=== PATIENT | female | born 1955 | race Caucasian/White ===

== ENCOUNTER 2017-11-15 10:00 | Outpatient (CLI) | payer OTHER, SELFPAY ==
--- NOTE | 2017-11-15 10:03 | DI.RAD_ITS ---
SYMPTOM/DIAGNOSIS: LT KNEE PAIN, PRE TKA LEFT KNEE: Frontal and lateral views. Comparison is made with 10/22/12. There is moderately severe narrowing in the medial femorotibial joint space and the patellofemoral joint. Prominent osteophytes are present in all three joint compartments. The findings are most marked however in the patellofemoral joint. There is a small suprapatellar joint effusion. Vascular calcifications are seen. The bones appear intact. IMPRESSION: Marked osteoarthritis of the left knee. LEG LENGTH EXAMINATION: Note is made of degenerative changes of the knees bilaterally. There is moderately severe joint space narrowing in the medial compartments bilaterally and kumar-articular spurring is seen in both medial and lateral femoral tibial joint spaces. The right lower extremity measures 85 cm. The left lower extremity measures 84 cm. IMPRESSION: Moderately severe osteoarthritis of the knees bilaterally.
== END 2017-11-15 10:20 ==
PROVIDERS: PCP Internal Medicine; Visit Provider Student in an Organized Health Care Education/Training Program
DX: M25.562 Pain in left knee (principal); M25.462 Effusion, left knee; M17.0 Bilateral primary osteoarthritis of knee
CPT/HCPCS: 73560; 77073

== ENCOUNTER 2017-12-04 02:45 | Outpatient (CLI) | payer OTHER, SELFPAY ==
[2017-12-04 08:25] LABS: Hemoglobin A1C 6.1 % (4.5-6.2)
[2017-12-04 09:59] LABS: Anion Gap 11.8 mmol/L (3-11); BUN 7 mg/dL (7-18); CO2 27.2 mmol/L (21.0-32.0); CREATININE 0.71 mg/dL (0.55-1.02); Calcium 9.4 mg/dL (8.5-10.1); Chloride 100 mmol/L (98-107); Glucose 100 mg/dL (70-100); Potassium 3.8 mmol/L (3.5-5.1); Sodium 139 mmol/L (136-145); TSH 4.16 uIU/mL (0.358-3.74)
[2017-12-04 10:09] LABS: Vitamin D 25 Total 61.1 ng/ml (30-100)
[2017-12-05 10:14] LABS: Parathyroid Hormone,Intact 55 pg/ml (19-88)
== END 2017-12-04 03:05 ==
PROVIDERS: PCP Internal Medicine; Visit Provider Internal Medicine Endocrinology, Diabetes & Metabolism
DX: E55.9 Vitamin D deficiency, unspecified (principal); Z86.39 Personal history of other endocrine, nutritional and metabolic disease; E11.9 Type 2 diabetes mellitus without complications; E03.8 Other specified hypothyroidism
CPT/HCPCS: 36415; 80048; 82306; 83036; 83970; 84443

== ENCOUNTER 2017-12-25 07:58 | Outpatient (CLI) | payer OTHER, SELFPAY ==
[2017-12-25 10:29] LABS: HCT 42.2 % (36.0-46.0); Mean Corp. HGB Concentration 33.2 g/dL (32.0-36.0); Mean Corpuscular Hemoglobin 29.1 pg (27.0-33.0); Mean Corpuscular Volume 87.7 fL (80-95); Platelet Count 334 x1000/uL (130-400); RBC 4.81 m/cumm (4.00-5.20); RBC Distribution Width 13.6 % (11.7-14.6); White Blood Cell Count 9.45 k/cumm (4.4-10.8)
[2017-12-25 11:17] LABS: Anion Gap 9.7 mmol/L (3-11); BUN 8 mg/dL (7-18); CO2 30.3 mmol/L (21.0-32.0); CREATININE 0.76 mg/dL (0.55-1.02); Calcium 9.5 mg/dL (8.5-10.1); Chloride 96 mmol/L (98-107); Glucose 94 mg/dL (70-100); Potassium 3.4 mmol/L (3.5-5.1); Sodium 136 mmol/L (136-145)
--- NOTE | 2017-12-25 12:58 | HPE_ITS ---
Date of service: 12/25/17 Assessment and Plan (1) Left knee DJD: Current visit: Yes Status: Chronic Left total knee replacement. As long as her dental work goes as planned, that is extraction of the tooth with no other surgical procedures, then we will move forward with a left total knee replacement. Details of surgery as well as risks, and pertinent anatomy were discussed with patient. All questions were answered. History of Present Illness Chief Complaint: Left knee pain Narrative: Uma a 62-year-old female who complaining of left knee pain for about 4 years now. She states the pain has been tolerable and managed for a few years with conservative treatment. She states that the injections had helped her significantly for a time. The last injection however only lasted about 3 months. She also has been working with physical therapy, and has been getting by. She eventually had an increase in her pain and now it is bothering her on a day-to-day basis. She states that she really has to push herself to get through a full day. Her pain is worse at the end of the day, and even when she sleeps. She has significant trouble going up and down stairs, down being worse. She has had x-rays which show severe arthritis in all compartments of her knee, including joint space narrowing to [id number], as well as bone spurring throughout. Spurring is most significant medially, and posteriorly. At this point since she has failed conservative treatment, Uma would like to move forward with a left total knee replacement. Pertinent Surgical Information Patient does have a history of hypertension which is well controlled with medication. She also has history of diabetes which is also well controlled with oral medications. Her last A1c was done on 12/04/2017 and it was 6.1. She also has a history of hypothyroidism which is also controlled with medication. She has not been diagnosed with anxiety or depression, however she has just recently lost her and states that she has been a little depressed since then. This is not being treated with medication. She states that she has a dental procedure scheduled for this week. She has a cracked tooth which she is going to have removed. She states that she has no plans of having any crowns or implants or root canals for this tooth. Patient denies history of CVA, AL, angina, asthma, COPD, renal or liver disorders, hepatitis, bleeding disorders, or immune disorders. No complications from anesthesia. Review of Systems Constitutional Denies fever(s) ENT Denies dizziness and Denies sore throat Cardiovascular Denies chest pain, Denies palpitations and Denies dyspnea Respiratory Denies dyspnea Gastrointestinal Denies abdominal pain, Denies melena, Denies hematochezia, Denies diarrhea, Denies nausea and Denies vomiting Genitourinary Denies hematuria and Denies dysuria Neurologic Denies dizziness Endocrine Denies palpitations PFSH Family History Mother Essential hypertension Heart disease Hyperlipidemia Father Essential hypertension Heart disease Medical History Left knee DJD (Chronic) Subclinical hypothyroidism (Acute 01/18/12) Primary hyperparathyroidism (Acute 03/11/13) Osteopenia (Acute 03/22/13) Obesity (Acute 12/14/12) Lipoma of colon (Acute 05/08/14) Impaired fasting glucose (Acute 09/29/11) Essential hypertension (Acute 08/27/14) Diabetes mellitus, type II (Acute 12/13/16) History of colonic polyps (Acute) GERD (gastroesophageal reflux disease) (Acute) Social History Smoking/Tobacco Use Status: Never Surgical History History of carpal tunnel release of both wrists (Acute) History of ovarian cystectomy (Acute) History of parathyroidectomy (Acute) History of tonsillectomy and adenoidectomy (Acute) Status post partial lobectomy of lung (Acute) History of hysterectomy (Chronic) Colonoscopy - MAC (05/02/14) EGD - MAC (05/02/14) Meds Home Medications Medication Instructions Recorded Confirmed Type acetaminophen 1,000 mg PO PRN PRN 07/17/12 12/25/17 History ibuprofen 400 mg PO PRN PRN 07/17/12 12/25/17 History [id number]-Kv-hwmu-minerals 1 tab-cap PO DAILY tab-cap 07/17/12 12/25/17 History [Women's One Daily] omeprazole 20 mg PO DAILY 07/17/12 12/25/17 History cyclosporine [Restasis] 1 drp OPHTHALMIC BID PRN drp 12/14/12 12/25/17 History ergocalciferol (vitamin D2) 1 tab-cap PO weekly tab-cap 09/29/14 12/25/17 History [Vitamin D2] calcium citrate-vitamin D3 2 ea PO DAILY 12/18/15 12/25/17 History metformin 500 mg PO DAILY 12/13/16 12/25/17 History hydrochlorothiazide 25 mg tablet 25 mg PO DAILY #90 tab 11/22/17 12/25/17 Rx losartan 25 mg tablet 25 mg PO DAILY #90 tab-cap 11/22/17 12/25/17 Rx levothyroxine 50 mcg capsule 50 mcg PO DAILY 12/11/17 12/25/17 History magnesium 250 mg PO HS 12/25/17 12/25/17 History Allergies Allergy/AdvReac Type Severity Reaction Status Date / Time celecoxib [From Celebrex] Allergy Severe Itching Unverified 12/25/17 09:15 ciprofloxacin Allergy Severe Unverified 12/25/17 09:15 metronidazole Allergy Severe Unverified 12/25/17 09:15 Sulfa (Sulfonamide Allergy Severe Hives Unverified 12/25/17 09:15 Antibiotics) sulfamethoxazole Allergy Severe Hives Unverified 12/25/17 09:15 trimethoprim Allergy Unknown Unverified 12/25/17 09:15 diclofenac AdvReac elevated Unverified 12/25/17 09:15 liver enzymes Exam [facility] Head: normocephalic and atraumatic General nose exam: no nasal discharge Throat: uvula midline and no uvular edema Other: soft palate rises symmetrically, no erythema Eyes Conjunctivae: conjunctivae normal Sclera: sclerae normal Pupils: PERRL Resp Effort & Inspection: normal respiratory effort Auscultation: clear to auscultation bilaterally and no wheezes Cardio Rate: regular rate Rhythm: regular rhythm Heart Sounds: S1 normal, S2 normal and no murmurs Results Labs : 12/25/17 10:15 12/25/17 10:15 Laboratory Results - last 24 hr 12/25/17 12/25/17 10:15 10:15 WBC 9.45 RBC 4.81 Hgb 14.0 Hct 42.2 MCV 87.7 MCH 29.1 MCHC 33.2 RDW 13.6 Plt Count 334 MPV 10.0 Sodium 136 Potassium 3.4 L Chloride 96 L Carbon Dioxide 30.3 Anion Gap 9.7 BUN 8 Creatinine 0.76 Estimated GFR/1.73 m2 >= 60.00 Glucose 94 Calcium 9.5
== END 2017-12-25 08:18 ==
PROVIDERS: PCP Internal Medicine; Visit Provider Student in an Organized Health Care Education/Training Program
DX: M25.562 Pain in left knee (principal); M17.12 Unilateral primary osteoarthritis, left knee; Z01.818 Encounter for other preprocedural examination
CPT/HCPCS: 36415; 80048; 85027; NC

== ENCOUNTER 2018-01-02 07:12 | Inpatient (IN) | payer OTHER, SELFPAY ==
[2017-12-25 08:22] VITALS: BP 112/77; PULSE 82; RESP 17; TEMP 36.9; O2SAT 95
[2018-01-02] VITALS (20 sets, daily range): BP systolic 84–143; BP diastolic 43–85; PULSE 48–81; RESP 10–20; TEMP 36.1–36.6; O2SAT 95–100
[2018-01-02] MEDS: Lactated Ringers 1,000 ML 80 ML IV ×4 (06:39→12:53)
[2018-01-02] MEDS: oxyCODONE-CR 10 MG TABCR PO (06:39)
[2018-01-02] MEDS: Acetaminophen 500 MG TAB 1000 MG PO ×3 (06:39→19:48)
[2018-01-02] MEDS: Gabapentin 300 MG CAP PO ×2 (06:39→21:25)
[2018-01-02] MEDS: Bupivacaine LIPOSOME/PF 133 MG/10 ML VIAL IJ ×2 (07:22→09:30)
[2018-01-02] MEDS: Bupivacaine 0.25% Pres-Free 30 ML VIAL (09:30)
[2018-01-02] MEDS: Ketorolac 30 MG/ML VIAL (09:30)
[2018-01-02] MEDS: Normal Saline 50 ML (09:30)
--- NOTE | 2018-01-02 10:08 | ROE_ITS ---
Date of service: 01/02/18 Time of Service: 10:06 Operative Note DATE OF PROCEDURE: 01/02/18 PRE-OP DIAGNOSIS: Left knee osteoarthritis POST-OP DIAGNOSIS: same PROCEDURE: Left Total Knee Replacement SURGEON: Philipp Roman EDUCATION TECHNICIAN: Mirta Roca ANESTHESIA: regional and spinal ESTIMATED BLOOD LOSS: 150 PATHOLOGY: none sent TOURNIQUET TIME: 32 COMPLICATIONS: None Patient was transported to: PACU Patient's condition: stable Implants: 1. Depuy Attune Posterior Stabilized Femoral Component, Size 5 narrow 2. Depuy Attune Fixed Platform Tibial Component, Size 4 3. Depuy Attune 5 x 6 mm fixed, Stabilized Poly 4. Depuy Attune Patellar Component, Size 35 mm Indications: I have seen Uma in clinic for symptoms of left knee arthritis, confirmed with radiographic findings. Uma has exhausted nonoperative methods and was having significant limitations in daily function and desired better function and less pain. I discussed the technical details of a knee replacement. I explained the risks of the procedure to include, but not limited to, bleeding, infection, pain, stiffness, fracture, damage to nerves and vessels, damage to muscles and tendons, loosening, need for repeat procedure , blood clot and cardiopulmonary demise. Despite these risks, Uma elected to proceed. Findings: There was significant signs of arthritis throughout the knee. Procedure Description: Uma was greeted in the preoperative holding area where the correct side was identified and marked. The consent was reviewed with the patient and signed. The history and physical was updated. All questions were answered. Preoperative medications were administered: Acetaminophen 1000mg, Celebrex 400mg, Gabapentin 300mg, and Oxycontin 10mg. An adductor canal block was then administered by the anesthesia team in the PACU. Uma was taken back to the operating room. A spinal anesthestic was then administered. The patient was placed into the supine position on the operating room table. A nonsterile tourniquet was placed high onto the leg but only used for cementing. Posts were placed for positioning during the procedure. All bony prominences were well padded. Prophylactic antibiotics in the form of cefazolin were administered. 1g of Tranxemic Acid was given intravenously within 30 minutes of incision. The left leg was then prepped with Chloraprep and draped in a standard fashion with impervious stockinette and extremity drape with Iodine impregnated skin protection. A timeout to confirm correct identity, side and site, procedure, allergies, anesthesia, and medical concerns was performed. With the knee in some flexion, a midline incision was made overlying the knee. Full thickness skin flaps were raised once the extensor mechanism was encountered. These were raised medially and laterally. Any bleeding was controlled with electrocautery. Once the extensor mechanism was fully exposed, a medial parapatellar arthrotomy was performed in a flexed position. All bleeding from the arthrotomy and the geniculate arteries was coagulated. A medial subperiosteal peel was performed with electrocautery to the midcoronal plane. Due to the significant varus deformity the entire medial tibial plateau was exposed. The fat pad was removed while keeping the patellar tendon protected. The anterior distal femur synovium was removed for later visualization. The ACL and PCL were resected and the anterior horn of the lateral meniscus was transected. The knee was then flexed with the patella everted. Large osteophytes from the tibia were removed. Large osteophytes from the femur were removed. Using a step drill, and based on preoperative templating, the femoral canal was entered. This was done with a step drill without any difficulty. The intramedullary distal femoral cut guide was inserted, set to a 5 degree valgus cut and 9mm cut thickness. The distal femoral cut guide was then held in position and pinned. With the soft tissues protected, the distal cut was performed. This was passed over a few times to ensure a planar cut. I then turned attention to the tibia. The extramedullary guide was placed onto the leg. The distal aspect was slid medial to adjust for position of center of ankle and stay in line with shaft of the tibia. Approximately 3-5 degrees of posterior slope was kept in the proximal cutting guide. The center of the guide was aligned with the PCL. The stylus was used to assess cut thickness. The medial side, most involved side, was set for a 5mm cut. This was then held in position and pinned into place with 2 additional pins and a cross pin for stability. The medial and lateral collateral ligaments were protected and the cut was performed. With this completed, it was assessed and noted to be of appropriate dimensions. The guide was removed. A spacer block was inserted and the knee was brought into extension. The 6mm spacer block provided full extension, without hyperextension and with stability of both the medial and lateral collateral ligaments was assessed. The pins from the femur and the tibia were then removed. The distal femur was then sized. The anterior stylus was placed onto the lateral ridge of the anterior femur. This indicated a size 5 narrow femur. The external rotation of the guide was adjusted to 3 degrees to match the epicondylar axis, perpendicular to Good?s line. The 4-in-1 cutting guide was the placed. The posterior medial femur cut was evaluated and appeared of good thickness. The spacer block was inserted underneath the cutting guide and stability was confirmed in 90 degrees of flexion. An ramonita wing was used to confirm appropriate position of the anterior cut to avoid notching. This cutting guide was ensured to be flush on the cut surface and then pinned into place with headed pins. While protecting the soft tissues, quad tendon, and collateral ligaments, the anterior and posterior cuts were performed with a saw. The central two pins were removed and the posterior and anterior chamfers were cut next. The notch-cutting guide was placed. This was pinned to lateralize the femoral component as much as possible while keeping it flush on the cut surface. This was then pinned into position. A reciprocating saw was used to make the notch cut. A rasp smoothed the cut surfaces. A trial posterior stabilized femoral component was then inserted, impacted down to the cut surfaces, and the lug holes were drilled. A provisional trial tibial component was placed and the knee was brought through range of motion. There was noted to be excellent extension and flexion. There was no significant instability. The patella was tracking without thumbs. The tibial cut surface was fully exposed. The medial and lateral menisci were removed. The tibia was then sized as a 4. The tibia had been previously marked during trialing to correspond to the center of the tibial component to help with rotation. The trial was aligned to this mirta, approximately rotated to the medial 1/3rd of the tibial tubercle. The trial was pinned into place. The tibia was prepared with a reamer and a keel punch. The knee was then brought into extension and the patella was measured as 24 mm. Using the patellar clamp and cut guide, this was resected to a flat surface with at least 13mm of thickness remaining. The size 35 mm patella fit the best. This was oriented and then clamped into position. The lugs were drilled. The trial components were removed. The final components, except for the polyethylene were opened on the back table. The periosteal and capsular tissues , especially posteriorly, around the knee were then systematically injected with a periarticular cocktail consisting of 50cc 0.25% Marcaine, 30mg Ketorolac , 20cc of Exparal and 50cc of injectable saline. The tourniquet was then inflated to 275mmHg. The knee was thoroughly irrigated with a pulse lavage and dried. On the back table, with the implants opened, the cement was mixed. 2 batches of antibiotic laden cement were prepared with vacuum assistance. After the cement was ready a small amount was placed on to the back side of the tibial component at the keel. A small amount was placed onto the posterior flange of the femur. Cement was manual pressurized and impregnated into the cut surface of the tibia. The tibial component was then inserted into the cut surface and impacted into position. Excess cement was removed and the component was reimpacted. Again, excess cement was removed and our attention was then turned to the femur. The femoral cut surface was once again dried and cement was manually impacted into the cut surface. The femoral component was lined with the lug holes and impacted. Excess cement was removed. It was ensured to be down against the cut surface. The trial polyethylene was then inserted and the leg was brought out into full extension for the duration of the cement curing process, approximately 15min. Cement was lastly manually impacted into the cut surface of the patella and the patellar button was clamped into position and held. During this process attention was turned to the gutters of the knee and for all interfaces for any excess cement. After the cement had finally cured, approximately 15min, the clamp was removed from the patella and the knee was taken through range of motion. A size 6mm polyethylene component provided the best range of motion and stability with less than 2mm gapping with medial and lateral stress and full extension without significant hyperextension. The patella was tracking with a no-thumbs technique. The trial poly was removed and once again the knee was checked for any loose, excess, or errant cement. The poly component was then inserted and impacted into position after cleaning and drying the tibial tray. The capsule was then reapproximated with a No. 1 Vicryl at multiple locations. The capsule was finally closed with a No. 2 Stratafix, barbed suture. The tourniquet was then released and the arthrotomy appeared watertight without significant bleeding. The second dosing of 1g TXA was started. Deep tissues were then reapproximated with 0 Vicryl and 2-0 Vicryl. The skin was closed with a running 3-0 Monocryl in a subcuticular fashion. This was reinforced with skin glue. A Mepilex silver dressing was applied along with a foot-to- thigh TOREY wrap. A CryoCuff was applied. Uma was transferred to the hospital bed without difficulty an suffering no apparent complication. Uma has a good prognosis. Physical therapy will start today and without restrictions, weight-bearing as tolerated. Aspirin 81mg BID will be used for DVT prophylaxis.
[2018-01-02] MEDS: Ibuprofen 600 MG TAB PO ×2 (13:36→19:48)
--- NOTE | 2018-01-02 14:58 | PT.INIE ---
Date of service: 01/02/18 Time of Service: 14:58 PT Notes Inpatient Physical Therapy Evaluation Date: 01/02/18 Referring Doctor: Philipp Roman PT Orders: PT CONSULT: s/p L TKA Precautions: WBAT L LE Patient Profile/Admitting Diagnosis: Pt is a 62yr old female s/p left total knee arthroplasty by Dr. Roman 01/02/18 PMHX: left knee degenerative joint disease, osteopenia, diabetes mellitus type II, bilateral carpal tunnel release, hypothyroidism, hyperparathyroidism, obesity, lipoma of the colon, colonic polyps, gastroesopahgeal reflux disease, oavarion cystectomy, tonsillectomy, adenoidectomy, s/p partial lobectomy lung, hysterectomy Social History/Home Situation: Lives alone in home, recently in October, 3 steps bilateral railing to enter. Baseline mobility independent gait with no device, independent ADLS Equipment Owned/DME: borrowed a pull up walker with no wheels. Will need a FWW at discharge. Subjective: Pt lying in bed, states she feels good, ready to get up. Objective: General Observation: IV L UE, mcwilliams catheter, rowan wrap left knee Mental Status: A& O x3 Pain: no c/o pain Bed Mobility/Transfers: Supine-sit: HOB 30 degrees, independent Sit-stand: SBA with FWW Stand-sit: SBA Sit-supine: HOB flat, independent Gait: CGA with FWW 20ftx2 WBAT L LE, step to gait pattern to doorway nad back to bed. Therex: Initiated ankle pumps, quad sets and glute sets x 20 reps Balance: Static Sitting: normal Dynamic Sitting: normal Static Standing: fair Dynamic Standing: fair Special Tests: Mobility Limitations Standardized Measure [facility] AM-PAC 6 clicks Basic Mobility Inpatient Short Form: Raw Score: 18 Standardized Score: 43.63 CMS Score: 46.58% CMS Modifier: CK Informed Consent/Education: Patient instructed in purpose of PT consult and plan of care. Assessment: Pt is a 62yr old female s/p left total knee arthroplasty by Dr. Roman 01/02/18 in setting of left knee degenerative joint disease, osteopenia, diabetes mellitus type II, bilateral carpal tunnel release.Patient presents with the following impairment level findings: weakness left quad, decreased strength and mobility with standing transfers and gait requring FWW for gait stability post operatively due to decreased static and dynamic standing balance. Pt was able to mobilize out of bed in room today. Will progress gait and stair training in am Pt will need a FWW for gait stability in home setting. Impairments are contributing to the following functional limitations: AMPAC score CMS Score: 46.58% Patient is assessed as Moderate 16908 complexity based on the following: History: see above Examination: see above Presentation: evolving Decision Making: AMPAC score CMS Score: 46.58% Goals: Goals X1 week 1. Supine-Sit : independent 2. Sit-Supine : independent 3. Sit-Stand : independent with FWW 4. Stand-Sit : independent 5. Bed-Chair : supervision with FWW 6. Chair-Bed : supervision with FWW 7. Gait : supervision with FWW 200ft, WBAT L L E 8. Stairs : up/down 3 steps bilateral railings, WBAT L LE, supervision 9. Independent with home exercise program for TKA Plan of Care/Treatment Plan: 1-2x/day, 7 days/week x 1 week. Plan of care has been reviewed with the FINISH SANDER providing the service under Physical Therapy direction. Initiate Physical Therapy intervention for strengthening, bed mobility, transfers, gait, stairs, balance training, use of assistive device. DISCHARGE RECOMMENDATIONS: Home, will need FWW. TREATMENT CODE/TIME: 25 min IE 1445 G Codes in the area mobility of walking and moving around: current status [id number] CK; projected status GP [id number]. Discharge status (if discharging) GP [id number] CK based on AMPAC score CMS Score: 46.58% Kaitlin Wilkes PT
[2018-01-02] MEDS: Magnesium Gluconate 500 MG TAB 250 MG PO (21:24)
[2018-01-02] MEDS: oxyCODONE 5 MG TAB PO (22:31)
[2018-01-03] MEDS: Lactated Ringers 1,000 ML 80 ML IV (01:42)
[2018-01-03 05:00] VITALS: BP 106/67; PULSE 74; RESP 16; TEMP 37.1; O2SAT 97
[2018-01-03] MEDS: Levothyroxine 50 MCG TAB PO (07:14)
[2018-01-03] MEDS: Omeprazole 20 MG CAPCR PO (07:14)
[2018-01-03 07:15] VITALS: BP 103/68; PULSE 74; RESP 18; TEMP 36.3; O2SAT 96
--- NOTE | 2018-01-03 07:58 | PT.INTREAT ---
Date of service: 01/03/18 Time of Service: 07:59 PT Notes Inpatient Physical Therapy Treatment Note Date: 01/03/18 PRECAUTIONS: WBAT L LE SUBJECTIVE: Pt lying in bed watching TV,alert and agreeable to therapy session. OBJECTIVE: PAIN: no c/o pain, slight stiffness reported in left knee that decreased with mobiilty BED MOBILITY/TRANSFERS Rolling L/R: independent Supine-sit: independent Sit-stand: independent with FWW Stand-sit: independent Bed-Chair: supervision with FWW GAIT Assistive Device: FWW Weight bearing: WBAT L LE Assist: supervision Distance: 250ft Deviation: steady step through gait pattern with instructions for sequencing. Stiffness left knee reduced with mobility. Pt left up in recliner chair with legs elevated for breakfast. THEREX: independent with TKA therapeutic exercise ankle pumps, quad sets and glute sets x 20 reps, left SLR x 10 reps. Pt has issued home exercise program for TKA STAIRS: up/down 5 steps with railing supervision ASSESSMENT: Pt mobilizing well with transfers and gait mobility, has met therapy goals and is ready to discharge to home setting. Pt will need a FWW for gait mobility in home setting post operatively. PLAN: Review TKA program TREATMENT CODE/TIME: 24min TAx1 TPx1 7:35 Kaitlin Wilkes PT
[2018-01-03] MEDS: Aspirin E.C. 81 MG TABEC PO ×2 (08:44→20:04)
[2018-01-03] MEDS: metFORMIN 500 MG TAB PO (08:44)
[2018-01-03] MEDS: Ibuprofen 600 MG TAB PO ×3 (08:44→20:04)
[2018-01-03] MEDS: Multivitamin w/Minerals TAB 1 TAB PO (08:44)
[2018-01-03] MEDS: Hydrochlorothiazide 25 MG TAB PO (08:44)
[2018-01-03] MEDS: Losartan 25 MG TAB PO (08:44)
[2018-01-03] MEDS: Acetaminophen 500 MG TAB 1000 MG PO ×3 (08:45→20:04)
[2018-01-03] MEDS: Normal Saline Flush 10 ML SYR IV (09:31)
[2018-01-03 11:10] VITALS: BP 113/72; PULSE 64; RESP 16; TEMP 36; O2SAT 99
--- NOTE | 2018-01-03 11:21 | PDOC.CMIN ---
- If Service Date Differs Date of service: 01/03/18 Time of Service: 11:21 Care Management Initial Assess REASON FOR HOSPITALIZATION:: Left Total Knee PAST MEDICAL HISTORY/PAST SURGICAL HISTORY:: GERD, DJD left knee, hypthyroidism, osteopenia, obesity, lipoma, impaired fasting glucose PREVIOUS FUNCTIONAL STATUS/SOCIAL/FAMILY SUPPORTS:: Uma lives in her own home in [place], [place]. Uma is recently in October of this year. She has several friends in the area that are supportive. She retierd from the [employer] in [place], [place]. CURRENT FUNCTIONAL STATUS:: Uma is sitting up in the chair her friend Sasha is visiting she states it is okay to complete assessment with her present. Uma states she is doing well she did have increased pain over night. Uma request that she receive a FWW through [employer]. She would like to stay one more day she has a friend that is going to be staying with her starting on . ADVANCE DIRECTIVES:: On file at [facility] Has patient been provided with information about the portal?: Yes Did the patient sign up for the portal?: No CODE STATUS:: Full Code INSURANCE COVERAGE / FINANCIAL ISSUES:: [facility] CURRENT HOME/COMMUNITY SERVICES/EQUIPMENT:: She will attend PT with Gary Garza. PRIMARY CARE PHYSICIAN:: POTENTIAL DISCHARGE NEEDS:: Follow up appointment with , ELYSEW coordianted by CM through [employer] and outpatient PT already scheduled by Pt. PATIENT/FAMILY EDUCATION NEEDS:: Discharge education, limitations and follow up plan of care. CM educated patient on follow up plan of care including self management and ask me three discussion ANTICIPATED BARRIERS TO DISCHARGE:: None identified TRANSPORTATION:: Via private car with friend Sasha. PLAN:: Uma will be discharged home when medically ready per . She will transport home with her friend Sasha. Outpatient PT with Gary Dominguez and a FWW through [employer].
--- NOTE | 2018-01-03 11:51 | INITIAL_ITS ---
- If Service Date Differs Date of service: 01/03/18 Time of Service: 11:21 Care Management Initial Assess REASON FOR HOSPITALIZATION:: Left Total Knee PAST MEDICAL HISTORY/PAST SURGICAL HISTORY:: GERD, DJD left knee, hypthyroidism , osteopenia, obesity, lipoma, impaired fasting glucose PREVIOUS FUNCTIONAL STATUS/SOCIAL/FAMILY SUPPORTS:: Uma lives in her own home in [place], [place]. Uma is recently in October of this year. She has several friends in the area that are supportive. She retierd from the [employer] in [place], [place]. CURRENT FUNCTIONAL STATUS:: Uma is sitting up in the chair her friend Sasha is visiting she states it is okay to complete assessment with her present. Uma states she is doing well she did have increased pain over night. Uma request that she receive a FWW through [employer]. She would like to stay one more day she has a friend that is going to be staying with her starting on . ADVANCE DIRECTIVES:: On file at [facility] Has patient been provided with information about the portal?: Yes Did the patient sign up for the portal?: No CODE STATUS:: Full Code INSURANCE COVERAGE / FINANCIAL ISSUES:: [facility] CURRENT HOME/COMMUNITY SERVICES/EQUIPMENT:: She will attend PT with Gary Garza. PRIMARY CARE PHYSICIAN:: POTENTIAL DISCHARGE NEEDS:: Follow up appointment with , ELYSEW coordianted by CM through [employer] and outpatient PT already scheduled by Pt. PATIENT/FAMILY EDUCATION NEEDS:: Discharge education, limitations and follow up plan of care. CM educated patient on follow up plan of care including self management and ask me three discussion ANTICIPATED BARRIERS TO DISCHARGE:: None identified TRANSPORTATION:: Via private car with friend Sasha. PLAN:: Uma will be discharged home when medically ready per . She will transport home with her friend Sasha. Outpatient PT with Gary Dominguez and a FWW through [employer].
--- NOTE | 2018-01-03 12:43 | W.PM.PROGNOT ---
Assessment and Plan (1) Left knee DJD: Current visit: No Status: Chronic Uma is status post knee replacement the left side. She is doing well. She will continue to be weightbearing as tolerated. She will with physical therapy. 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 We will also continue to work on pain management. Leo catheter be discontinued later today. We will discontinue fluids. Likely home tomorrow. Continue aspirin 81 mg twice daily for DVT prophylaxis. Subjective Interval history since last seen: Uma reports to be doing well. She has been able to ambulate. He does have some pain in the knee which is being controlled with the pain medications at this time. She does report significant stiffness and is trying to exercise in the bed. She denies fever or chills. She has no chest pain or shortness of breath. Exam Narrative Exam Narrative: Evaluation of the left knee shows clean dry and intact dressings. Octavio wrap is in place. Knee extension is about 10 degrees short of extension and she flexes to 85 degrees. She is able to straight leg raise. The knee is stable to varus and valgus stress. She has intact ankle dorsiflexion, plantarflexion, great toe extension and flexion. Sensation intact light touch over the deep and superficial peroneal nerves and tibial nerve. Objective Objective Clinical Data: Vital Signs Temperature 36 C L 01/03/18 11:10 Temperature Source Tympanic 01/03/18 11:10 Pulse 64 01/03/18 11:10 Pulse Rhythm Regular 01/03/18 01:30 Respiratory Rate 16 01/03/18 11:10 Respiratory Effort Non-Labored 01/03/18 01:30 Respiratory Depth Normal 01/03/18 01:30 Respiratory Pattern Normal 01/03/18 01:30 Blood Pressure 113/72 01/03/18 11:10 Pulse Oximetry 99 01/03/18 11:10 Respiratory End-tidal CO2 33 01/02/18 12:17 Oxygen Delivery Method Room Air 01/03/18 11:10 Oxygen Flow Rate 0 01/03/18 11:10 Pain Level 2 01/03/18 08:45 Comment 01/02/18 14:15 Intake & Output 01/02/18 01/03/18 01/03/18 23:59 11:59 23:59 Intake Total 1123.333 / 8689.709 9030.666 / 1722.666 Output Total 800 / 800 600 / 600 Balance 323.333 / 318.575 6782.666 / 1122.666 Intake: IV 883.333 / 883.333 932.666 / 932.666 Oral 240 / 240 790 / 790 Output: Urine 800 / 800 600 / 600 Other: Urine Color Pale Yellow Yellow Urine Appearance Clear Clear Emesis Description None
[2018-01-03] MEDS: oxyCODONE 5 MG TAB PO ×2 (13:07→21:17)
--- NOTE | 2018-01-03 13:44 | PT.INTREAT ---
Date of service: 01/03/18 Time of Service: 13:44 PT Notes Inpatient Physical Therapy Treatment Note Date: 01/03/18 PRECAUTIONS: WBAT on L SUBJECTIVE: Uma states that she has not felt too bad, she feels she is getting around pretty well, is surprised with how well she feels she is doing so quickly after surgery. OBJECTIVE: PAIN: No complaints of pain BED MOBILITY/TRANSFERS Sit-supine: I with HOB flat Sit-stand: I Stand-sit: I GAIT Assistive Device: FWW Weight bearing: WBAT on L Assist: S Distance: 300' THEREX: Patient completed a lower extremity strengthening and stabilization program, as per flow sheet. ASSESSMENT: Patient tolerated session well without complaints of pain. Patient was able to tolerate a progression in her gait distance with FWW support. Patient demonstrates independence with bed mobility and transfers at this time. Patient would benefit from continued strengthening as well as gait training to improve gait distance duration. PLAN: Continue with PTs POC TREATMENT CODE/TIME: 30 minutes; TA/TP
--- NOTE | 2018-01-03 15:11 | CHAPLAIN ---
Uma was resting in bed when I visited. She shared some personal history telling me about her 's this summer, shortly after she retired from working at the [employer] in [place], [place]. Her stepdaughters live nearby and she is also supported by aunts in [place] and [facility]. Arlet's , Star, had some health issues, but suddenly at [facility] and Arlet said Rev. Mickey Johnston, the button riveter functional support analyst was very helpful to her.
[2018-01-03 15:35] VITALS: BP 96/56; PULSE 70; RESP 17; TEMP 36.5; O2SAT 95
[2018-01-03] MEDS: Polyethylene Glycol 3350 17 GM PACKET PO (20:04)
[2018-01-03 20:13] VITALS: BP 104/74; PULSE 68; RESP 16; TEMP 36.5; O2SAT 98
[2018-01-03] MEDS: Magnesium Gluconate 500 MG TAB 250 MG PO (21:17)
[2018-01-03] MEDS: Gabapentin 300 MG CAP PO (21:17)
[2018-01-03 23:35] VITALS: BP 118/76; PULSE 65; RESP 18; TEMP 36.8; O2SAT 97
[2018-01-04] MEDS: oxyCODONE 5 MG TAB PO ×2 (01:39→06:42)
[2018-01-04 04:18] VITALS: BP 111/75; PULSE 65; RESP 16; TEMP 36.4; O2SAT 97
[2018-01-04] MEDS: Levothyroxine 50 MCG TAB PO (06:42)
--- NOTE | 2018-01-04 07:05 | DSE_ITS ---
Date of service: 01/04/18 Time of Service: 07:04 DS: Diagnosis Discharge Diagnosis (1) Left knee DJD: Status: Chronic Discharge Plan Disposition Patient Disposition: HOME Condition: Good Discharge Details Reason For Visit: L KNEE DJD Admit Date/Time: 01/02/18 07:12 Admit Provider: Philipp Roman Attending Provider: Philipp Roman Primary Care Provider: Miriam Agee Hospital Course Hospital Course: Patient was admitted to the medical/surgical floor following the procedure. It was tolerated well without any notable medical, surgical, or anesthetic complications. Mobilization began postoperatively. The mcwilliams catheter was removed and voiding spontaneously. Vitals were stable. Physical therapy worked with the patient and was cleared for discharge home. No acute medical issues. Home Meds and New Rx's Prescriptions: New polyethylene glycol 3350 17 gram Powder In Packet 17 g PO BID PRN PRN (Reason: Constipation) Qty: 0 RF: 0 aspirin 81 mg Tablet,Delayed Release (Dr/Ec) 81 mg PO BID Qty: 80 RF: 0 docusate sodium [Colace] 100 mg Capsule 100 mg PO BID PRN PRN (Reason: Constipation) Qty: 0 RF: 0 ibuprofen 600 mg tablet 600 mg PO TID PRNQty: 90 RF: 3 acetaminophen 500 mg capsule 1,000 mg PO Q8H PRN (Reason: pain) Qty: 90 RF: 0 oxycodone 5 mg tablet 5 mg PO Q4H Qty: 15 RF: 0 gabapentin 300 mg Capsule 300 mg PO HS Qty: 7 RF: 0 Continue npujualcsbim-Zw-rmde-minerals [Women's One Daily] 1 EACH tablet 1 tab-cap PO DAILY RF: 0 omeprazole 20 MG tablet,delayed release (DR/EC) 20 mg PO DAILY RF: 0 cyclosporine [Restasis] 1 EACH dropperette 1 drp Ophthalmic BID PRNRF: 0 ergocalciferol (vitamin D2) [Vitamin D2] 50,000 UNIT capsule 1 tab-cap PO weekly RF: 0 calcium citrate-vitamin D3 1 EACH tablet 2 ea PO DAILY RF: 0 metformin 500 MG tablet extended release 24hr 500 mg PO DAILY RF: 0 hydrochlorothiazide 25 mg tablet 25 mg PO DAILY Qty: 90 RF: 3 losartan 25 mg tablet 25 mg PO DAILY Qty: 90 RF: 3 levothyroxine 50 mcg capsule 50 mcg PO DAILY RF: 0 magnesium 250 mg Tablet 250 mg PO HS RF: 0 Discontinued acetaminophen 500 MG tablet 1,000 mg PO PRN PRNRF: 0 ibuprofen 200 MG tablet 400 mg PO PRN PRNRF: 0 acetaminophen-codeine [Tylenol-Codeine #3] 300-30 mg Tablet 1 tab PO Q6H PRN (Reason: Pain) RF: 0 Discharge Instructions Instructions: Total Knee Discharge Instructions Additional Instructions: Dr. Roman?s Total Knee Discharge Instructions Activity: The most important activity is to walk. You should try to take short walks a few times a day. It is important that when resting you work on keeping the knee straight. Avoid putting a pillow behind the knee as this will encourage flexion. Work on range of motion exercises as provided by Physical Therapy. - Home Health Physical Therapy has been arranged. - You should wear the VENKATESH hose on both legs for the first 2 weeks. Dressing: Keep the surgical dressing in place for at least one week. After the first week it may be removed and replace with light gauze and tape or nothing. It may get wet after 3 days but avoid soaking the dressing. If it gets wet, just lightly pat dry. Medications: - You should take Tylenol and anti-inflammatory (Ibuprofen) as your primary pain control medications - You have been prescribed a stronger pain medication (Oxycodone) for breakthrough pain, take as needed as prescribed. - You will be taking Aspirin 81mg twice a day for DVT prevention unless instructed otherwise. - If you have constipation you should take Colace or Miralax (both over-the- counter). It takes most people 3-4 days to have a bowel movement. Follow-up: 2 weeks 1. Encounter Date and Reason I certify that UMA GUILLEN was seen by Philipp Roman on 01/04/18 and that I had a [id number] encounter with this patient that meets the physician face to face encounter requirements. 2. Clinical Findings Supporting Skilled Need and Homebound Status I certify that home health services are medically necessary, include either intermittent penitentiary and/or physical/speech therapy, and that this patient is homebound in that absences from the home require considerable and taxing effort and are infrequent or of short duration, or are attributable to the need to receive medical care. [X] (a) Attached documentation from encounter provides clinical findings supporting skilled need and homebound status (including what assistance patient requires to leave the home). The encounter with the patient was in whole, or in part, for the following medical condition, which is the primary reason for home health care: L KNEE DJD Nursing Home: Physical Therapy: Uma would benefit from physical therapy to address her significant weakness, stiffness, and ambulation deficitis s/p right knee replacement. She is recovering from right knee replacement and has limited ambulation along with weakness. Initial therapy should focus on knee extension more than knee flexion with particular attention to gait training and transition from walker to cane to nothing. Speech Therapy: Homebound: Uma is homebound due to signficant weakness and difficulties with ambulation. She is unable to leave her home without assistance. 3. Certification and Authentication I certify that I composed the above information based on my clinical judgement relating to this patient's medical condition and, if applicable, clinical findings communicated to me by the NPP or inpatient physician who performed the Home Health Referral. All further orders will be obtained through Dr. Roman Stand Alone Forms: Nursing Discharge Form Referrals: Philipp Roman MD [ [facility] STAFF PHYSICIAN] - 01/17/18 10:00 am Activity:: Activity as Tolerated Equipment/Supplies:: No Equipment Needed Diet:: As Tolerated Discharge Orders Discharge Orders: Discharge Order (Routine); Ordered 01/04/18 Ordered By: Philipp Roman DS: Data Vitals/I&O Vitals and I&O: Vital Signs Temperature 36.4 C L 01/04/18 04:18 Temperature Source Tympanic 01/04/18 04:18 Pulse 65 01/04/18 04:18 Pulse Rhythm Regular 01/03/18 22:39 Respiratory Rate 16 01/04/18 04:18 Respiratory Effort Non-Labored 01/03/18 22:39 Respiratory Depth Normal 01/03/18 22:39 Respiratory Pattern Normal 01/03/18 22:39 Blood Pressure 111/75 01/04/18 04:18 Pulse Oximetry 97 01/04/18 04:18 Respiratory End-tidal CO2 33 01/02/18 12:17 Oxygen Delivery Method Room Air 01/04/18 04:18 Oxygen Flow Rate 0 01/04/18 04:18 Pain Level 2 01/04/18 06:42 Comment 01/02/18 14:15 Intake & Output 01/03/18 01/03/18 01/04/18 11:59 23:59 11:59 Intake Total 2082.666 / 2082.666 480 / 480 Output Total 600 / 600 3200 / 3200 1800 / 1800 Balance 1482.666 / 1482.666 -2720 / -2720 -1800 / -1800 Intake: IV 932.666 / 932.666 Oral 1150 / 1150 480 / 480 Output: Urine 600 / 600 3200 / 3200 1800 / 1800 Other: Urine Color Yellow Yellow Yellow Urine Appearance Clear Clear Clear Urine Odor None Comment Void x1 in the toilet. Voiding Methods Toilet Toilet
[2018-01-04 07:30] VITALS: BP 112/69; PULSE 67; RESP 18; TEMP 37.1; O2SAT 94
[2018-01-04] MEDS: metFORMIN 500 MG TAB PO (07:30)
[2018-01-04] MEDS: Omeprazole 20 MG CAPCR PO (07:30)
--- NOTE | 2018-01-04 07:44 | PT.INDS ---
Date of service: 01/04/18 Time of Service: 07:44 PT Notes Inpatient Physical Therapy Discharge Summary Date: 01/04/18 Dates of Service: 01/02/18-01/03/18 SUBJECTIVE: NT OBJECTIVE: 01/02/18-01/03/18 Bed Mobility/Transfers: Supine-sit: independent Sit-stand: independent Stand-sit: independent Sit-supine:independent Gait: superivsion with FWW 300ft WBAT L LE Stairs: up/down 5 steps with railing, supervision Balance: Static Sitting: normal Dynamic Sitting: normal Static Standing: fair Dynamic Standing: fair Assessment: Pt is a 62yr old female s/p left total knee arthroplasty by Dr. Roman 01/02/18 in setting of left knee degenerative joint disease, osteopenia, diabetes mellitus type II, bilateral carpal tunnel release.Patient was seen for 3 PT visits. Progressed from SBA standing transfers to independent, from CGA with FWW 20ftx2 to supervision with FWW 300ft, up/down 5 steps with supervision. Pt has met therapy goals and will be discharged to home. Goals: Goals X1 week 1. Supine-Sit : independent 2. Sit-Supine : independent 3. Sit-Stand : independent with FWW 4. Stand-Sit : independent 5. Bed-Chair : supervision with FWW 6. Chair-Bed : supervision with FWW 7. Gait : supervision with FWW 200ft, WBAT L L E 8. Stairs : up/down 3 steps bilateral railings, WBAT L LE, supervision 9. Independent with home exercise program for TKA Pt met goals # 1-9 DISCHARGE RECOMMENDATIONS: Home, will need FWW. G Codes in the area mobility of walking and moving around: projected status GP [id number]. Discharge status (if discharging) GP [id number] CK Kaitlin Wilkes PT
--- NOTE | 2018-01-04 07:48 | INDS_ITS ---
Date of service: 01/04/18 Time of Service: 07:44 PT Notes Inpatient Physical Therapy Discharge Summary Date: 01/04/18 Dates of Service: 01/02/18-01/03/18 SUBJECTIVE: NT OBJECTIVE: 01/02/18-01/03/18 Bed Mobility/Transfers: Supine-sit: independent Sit-stand: independent Stand-sit: independent Sit-supine:independent Gait: superivsion with FWW 300ft WBAT L LE Stairs: up/down 5 steps with railing, supervision Balance: Static Sitting: normal Dynamic Sitting: normal Static Standing: fair Dynamic Standing: fair Assessment: Pt is a 62yr old female s/p left total knee arthroplasty by Dr. Roman 01/02/18 in setting of left knee degenerative joint disease, osteopenia , diabetes mellitus type II, bilateral carpal tunnel release.Patient was seen for 3 PT visits. Progressed from SBA standing transfers to independent, from CGA with FWW 20ftx2 to supervision with FWW 300ft, up/down 5 steps with supervision. Pt has met therapy goals and will be discharged to home. Goals: Goals X1 week 1. Supine-Sit : independent 2. Sit-Supine : independent 3. Sit-Stand : independent with FWW 4. Stand-Sit : independent 5. Bed-Chair : supervision with FWW 6. Chair-Bed : supervision with FWW 7. Gait : supervision with FWW 200ft, WBAT L L E 8. Stairs : up/down 3 steps bilateral railings, WBAT L LE, supervision 9. Independent with home exercise program for TKA Pt met goals # 1-9 DISCHARGE RECOMMENDATIONS: Home, will need FWW. G Codes in the area mobility of walking and moving around: projected status GP [id number]. Discharge status (if discharging) GP [id number] CK Kaitlin Wilkes PT
[2018-01-04] MEDS: Aspirin E.C. 81 MG TABEC PO (09:48)
[2018-01-04] MEDS: Multivitamin w/Minerals TAB 1 TAB PO (09:48)
[2018-01-04] MEDS: Losartan 25 MG TAB PO (09:48)
[2018-01-04] MEDS: Hydrochlorothiazide 25 MG TAB PO (09:48)
[2018-01-04] MEDS: Ibuprofen 600 MG TAB PO (09:48)
[2018-01-04] MEDS: Acetaminophen 500 MG TAB 1000 MG PO (09:48)
--- NOTE | 2018-01-04 09:49 | CMDISCH_ITS ---
- If Service Date Differs Date of service: 01/04/18 Time of Service: 09:48 LACE Index Scoring Tool - Questions: Length of Stay (in days): 3 Acuity (Admit via E.D.?): No Care Management Discharge Reason for Hospitalization: Left Total Knee Discharge Plan: Discharge home with outpaitnet PT. She will have a friend staying with her for the next few days. She will have home health services for PT at time of discharge. CM informed the patient of her copay and benefit for home health services, CM coordianted FWW through [employer] as patients choice. Uma will be transported home via private car with friend Sasha at time of discharge. CM followed up with [facility] over the phone and notified of Pt request for services. Patient/Family Education Needs: Discharge education, limitations and follow up plan of care. Services Needed at Discharge: Home Health Care Services, Physical Therapy
== END 2018-01-04 11:46 | disposition home or self-care (01) | DRG 470 ==
LOC: SUR 07:28 → MS 11:10
PROVIDERS: Admitting Provider Student in an Organized Health Care Education/Training Program; PCP Internal Medicine; Visit Provider Student in an Organized Health Care Education/Training Program
PROC: 0SRD0J9 Replacement of Left Knee Joint with Synthetic Substitute, Cemented, Open Approach (ICD-10-PCS; CPT 27447; principal; 2018-01-02 07:30)
DX: M17.12 Unilateral primary osteoarthritis, left knee (principal); Z96.652 Presence of left artificial knee joint; I10 Essential (primary) hypertension; E03.9 Hypothyroidism, unspecified; E11.9 Type 2 diabetes mellitus without complications; G89.18 Other acute postprocedural pain; M21.162 Varus deformity, not elsewhere classified, left knee; M85.80 Other specified disorders of bone density and structure, unspecified site; K21.9 Gastro-esophageal reflux disease without esophagitis
CPT/HCPCS: 27447; 76942; 97110; 97162; 97530; NC; J0131; J0690; J1100; J1885; J2250; J2405; J3010

== ENCOUNTER 2018-01-17 10:11 | Outpatient (CLI) | payer OTHER, SELFPAY ==
--- NOTE | 2018-01-17 10:05 | DI.RAD_ITS ---
SYMPTOMS/DIAGNOSIS: FIRST POSTOP TKA BILATERAL LOWER EXTREMITIES: AP views of the lower extremities were obtained for leg length determination. There is a left knee joint replacement in position. There are severe degenerative changes of the right knee, predominantly involving the medial tibiofemoral joint. LEFT KNEE: One view was obtained and shows total knee joint replacement in position. Components appear well seated. No other significant bony abnormality seen.
== END 2018-01-17 10:31 ==
PROVIDERS: PCP Internal Medicine; Visit Provider Student in an Organized Health Care Education/Training Program
DX: Z47.1 Aftercare following joint replacement surgery (principal); Z96.652 Presence of left artificial knee joint
CPT/HCPCS: 73560; 77073

== ENCOUNTER 2018-02-14 02:13 | Outpatient (CLI) | payer OTHER, SELFPAY ==
[2018-02-14 13:17] LABS: TSH 1.68 uIU/mL (0.358-3.74)
== END 2018-02-14 02:33 ==
PROVIDERS: PCP Internal Medicine; Visit Provider Internal Medicine Endocrinology, Diabetes & Metabolism
DX: E03.8 Other specified hypothyroidism (principal)
CPT/HCPCS: 36415; 84443

== ENCOUNTER 2018-03-26 09:24 | Day surgery (SDC) | payer OTHER, SELFPAY ==
[2018-03-26] VITALS (8 sets, daily range): BP systolic 122–161; BP diastolic 73–96; PULSE 66–77; RESP 13–18; TEMP 35.6–36.4; O2SAT 96–100
[2018-03-26] MEDS: Lactated Ringers 1,000 ML 80 ML IV (10:30)
[2018-03-26] MEDS: Bupivacaine 0.5% Pres-Free 30 ML VIAL (10:45)
--- NOTE | 2018-03-26 10:53 | W.PM.DSUDISC ---
Discharge Plan Disposition Patient Disposition: HOME Condition: Good Discharge Details Reason For Visit: Left Knee ABDIAZIZ Attending Provider: Philipp Roman Primary Care Provider: Miriam Agee Home Meds and New Rx's Prescriptions: Continued Women's One Daily 1 EACH tablet 1 tab-cap PO DAILY RF: 0 omeprazole 20 MG tablet,delayed release (DR/EC) 20 mg PO .QOD RF: 0 Restasis 1 EACH dropperette 1 drp Ophthalmic BID PRNRF: 0 ergocalciferol (vitamin D2) [Vitamin D2] 50,000 UNIT capsule 1 tab-cap PO weekly RF: 0 calcium citrate-vitamin D3 1 EACH tablet 2 ea PO DAILY RF: 0 metformin 500 MG tablet extended release 24hr 500 mg PO DAILY RF: 0 hydrochlorothiazide 25 mg tablet 25 mg PO DAILY Qty: 90 RF: 3 losartan 25 mg tablet 25 mg PO DAILY Qty: 90 RF: 3 levothyroxine 50 mcg capsule 50 mcg PO DAILY RF: 0 magnesium 250 mg Tablet 250 mg PO HS RF: 0 docusate sodium [Colace] 100 mg Capsule 100 mg PO BID PRN PRN (Reason: Constipation) Qty: 0 RF: 0 ibuprofen 600 mg tablet 600 mg PO TID PRNQty: 90 RF: 3 acetaminophen 500 mg capsule 1,000 mg PO Q8H PRN (Reason: pain) Qty: 90 RF: 0 Discharge Instructions Additional Instructions: Activity: You should begin moving as soon as possible. You may work on flexion but also equally maintain extension. You may bear weight as tolerated, using crutches/walker only for support/comfort if needed. You should apply ice to help with swelling and elevate when possible (especially in the first few days). Medications: - Rarely does this require any stronger pain medications, but you may take your previously prescribed Oxycodone if needed. - Recommend to take up to 1000mg of Acetaminophen (Tylenol) and 600mg of Ibuprofen (Advil) every 8 hours as needed. Follow-up: Physical Therapy should begin tomorrow. Office followup in 7-10 days Referrals: Philipp Roman MD [ [facility] STAFF PHYSICIAN] - Activity:: Elevate Diet:: As Tolerated Discharge Orders Discharge Orders: Discharge Order (Routine); Ordered 03/26/18 Ordered By: Philipp Roman DS: Diagnosis Discharge Diagnosis (1) History of total left knee replacement (TKR): Status: Chronic (2) Arthrofibrosis of knee joint: Status: Acute
--- NOTE | 2018-03-26 11:28 | ROE_ITS ---
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 POSTOPERATIVE DIAGNOSIS: Same. SURGERY: Left knee manipulation under anesthesia. SURGEON: Philipp Roman M.D. FINDINGS: Preoperative range of motion was from approximately 1 to 2 degrees of extension to 95 degr ees of flexion. Postoperatively range of motion was 1 to 2 degrees of extension to approximately 135 degrees of flexion. ANESTHESIA: General No blood loss. DISPOSITION: The patient was awakened from anesthesia and taken to the PACU in a stable condition. COMPLICATIONS: None. INDICATION FOR PROCEDURE: Uma is a 63-year-old who had a total knee replacement approximately ten weeks ago. She has done well initially and her current pain is much less than her preoperative statu s. She is much more functional now than she was before. However, she has had difficulty with regain ing flexion. She's been stuck at 90 to 95 degrees for some weeks. There has been no significant pro roman and therefore I recommended manipulation under anesthesia. I reviewed the risks of the procedu re to include continued stiffness, pain, and damage to nerves, vessels, muscles and tendons. Despite these risks, she elected to proceed. PROCEDURE DESCRIPTION: Uma was greeted in the preoperative holding area. Her identity was confirm ed and the correct side was identified and marked. The history and physical was updated. The consen t was reviewed with the patient and signed. She was taken back to the Operating Room and placed in t he supine position. All bony prominences were well padded. A general anesthetic was first administe red by Anesthesia. A time-out was performed for safe surgery. No prophylactic antibiotics were nece ssary. The lateral aspect of the left knee was then prepped with ChloraPrep. Using sterile technique the kn ee was injected with 0.5% Bupivacaine. After successful administration of the interarticular anesthe tic, a relaxant was administered by Anesthesia for the manipulation. Once the relaxant was fully on board, manipulation was performed. I easily was able to break through some adhesions which were both audible and palpable. Her preoperative range of motion was measured at 2 degrees of extension to 95 degrees of flexion. Easily I was able to get her from 2 degrees to 1 35 degrees. I did try some manipulation into further extension but was unable to make any progress w ith her extension. The knee was still stable to varus and valgus stress. No signs of fracture or ot her devastating complication was appreciated. She was then awakened from anesthesia and taken to the PACU in a stable condition.
[2018-03-26] MEDS: oxyCODONE 5 MG TAB PO (12:12)
[2018-03-26] MEDS: Acetaminophen 325 MG TAB 650 MG PO (12:12)
== END 2018-03-26 13:08 | disposition home or self-care (01) ==
PROVIDERS: PCP Internal Medicine; Visit Provider Student in an Organized Health Care Education/Training Program
PROC: (CPT 27570; principal; 2018-03-26 10:30)
DX: M24.662 Ankylosis, left knee (principal); Z96.652 Presence of left artificial knee joint
CPT/HCPCS: 27570; J2250; J3010

== ENCOUNTER 2018-08-08 14:43 | Outpatient (REF) | payer OTHER, SELFPAY ==
[2018-08-08 16:08] LABS: Bilirubin Negative (Negative); Blood Small (Negative); Clarity Cloudy; Glucose Negative (Negative); Ketones Negative (Negative); Leukocyte Esterase Large (Negative); Nitrite Negative (Negative); Specific Gravity 1.015 (1.005-1.025); Urobilinogen 0.2 EU/dL (Up TO 0.2)
[2018-08-08 18:16] LABS: Epithelial Cells Rare HPF (Negative); Other Cells Negative (Negative); WBC >50 HPF (0-5)
[2018-08-08 18:17] LABS: Bacteria Many HPF (Negative); C & S Indicated? C&S Done As Ordered; Casts Negative LPF (Negative); Crystals Negative HPF (Negative); Mucus Negative (Negative)
== END 2018-08-08 15:03 ==
LOC: LBN 14:43
PROVIDERS: PCP Internal Medicine; Visit Provider Internal Medicine
DX: R30.0 Dysuria (principal)
CPT/HCPCS: 87077; 81003; 81015; 87086; 87186

== ENCOUNTER 2018-08-08 15:00 | Outpatient (CLI) | payer OTHER, SELFPAY ==
--- NOTE | 2018-08-08 14:56 | DI.RAD_ITS ---
SYMPTOMS/DIAGNOSIS: RIGHT KNEE PAIN RIGHT KNEE: Three views. There is moderate narrowing of the medial femorotibial joint space and the patellofemoral joint. There are osteophytes seen involving all three joint compartments. No acute fracture or dislocation is seen. There is a moderate-sized joint effusion. Vascular calcifications are present. IMPRESSION: Marked osteoarthritis of the right knee.
== END 2018-08-08 15:20 ==
PROVIDERS: PCP Internal Medicine; Visit Provider Physician Assistant
DX: M25.561 Pain in right knee (principal); M17.11 Unilateral primary osteoarthritis, right knee; M25.461 Effusion, right knee
CPT/HCPCS: 73562

== ENCOUNTER 2018-09-05 01:15 | Outpatient (CLI) | payer OTHER, SELFPAY ==
[2018-09-05 08:33] LABS: Anion Gap 8.8 mmol/L (3-11); BUN 8 mg/dL (7-18); CO2 31.2 mmol/L (21.0-32.0); CREATININE 0.79 mg/dL (0.55-1.02); Calcium 9.2 mg/dL (8.5-10.1); Calculated LDL 151 mg/dL; Chloride 103 mmol/L (98-107); Cholesterol 226 mg/dL (50-200); Glucose 91 mg/dL (70-100); HDL Cholesterol 59 mg/dL (40-60); Potassium 3.4 mmol/L (3.5-5.1); Sodium 143 mmol/L (136-145); Triglyceride 81 mg/dL (30-150)
== END 2018-09-05 01:35 ==
PROVIDERS: PCP Internal Medicine; Visit Provider Internal Medicine
DX: I10 Essential (primary) hypertension (principal); R73.01 Impaired fasting glucose
CPT/HCPCS: 36415; 80048; 80061; 83721

== ENCOUNTER 2018-12-05 02:11 | Outpatient (CLI) | payer OTHER, SELFPAY ==
[2018-12-05 09:13] LABS: Hemoglobin A1C 5.9 % (4.5-6.2)
[2018-12-05 09:22] LABS: Anion Gap 9.7 mmol/L (3-11); BUN 10 mg/dL (7-18); CO2 30.3 mmol/L (21.0-32.0); CREATININE 0.81 mg/dL (0.55-1.02); Calcium 8.9 mg/dL (8.5-10.1); Chloride 100 mmol/L (98-107); Glucose 105 mg/dL (70-100); Potassium 3.4 mmol/L (3.5-5.1); Sodium 140 mmol/L (136-145)
[2018-12-06 06:55] LABS: Vitamin D 25 Total 52.5 ng/ml (30-100)
[2018-12-06 10:38] LABS: Parathyroid Hormone,Intact 54 pg/ml (19-88)
== END 2018-12-05 02:31 ==
PROVIDERS: PCP Internal Medicine; Visit Provider Internal Medicine Endocrinology, Diabetes & Metabolism
DX: E03.9 Hypothyroidism, unspecified (principal); E55.9 Vitamin D deficiency, unspecified; E11.9 Type 2 diabetes mellitus without complications
CPT/HCPCS: 36415; 80048; 82306; 83036; 83970

== ENCOUNTER 2018-12-12 10:10 | Outpatient (CLI) | payer OTHER, SELFPAY ==
[2018-12-12 11:56] LABS: Potassium 4.1 mmol/L (3.5-5.1); TSH 2.32 uIU/mL (0.36-3.74)
== END 2018-12-12 10:30 ==
PROVIDERS: PCP Internal Medicine; Visit Provider Internal Medicine Endocrinology, Diabetes & Metabolism
DX: E87.6 Hypokalemia (principal); E03.8 Other specified hypothyroidism
CPT/HCPCS: 36415; 84132; 84443

== ENCOUNTER 2018-12-18 12:51 | Outpatient (CLI) | payer OTHER, SELFPAY ==
--- NOTE | 2018-12-18 14:04 | HPE_ITS ---
Assessment and Plan Assessment and plan (1) Arthritis of knee, right: Status: Chronic Assessment and plan: Plan: Educated patient on surgery covering surgical technique, recovery process, benefits and risks including but not limited to risk of infection, blood clot, damage to soft tissue/blood vessels/nerves in detail. After discussion patient gives verbal understanding of risks and elects to proceed with scheduling surgery. Patient had opportunity to have questions answered to their satisfaction. They will contact office if issues arise. Patient will continue to be scheduled for right TKA with Dr. Roman. (2) Primary osteoarthritis of right knee: Status: Chronic History of Present Illness Narrative: Ms. Hood is a 63-year-old female who presents to clinic for preoperative visit for scheduled right TKA. Patient is status post left TKA by Dr. Roman on 01/02/18 which has been doing very well. Unfortunately, she has continued to have severe right knee pain. Describes a near constant pain that is located along the medial joint line. She has severely restricted her activity in terms of cleaning her house, walking and has noticed reduced stamina for daily activities. She reports severe pain in her right knee that causes her to have difficulty finding a comfortable position in bed and has a hard time going back to sleep when her knee pain is aggravated. She received an injection in August which provided significant relief for one month. She has been managing her symptoms by taking Ibuprofen 600 mg daily which helps slightly. Denies any knee instability, muscle weakness, numbness or tingling. Due to her continued discomfort and right knee DJD she was offered surgical intervention and elected to proceed. Pertinent Surgical Information Dr. Roman's operative note from left TKA on 01/02/18 lists the following implants used: Depuy Attune Posterior Stabilized Femoral Component, Size 5 narrow; Depuy Attune Fixed Platform Tibial Component, Size 4; Depuy Attune 5 x 6 mm fixed, Stabilized Poly; Depuy Attune Patellar Component, Size 35 mm She did undergo a manipulation of her left knee following TKA due to restricted range of motion. Denies past medical history of: stroke, cardiac issues, angina, asthma, COPD, sleep apnea, liver issues, hepatitis, gastrointestinal ulcers, bleeding disorders, seizures, migraines, anxiety, depression, autoimmune disorders Denies prior complications from surgery or anesthesia. Review of Systems Constitutional Constitutional: Denies fever(s), Denies frequent falls and Denies headache(s) Eyes Eyes: Denies change in vision ENT Ears, Nose, Mouth, and Throat: Denies dizziness, Denies ear discharge, Denies headache(s), Denies epistaxis, Denies nasal discharge and Denies sore throat Cardiovascular Cardiovascular: Denies chest pain, Denies rapid heart rate, Denies irregular heart rhythm, Denies palpitations, Denies dyspnea, Denies dyspnea on exertion, Denies orthopnea, Denies paroxysmal nocturnal dyspnea and Denies slow heart rate Respiratory Respiratory: Denies cough, Denies dyspnea, Denies dyspnea on exertion and Denies wheezing Gastrointestinal Gastrointestinal: Denies abdominal pain, Denies melena, Denies hematochezia, Denies constipation, Denies diarrhea, Denies nausea and Denies vomiting Genitourinary Genitourinary: Denies hematuria, Denies dysuria and Denies urinary urgency Musculoskeletal Musculoskeletal: Reports as per HPI, Denies numbness and Denies tingling Neurologic Neurologic: Denies dizziness, Denies frequent falls, Denies headache(s), Denies numbness and Denies tingling Psychiatric Psychiatric: Denies anxiety and Denies depression Endocrine Endocrine: Denies palpitations Allergic/Immunologic Allergic/Immunologic: Denies wheezing [facility] Medical History (Updated 12/18/18 @ 14:46 by Liyah Mon) Diabetes mellitus, type II (Chronic) Essential hypertension (Chronic) Gastroesophageal reflux disease (Resolved) History of colonic polyps (Chronic) History of postoperative nausea and vomiting (Acute) Hyperparathyroidism, unspecified (Resolved) Impaired fasting glucose (Chronic) A1C 6.4%, 12/2012 6.6 on 09/22/17 Lipoma of colon (Chronic) submucosal Obesity (Chronic) Osteopenia (Chronic) Normal BMD in all areas EXCEPT L forearm where T-score -1.4 Primary hyperparathyroidism (Resolved) [facility] [place] Winston parathyroid adenoma Subclinical hypothyroidism (Chronic) SUBCLINICAL WITH SLIGHTLY ELEVATED TSH, NORMAL FT4; PLAN IS ANNUAL MONITORING NO MEDS FOR NOW Surgical History (Updated 12/18/18 @ 14:20 by Liyah Mon) Colonoscopy - [facility] Dr Cortez EGD - [facility] Dr. Orion Carreno History of carpal tunnel release of both wrists (Acute) History of hysterectomy (Chronic) History of ovarian cystectomy (Acute) History of parathyroidectomy (Acute) History of repair of hiatal hernia (Acute) History of tonsillectomy and adenoidectomy (Acute) History of total left knee replacement (TKR) (Inactive 01/02/18) DOS of TKA: 01/02/2018 Left knee manipulation on 03/26/2018 Status post partial lobectomy of lung (Acute) mass in her right lung that was removed Denies cancer diagnosis Social History (Updated 09/11/18 @ 13:09 by Kayla Montez RN) Smoking/Tobacco Use Status: Never Alcohol Intake: current Alcohol Intake frequency: holidays/special occasions only Drug use: Never Household members: none Housing: house Number of Children: 0 Pets and animals: Yes Pets and animals: dog(s) What is your relationship status?: Panel score (0-1 are the most socially isolated patients): 0 Duration: 45-60 minutes/day Frequency: 1-2 times per week Seatbelt use: always Working smoke detector in home: Yes Fire extinguisher in home: Yes Carbon monox detector in home: Yes Firearms in home: No Meds Home Medications and Allergies Home Medications Medication Instructions Recorded Confirmed Type Women's One Daily 1 tab-cap PO DAILY tab-cap 07/17/12 12/18/18 History ergocalciferol (vitamin D2) 1 tab-cap PO weekly tab-cap 09/29/14 12/18/18 History [Vitamin D2] calcium citrate-vitamin D3 2 ea PO DAILY 12/18/15 12/18/18 History metformin 500 mg PO QACDINNER 12/13/16 12/18/18 History levothyroxine 50 mcg capsule 50 mcg PO DAILY 12/11/17 12/18/18 History magnesium 250 mg PO HS 12/25/17 12/18/18 History acetaminophen 1,000 mg PO Q8H PRN #90 cap 01/04/18 12/18/18 Rx docusate sodium [Colace] 100 mg PO BID PRN PRN #0 cap 01/04/18 12/18/18 Rx ibuprofen 600 mg PO TID PRN #90 tab 01/04/18 12/18/18 Rx hydrochlorothiazide 25 mg tablet 25 mg PO DAILY #90 tab 11/20/18 12/18/18 Rx Allergies Allergy/AdvReac Type Severity Reaction Status Date / Time celecoxib [From Celebrex] Allergy Intermediate Itching Verified 12/18/18 14:24 ciprofloxacin Allergy Intermediate Hives Verified 12/18/18 14:24 metronidazole Allergy Intermediate Hives Verified 12/18/18 14:24 Sulfa (Sulfonamide Allergy Intermediate Hives Verified 12/18/18 14:24 Antibiotics) sulfamethoxazole Allergy Intermediate Hives Verified 12/18/18 14:24 trimethoprim Allergy Intermediate Hives Verified 12/18/18 14:24 diclofenac AdvReac Intermediate elevated Verified 12/18/18 14:24 liver enzymes Exam Const General: cooperative and no acute distress [facility] Head: normal to inspection, normocephalic and atraumatic Ears: external ears normal General nose exam: external nose normal and no nasal discharge Face and sinus: face symmetric Mouth: oral mucosae normal, lip normal, tongue normal and moist mucous membranes Teeth and gingiva: dentition normal Throat: posterior oropharynx normal Eyes General: appearance normal, both eyes and all related structures Pupils: PERRL EOM: EOM intact bilaterally Neck Neck: trachea midline Carotids: normal carotid upstroke Lymphatic: no lymphadenopathy noted Resp Effort & Inspection: normal respiratory effort and able to speak in complete sentences Auscultation: clear to auscultation bilaterally, no rales, no rhonchi and no wheezes Cardio Heart Sounds: S1 normal, S2 normal and no murmurs Pulses: radial pulses present bilaterally GI Palpation: soft, no hepatosplenomegaly and nontender Auscultation: normal bowel sounds Skin General skin exam: no rashes or lesions noted
[2018-12-18 15:13] LABS: HCT 42.7 % (36.0-46.0); Mean Corp. HGB Concentration 32.8 g/dL (32.0-36.0); Mean Corpuscular Hemoglobin 28.7 pg (27.0-33.0); Mean Corpuscular Volume 87.5 fL (80-95); Mean Platelet Volume 9.8 fL (8.0-11.0); Platelet Count 327 x1000/uL (130-400); RBC 4.88 m/cumm (4.00-5.20); RBC Distribution Width 13.6 % (11.7-14.6); White Blood Cell Count 8.15 k/cumm (4.4-10.8)
== END 2018-12-18 13:11 ==
PROVIDERS: PCP Internal Medicine; Visit Provider Student in an Organized Health Care Education/Training Program
DX: M25.561 Pain in right knee (principal); M17.11 Unilateral primary osteoarthritis, right knee; Z01.818 Encounter for other preprocedural examination; Z01.812 Encounter for preprocedural laboratory examination
CPT/HCPCS: 36415; 85027; NC

== ENCOUNTER 2018-12-25 09:46 | Inpatient (IN) | payer OTHER, SELFPAY ==
[2018-12-18 12:56] VITALS: BP 122/82; PULSE 74; RESP 18; TEMP 36.4; O2SAT 98
[2018-12-25] VITALS (13 sets, daily range): BP systolic 87–136; BP diastolic 60–88; PULSE 57–88; RESP 12–18; TEMP 36.2–36.6; O2SAT 95–98
[2018-12-25] MEDS: Gabapentin 300 MG CAP PO ×2 (10:23→21:36)
[2018-12-25] MEDS: Acetaminophen 500 MG TAB 1000 MG PO ×2 (10:23→20:02)
[2018-12-25] MEDS: Lactated Ringers 1,000 ML 80 ML IV ×2 (10:24→16:10)
[2018-12-25] MEDS: ceFAZolin 2 GM/50 ML BAG IVPB (11:56)
[2018-12-25] MEDS: Ketorolac 30 MG/ML VIAL (13:20)
[2018-12-25] MEDS: Normal Saline 50 ML (13:20)
[2018-12-25] MEDS: Bupivacaine 0.25% Pres-Free 30 ML VIAL (13:20)
--- NOTE | 2018-12-25 14:00 | W.PM.OP ---
Date of service: 12/25/18 Time of Service: 14:00 Operative Note Operative Note DATE OF PROCEDURE: 12/25/18 PRE-OP DIAGNOSIS: Right Knee Osteoarthritis POST-OP DIAGNOSIS: same PROCEDURE: Right Total Knee Replacement SURGEON: Philipp Roman JACQUARD CARD LACER: Mirta Roca ANESTHESIA: regional and spinal ESTIMATED BLOOD LOSS: 400 PATHOLOGY: none sent TOURNIQUET TIME: 28 COMPLICATIONS: None Patient was transported to: PACU Patient's condition: stable Implants: 1. Depuy Attune Posterior Stabilized Femoral Component, Size 5 Narrow 2. Depuy Attune Fixed Platform Tibial Component, Size 4 3. Depuy Attune 5x7mm Fixed, Stabilized Poly 4. Depuy Attune Patellar Component, Size 35mm Indications: I have seen Uma in clinic for symptoms of RIGHT knee arthritis, confirmed with radiographic findings. Uma has exhausted nonoperative methods and was having significant limitations in daily function and desired better function and less pain. She has a successful left knee replacement. I discussed the technical details of a knee replacement. I explained the risks of the procedure to include, but not limited to, bleeding, infection, pain, stiffness, fracture, damage to nerves and vessels, damage to muscles and tendons, loosening, need for repeat procedure, blood clot and cardiopulmonary demise. Despite these risks, Uma elected to proceed. Findings: There was significant signs of arthritis throughout the knee. Procedure Description: Uma was greeted in the preoperative holding area where the correct side was identified and marked. The consent was reviewed with the patient and signed. The history and physical was updated. All questions were answered. Preoperative mediacations were administered: Acetaminophen 1000mg, Celebrex 400mg, and Gabapentin 300mg. An adductor canal block was then administered by the anesthesia team in the PACU. Uma was taken back to the operating room. A spinal anesthestic was then administered but did not set up and therefore she was given a general anesthetic. The patient was placed into the supine position on the operating room table. A nonsterile tourniquet was placed high onto the leg but only used for cementing. Posts were placed for positioning during the procedure. All bony prominences were well padded. Prophylactic antibiotics in the form of Cefazolin were administered. 1g of Tranxemic Acid was given intravenously within 30 minutes of incision. The right leg was then prepped with Chloraprep and draped in a standard fashion with impervious stockinette and extremity drape with Iodine impregnated skin protection. A timeout to confirm correct identity, side and site, procedure, allergies, anesthesia, and medical concerns was performed. With the knee in some flexion, a midline incision was made overlying the knee. Full thickness skin flaps were raised once the extensor mechanism was encountered. These were raised medially and laterally. Any bleeding was controlled with electrocautery. Once the extensor mechanism was fully exposed, a medial parapatellar arthrotomy was performed in a flexed position. All bleeding from the arthrotomy and the geniculate arteries was coagulated. A medial subperiosteal peel was performed with electrocautery to the midcoronal plane. Due to the significant varus deformity the entire medial tibial plateau was exposed. The fat pad was removed while keeping the patellar tendon protected. The anterior distal femur synovium was removed for later visualization. The ACL and PCL were resected and the anterior horn of the lateral meniscus was transected. The knee was then flexed with the patella everted. Large osteophytes from the tibia were removed. Large osteophytes from the femur were removed. Using a step drill, and based on preoperative templating, the femoral canal was entered. This was done with a step drill without any difficulty. The intramedullary distal femoral cut guide was inserted, set to a 5 degree valgus cut and 9mm cut thickness. The distal femoral cut guide was then held in position and pinned. With the soft tissues protected, the distal cut was performed. This was passed over a few times to ensure a planar cut. I then turned attention to the tibia. The extramedullary guide was placed onto the leg. The distal aspect was slid medial to adjust for position of center of ankle and stay in line with shaft of the tibia. Approximately 3-5 degrees of posterior slope was kept in the proximal cutting guide. The center of the guide was aligned with the PCL. The stylus was used to assess cut thickness. The medial side, most involved side, was set for a 4mm cut. This was then held in position and pinned into place with 2 additional pins and a cross pin for stability. The medial and lateral collateral ligaments were protected and the cut was performed. With this completed, it was assessed and noted to be of appropriate dimensions. The guide was removed. A spacer block was inserted and the knee was brought into extension. The 6mm spacer block provided full extension, without hyperextension and with stability of both the medial and lateral collateral ligaments was assessed. The pins from the femur and the tibia were then removed. The distal femur was then sized. The anterior stylus was placed onto the lateral ridge of the anterior femur. This indicated a size 5 femur. The external rotation of the guide was adjusted to 3 degrees to match the epicondylar axis, perpendicular to [place]?s line. The 4-in-1 cutting guide was the placed. The posterior medial femur cut was evaluated and appeared of good thickness. The spacer block was inserted underneath the cutting guide and stability was confirmed in 90 degrees of flexion. An ramonita wing was used to confirm appropriate position of the anterior cut to avoid notching. This cutting guide was ensured to be flush on the cut surface and then pinned into place with headed pins. While protecting the soft tissues, quad tendon, and collateral ligaments, the anterior and posterior cuts were performed with a saw. The central two pins were removed and the posterior and anterior chamfers were cut next. The notch-cutting guide was placed. This was pinned to lateralize the femoral component as much as possible while keeping it flush on the cut surface. This was then pinned into position. A reciprocating saw was used to make the notch cut. A rasp smoothed the cut surfaces. A trial posterior stabilized femoral component was then inserted, impacted down to the cut surfaces, and the lug holes were drilled. A provisional trial tibial component was placed and the knee was brought through range of motion. The polyethylene was trialed until there was good flexion and extension with excellent stability to the medial and lateral collaterals. The patella was tracking without thumbs. The tibial cut surface was fully exposed. The medial and lateral menisci were removed. The tibia was then sized as a 4. The tibia had been previously marked during trialing to correspond to the center of the tibial component to help with rotation. The trial was aligned to this mirta, approximately rotated to the medial 1/3rd of the tibial tubercle. The trial was pinned into place. The tibia was prepared with a reamer and a keel punch. The knee was then brought into extension and the patella was measured as 25mm. Using the patellar clamp and cut guide, this was resected to a flat surface with at least 13mm of thickness remaining. The size 35 patella fit the best. This was oriented and then clamped into position. The lugs were drilled. The trial components were removed. The final components, except for the polyethylene were opened on the back table. The periosteal and capsular tissues, especially posteriorly, around the knee were then systematically injected with a periarticular cocktail consisting of 50cc 0.25% Marcaine, 30mg Ketorolac, 20cc of Exparal and 50cc of injectable saline. The tourniquet was then inflated to 275mmHg. The knee was thoroughly irrigated with a pulse lavage and dried. On the back table, with the implants opened, the cement was mixed. 2 batches of antibiotic laden cement were prepared with vacuum assistance. After the cement was ready a small amount was placed on to the back side of the tibial component at the keel. A small amount was placed onto the posterior flange of the femur. Cement was manual pressurized and impregnated into the cut surface of the tibia. The tibial component was then inserted into the cut surface and impacted into position. Excess cement was removed and the component was reimpacted. Again, excess cement was removed and our attention was then turned to the femur. The femoral cut surface was once again dried and cement was manually impacted into the cut surface. The femoral component was lined with the lug holes and impacted. Excess cement was removed. It was ensured to be down against the cut surface. The trial polyethylene was then inserted and the leg was brought out into full extension for the duration of the cement curing process, approximately 15min. Cement was lastly manually impacted into the cut surface of the patella and the patellar button was clamped into position and held. During this process attention was turned to the gutters of the knee and for all interfaces for any excess cement. The wound was irrigated with Irrisept chlorhexadine solution; this was allowed to rest in the wound for 3 minutes. After the cement had finally cured, approximately 15min, the clamp was removed from the patella and the knee was taken through range of motion. A size 7mm polyethylene component provided the best range of motion and stability with less than 2mm gapping with medial and lateral stress and full extension without significant hyperextension. The patella was tracking with a no-thumbs technique. The trial poly was removed and once again the knee was checked for any loose, excess, or errant cement. The poly component was then inserted and impacted into position after cleaning and drying the tibial tray. The capsule was then reapproximated with a No. 1 Vicryl at multiple locations. The capsule was finally closed with a No. 2 Stratafix, barbed suture. The tourniquet was then released and the arthrotomy appeared watertight without significant bleeding. The second dosing of 1g TXA was started. Deep tissues were then reapproximated with 0 Vicryl and 2-0 Vicryl. The skin was closed with a running 3-0 Monocryl in a subcuticular fashion. This was reinforced with skin glue. A Mepilex silver dressing was applied along with a [id number] TOREY wrap. A CryoCuff was applied. Uma was transferred to the hospital bed without difficulty an suffering no apparent complication. Uma has a good prognosis. Physical therapy will start today and without restrictions, weight-bearing as tolerated. Aspirin 81mg BID will be used for DVT prophylaxis.
[2018-12-25] MEDS: metFORMIN 500 MG TAB PO (17:08)
--- NOTE | 2018-12-25 17:21 | NUR.NOTE ---
Nursing Note: Pt received from PACU staff, AO x 3. post op Rt. total knee arthroplasty, rowan wrap drsg is C/D/I. able to moved toes independently. IVFluids infusing well. Denied of post op pain at this time. Oriented substation electrician lights system.
[2018-12-25] MEDS: oxyCODONE 5 MG TAB PO (19:25)
[2018-12-25] MEDS: Aspirin E.C. 81 MG TABEC PO (20:00)
[2018-12-25] MEDS: Ibuprofen 600 MG TAB PO (20:01)
[2018-12-25] MEDS: Magnesium Gluconate 500 MG TAB 250 MG PO (21:36)
[2018-12-26 00:12] VITALS: BP 102/70; PULSE 91; RESP 18; TEMP 36.7; O2SAT 98
[2018-12-26 03:35] VITALS: BP 107/61; PULSE 82; RESP 18; TEMP 37.2; O2SAT 98
[2018-12-26] MEDS: Lactated Ringers 1,000 ML 80 ML IV (03:58)
[2018-12-26] MEDS: oxyCODONE 5 MG TAB PO ×5 (06:07→23:45)
[2018-12-26] MEDS: Levothyroxine 50 MCG TAB PO (06:07)
[2018-12-26 07:00] VITALS: BP 112/75; PULSE 71; RESP 16; TEMP 37.1; O2SAT 97
[2018-12-26] MEDS: Ergocalciferol 50000 UNITS CAP PO (07:34)
[2018-12-26] MEDS: Ibuprofen 600 MG TAB PO ×3 (07:34→19:52)
[2018-12-26] MEDS: Aspirin E.C. 81 MG TABEC PO ×2 (07:34→19:53)
[2018-12-26] MEDS: hydroCHLOROthiazide 25 MG TAB PO (07:35)
[2018-12-26] MEDS: Acetaminophen 500 MG TAB 1000 MG PO ×3 (07:35→19:52)
[2018-12-26] MEDS: Pantoprazole 40 MG TABCR PO (07:35)
--- NOTE | 2018-12-26 08:09 | PT.INIE ---
Date of service: 12/26/18 Time of Service: 08:03 PT Notes Inpatient Physical Therapy Evaluation Date: 12/26/2018 Referring Doctor: Philipp Roman MD PT Orders: PT CONSULT: Ortho surgery. Status post right TKA Precautions: Fall. Standard. WBAT on right LE. Patient Profile/Admitting Diagnosis: Patient is a 63-year-old female status post right total knee arthroplasty on postoperative day 1 due to primary unilateral osteoarthritis of right knee. PMHX: Medical History (Updated 12/18/18 @ 14:46 by Liyah Mon) Diabetes mellitus, type II (Chronic) Essential hypertension (Chronic) Gastroesophageal reflux disease (Resolved) History of colonic polyps (Chronic) History of postoperative nausea and vomiting (Acute) Hyperparathyroidism, unspecified (Resolved) Impaired fasting glucose (Chronic) A1C 6.4%, 12/2012 6.6 on 09/22/17 Lipoma of colon (Chronic) submucosal Obesity (Chronic) Osteopenia (Chronic) Normal BMD in all areas EXCEPT L forearm where T-score -1.4 Primary hyperparathyroidism (Resolved) [facility] Endo Dr. Jose Miguel Winston parathyroid adenoma Subclinical hypothyroidism (Chronic) SUBCLINICAL WITH SLIGHTLY ELEVATED TSH, NORMAL FT4; PLAN IS ANNUAL MONITORING NO MEDS FOR NOW Surgical History (Updated 12/18/18 @ 14:20 by Liyah Mon) Colonoscopy - [facility] Dr Cortez EGD - [facility] Dr. Orion Carreno History of carpal tunnel release of both wrists (Acute) History of hysterectomy (Chronic) History of ovarian cystectomy (Acute) History of parathyroidectomy (Acute) History of repair of hiatal hernia (Acute) History of tonsillectomy and adenoidectomy (Acute) History of total left knee replacement (TKR) (Inactive 01/02/18) DOS of TKA: 01/02/2018 Left knee manipulation on 03/26/2018 Status post partial lobectomy of lung (Acute) mass in her right lung that was removed Denies cancer diagnosis Social History/Home Situation: Patient lives alone in a one story-house with 2 steps to enter without rails. Her over a year ago. Patient was independent with all aspects of ADLs without the need for an assistive ambulatory device nor adaptive equipment. 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 Equipment Owned/DME: [employer] Subjective: Patient is agreeable to a PT consult. She reported severe dizziness after standing for the longest time since surgery as she needed to stand up so the PT could fix her TOREY wraps which got unwrapped after doing stair negotiation techniques. Objective: General Observation: TOREY wraps on R LE. IV left open in the L UE. VENKATESH on the L LE. Mental Status: Alert and roiented x 4 Pain: 0/10 at rest, 3/10 after ambulation activity Vital Signs: BP 105/67 mmHg after laying back down on the mat table due to complaints of dizziness ROM: Right Upper Extremity: Shoulder Flexion WFL. Shoulder abduction WFL. Elbow flexion WFL. Wrist flexion WFL. Opening and closing of hand WFL. Left Upper Extremity: Shoulder Flexion WFL. Shoulder abduction WFL. Elbow flexion WFL. Wrist flexion WFL. Opening and closing of hand WFL. Right Lower Extremity: Hip flexion WFL. Hip abduction WFL. Knee flexion 80. Knee extension -30 degrees. Ankle dorsiflexion WFL. Ankle plantarflexion WFL. Left Lower Extremity: Hip flexion WFL. Hip abduction WFL. Knee flexion WFL. Ankle dorsiflexion WFL. Ankle plantarflexion WFL. Strength: Right Upper Extremity: Shoulder flexors 5/5. Shoulder abductors 5/5. Elbow flexors 5/5. Elbow extensors 5/5. Channeling Machine Operator strong. Left Upper Extremity: Shoulder flexors 5/5. Shoulder abductors 5/5. Elbow flexors 5/5. Elbow extensors 5/5. Channeling Machine Operator strong. Right Lower Extremity: Hip flexors 4/5. Hip abductors 5/5. Knee flexors 3-/5. Knee extensors 3-/5. Ankle dorsiflexors 5/5. Ankle plantarflexors 5/5. Left Lower Extremity:Hip flexors 4/5. Hip abductors 5/5. Knee flexors 4/5. Knee extensors 5/5. Ankle dorsiflexors 5/5. Ankle plantarflexors 5/5. Sensation: Intact as to pain and pressure on bilateral lower extremities. Bed Mobility/Transfers: Rolling independent Supine to sit independent Sit to supine independent Sit to stand supervision Stand to sit supervision Bed to chair supervision Chair to bed supervision Gait: Patient was able to walk from room to therapy gym about 40 feet x 2 using her FWW with SBA. She was also able to manage three 4 steps and two 6 steps without holding onto any rails requiring only SBA. Patient did complain of dizziness after standing for about 3 minutes while PT tried to fix TOREY wraps that got loosened up. Patient reported 3/10 pain on the right knee after ambulation activity. Balance: Static Sitting: Normal Dynamic Sitting: Normal Static Standing: Fair Dynamic Standing: Fair Special Tests: Mobility Limitations Standardized Measure [facility] AM-PAC 6 clicks Basic Mobility Inpatient Short Form: Raw Score: 22 CMS Score: 21% deficit Informed Consent/Education: Patient instructed in purpose of PT consult and plan of care. THERA EX: Patient tolerated LAQs, seated hip flexion, and bilateral ankle pumping x10 while seated at edge of mat table. Assessment: Patient is a 63-year-old female status post right total knee arthroplasty on postoperative day 1 due to primary unilateral osteoarthritis of right knee. Patient is also status post left TKA on 01/02/2018 with very good outcomes received from outpatient physical therapy. Prognosis for this surgery is good. She is motivated to return to prior independent level and to go home as soon as it is safe to do so. Patient presents with clinical signs and symptoms consistent with current/admitting diagnoses that have resulted to mobility limitations, gait instability, generalized weakness, and impairment of motor control as demonstrated by the following impairment level findings: 1. Decreased strength to R LE major muscle groups 2. Impaired sitting/standing balance 3. Impaired activity tolerance 4. Limitation of joint range of motion in right knee joint Impairments are contributing to the following functional limitations: 1. Inability to safely ambulate without assistive device and physical assistance 2. Increase completion time for mobility ADL performance 3. Increased fall risk 4. Inability to negotiate steps alone safely Patient is assessed as a 83553 moderate complexity based on the following: History: Patient is a 63-year-old female status post right total knee arthroplasty on postoperative day 1 due to primary unilateral osteoarthritis of right knee. Patient is also status post left TKA on 01/02/2018 with very good outcomes received from outpatient physical therapy. Did have something to eat before the exercise Examination: Demonstrable impairment in strength, balance, and range of motion with underlying impairments and functional limitations as documented above Presentation: Evolving Decision Makin moderate complexity Goals: Goals X1 week 1. Sit-Stand independent 2. Stand-Sit independent 3. Bed-Chair independent 4. Chair-Bed independent 5. Independent gait on level surface with use of least restrictive device for at least 300 feet without report of pain nor dyspnea 6. Independent stair negotiation while holding onto bilateral rails for at least 10 steps without report of pain nor dyspnea 7. Independent with home exercise program 8. Good static and dynamic standing balance/tolerance Plan of Care/Treatment Plan: 1-2x/day, 7 days/week x 1 week. Plan of care has been reviewed with the LINING STRAP CLOSER providing the service under Physical Therapy direction. Initiate Physical Therapy intervention for strengthening, bed mobility, transfers, gait, stairs, balance training, use of assistive device. DISCHARGE RECOMMENDATIONS: May benefit from skilled physical therapy services according to orthopedic surgeon's timeline recommendations. Patient will be educated and trained on home exercise program per TKA exercise protocol in preparation for outpatient physical therapy services. TREATMENT CODE/TIME: 13933 x24 minutes beginning at 8:45 AM. Thank you very much for this referral. Mallika Bartlett PT, DPT, CLT [facility]
--- NOTE | 2018-12-26 12:52 | W.PM.DS.N ---
Date of service: 12/26/18 Time of Service: 10:52 DS: Diagnosis Discharge Diagnosis (1) Arthritis of knee, right: Status: Chronic Discharge Plan Disposition Patient Disposition: HOME Condition: Good Discharge Details Reason For Visit: (R) KNEE TOTAL Admit Date/Time: 12/25/18 09:46 Admit Provider: Philipp Roman Attending Provider: Philipp Roman Primary Care Provider: Miriam Agee Hospital Course Hospital Course: Patient was admitted to the medical/surgical floor following the procedure. It was tolerated well without any notable medical, surgical, or anesthetic complications. Mobilization began postoperatively. The mcwilliams catheter was removed and voiding spontaneously. Vitals were stable. Physical therapy worked with the patient and was cleared for discharge home. No acute medical issues. Home Meds and New Rx's Prescriptions: New aspirin 81 mg tablet,delayed release (DR/EC) 81 mg PO BID Qty: 60 RF: 0 oxycodone 5 mg tablet 5 mg PO Q4H Qty: 15 RF: 0 Continued ergocalciferol (vitamin D2) [Vitamin D2] 50,000 UNIT capsule 1 tab-cap PO weekly RF: 0 calcium citrate-vitamin D3 1 EACH tablet 2 ea PO DAILY RF: 0 metformin 500 MG tablet extended release 24hr 500 mg PO QACDINNER RF: 0 levothyroxine 50 mcg capsule 50 mcg PO DAILY RF: 0 hydrochlorothiazide 25 mg tablet 25 mg PO DAILY Qty: 90 RF: 3 magnesium 250 mg Tablet 250 mg PO HS RF: 0 docusate sodium [Colace] 100 mg Capsule 100 mg PO BID PRN PRN (Reason: Constipation) Qty: 0 RF: 0 ibuprofen 600 mg tablet 600 mg PO TID PRNQty: 90 RF: 3 acetaminophen 500 mg capsule 1,000 mg PO Q8H PRN (Reason: pain) Qty: 90 RF: 2 Discontinued Women's One Daily 1 EACH tablet 1 tab-cap PO DAILY RF: 0 Discharge Instructions Additional Instructions: Dr. Roman?s Total Knee Discharge Instructions Activity: The most important activity is to walk. You should try to take short walks a few times a day. It is important that when resting you work on keeping the knee straight. Avoid putting a pillow behind the knee as this will encourage flexion. Work on range of motion exercises as provided by Physical Therapy. - Start outpatient physical therapy within 2 weeks. - You should wear the VENKATESH hose on both legs for 2 weeks. Dressing: Keep the surgical dressing in place for at least one week. After the first week it may be removed and replace with light gauze and tape or nothing. It may get wet after 3 days but avoid soaking the dressing. If it gets wet, just lightly pat dry. Medications: - You should take Tylenol and anti-inflammatory Ibuprofen as your primary pain control medications - You have been prescribed a stronger pain medication Oxycodone for breakthrough pain, take as needed as prescribed. - You have also been prescribed a stomach acid reduction agent Pantoprozole to help reduce stomach acid and reflux. - You will be taking Aspirin 81mg twice a day for DVT prevention unless instructed otherwise. - If you have constipation you should take Colace or Miralax (both [id number]). It takes most people 3-4 days to have a bowel movement. Follow-up: 2 weeks 1. Encounter Date and Reason I certify that UMA GUILLEN was seen by Philipp Roman MD on 12/27/18 and that I had a [id number] encounter with this patient that meets the physician face to face encounter requirements. 2. Clinical Findings Supporting Skilled Need and Homebound Status I certify that home health services are medically necessary, include either intermittent correction and/or physical/speech therapy, and that this patient is homebound in that absences from the home require considerable and taxing effort and are infrequent or of short duration, or are attributable to the need to receive medical care. [X] (a) Attached documentation from encounter provides clinical findings supporting skilled need and homebound status (including what assistance patient requires to leave the home). The encounter with the patient was in whole, or in part, for the following medical condition, which is the primary reason for home health care: (R) KNEE TOTAL Snf: Physical Therapy: Uma would benefit from physical therapy to address her weakness and gait abnormalities following knee replacement surgery. Her recovery should focus on mobilization, range of motion, strengthening, and ambulation. Speech Therapy: Homebound: Uma is unable to leave her home unassisted. She is homebound due to these gait abnormalities and weakness. 3. Certification and Authentication I certify that I composed the above information based on my clinical judgement relating to this patient's medical condition and, if applicable, clinical findings communicated to me by the NPP or inpatient physician who performed the Home Health Referral. All further orders will be obtained through Dr. Philipp Roman. Referrals: Philipp Roman MD [ [facility] STAFF PHYSICIAN] - Activity:: Activity as Tolerated Equipment/Supplies:: No Equipment Needed Diet:: As Tolerated Discharge Orders Discharge Orders: Discharge Order (Routine); Ordered 12/27/18 Ordered By: Philipp Roman DS: Summary Status at Discharge Functional status at discharge: uses cane/walker Overall status at discharge: patient is progressing back to baseline Mental Status: mental status grossly normal Speech and Movement: speech and movement normal Mood: congruent mood Affect: normal affect Exam Psych Mental Status: mental status grossly normal Speech and Movement: speech and movement normal Mood: congruent mood Affect: normal affect DS: Data Vitals/I&O Vitals and I&O: Vital Signs Temperature 37.1 C 12/26/18 07:00 Temperature Source Tympanic 12/26/18 07:00 Pulse 71 12/26/18 07:00 Pulse Rhythm Regular 12/26/18 03:58 Respiratory Rate 16 12/26/18 07:00 Respiratory Effort Non-Labored 12/26/18 03:58 Respiratory Depth Normal 12/26/18 03:58 Respiratory Pattern Normal 12/26/18 03:58 Blood Pressure 112/75 12/26/18 07:00 Pulse Oximetry 97 12/26/18 07:00 Respiratory End-tidal CO2 36 12/25/18 15:40 Oxygen Delivery Method Room Air 12/26/18 07:00 Oxygen Flow Rate 0 12/26/18 07:00 Pain Level 4 12/26/18 12:17 Comment 12/26/18 03:35 Intake & Output 12/25/18 12/26/18 12/26/18 23:59 11:59 23:59 Intake Total 2168.666 / 2168.666 1476.667 / 1576.667 100 / 1576.667 Output Total 1650 / 1650 925 / 925 Balance 518.666 / 518.666 551.667 / 651.667 100 / 651.667 Intake: IV 1448.666 / 2252.032 2250.667 / 1376.667 100 / 1376.667 Oral 720 / 720 200 / 200 Output: Urine 1250 / 1250 925 / 925 Estimated Blood Loss 400 / 400 Other: Urine Color Yellow Yellow Urine Appearance Clear Clear Emesis Description None [facility] Medical History Diabetes mellitus, type II (Chronic) Essential hypertension (Chronic) Gastroesophageal reflux disease (Resolved) History of colonic polyps (Chronic) History of postoperative nausea and vomiting (Acute) Hyperparathyroidism, unspecified (Resolved) Impaired fasting glucose (Chronic) A1C 6.4%, 12/2012 6.6 on 09/22/17 Lipoma of colon (Chronic) submucosal Obesity (Chronic) Osteopenia (Chronic) Normal BMD in all areas EXCEPT L forearm where T-score -1.4 Primary hyperparathyroidism (Resolved) [facility] Endo Dr. Jose Miguel Winston parathyroid adenoma Subclinical hypothyroidism (Chronic) SUBCLINICAL WITH SLIGHTLY ELEVATED TSH, NORMAL FT4; PLAN IS ANNUAL MONITORING NO MEDS FOR NOW Surgical History Colonoscopy - [facility] Dr Cortez EGD - [facility] Dr. Orion Carreno History of carpal tunnel release of both wrists (Acute) History of hysterectomy (Chronic) History of ovarian cystectomy (Acute) History of parathyroidectomy (Acute) History of repair of hiatal hernia (Acute) History of tonsillectomy and adenoidectomy (Acute) History of total left knee replacement (TKR) (Inactive 01/02/18) DOS of TKA: 01/02/2018 Left knee manipulation on 03/26/2018 Status post partial lobectomy of lung (Acute) mass in her right lung that was removed Denies cancer diagnosis Family History Mother , aneurysm at age 73. Essential hypertension Heart disease Hyperlipidemia Father Essential hypertension Heart disease Social History Smoking/Tobacco Use Status: Never Alcohol Intake: current Alcohol Intake frequency: holidays/special occasions only Drug use: Never Household members: none Housing: house Number of Children: 0 Pets and animals: Yes Pets and animals: dog(s) What is your relationship status?: Panel score (0-1 are the most socially isolated patients): 0 Duration: 45-60 minutes/day Frequency: 1-2 times per week Seatbelt use: always Working smoke detector in home: Yes Fire extinguisher in home: Yes Carbon monox detector in home: Yes Firearms in home: No
[2018-12-26] MEDS: Docusate Sodium 100 MG CAP PO ×2 (13:25→21:14)
--- NOTE | 2018-12-26 14:12 | PDOC.CMIN ---
- If Service Date Differs Date of service: 12/26/18 Time of Service: 14:12 Care Management Initial Assess REASON FOR HOSPITALIZATION:: Total right knee PAST MEDICAL HISTORY/PAST SURGICAL HISTORY:: GERD, DJD left knee, hypthyroidism, osteopenia, obesity, lipoma, impaired fasting glucose PREVIOUS FUNCTIONAL STATUS/SOCIAL/FAMILY SUPPORTS:: Uma lives in an apartment here in [place], [place]. Uma was in October of last year. She has several friends in the area that are supportive. 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 She had a total knee in December of last year and reports she recovered well from that procedure. Since then she has moved into a ground floor apartment and is in the process of selling her home. She states she does have her step daughter local that can help at home. CURRENT FUNCTIONAL STATUS:: Uma is sitting up in the chair in her room she states that she is doing okay she would like to stay one more night. She states she also would like to have home health nursing for a short time. She said that is was really helpful after last knee and would like visits again. CM will communicate referral to [facility] and Provider. ADVANCE DIRECTIVES:: Advance directives on file - Luís Cannon is the agent Has patient been provided with information about the portal?: Yes Did the patient sign up for the portal?: Yes CODE STATUS:: Full Code INSURANCE COVERAGE / FINANCIAL ISSUES:: [employer] CURRENT HOME/COMMUNITY SERVICES/EQUIPMENT:: Walker and cane at home. PRIMARY CARE PHYSICIAN:: POTENTIAL DISCHARGE NEEDS:: Follow up with provider as directed new home health services for nursing at the patients request. PATIENT/FAMILY EDUCATION NEEDS:: Discharge education, limitation and follow up plan care including ask me three and self management. ANTICIPATED BARRIERS TO DISCHARGE:: None TRANSPORTATION:: Via private car with friend at time of discharge. PLAN:: Uma will be discharged home when medically ready. She will need new home health services for nursing for short time at her request. CM will continue to support discharge planning. Uma did sign up for my portal today which was completed by CM and instructions reviewed.
--- NOTE | 2018-12-26 16:12 | CHAPLAIN ---
Uma was sitting up in a chair when I visited and told me about her surgery. This is her second knee surgery. He within the past year or so, and she has since moved to a ground floor apartment in [place] and really likes it. She is comforted by her dog, and she said she knows that her is looking down on her and is proud of how she's managing. Her daughter and a good friend live near by. 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
--- NOTE | 2018-12-26 16:26 | W.PM.PROGNOT ---
Date of Service Date of service: 12/26/18 Time of Service: 16:26 Assessment and Plan Assessment and plan (1) Arthritis of knee, right: Status: Chronic Assessment and plan: s/p R TKA. Doing well but not ready for d/c to home. She is having some malaise, weakness, and pain. We will continue to treat accordingly and mobilize. Likely d/c to home tomorrow with HHS. WBAT with assistance. ASA 81mg BID for DVT prevention. Subjective Subjective Interval history since last seen: Uma has been ableto get out of the bed but she has had some nausea, weakness, and pain. She feels unsteady and weak on her feet. She has some anteiror thigh pain. No fever or chills. Exam Narrative Exam Narrative: RLE dressing c/d/i. Able to SLR. +ADF/APF/EHL/FHL Objective Objective Clinical Data: Vital Signs Temperature 37.1 C 12/26/18 07:00 Temperature Source Tympanic 12/26/18 07:00 Pulse 71 12/26/18 07:00 Pulse Rhythm Regular 12/26/18 03:58 Respiratory Rate 16 12/26/18 07:00 Respiratory Effort Non-Labored 12/26/18 03:58 Respiratory Depth Normal 12/26/18 03:58 Respiratory Pattern Normal 12/26/18 03:58 Blood Pressure 112/75 12/26/18 07:00 Pulse Oximetry 97 12/26/18 07:00 Respiratory End-tidal CO2 36 12/25/18 15:40 Oxygen Delivery Method Room Air 12/26/18 07:00 Oxygen Flow Rate 0 12/26/18 07:00 Pain Level 3 12/26/18 13:22 Comment 12/26/18 03:35 Intake & Output 12/25/18 12/26/18 12/26/18 23:59 11:59 23:59 Intake Total 2168.666 / 2168.666 1476.667 / 1975.667 500 / 1975.667 Output Total 1650 / 1650 925 / 925 Balance 518.666 / 518.666 551.667 / 1051.667 500 / 1051.667 Intake: IV 1448.666 / 1377.530 8019.667 / 1376.667 100 / 1376.667 Oral 720 / 720 200 / 600 400 / 600 Output: Urine 1250 / 1250 925 / 925 Estimated Blood Loss 400 / 400 Other: Urine Color Yellow Yellow Urine Appearance Clear Clear Emesis Description None
--- NOTE | 2018-12-26 16:45 | PT.INTREAT ---
Date of service: 12/26/18 Time of Service: 16:45 PT Notes Inpatient Physical Therapy Treatment Note [facility] Date: 12/26/18 PRECAUTIONS: Fall, WBAT R SUBJECTIVE: Uma states that she feels she would benefit from staying another night to gain more strengthen and control over her knee pain. OBJECTIVE: PAIN: Patient c/o R knee pain with transfers, ther ex, gait training, and stairs BED MOBILITY/TRANSFERS Supine-sit: I with HOB flat Sit-supine: I with HOB flat Sit-stand: S Stand-sit: S GAIT Assistive Device: FWW Weight bearing: WBAT R Assist: SBA Distance: 30' + 80' Deviation: Cueing for step-through gait pattern and continuous advancement of FWW THEREX: Patient completed a LE strengthening and stabilization program, in a supine position, as per flow sheet. She is able to perform active SLR x10. She neds with cryocuff to R knee. STAIRS: Up/down 3x4 and 2x6 using 1 rail/cane and a step-to pattern with SBA ASSESSMENT: Patient tolerated session with complaints of increased pain in R knee. Patient was able to tolerate a progression in gait distance with FWW support and SBA. She would benefit from continued gait training as well as strengthening for improved mobility and activity tolerance. PLAN: Continue with PT's POC TREATMENT CODE/TIME: 25 minutes; 95344, 10083
[2018-12-26] MEDS: metFORMIN 500 MG TAB PO (17:14)
[2018-12-26 19:55] VITALS: BP 133/61; PULSE 73; RESP 16; TEMP 37.6; O2SAT 98
[2018-12-26] MEDS: Gabapentin 300 MG CAP PO (21:14)
[2018-12-26] MEDS: Magnesium Gluconate 500 MG TAB 250 MG PO (21:14)
[2018-12-26] MEDS: Normal Saline Flush 10 ML SYR IV (21:15)
[2018-12-26 23:48] VITALS: BP 135/77; PULSE 81; RESP 16; TEMP 36.9; O2SAT 96
[2018-12-27 03:45] VITALS: BP 105/61; PULSE 74; RESP 18; TEMP 37.3; O2SAT 96
[2018-12-27] MEDS: oxyCODONE 5 MG TAB PO ×2 (03:56→09:15)
[2018-12-27] MEDS: Levothyroxine 50 MCG TAB PO (06:20)
[2018-12-27 07:50] VITALS: BP 133/73; PULSE 73; RESP 20; TEMP 36.9; O2SAT 100
[2018-12-27] MEDS: Ibuprofen 600 MG TAB PO (09:14)
[2018-12-27] MEDS: Pantoprazole 40 MG TABCR PO (09:15)
[2018-12-27] MEDS: Acetaminophen 500 MG TAB 1000 MG PO (09:15)
[2018-12-27] MEDS: Docusate Sodium 100 MG CAP PO (09:15)
[2018-12-27] MEDS: hydroCHLOROthiazide 25 MG TAB PO (09:15)
[2018-12-27] MEDS: Aspirin E.C. 81 MG TABEC PO (09:15)
[2018-12-27 11:20] VITALS: BP 124/72; PULSE 60; RESP 18; TEMP 37.1; O2SAT 98
--- NOTE | 2018-12-27 12:14 | PT.INTREAT ---
Date of service: 12/27/18 Time of Service: 12:14 PT Notes Inpatient Physical Therapy Treatment Note [facility] Date: 12/27/18 PRECAUTIONS:Fall, WBAT R SUBJECTIVE: Patient reports that she is feeling stiff and sore this morning. She is hesitant but agreeable to participating in PT. OBJECTIVE: PAIN: Patient c/o R LE pain with gait training, transfers, and ther ex. BED MOBILITY/TRANSFERS Supine?sit: I with HOB flat Sit-stand: S Stand-sit: S GAIT Assistive Device: FWW Weight bearing: WBAT R Assist: SBA Distance: 40' x2 Deviation: Seated rest x1, complaints of dizziness THEREX: Patient completed a LE strengthening and stabilization program, in supine, long-sitting, and seated positions, as per flow sheet. Patient was able to perform active SLR x10. She ends with cryocuff to R LE. ASSESSMENT: Patient tolerated gait training with c/o increased dizziness, requiring seated rest. She would benefit from continued gait and transfer training, as well as strengthening for improved mobility and activity tolerance. PLAN: As per primary PT TREATMENT CODE/TIME: 30 minutes; 67422, 48300
--- NOTE | 2018-12-28 12:11 | PT.INDS ---
Date of service: 12/28/18 PT Notes Inpatient Physical Therapy Discharge Summary Dates: 12/28/2018 Dates of Service: 12/26/2018 through 12/27/2018 This is a clinical summary of care provided on the duration of dates listed above. No charge was made in the completion of this documentation. Referring Doctor: Philipp Roman MD PT Orders: PT CONSULT: Ortho surgery. Status post right TKA Precautions: Fall. Standard. WBAT on right LE. Patient Profile/Admitting Diagnosis: Patient is a 63-year-old female status post right total knee arthroplasty on postoperative day 3 due to primary unilateral osteoarthritis of right knee. PMHX: Medical History (Updated 12/18/18 @ 14:46 by Liyah Mon) Diabetes mellitus, type II (Chronic) Essential hypertension (Chronic) Gastroesophageal reflux disease (Resolved) History of colonic polyps (Chronic) History of postoperative nausea and vomiting (Acute) Hyperparathyroidism, unspecified (Resolved) Impaired fasting glucose (Chronic) A1C 6.4%, 12/2012 6.6 on 09/22/17 Lipoma of colon (Chronic) submucosal Obesity (Chronic) Osteopenia (Chronic) Normal BMD in all areas EXCEPT L forearm where T-score -1.4 Primary hyperparathyroidism (Resolved) [facility] [place] Jose Miguel Winston parathyroid adenoma Subclinical hypothyroidism (Chronic) SUBCLINICAL WITH SLIGHTLY ELEVATED TSH, NORMAL FT4; PLAN IS ANNUAL MONITORING NO MEDS FOR NOW Surgical History (Updated 12/18/18 @ 14:20 by Liyah Mon) Colonoscopy - [facility] Dr Cortez EGD - [facility] Dr. Orion Carreno History of carpal tunnel release of both wrists (Acute) History of hysterectomy (Chronic) History of ovarian cystectomy (Acute) History of parathyroidectomy (Acute) History of repair of hiatal hernia (Acute) History of tonsillectomy and adenoidectomy (Acute) History of total left knee replacement (TKR) (Inactive 01/02/18) DOS of TKA: 01/02/2018 Left knee manipulation on 03/26/2018 Status post partial lobectomy of lung (Acute) mass in her right lung that was removed Denies cancer diagnosis Social History/Home Situation: Patient lives alone in a one story-house with 2 steps to enter without rails. Her over a year ago. Patient was independent with all aspects of ADLs without the need for an assistive ambulatory device nor adaptive equipment. 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 Equipment Owned/DME: [employer] Subjective: NT Objective: General Observation: NT Mental Status: NT Pain: NT Vital Signs: NT ROM: Right Upper Extremity: Shoulder Flexion WFL. Shoulder abduction WFL. Elbow flexion WFL. Wrist flexion WFL. Opening and closing of hand WFL. Left Upper Extremity: Shoulder Flexion WFL. Shoulder abduction WFL. Elbow flexion WFL. Wrist flexion WFL. Opening and closing of hand WFL. Right Lower Extremity: Hip flexion WFL. Hip abduction WFL. Knee flexion 80. Knee extension -30 degrees. Ankle dorsiflexion WFL. Ankle plantarflexion WFL. Left Lower Extremity: Hip flexion WFL. Hip abduction WFL. Knee flexion WFL. Ankle dorsiflexion WFL. Ankle plantarflexion WFL. Strength: Right Upper Extremity: Shoulder flexors 5/5. Shoulder abductors 5/5. Elbow flexors 5/5. Elbow extensors 5/5. [employer]ch[employer]ising [employer]ship strong. Left Upper Extremity: Shoulder flexors 5/5. Shoulder abductors 5/5. Elbow flexors 5/5. Elbow extensors 5/5. [employer]ch[employer]ising [employer]ship strong. Right Lower Extremity: Hip flexors 4/5. Hip abductors 5/5. Knee flexors 3-/5. Knee extensors 3-/5. Ankle dorsiflexors 5/5. Ankle plantarflexors 5/5. Left Lower Extremity:Hip flexors 4/5. Hip abductors 5/5. Knee flexors 4/5. Knee extensors 5/5. Ankle dorsiflexors 5/5. Ankle plantarflexors 5/5. Sensation: Intact as to pain and pressure on bilateral lower extremities. Bed Mobility/Transfers: Rolling independent Supine to sit independent Sit to supine independent Sit to stand supervision Stand to sit supervision Bed to chair supervision Chair to bed supervision Gait: Patient was able to walk from room to therapy gym about 40 feet x 2 using her FWW with SBA. She was also able to manage three 4 steps and two 6 steps without holding onto any rails requiring only SBA. Patient did complain of dizziness after standing for about 3 minutes while PT tried to fix TOREY wraps that got loosened up. Patient reported 3/10 pain on the right knee after ambulation activity. Balance: Static Sitting: Normal Dynamic Sitting: Normal Static Standing: Fair Dynamic Standing: Fair Assessment: Patient is a 63-year-old female status post right total knee arthroplasty on postoperative day 1 due to primary unilateral osteoarthritis of right knee. Patient is also status post left TKA on 01/02/2018 with very good outcomes received from outpatient physical therapy. Prognosis for this surgery is good. She is motivated to return to prior independent level and to go home as soon as it is safe to do so. Chelsie has demosntrated imrpovement in mobility level during this episode of care. Patient continues to present with clinical signs and symptoms consistent with current/admitting diagnoses that have resulted to mobility limitations, gait instability, generalized weakness, and impairment of motor control as demonstrated by the following impairment level findings: 1. Decreased strength to R LE major muscle groups 2. Impaired sitting/standing balance 3. Impaired activity tolerance 4. Limitation of joint range of motion in right knee joint Impairments are contributing to the following functional limitations: 1. Inability to safely ambulate without assistive device and physical assistance 2. Increase completion time for mobility ADL performance 3. Increased fall risk 4. Inability to negotiate steps alone safely Goals: Goals X1 week 1. Sit-Stand independent 2. Stand-Sit independent 3. Bed-Chair independent 4. Chair-Bed independent 5. Independent gait on level surface with use of least restrictive device for at least 300 feet without report of pain nor dyspnea 6. Independent stair negotiation while holding onto bilateral rails for at least 10 steps without report of pain nor dyspnea 7. Independent with home exercise program 8. Good static and dynamic standing balance/tolerance DISCHARGE RECOMMENDATIONS: May benefit from skilled physical therapy services according to orthopedic surgeon's timeline recommendations. Patient will be educated and trained on home exercise program per TKA exercise protocol in preparation for outpatient physical therapy services. TREATMENT CODE/TIME: ID Thank you very much for this referral. Mallika Bartlett PT, DPT, CLT [facility]
== END 2018-12-27 12:28 | disposition home or self-care (01) | DRG 470 ==
LOC: PDS 09:47 → MS 15:52
PROVIDERS: Admitting Provider Student in an Organized Health Care Education/Training Program; PCP Internal Medicine; Visit Provider Student in an Organized Health Care Education/Training Program
PROC: 0SRC0J9 Replacement of Right Knee Joint with Synthetic Substitute, Cemented, Open Approach (ICD-10-PCS; CPT 27447; principal; 2018-12-25 11:15)
DX: M17.11 Unilateral primary osteoarthritis, right knee (principal); M21.161 Varus deformity, not elsewhere classified, right knee; Z96.653 Presence of artificial knee joint, bilateral; G89.18 Other acute postprocedural pain; E11.9 Type 2 diabetes mellitus without complications; K21.9 Gastro-esophageal reflux disease without esophagitis; I10 Essential (primary) hypertension; E66.9 Obesity, unspecified; Z68.31 Body mass index [BMI] 31.0-31.9, adult; R11.0 Nausea; R53.1 Weakness; E21.0 Primary hyperparathyroidism; Z79.84 Long term (current) use of oral hypoglycemic drugs
CPT/HCPCS: 27447; 76942; 97110; 97162; 97530; NC; J0690; J1100; J1885; J2250; J2405

== ENCOUNTER 2019-01-09 08:51 | Outpatient (CLI) | payer OTHER, SELFPAY ==
--- NOTE | 2019-01-09 08:45 | DI.RAD_ITS ---
EXAM: XR KNEE RT 1V CLINICAL HISTORY: 1ST POST OP S/P RIGHT TKA TECHNIQUE: The study was performed according to the usual protocol. COMPARISON: XR knee RT 3V AP,lat,[place] from 08/08/2018 FINDINGS: Single lateral view of the knee was obtained and shows total knee joint replacement in position. The components appear well seated on this single view.
--- NOTE | 2019-01-09 08:45 | DI.RAD_ITS ---
EXAM: XR STANDING ALIGNMENT CLINICAL HISTORY: 1ST POST OP RIGHT TKA TECHNIQUE: AP views of the lower extremities were obtained for standing alignment. COMPARISON: XR LEG LONG LENGTH from 01/17/2018 FINDINGS: There are bilateral total knee joint replacements in position. Slight varus angulation noted at both knees.
== END 2019-01-09 09:11 ==
PROVIDERS: PCP Internal Medicine; Visit Provider Physician Assistant
DX: Z96.651 Presence of right artificial knee joint (principal); Z47.1 Aftercare following joint replacement surgery
CPT/HCPCS: 73560; 77073

== ENCOUNTER 2019-02-22 15:45 | Outpatient (REF) | payer OTHER, SELFPAY ==
[2019-02-22 19:11] LABS: Anion Gap 12.3 mmol/L (3-11); BUN 9 mg/dL (7-18); CO2 28.7 mmol/L (21.0-32.0); CREATININE 0.66 mg/dL (0.55-1.02); Calcium 9.6 mg/dL (8.5-10.1); Chloride 98 mmol/L (98-107); Glucose 101 mg/dL (74-106); Potassium 3.5 mmol/L (3.5-5.1); Sodium 139 mmol/L (136-145)
[2019-02-22 19:17] LABS: Abs Immature Grans 0.04 k/cumm (0.0-0.09); Absolute Basophil Count 0.02 k/cumm (0.0-0.2); Absolute Eosinophil Count 0.15 k/cumm (0.0-0.7); Absolute Lymphocyte Count 2.05 k/cumm (1.2-3.4); Absolute Monocyte Count 1.39 k/cumm (0.11-0.7); Absolute Neutrophil Count 11.64 k/cumm (1.2-6.7); Basophils % 0.1; HCT 41.8 % (36.0-46.0); HGB 13.6 g/dL (12.0-15.5); Immature Grans % 0.3; Lymphocytes % 13.4; Mean Corp. HGB Concentration 32.5 g/dL (32.0-36.0); Mean Corpuscular Hemoglobin 27.9 pg (27.0-33.0); Mean Corpuscular Volume 85.8 fL (80-95); Mean Platelet Volume 10.5 fL (8.0-11.0); Monocytes % 9.1; Neutrophils % 76.1; Platelet Count 388 x1000/uL (130-400); RBC 4.87 m/cumm (4.00-5.20); RBC Distribution Width 13.7 % (11.7-14.6); White Blood Cell Count 15.29 k/cumm (4.4-10.8)
== END 2019-02-22 16:05 ==
LOC: LBN 15:45
PROVIDERS: PCP Internal Medicine; Visit Provider Student in an Organized Health Care Education/Training Program
DX: E87.6 Hypokalemia (principal); R50.9 Fever, unspecified; B99.9 Unspecified infectious disease; Z86.39 Personal history of other endocrine, nutritional and metabolic disease
CPT/HCPCS: 80048; 85025

== ENCOUNTER 2019-03-05 07:35 | Outpatient (CLI) | payer OTHER, SELFPAY ==
[2019-03-05] MEDS: Breeza Beverage 473 ML BTL PO ×2 (08:24→08:25)
[2019-03-05] MEDS: Omnipaque 350 MG/ML 50 ML BTL PO (08:26)
--- NOTE | 2019-03-05 09:26 | DI.CT_ITS ---
EXAM: CT ABDOMEN PELVIS W CLINICAL HISTORY: r/o diverticulitis,low abd pain, tenderness, R10.9, R10.819 TECHNIQUE: CT examination of the abdomen and pelvis was performed with a bolus infusion of 100 cc of Omnipaque 350 and ingestion of dilute barium. COMPARISON: US OR ANESTHESIA from 12/25/2018 FINDINGS: Images obtained through the lung bases show a large hiatal hernia and show multiple fairly well-cir cumscribed intrapulmonary nodules, the largest in the right lower lobe measuring up to about 6-7 mill imeters in diameter. Liver, spleen and pancreas appear normal. Gallbladder and bile ducts are CT normal. Adrenals are unremarkable in appearance bilaterally. There is an incidental apparent left upper pole renal cyst measuring about 4.1 cm in maximal diameter. No urinary tract calcification or obstructio n. Abdominal aorta is of normal diameter and no major vascular abnormality is seen. No abdominal or pel jonathan adenopathy seen. Appendix is normal. There is marked colonic diverticulosis, particularly involving the sigmoid colon . Question slight pericolonic fat edema of the sigmoid could represent acute diverticulitis just abo ve the rectosigmoid junction. There are multiple cysts versus septated cyst of left ovary, maximal diameter about 4.6 cm. Addition al evaluation with pelvic ultrasound requested to assess the possibility of neoplasm. IMPRESSION: Marked colonic diverticulosis with question of focal area of diverticulitis in the distal sigmoid col on. Multiple noncalcified intrapulmonary nodules, the largest 6-7 millimeters in diameter, correlation wi th chest CT recommended. Left ovarian low-attenuation lesions, probable cysts. Pelvic ultrasound requested for correlation to evaluate the possibility of neoplastic disease.
[2019-03-05] MEDS: Omnipaque 350 MG/ML 100 ML BTL IJ (10:04)
== END 2019-03-05 07:55 ==
PROVIDERS: PCP Internal Medicine; Visit Provider Student in an Organized Health Care Education/Training Program
DX: R10.31 Right lower quadrant pain (principal); R10.813 Right lower quadrant abdominal tenderness; K44.9 Diaphragmatic hernia without obstruction or gangrene; R91.8 Other nonspecific abnormal finding of lung field; N28.1 Cyst of kidney, acquired; K57.30 Diverticulosis of large intestine without perforation or abscess without bleeding; N83.292 Other ovarian cyst, left side
CPT/HCPCS: 74177; J3490; Q9967

== ENCOUNTER 2019-03-15 03:32 | Outpatient (CLI) | payer OTHER, SELFPAY ==
--- NOTE | 2019-03-15 12:47 | DI.US_ITS ---
EXAM: US PELVIS AND TRANSVAGINAL CLINICAL HISTORY: OVARIAN CYST ON CT SCAN Z87.42 TECHNIQUE: Ultrasound performed using standard protocol. Pelvic ultrasound was performed transabdo minally and transvaginally. COMPARISON: US OR ANESTHESIA from 12/25/2018 FINDINGS: Incidental note is made left renal simple cyst measuring 41 millimeters in diameter. The patient has reportedly had a hysterectomy. Right ovary was nonvisualized. Left ovary not well v isualized. There are least 2 left ovarian cysts, which appear to be simple cysts, measuring about 32 millimeters and 24 millimeters in greatest diameter, respectively. No solid mass identified. No luz e fluid identified in the cul-de-sac. IMPRESSION: Left ovarian cysts. Right ovary nonvisualized in this post hysterectomy patient.
== END 2019-03-15 03:52 ==
PROVIDERS: PCP Internal Medicine; Visit Provider Internal Medicine
DX: N83.292 Other ovarian cyst, left side (principal); Z87.42 Personal history of other diseases of the female genital tract; N28.1 Cyst of kidney, acquired; Z90.710 Acquired absence of both cervix and uterus
CPT/HCPCS: 76830; 76856

== ENCOUNTER 2019-11-06 04:38 | Outpatient (CLI) | payer OTHER, SELFPAY ==
--- NOTE | 2019-11-06 08:00 | DI.MAMMO_ITS ---
EXAM: MG MAMMO SCREENING CLINICAL HISTORY: screening, Z12.39 TECHNIQUE: Bilateral full field digital CC and MLO mammographic images were obtained with 3D tomosyn thesis and utilizing computer aided detection (CAD). COMPARISON: Available for comparison. FINDINGS: Masses/Architectural Distortion: Asymmetric densities are again seen in the upper outer quadrants of the breasts. These appear stable. Microcalcifications: No suspicious pleomorphic-type are seen. Skin Thickening/Nipple Retraction: None. IMPRESSION: 1. No significant interval change with no specific features of malignancy noted. 2. Unless there is more urgent need, screening mammography is recommended, as per [employer] guidelines. BI-RADS Category 2 - Benign Findings Breast Density - Category B - Scattered areas of fibroglandular density A negative radiographic report should not delay biopsy if a dominant or clinically suspicious mass is present. Up to ten percent of cancers are not identified on mammography. A negative report may reinforce clinical impression. Adenosis and dense breasts may obscure an underlying neoplasm. False positive reports average 6 to 10%. Patient will receive a letter notifying them of these results.
== END 2019-11-06 04:58 ==
PROVIDERS: PCP Internal Medicine; Visit Provider Internal Medicine
DX: Z12.31 Encounter for screening mammogram for malignant neoplasm of breast (principal); R92.2 Inconclusive mammogram
CPT/HCPCS: 77063; 77067

== ENCOUNTER 2019-12-13 02:50 | Outpatient (CLI) | payer OTHER, SELFPAY ==
[2019-12-13 09:42] LABS: Calculated LDL 144 mg/dL (<100); Cholesterol 235 mg/dL (<200); HDL Cholesterol 59 mg/dL (40-60); Potassium 3.6 mmol/L (3.5-5.1); TSH (W/Ref FT4) 3.91 uIU/mL (0.36-3.74); Triglyceride 164 mg/dL (<150)
[2019-12-13 10:40] LABS: FREE T4 1.15 ng/dL (0.76-1.46)
[2019-12-16 10:35] LABS: Hepatitis C Ab w Rflx HCV PCR Negative (Negative)
== END 2019-12-13 03:10 ==
PROVIDERS: PCP Internal Medicine; Visit Provider Internal Medicine
DX: E78.00 Pure hypercholesterolemia, unspecified (principal); E03.9 Hypothyroidism, unspecified; E87.6 Hypokalemia; Z11.59 Encounter for screening for other viral diseases
CPT/HCPCS: 36415; 80061; 86803; 84132; 84439; 84443

== ENCOUNTER 2019-12-30 10:42 | Outpatient (CLI) | payer OTHER, SELFPAY ==
--- NOTE | 2019-12-30 10:00 | DI.RAD_ITS ---
EXAM: XR KNEE RT 2V AP,LAT CLINICAL HISTORY: annual f/u TECHNIQUE: COMPARISON: CR XR KNEE RT 1V from 01/09/2019 FINDINGS: Two views were obtained and show total knee joint prosthesis in position. Components appear [place]. No other significant bony abnormality seen. IMPRESSION: RADIATION DOSE DELIVERED: Total DLP
== END 2019-12-30 11:02 ==
PROVIDERS: PCP Internal Medicine; Referring Provider Internal Medicine; Visit Provider Student in an Organized Health Care Education/Training Program
DX: Z96.651 Presence of right artificial knee joint (principal)
CPT/HCPCS: 73560

== ENCOUNTER → 2020-07-09 10:55 | Outpatient (BNVA) | payer MEDICARE, OTHER, SELFPAY | PROVIDERS: PCP Internal Medicine; Referring Provider Internal Medicine; Visit Provider Physical Therapy Assistant | DX: Z86.010 Personal history of colon polyps (principal); Z12.11 Encounter for screening for malignant neoplasm of colon ==

== ENCOUNTER 2020-07-17 03:41 | Outpatient (CLI) | payer MEDICARE, OTHER, SELFPAY ==
[2020-07-17 11:27] LABS: Source Nasal/Nares
[2020-07-17 16:29] LABS: COVID-19 PCR Negative (Negative)
== END 2020-07-17 03:42 | disposition home or self-care (01) ==
LOC: LBO 03:42
PROVIDERS: PCP Internal Medicine; Visit Provider Surgery
DX: Z20.822 Contact with and (suspected) exposure to COVID-19 (principal); Z01.818 Encounter for other preprocedural examination
CPT/HCPCS: 87635

== ENCOUNTER 2020-07-20 09:59 | Day surgery (SDC) | payer MEDICARE, OTHER, SELFPAY ==
--- NOTE | 2020-07-20 06:29 | COLE_ITS ---
Date of service: 07/20/20 Time of Service: : Colonoscopy Report Date of procedure: 07/20/20 Pre-op diagnosis general: Hx of colon polyps Post-op diagnosis procedure note: same (diverticulosis) Procedure: Colonoscopy with polypectomy Surgeon: Julieta Degroot Anesthesia Type: General:No Airway (ASA 2/ Franklyn Zarco CRNA) Estimated blood loss (mL): 3 Pathology: other (sigmoid polyp) Complications: None Disposition: same day Indications: The patient is here for Colonoscopy pre-op. Her last screening was in 2014, which was remarkable for lipoma's. Colonoscopy from 2010 was remarkable for tubular adenomatous polyps. Of note the report mentions she had a tortuous colon.? She reports a family history of colon cancer in her maternal grandmother.? She has not had any bowel habit changes. -Discussed colonoscopy bowel prep as well as the procedure. Discussed possible complications of the procedure to include bleeding, pain, perforation, missed small lesion/polyp, sore throat, aspiration and adverse reaction to the me dications. Questions were answered to patient?s satisfaction. No guarantees were implied or given.? Prep: Miralax/Dulcolax Procedure Start Time: :23 Procedure End Time: 12:00 Retraction Time: 20 minutes Findings: Burnham-diverticulosis sigmoid polyp 2 lipomas in the p[roximal ascending colon Procedure Description: After informed consent was obtained the patient was taken to the procedure room and placed in a left decubitous position. Monitors were applied and a time out was done. The patients name, date of , procedure, allergies to medications and metal in their body was reviewed. The patient was then sedated. Once sedated and comfortable a rectal exam was done. External exam was normal. Internal exam revealed a normal sphincter tone and no palpable masses. The scope was then introduced and retro-flexed. No internal hemorrhoids, polyps or masses were identified on retro-flexion. The scope was then advanced to the cecum with difficulty due to a tortuous colon and severe burnham-divericulosis. The ileocecal vlave and appendiceal orifice were identified. The prep was adequate. The scope was then slowly retracted over 20 minutes back into the rectum. Polyps were removed with cold forceps in the sigmoid colon. There was severe burnham- diverticulosis noted. The scope was removed and the patient was woken up and taken back to Same day surgery in stable condition. The patient tolerated the procedure well and there were no immediate complications. Follow up: The patient should follow up in 5 years unless they develop changes in bowel habits or other new gastrointestinal complaints.
--- NOTE | 2020-07-20 06:30 | W.PM.DSUDISC ---
Discharge Plan Disposition Patient Disposition: HOME Condition: Good Discharge Details Reason For Visit: Colonoscopy Attending Provider: Julieta Degroot Primary Care Provider: Miriam Agee Home Meds and New Rx's Prescriptions: Continued melatonin 1 mg tablet 1 mg PO HS PRNRF: 0 atorvastatin 20 mg tablet 20 mg PO QHS Qty: 90 RF: 3 famotidine 20 mg tablet 20 mg PO BID PRN (Reason: GERD) Qty: 180 RF: 3 ergocalciferol (vitamin D2) [Vitamin D2] 50,000 UNIT capsule 1 tab-cap PO weekly RF: 0 calcium citrate-vitamin D3 1 EACH tablet 2 ea PO DAILY RF: 0 metformin 500 MG tablet extended release 24hr 500 mg PO QACDINNER RF: 0 levothyroxine 50 mcg capsule 50 mcg PO DAILY RF: 0 hydrochlorothiazide 25 mg tablet 25 mg PO DAILY Qty: 90 RF: 3 magnesium 250 mg Tablet 250 mg PO HS RF: 0 docusate sodium [Colace] 100 mg Capsule 100 mg PO BID PRN PRN (Reason: Constipation) Qty: 0 RF: 0 ibuprofen 600 mg tablet 600 mg PO TID PRNQty: 90 RF: 3 acetaminophen 500 mg capsule 1,000 mg PO Q8H PRN (Reason: pain) Qty: 90 RF: 2 Discontinued bisacodyl [Dulcolax (bisacodyl)] 5 mg tablet,delayed release (DR/EC) 5 mg PO ONCE Qty: 4 RF: 0 polyethylene glycol 3350 17 gram/dose powder 17 g PO ONCE Qty: 238 RF: 0 bisacodyl [Dulcolax (bisacodyl)] 5 mg tablet,delayed release (DR/EC) 5 mg PO ONCE Qty: 4 RF: 0 polyethylene glycol 3350 17 gram/dose powder 238 g PO ONCE Qty: 238 RF: 0 Discharge Instructions Instructions: Diverticulosis (DC), Colorectal Polyps (DC) Additional Instructions: Findings: one polyp Severe diverticulosis Follow up: 5 years Please call if you develop: fevers >101.5 Nausea or Vomiting Abdominal pain that is not transient Rectal bleeding that is more then a tbsp A hard abdomen and inability to pass gas DAY SURGERY UNIT POST ENDOSCOPY INSTRUCTIONS Instructions for everyone who is given Anesthesia: For your safety, please do the following for the next 24 Hours: a. Do not drive or operate dangerous equipment b. Do not drink alcohol beverages or use any recreational drugs for the first 24 hours or while taking pain medications. The medications in your body may have a reaction that can be dangerous. c. Do not make any important decisions or sign any important papers 1. Generally there are no restrictions on your activity after a day or so has gone by, but you may feel a bit fatigued for a few days. 2. After you arrive home you may have a light meal and return to a normal diet as you can tolerate it without feeling sick to your stomach. 3. After surgery, you may feel pain or discomfort. This should be only transient, but if it persists please contact your doctor. 4. If there are any questions regarding the findings of your procedure, please feel free to contact your doctor. 6. If you are unable to contact your doctor with a problem, contact the hospital at [phone]. 7. Continue all your regular medications unless directed otherwise. I understand the above instructions and have no questions. Signature of Patient or Responsible Adult Escort Date/Time Name of Responsible Adult Escort Signature of Nurse Date/Time Activity:: Activity as Tolerated Diet:: high fiber diet Discharge Orders Discharge Orders: Discharge Order (Routine); Ordered 07/20/20 Ordered By: Julieta Degroot
[2020-07-20 10:10] VITALS: BP 132/100; PULSE 101; RESP 18; TEMP 36.4; O2SAT 95
[2020-07-20] MEDS: Lactated Ringers 1,000 ML 80 ML IV (10:23)
--- NOTE | 2020-07-20 10:51 | W.ANESPRE ---
General Info Date of Service Date Performed: 07/20/20 Height: 5 ft 3 in Weight: 88 kg Body Mass Index (BMI): 34.3 Surgical Procedure: Operation Date: 07/20/20 11:05 Proposed Procedures Side Surgeon p Colonoscopy Julieta Degroot MD Meds Allergies and Home Medications Allergies Allergy/AdvReac Type Severity Reaction Status Date / Time celecoxib [From Celebrex] Allergy Intermediate Itching Verified 07/20/20 10:11 ciprofloxacin Allergy Intermediate Hives Verified 07/20/20 10:11 metronidazole Allergy Intermediate Hives Verified 07/20/20 10:11 Sulfa (Sulfonamide Allergy Intermediate Hives Verified 07/20/20 10:11 Antibiotics) sulfamethoxazole Allergy Intermediate Hives Verified 07/20/20 10:11 trimethoprim Allergy Intermediate Hives Verified 07/20/20 10:11 diclofenac AdvReac Intermediate elevated Verified 07/20/20 10:11 liver enzymes Home Medication Medication Instructions Recorded ergocalciferol (vitamin D2) 1 tab-cap PO weekly tab-cap 09/29/14 [Vitamin D2] calcium citrate-vitamin D3 2 ea PO DAILY 12/18/15 metformin 500 mg PO QACDINNER 12/13/16 levothyroxine 50 mcg capsule 50 mcg PO DAILY 12/11/17 magnesium 250 mg PO HS 12/25/17 docusate sodium [Colace] 100 mg PO BID PRN PRN #0 cap 01/04/18 acetaminophen 1,000 mg PO Q8H PRN #90 cap 12/26/18 ibuprofen 600 mg PO TID PRN #90 tab 12/26/18 melatonin 1 mg tablet 1 mg PO HS PRN 10/22/19 bisacodyl 5 mg tablet,delayed 5 mg PO ONCE #4 tab 12/02/19 release polyethylene glycol 3350 17 17 g PO ONCE #238 g 12/02/19 gram/dose oral powder hydrochlorothiazide 25 mg tablet 25 mg PO DAILY #90 tab 12/03/19 atorvastatin 20 mg tablet 20 mg PO QHS #90 tab 04/14/20 famotidine 20 mg tablet 20 mg PO BID PRN #180 tab 04/14/20 bisacodyl 5 mg tablet,delayed 5 mg PO ONCE #4 tab 07/09/20 release polyethylene glycol 3350 17 238 g PO ONCE #238 g 07/09/20 gram/dose oral powder Current Visit Medications: Current Medications Generic Name Dose Route Start Last Admin Trade Name Freq PRN Reason Stop Dose Admin Hyoscyamine Sulfate 0.125 mg 07/20/20 06:31 Hyoscyamine 0.125 Mg Sl/Oral/Chew SL DIRECTED PRN Ringer's Solution 1,000 mls @ 80 mls/hr 07/20/20 06:00 07/20/20 10:23 IV 07/20/20 23:59 80 mls/hr INFUSION DELONTE Administration IV Miscellaneous Supplies 1 each 07/20/20 06:00 Iv Access IV 07/20/20 23:59 DIRECTED DELONTE Ondansetron HCl 4 mg 07/20/20 06:31 Ondansetron 4 Mg/2 Ml Vial IVP Q4H PRN PRN Nausea / Vomiting Sodium Chloride 0 ml 07/20/20 06:00 Normal Saline Flush 10 Ml Syr IV 07/20/20 23:59 PRN PRN Sodium Chloride 0 ml 07/20/20 06:00 Normal Saline 10 Ml Vial IJ 07/20/20 23:59 DIRECTED PRN Sterile Water 0 ml 07/20/20 06:00 Water,Injection,Sterile 10 Ml Vial IJ 07/20/20 23:59 DIRECTED PRN PFSH Active Problems Active Problems: Problem Status Onset Code Sensorineural hearing loss of both ears H90.3 Gastroesophageal reflux disease K21.9 Cerumen impaction H61.20 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 Paraesophageal hernia K44.9 Ovarian cyst, left N83.202 Diverticul disease small and large intestine, no perforati or abscess K57.50 Multiple pulmonary nodules R91.8 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 Z96.651 Renal mass N28.89 Disorder of parathyroid gland E21.5 Hyperlipidemia E78.5 Vitamin D deficiency, unspecified E55.9 Hypokalemia E87.6 Subclinical hypothyroidism E03.9 Primary hyperparathyroidism E21.0 Osteopenia M85.80 Obesity E66.9 Lipoma of colon D17.5 Essential hypertension I10 Diabetes mellitus, type II E11.9 History of colonic polyps Z86.010 Medical History Medical History Diabetes mellitus, type II Diverticul disease small and large intestine, no perforati or abscess Essential hypertension Gastroesophageal reflux disease History of colonic polyps History of postoperative nausea and vomiting Hyperparathyroidism, unspecified Impaired fasting glucose A1C 6.4%, 12/2012 6.6 on 09/22/17 Lipoma of colon submucosal Multiple pulmonary nodules Obesity Osteopenia Normal BMD in all areas EXCEPT L forearm where T-score -1.4 Personal history of ovarian cyst Primary hyperparathyroidism [facility] [place] Endo Dr. 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 Orion Carreno History of carpal tunnel release of both wrists History of hysterectomy History of ovarian cystectomy History of parathyroidectomy History of repair of hiatal hernia History of tonsillectomy and adenoidectomy History of total left knee replacement (TKR) (01/02/18) DOS of TKA: 01/02/2018 Left knee manipulation on 03/26/2018 Status post partial lobectomy of lung mass in her right lung that was removed Denies cancer diagnosis Status post total right knee replacement (12/25/18) Dr. Roman Tobacco Smoking/Tobacco Use Status: Never Passive smoking exposure: No Alcohol Alcohol Intake: current Alcohol intake frequency: holidays/special occasions only Substance Use Substance use: Never Substance use type: does not use Vital Signs and Lab Results Vital Signs Most Recent Vital Signs in EMR: Most Recent Vital Signs Temp Pulse Resp BP Pulse Ox 36.4 C L 101 H 18 132/100 H 95 07/20/20 10:10 07/20/20 10:10 07/20/20 10:10 07/20/20 10:10 07/20/20 10:10 Point of Care Results Point of Care Results: Finger Stick Blood Glucose 148 07/20/20 10:39 Lab Results Blood Type / Crossmatch: No Data to Display Complete Blood Count: No Data to Display Complete Metabolic Panel: No Data to Display Liver Function Panel: No Data to Display Coagulation Panel: No Data to Display Cardiac Panel: No Data to Display Arterial Blood Gas: No Data to Display Venous Blood Gas: No Data to Display Pancreas Panel: No Data to Display Thyroid Panel: No Data to Display Infectious Disease: Coronavirus (COVID-19)(PCR) Negative (Negative) 07/17/20 10:22 07/17/20 Coronavirus 2019 Source Nasal/nares 07/17/20 10:22 07/17/20 Blood Cultures: No Data to Display Toxicology Panel: No Data to Display Anesthesia Assessment and Plan Anesthesia History Personal History: PONV Family History: No Family History of Anesthesia Complications Exercise Tolerance Exercise Tolerance: Metabolic Equivalents>4 Pertinent Negatives Pertinent Negatives: No Symptoms of GERD Cardiac & Pulmonary Exam Cardiac Exam: Normal S1/S2 Heart Sounds Pulmonary Exam: Clear Bilateral Breath Sounds Airway Exam Known Difficult Airway: No Mallampati Class: 2 Mouth Opening: Normal (> 3cm) Thyromental Distance: Greater than 3 cm Neck Range of Motion: Full ROM Neck Circumference: Normal Teeth Condition: Normal Dentition ASA Classification ASA Score: ASA 2 Emergency Case?: No NPO Status NPO Status: NPO Clears >2 hours, Solids >8 hours Anesthesia Plan Resuscitation Status: Full Code Anesthesia Technique: General Anesthesia Airway Planned: Natural Airway Monitors Used: Standard Monitors
[2020-07-20 11:00] VITALS: BMI 34.3
--- NOTE | 2020-07-20 12:00 | BOWEL_PTH ---
PATIENT: Uma Hood LOC: [facility] U#:[id number] AGE/SX: 65/F ROOM: RE07/20/[address]: Julieta Degroot MD : 1955 BED: DIS: 07/20/2020 SPEC #: [id number] RECD: 07/20/20 12:51 STATUS: LAITH REDonny #: [id number] [place]: 07/20/20 12:[address]: Julieta Degroot DEPT: Surgical Specimen RECD BY: Fariba Scott ENTERED: 07/20/20 12:52 SP TYPE: Bowel OTHR DR: Miriam Agee MD Tissues: 1 - BIOPSY BOWEL Procedures: GROSS AND MICRO LEVEL 4 Comments: [id number]
[2020-07-20 12:05] VITALS: BP 107/68; PULSE 77; RESP 16; TEMP 36.2; O2SAT 94
--- NOTE | 2020-07-20 12:09 | W.ANESPOSTOP ---
Postoperative Evaluation Date, Time and Location Date Performed: 07/20/20 Time Performed: 12:10 Patient Location: Day Surgery Unit Vital Signs Most Recent Imported Vital Signs: Most Recent Vital Signs Temp Pulse Resp BP Pulse Ox 36.4 C L 101 H 18 132/100 H 95 07/20/20 10:10 07/20/20 10:10 07/20/20 10:10 07/20/20 10:10 07/20/20 10:10 Most Recent Manually Entered Vital Signs: Adult Blood Pressure: 107/68 Heart Rate: 79 Respirations: 14 Oxygen Saturation (%): 95 Temperature (C): 36.2 C Pain Score (0-10 Scale): 0 Assessment Mental Status: Arousable with meaningful communication Airway and Respiratory Function: Patent airway with normal (patient baseline) respiratory exam Cardiovascular Function: Hemodynamically Stable Hydration Status: Adequately Hydrated Nausea & Vomiting: No Nausea or Vomiting Pain: Pt. Denies Any Pain Peripheral Nerve Block: Patient did not receive a nerve block
[2020-07-20 12:10] VITALS: BP 107/68; PULSE 79; RESP 14; TEMPC 36.2; O2SAT 95
== END 2020-07-20 13:25 | disposition home or self-care (01) ==
LOC: SUR 09:59
PROVIDERS: PCP Internal Medicine; Visit Provider Surgery
PROC: 0DJD8ZZ Inspection of Lower Intestinal Tract, Via Natural or Artificial Opening Endoscopic (ICD-10-PCS; CPT 45378; principal; 2020-07-20 11:00)
DX: Z12.11 Encounter for screening for malignant neoplasm of colon (principal); Z86.010 Personal history of colon polyps; K63.5 Polyp of colon; K21.9 Gastro-esophageal reflux disease without esophagitis; E11.9 Type 2 diabetes mellitus without complications; I10 Essential (primary) hypertension; Z80.0 Family history of malignant neoplasm of digestive organs
CPT/HCPCS: 45380; 88305; J2001; J2704

== ENCOUNTER 2020-11-27 03:24 | Outpatient (CLI) | payer MEDICARE, OTHER, SELFPAY ==
--- NOTE | 2020-11-27 08:45 | DI.MAMMO_ITS ---
Exam(s) MAMMO SCREENING EXAM: MAMMO SCREENING CLINICAL HISTORY: screening,Z12.39 TECHNIQUE: Bilateral full field digital CC and MLO mammographic images were obtained with 3D tomosyn thesis and utilizing computer aided detection (CAD). COMPARISON: Available for comparison. FINDINGS: Masses/Architectural Distortion: There is a stable ovoid density in the posterior left breast best ap preciated on the craniocaudad view. There is a new asymmetry in the outer left breast on the cranioc audad view centrally. A biopsy clip is again seen in the 12 o'clock position of the left breast. Microcalcifications: No suspicious pleomorphic-type are seen. Skin Thickening/Nipple Retraction: None. IMPRESSION: 1. New asymmetry in the outer left breast on the craniocaudad view. 2. This area should be further evaluated with spot compression view. Ultrasound may be indicated at that time. BI-RADS Category 0 - Assessment Incomplete: Need additional imaging evaluation Breast Density - Category B - Scattered areas of fibroglandular density Breast density category C or D implies that the patient has dense breast tissue. Dense breast tissue is very common and is not abnormal but dense breast tissue can make it harder to find cancer on a ma mmogram. Also, dense breast tissue may increase their breast cancer risk. This information about the result of the mammogram report was provided to the patient to raise their awareness. Use this report when you speak with the patient about their risks for breast cancer, which includes their family hist ory. At that time, you may recommend for more screening tests (Ultrasound or MRI) as they might be us eful based on their risk. A negative radiographic report should not delay biopsy if a dominant or clinically suspicious mass is present. Up to ten percent of cancers are not identified on mammography. A negative report may reinforce clinical impression. Adenosis and dense breasts may obscure an underlying neoplasm. False positive reports average 6 to 10%. Patient will receive a letter notifying them of these results.
== END 2020-11-27 03:44 ==
PROVIDERS: PCP Internal Medicine; Visit Provider Internal Medicine
DX: Z12.31 Encounter for screening mammogram for malignant neoplasm of breast (principal); R92.8 Other abnormal and inconclusive findings on diagnostic imaging of breast
CPT/HCPCS: 77063; 77067

== ENCOUNTER 2020-12-11 03:48 | Outpatient (CLI) | payer MEDICARE, OTHER, SELFPAY ==
--- NOTE | 2020-12-11 | DI.US_ITS ---
Exam(s) MG MAMMO SCREEN CALL BACK UNI US BREAST LT LIMITED EXAM: US BREAST LT LIMITED CLINICAL HISTORY: F/U MAMMO, NEW ASYMMETRY OUTER LT BREAST TECHNIQUE: Ultrasound performed using standard protocol. COMPARISON: US US PELVIS TRANSVAGINAL from 03/15/2019 FINDINGS: Additional mammographic views of the left breast and left breast ultrasound are interpreted in conjun ction. These examinations were obtained to evaluate questionable area of asymmetric density seen in lateral central portion of left breast on recent mammogram. Additional mammographic views fail to sh ow a discrete mass and show no significant interval change comparison with prior mammograms. Breast ultrasound shows no evidence of a mass or cyst. IMPRESSION: No specific evidence of malignancy at this time. Follow-up unilateral left breast mammogram recommen ded in 6 months. BI-RADS Cat 3 - 6 month - Probably Benign Finding: Recommend follow-up imaging in 6 months Breast Density - Category B - Scattered areas of fibroglandular density DATA REPOSITORY:
== END 2020-12-11 04:08 ==
PROVIDERS: PCP Internal Medicine; Visit Provider Internal Medicine
DX: Z12.31 Encounter for screening mammogram for malignant neoplasm of breast (principal); R92.8 Other abnormal and inconclusive findings on diagnostic imaging of breast; N64.59 Other signs and symptoms in breast
CPT/HCPCS: 76642; 77063; 77067

== ENCOUNTER 2021-04-23 03:54 | Outpatient (CLI) | payer MEDICARE, OTHER, SELFPAY ==
[2021-04-23 09:53] LABS: Anion Gap 11.6 mmol/L (3-11); BUN 9 mg/dL (7-18); CO2 26.4 mmol/L (21.0-32.0); CREATININE 0.9 mg/dL (0.55-1.02); Calcium 9.4 mg/dL (8.5-10.1); Calculated LDL 54 mg/dL (<100); Chloride 98 mmol/L (98-107); Cholesterol 137 mg/dL (<200); Glucose 138 mg/dL (74-106); HDL Cholesterol 62 mg/dL (40-60); Potassium 3.9 mmol/L (3.5-5.1); Sodium 136 mmol/L (136-145); TSH (W/Ref FT4) 2.69 uIU/mL (0.36-3.74); Triglyceride 106 mg/dL (<150)
[2021-04-26 10:21] LABS: Parathyroid Hormone,Intact 83 pg/mL (19-88)
== END 2021-04-23 03:55 | disposition home or self-care (01) ==
LOC: LBO 03:55
PROVIDERS: PCP Internal Medicine; Visit Provider Internal Medicine
DX: I10 Essential (primary) hypertension (principal); E78.00 Pure hypercholesterolemia, unspecified; E21.5 Disorder of parathyroid gland, unspecified; E03.9 Hypothyroidism, unspecified; E55.9 Vitamin D deficiency, unspecified
CPT/HCPCS: 36415; 80048; 80061; 82306; 83970; 84443

== ENCOUNTER 2021-06-25 09:21 | Outpatient (REF) | payer MEDICARE, OTHER, SELFPAY | END 2021-06-25 09:22 | disposition home or self-care (01) | LOC: LBN 09:21 | PROVIDERS: PCP Internal Medicine; Visit Provider Student in an Organized Health Care Education/Training Program | DX: R10.2 Pelvic and perineal pain (principal); R31.9 Hematuria, unspecified; R82.998 Other abnormal findings in urine | CPT/HCPCS: 87077; 87086; 87186 ==

== ENCOUNTER 2021-07-26 02:16 | Outpatient (CLI) | payer MEDICARE, OTHER, SELFPAY ==
--- NOTE | 2021-07-26 13:41 | DI.MAMMO_ITS ---
Exam(s) MG MAMMO DIAGNOSTIC UNI EXAM: MG MAMMO DIAGNOSTIC UNI CLINICAL HISTORY: follow up [facility] MAMMO LT BREAST, 6 MO F/U, R92.8 TECHNIQUE: Mammograms were interpreted according to the usual protocol including computer analysis w [employer] CAD system, tomosynthesis and C-view imaging. COMPARISON: MG Screening Bilat Mammo from 02/12/2014 MG Screening Bilat Mammo from 06/19/2017 MG MG MAMMO SCREENING from 11/06/2019 MG MG MAMMO SCREEN CALL BACK UNI from 12/11/2020 US US BREAST LT LIMITED from 12/11/2020 FINDINGS: The left breast is composed of scattered fibroglandular densities, Breast Density category B. A biopsy marker is again noted. There is been no change in the nodule in a posterior lateral left br east. The previously questioned asymmetric density is not present. No suspicious masses or suspicio us microcalcifications are seen. No skin thickening or abnormal axillary lymph nodes are seen. There has been no significant change from prior exams. IMPRESSION: BI-RADS Cat 2 - Benign Findings Yearly screening mammography is recommended. Breast Density - Category B, scattered fibroglandular densities. A negative radiographic report should not delay biopsy if a dominant or clinically suspicious mass is present. Up to ten percent of cancers are not identified on mammography. A negative report may reinforce clinical impression. Adenosis and dense breasts may obscure an underlying neoplasm. False positive reports average 6 to 10%. Patient will receive a letter notifying them of these results.
== END 2021-07-26 02:36 ==
PROVIDERS: PCP Internal Medicine; Visit Provider Internal Medicine
DX: R92.8 Other abnormal and inconclusive findings on diagnostic imaging of breast (principal); N60.82 Other benign mammary dysplasias of left breast
CPT/HCPCS: 77061; 77065; G0279

== ENCOUNTER 2021-10-12 12:24 | Outpatient (REF) | payer MEDICARE, OTHER, SELFPAY | END 2021-10-12 12:25 | disposition home or self-care (01) | LOC: LBN 12:24 | PROVIDERS: PCP Internal Medicine; Visit Provider Internal Medicine | DX: R10.9 Unspecified abdominal pain (principal); R82.998 Other abnormal findings in urine | CPT/HCPCS: 87077; 87086; 87186 ==

== ENCOUNTER → 2021-11-12 00:37 | Outpatient (CLI) | payer MEDICARE, OTHER, SELFPAY ==
--- OUTSIDE RECORDS SUMMARY | 2021-11-12 00:55 | XMS_ITS | Encounter Summary ---
:1955 Author Organization [facility] Address [address] [address] Care Team Providers Name Role Phone Miriam Agee MD Primary Care Provider Encounter Details Date Type Department Care Team Description 12/11/2018 Office Visit Endocrinology at [facility] C Jose Miguel, Other specified hypothyroidi sm; [facility] Reyes Vogt MD Hypokalemia; [facility] History of primary hyperpara thyroidism; [place] [address] [facility] Vitamin D deficiency; [phone] ENDOCRINOLOGY Prediabetes DEPT. [place], [place] [address] Social History Tobacco Use Types Packs/Day Years Used Date Never Smoker Smokeless Tobacco: Never Used Alcohol Use Standard Drinks/Week Comments No 0 (1 standard drink = 0.6 oz pure alcoho l) seldom Alcohol Habits Answer Date Recorded How often do you have a drink containing alcohol? Not asked How many drinks containing alcohol do you have on a typical Not asked day when you are drinking? How often do you have six or more drinks on one occasion? No t asked Comment: seldom 12/18/2015 Sex Assigned at Date Recorded Not on file documented as of this encounter Last Filed Vital Signs Vital Sign Reading Time Taken Comments Blood Pressure 134/74 12/11/2018 10:37 AM EDT Pulse 74 12/11/2018 10:37 AM EDT Temperature - - Respiratory Rate - - Oxygen Saturation 100% 12/11/2018 10:37 AM EDT Inhaled Oxygen Concentration - - Weight 81.9 kg (180 lb 9.6 oz) 12/11/2018 10:37 AM EDT Height 160 cm (5' 3) 12/11/2018 10:37 AM EDT Body Mass Index 31.99 12/11/2018 10:37 AM EDT documented in this encounter Patient Instructions Patient InstructionsReyes Gillespie MD - 12/11/2018 10:30 AM EDT Plan: 1. Medication: To cont LT4 50 mcg daily (optimal TSH 1.0-3.0)\ Pt will cont taking metforminER 500 mg qd (higher dose caused diarrhea) for her T2DM (A1c 6.8% downto 6.1% 2x and now 5.9% in prediabetes). To cont taking vitamin D 50,000 iu weekly (q Mon) Pt will cont her gummy Calcium citrate/vit D 250/500 iu 2x/day along with vitamin D to cont to suppress PTH with target vitD levels at 50s-60s range (normal 30-100) in addition to MVI. Info on possible side effects and how to take the medication properly was discussed at visit today. To continue all other medications, low fat/controlled carb diet & exercise per wt watcher program as tolerated to keep weight stable. 2. Lab: Already checked DXA scan locally at [facility] on 06/07/2016 with normal results. Ok to wait 5 yrs to recheck DXA scan. To recheck TSH at local lab soon (before she is having right TKR soon on 12/25/18 at [facility]). 3. RTC: Next visit in 12 months. Will follow lab at outside lab again in 12 mo for TSH, PTH, BMP, A1c, and 25-vitamin D. documented in this encounter Progress Notes Reyes Gillespie MD - 12/11/2018 10:30 AM EDT Endocrine Clinic Name: Uma Hood : 1955 PCP: Miriam Agee MD Provided by: Reyes Gillespie MD, PhD, FACE Date: 12/11/2018 Reason for visit: Endocrine visit for post right lower pole parathyroid adenoma resection since 05/2013 for primary hyperparathyroidism with normalized Ca & PTH after the surgery but then her PTH kenney back up to 78-132 due to 2ry hyperPTH, and then better with PTH down to 74 => 51 (normal <77) after taking vitamin D 50,000 iu weekly since . Patient Active Problem List Diagnosis Code ??? Renal cyst N28.1 ??? Hyperparathyroidism, primary (PTH 168, Ca 10.3-10.4, low phos 2.3, Cr 1.0 on 01/05/13) E21.0 ??? Multiple pulmonary nodules bilaterally R91.8 ? ? Left kidney mass 1.[address] scan=> simple cyst by US N28.89 ??? Solitary cyst of right breast 1.3 cm N60.01 ??? 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 ? Subclinical hypothyroidism (TSH 5.8 with FT4 0.9 => better spontaneously TSH 2.6 in ) E03.9 ??? Prediabetes (A1c 6.4% 12/17/12) R73.03 ??? Obesity E66.9 ??? Hyperparathyroidism E21.3 ??? Parathyroid adenoma D35.1 ??? Family history of aortic aneurysm in mother and brother) Z82.49 ??? Family history of hypothyroidism in mother and 2 maternal aunts Z83.49 ??? Paraesophageal hernia K44.9 Uma Hood is doing ok but busy selling her him and moved to 2BR apartment recently. She plans to have another TKR in 2 weeks. It's good that she already stopped working since 2017, and having more time for healthy life style with better A1c down from 6.8 to 6.1% quickly 2x and now 5.9%. She usedto lose wt down 32 lbs down from 210 to 178 lbs last year but recently gained back to 180 lbs after she tried to quit metforminER for the past 2-3 months wit more carb craving. So she can resume takingmetforminER 500 mg qd for her prediabetes with A1c 5.9% (normal A1c < 5.6%) which is excellent. She has diarrhea on higher dose of metforminER 500 mg BID and already reduced the dose back to qd without problem. She has been on vitamin D 50,000 iu weekly since July 2014 with better vitamin D levels and normalized PTH now. She used to have low normal Ca 8.8 in July 2014 with low normal 25vitamin D at 32-33 associated with 2ry hyperPTH before she started on high dose vitD supplement. She has been taking CaD 1 tab2x/daily as well. She felt much better after her PTH adenoma was removed in 2010 with less fatigue and did not have much symptoms from having mild hypothyroidism. No fracture with normal DXA scan at the time of PTH surgery and most recent DXA on 06/07/16 was also ok (T-score -0.3 at hip and +0.2 at spine). She has stayed on wt watcher and already had Ramya fundoplication surgery in . No palpitations, CP, SOB, GI issues and better from dry skin. No changes in her hairs (still having thin hairs for years) and no heat or cold intolerance. No REDMOND or visual changes. No swelling in LEs or foot problem. She plans to have Rt TKR soon on 12/25/18 (used to have left TKR on 01/02/18) at [facility]. ROS: Please see HPI, all others negative Patient Active Problem List Diagnosis Code ??? Renal cyst N28.1 ??? Hyperparathyroidism, primary (PTH 168, Ca 10.3-10.4, low phos 2.3, Cr 1.0 on 01/05/13) E21.0 ??? Multiple pulmonary nodules bilaterally R91.8 ? ? Left kidney mass 1.[address] scan=> simple cyst by US N28.89 ??? Solitary cyst of right breast 1.3 cm N60.01 ??? 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 ? Subclinical hypothyroidism (TSH 5.8 with FT4 0.9 => better spontaneously TSH 2.6 in ) E03.9 ??? Prediabetes (A1c 6.4% 12/17/12) R73.03 ??? Obesity E66.9 ??? Hyperparathyroidism E21.3 ??? Parathyroid adenoma D35.1 ??? Family history of aortic aneurysm in mother and brother) Z82.49 ??? Family history of hypothyroidism in mother and 2 maternal aunts Z83.49 ??? Paraesophageal hernia K44.9 Current Outpatient Medications on File Prior to Visit Medication Sig Dispense Refill ??? magnesium 250 mg Tablet Take 250 mg by mouth daily. ??? ergocalciferol, vitamin D2, (VITAMIN D) 50,000 unit Capsule Take 1 capsule by mouth once a week.13 capsule 0 ??? levothyroxine (SYNTHROID) 50 mcg Tablet Take 1 tablet by mouth daily. 90 tablet 3 ??? hydroCHLOROthiazide (HYDRODIURIL) 25 mg Tablet 25 mg daily. ??? CALCIUM CITRATE/VITAMIN D3 (CALCIUM CITRATE + D ORAL) Take 1 tablet by mouth 2 times daily. ??? ibuprofen (ADVIL;MOTRIN) 200 mg tablet Take 200 mg by mouth every 6 hours as needed. Reported on06/13/2016 ??? multivitamin (THERAGRAN) tablet Take 1 tablet by mouth daily. ??? metFORMIN (FORTAMET) 500 mg Tablet Extended Rel 24 hr Take 1 tablet by mouth daily. (Patient nottaking: Reported on 12/11/2018) 90 tablet 3 ??? losartan (COZAAR) 25 mg Tablet Take 25 mg by mouth daily. ??? cycloSPORINE (RESTASIS) 0.05 % [address] Place 1 drop into both eyes 2 times daily. ??? omeprazole (PRILOSEC) 20 mg capsule Take 20 mg by mouth daily. No current facility-administered medications on file prior to visit. Allergies Allergen Reactions ??? Ciprofloxacin (Mixture) Hives ??? Metronidazole Hives ??? Sulfa (Sulfonamide Antibiotics) Hives Social History Socioeconomic History ??? Marital status: Spouse name: None ??? Number of children: None ??? Years of education: None ??? Highest education level: None Occupational History ??? None Social Needs ??? Financial resource strain: None ??? Food insecurity: Worry: None Inability: None ??? Transportation needs: Medical: None Non-medical: None Tobacco Use ??? Smoking status: Never Smoker ??? Smokeless tobacco: Never Used Substance and Sexual Activity ??? Alcohol use: No Comment: seldom ??? Drug use: No ??? Sexual activity: Never Lifestyle ??? Physical activity: Days per week: None Minutes per session: None ??? Stress: None Relationships ??? Social connections: Talks on phone: None Gets together: None Attends yazidism service: None Active member of club or organization: None Attends meetings of clubs or organizations: None Relationship status: None ??? Intimate partner violence: Fear of current or ex partner: None Emotionally abused: None Physically abused: None Forced sexual activity: None Other Topics Concern ??? None Social History Narrative ??? None FAMILY HISTORY Family History Problem Relation Age of Onset ??? Thyroid Disease Mother ??? Coronary Artery Disease Mother ??? Coronary Artery Disease Father ??? Cancer Maternal Aunt breast ??? Thyroid Disease Maternal Aunt ??? Cancer Maternal Uncle colon Physical exam Wt 81.9 kg (180 lb 9.6 oz) BMI 30.05 kg/m?? Appearance: non-obese, pleasant, NAD HEENT: PERRLA, EOMI, no lid lag or exophthalmos Neck: supple, no goiter or lymphadenopathy Chest: CTA bilaterally, no wheeze or crackles Heart: normal S1, S2, no murmur Abd: benign, ND, NT Ext: normal skin texture and temperature no pitting edema Neuro: no weakness, normal reflexes OSH lab 02/03/15 PTH- 81 (was 132; normal 12-77) => 44.6 better 25vitamin D- 44.6 (was 33 in , normal 30-100) TSH 3.0 last TPO Ab <28 A1c 6.0% better in , still in pre-DM now (was 6.7% in ) Lab August 08, 2015 at outside lab. PTH 51 25vitamin D 49.4 TSH 6.91 Lab 12/03/2015 at outside lab. PTH 91 25vitamin D 44.4 TSH 2.36 Lab outside on 05/10/16 => 11/26/16 PTH 74 (normal <77), down from 91 in => 73 TSH 3.25 (was 2.1) => 2.83 Ca 9.2 => 9.4 vitD 48.8 (nl 30-100) => 46.2 Normal BMP => normal (Cr 0.7) TC 216, LDL 124, HDL 55, TG 263 (non-fasting) => A1c 6.8% => 6.1% => 5.9% now (12/05/18) BG 124 (<140, ok for non-fasting) => 110 Lab on 05/27/16 showed good PTH 41 with entirely normal Ca 9.8, better 25vitD 62.3, TSH 1.94, and good A1c 6.1% Lab on 12/04/17 showed good PTH 55 with entirely normal Ca 9.4, 25vitD 55 but high TSH 4.16, and excellent A1c 6.1% Lab on 12/05/18 showed good PTH 54 with entirely normal Ca 8.9, 25vitD 54 and excellent A1c 5.9% Additional lab on 12/12/18 showed normal TSH 2.32 and normalized K 4.1 DXA scan on 06/07/16 at [facility] showed normal BMD (T-score +0.2 at L-spine and T- score at -0.3 at the left hip, up from -0.8 in 2013) Assessment: 63 y.o. s/p right lower pole parathyroid adenoma resection since 05/2013 for primary hyperparathyroidism with normalized Ca & PTH initially. 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 Her PTH was then normalized at 50s after taking weekly vitamin D treatment with entirely normal vitamin D at 45-62 range. She will cont taking the prescription vitamin D weekly to keep her vitamin D in mid normal range further, which in turn helps suppress PTH for her. Also, hypothyroid with TSH 5.8->5.38 in the past, better spontaneously with TSH of 2.61-3.0 rangebut then back up to 6.91, started on levothyroxine since August 2015 (LT4 25->37.5 mcg qd) with better TSH until 12/04/17 when her TSH kenney to 4.16 12/04/17. She has lost wt with wt watcher and also lost more wt lately after the stress from her 's sudden of massive heart attack in Oct 2017. She has 2 step-daughter and good friends around. She has a strong FH of hypothyroid in mother and 2maternal aunts. Target TSH 1.0-3.0 for her. She has preDM/mild DM with high A1c 6.7% in , down to 6.0% in , back up to 6.8% on 11/26/16 and then better at 6.1% x2 now on a low dose metformin to help reduce insulin resistance plus eating healthy and stay active physically after she stopped working since late 2016. Plan: 1. Medication: To cont LT4 50 mcg daily (optimal TSH 1.0-3.0)\ Pt will cont taking metforminER 500 mg qd (higher dose caused diarrhea) for her T2DM (A1c 6.8% downto 6.1% 2x and now 5.9% in prediabetes). To cont taking vitamin D 50,000 iu weekly (q Mon) Pt will cont her gummy Calcium citrate/vit D 250/500 iu 2x/day along with vitamin D to cont to suppress PTH with target vitD levels at 50s-60s range (normal 30-100) in addition to MVI. Info on possible side effects and how to take the medication properly was discussed at visit today. To continue all other medications, low fat/controlled carb diet & exercise per wt watcher program as tolerated to keep weight stable. 2. Lab: Already checked DXA scan locally at [facility] on 06/07/2016 with normal results. Ok to wait 5 yrs to recheck DXA scan. To recheck TSH at local lab soon (before she is having right TKR on 12/25/18 at [facility]). Addendum: Additional lab on 12/12/18 showed normal TSH 2.32 and normalized K 4.1 3. RTC: Next visit in 12 months. Will follow lab at outside lab again in 12 mo for TSH, PTH, BMP, A1c, and 25-vitamin D. We have reviewed our plan outlined above with the patient and patient verbalized understanding. All questions were answered and most of the time was spent on counseling about medication adjustment, thediagnostic and therapeutic decisions, and coordination of care. Reyes Gillespie MD, PhD, FACE CC: Miriam Agee MD documented in this encounter Plan of Treatment Not on filedocumented as of this encounter Visit Diagnoses Diagnosis Other specified hypothyroidism Hypokalemia Hypopotassemia History of primary hyperparathyroidism Vitamin D deficiency Unspecified vitamin D deficiency Prediabetes Other abnormal glucose documented in this encounter Care Teams Mask Inspector Relationship Specialty Start Date End Date Miriam Agee MD PCP - General General Internal Medicine 08/14/[address] [place] [address] documented as of this encounter
--- OUTSIDE RECORDS SUMMARY | 2021-11-12 00:55 | XMS_ITS | Encounter Summary ---
:1955 Author Organization [facility] [place] [address] Care Team Providers Name Role Phone Miriam Agee MD Primary Care Provider Reason for Visit Reason Onset Date Comments Medication Refill 12/30/2020 Encounter Details Date Type Department Care Team Description 12/30/2020 Refill Endocrinology at [facility] Bahman England, [place] [address] Social History Tobacco Use Types Packs/Day Years [...] on file documented as of this encounter Plan of Treatment Not on filedocumented as of this encounter Visit Diagnoses Diagnosis Pre-diabetes Other abnormal glucose documented in this encounter Care Teams Supervisor Blood Relationship Specialty Start Date End Date Miriam Agee MD PCP - General General Internal Medicine 08/14/15 [facility] [place] [place] [address] documented as of this encounter
--- OUTSIDE RECORDS SUMMARY | 2021-11-12 00:55 | XMS_ITS | Encounter Summary ---
:1955 Author Organization [facility] [place] [address] Care Team Providers Name Role Phone Miriam Agee MD Primary Care Provider Encounter Details Date Type Department Care Team Description 12/07/2018 Telephone Endocrinology at [facility] [place] [address] Social History Tobacco Use Types Packs/Day [...] on file documented as of this encounter Miscellaneous Notes Telephone Encounter - Reyes Gillespie MD - 12/12/2018 4:35 PM EDT Called pt to let her know that additional lab on 12/12/18 showed normal TSH 2.32 and normalized K 4.1. REYES GILLESPIE MD Telephone Encounter - Alicia Rich RN - 12/10/2018 10:26 AM EDT Pt notified Telephone Encounter - Alicia Rich RN - 12/07/2018 4:33 PM EDT Pt left msg that she had labs completed at [facility] on 12/05 and wants to make sure we have results in time for her 12/11 appt. Have you received? documented in this encounter Plan of Treatment Not on filedocumented as of this encounter Visit Diagnoses Not on filedocumented in this encounter Care Teams Tug Hand Relationship Specialty Start Date End Date Miriam Agee MD PCP - General General Internal Medicine 08/14/[address] [place] [address] documented as of this encounter
--- OUTSIDE RECORDS SUMMARY | 2021-11-12 00:55 | XMS_ITS | Encounter Summary ---
:1955 Author Organization [facility] [place] [address] Care Team Providers Name Role Phone Miriam Agee MD Primary Care Provider Reason for Visit Reason Onset Date Comments Prior Authorization 01/01/2021 Encounter Details Date Type Department Care Team Description 01/01/2021 Telephone Endocrinology at [facility] [place]gen[place] [address] Social History Tobacco Use Types Packs/Day [...] this encounter Miscellaneous Notes Telephone Encounter - Argenis Sharma - 01/05/2021 1:47 PM EDT Medication Prior Authorization Chaidarun Medication name/dose/directions: Metformin HCL ER OSM 500mg - once daily Rationale for request: Prediabetes Health plan: [employer] ([facility]) Authorizing renewals representative name: Kamilah Sent to health plan on: 01/05/21 Health plan decision: Approved Quantity approved: 30 day supply only Authorization number: Start date: End date: 03/05/22 Telephone Encounter - Argenis Sharma - 01/01/2021 7:16 AM EDT Received PA for metformin Will complete as soon as possible documented in this encounter Plan of Treatment Not on filedocumented as of this encounter Visit Diagnoses Not on filedocumented in this encounter Care Teams Rigging Up Worker Relationship Specialty Start Date End Date Miriam Agee MD PCP - General General Internal Medicine 08/14/[address] [place] [address] documented as of this encounter
--- OUTSIDE RECORDS SUMMARY | 2021-11-12 00:55 | XMS_ITS | Encounter Summary ---
:1955 Author Organization [facility] [place] [address] Care Team Providers Name Role Phone Miriam Agee MD Primary Care Provider Reason for Visit Reason Onset Date Comments Medication Refill 12/12/2018 Encounter Details Date Type Department Care Team Description 12/12/2018 Refill Endocrinology at [facility] Alicia Noriega, [place] [address] Social History Tobacco Use Types Packs/Day Years [...] on filedocumented in this encounter Care Teams Lockstitch Lining Setter Relationship Specialty Start Date End Date Miriam Agee MD PCP - General General Internal Medicine 08/14/15 [address] [place] [address] documented as of this encounter
--- OUTSIDE RECORDS SUMMARY | 2021-11-12 00:55 | XMS_ITS | Encounter Summary ---
:1955 Author Organization [facility] [place] [address] Care Team Providers Name Role Phone Miriam Agee MD Primary Care Provider Encounter Details Date Type Department Care Team Description 06/26/2017 Hospital Encounter Ultrasound at [facility] Lee Barrientos Renal cyst, acquired [facility] MD [place], [place] CENTER [address] UROLOGY [phone] [place] [id number] Social History Tobacco Use Types Packs/Day Years [...] on file documented as of this encounter Medications at Time of Discharge Medication Sig Dispensed Refills Start Date End Date hydroCHLOROthiazide 25 mg daily. 0 11/16/2016 (HYDRODIURIL) 25 mg Tablet CALCIUM CITRATE/VITAMIN D3 Take 1 tablet by 0 (CALCIUM CITRATE + D ORAL) mouth 2 times daily. ibuprofen (ADVIL;MOTRIN) Take 200 mg by 0 200 mg tablet mouth every 6 hours as needed. Reported on 06/13/2016 multivitamin (THERAGRAN) Take 1 tablet by 0 tablet mouth daily. ergocalciferol (VITAMIN D) Take 1 capsule by 13 capsule 1 10/25/2017 50,000 unit Capsule mouth once a week. metFORMIN (FORTAMET) 500 Take 1-3 tablets 270 tablet 4 12/1212/11/2017 mg Tablet Extended Rel 24 by mouth daily. 1 hr tab daily for 3-7 days then 2 tab/day for 3-7 days and then 3 tablets daily astolerated losartan (COZAAR) 25 mg Take 25 mg by 0 5 04/29/2019 Tablet mouth daily. cycloSPORINE (RESTASIS) Place 1 drop into 0 04/29/2019 0.05 % Dropperette both eyes 2 times daily. omeprazole (PRILOSEC) 20 Take 20 mg by 0 04/29/2019 mg capsule mouth daily. documented as of this encounter Plan of Treatment Not on filedocumented as of this encounter Procedures Procedure Name Priority Date/Time Associated Comments Diagnosis US RETROPERITONEAL Routine 06/26/2017 9:30 Renal cyst, Result s for this COMPLETE AM EDT acquired procedure are i n the results section. documented in this encounter Results US Retroperitoneal Complete (06/26/2017 9:30 AM EDT) Anatomical Region Laterality Modality Abdomen Ultrasound Specimen (Source) Anatomical Collection Method Collection Time Re ceived Time Location / / Volume Laterality 06/26/2017 9:29 AM EDT Impressions 06/26/2017 10:26 AM EDT ??1. ??Left-sided superior pole simple cyst measuring 2.6 x 2.3 x 2.4 cm2. ??No hydronephrosis or nephrolithiasis.I have personally reviewed the image(s) a nd the residents interpretation andagree with the findings, Jami Long MD at 06/26/2017 10:18 AM ? Jami hsu MD Electronically Signed Final Report ?? 10:25 am Narrative 06/26/2017 10:26 AM EDT Renal ? (Signed Final 06/26/2017 10:25 am) PATIENT INFO: ID #: ? [id number] ?: ??[birth year] (62 yrs) Name: ? UMA GUILLEN ?Visit Date: 06/26/2017 09:29 am PERFORMED BY: Performed By: ? Audrey PALACIOS, ??Lenin fowler Attending: ?Ethan WARD, There J. Referred By: ?LEE BARRIENTOS Location: ? [place] SERVICE(S) PROVIDED: ??URETRO - Retroperitoneal Complete - I [id number] ? [id number] INDICATIONS: ??incidential left renal cyst on Chest CT ???simple cyst COMPARISON: CT scan: 02/06/17 RIGHT KIDNEY: Size (cm) ?L: ??12.0 Cortical Thickness: ?Normal Cortical Echogenicity: ?? Normal Hydronephrosis: ?No sonogr aphic evidence LEFT KIDNEY: Size (cm) ?L: ??12.1 Cortical Thickness: ?Normal Cortical Echogenicity: ?? Normal Hydronephrosis: ?No sonogr aphic evidence Comment: ?Superior pole upper cyst 2.6 x 2.3 x 2.4 cm. URINARY BLADDER: Pre-void (cm) ? L: ??4.1 ? A P: ??2.4 ? TV: ??4.6 Vol (ml): ?23.7 Comment: ?Partially distended, norm al contour Procedure Note Jami Long MD - 06/26/2017Forma tting of this note might be different from the original. Renal (Signed Final 06/26/2017 10:25 am ) PATIENT INFO: ID #: [id number] : 55 (62 y rs) Name: UMA GUILLEN Visit Date: 06/26 09:29 am PERFORMED BY: Performed By: Miriam Ventura RDMS Attending: Jami Long MD Referred By: LEE BARRIENTOS Location: [place] SERVICE(S) PROVIDED: URETRO - Retroperitoneal Complete - [id number] INDICATIONS: incidential left renal cyst on Chest CT ?simple cyst COMPARISON: CT scan: 02/06/17 RIGHT KIDNEY: Size (cm) L: 12.0 Cortical Thickness: Normal Cortical Echogenicity: Normal Hydronephrosis: No sonographic evidence LEFT KIDNEY: Size (cm) L: 12.1 Cortical Thickness: Normal Cortical Echogenicity: Normal Hydronephrosis: No sonographic evidence Comment: Superior pole upper cyst 2.6 x 2.3 x 2.4 cm. URINARY BLADDER: Pre-void (cm) L: 4.1 AP: 2.4 TV: 4.6 Vol (ml): 23.7 Comment: Partially distended, normal co ntour IMPRESSION 1. Left-sided superior pole simple cyst measuring 2.6 x 2.3 x 2.4 cm2. No hydronephrosis or n ephrolithiasis.I have personally reviewed the image(s) a nd the residents interpretation andagree with the findings, Jami Long MD at 06/26/2017 10:18 AM Jami Long MD Electronically Signed Final Report 06/26 10:25 am Lee Barrientos MD IMG US GEN ORDERABLES documented in this encounter Visit Diagnoses Diagnosis Renal cyst, acquired Acquired cyst of kidney documented in this encounter Care Teams Stamp Redemption Clerk Relationship Specialty Start Date End Date Miriam Agee MD PCP - General General Internal Medicine 08/14/[address] [place] [id number] documented as of this encounter
--- OUTSIDE RECORDS SUMMARY | 2021-11-12 00:55 | XMS_ITS | Encounter Summary ---
:1955 Author Organization [facility] Address [address] [place] [address] Care Team Providers Name Role Phone Miriam Agee MD Primary Care Provider Encounter Details Date Type Department Care Team Description 07/20/2020 Lab Requisition [facility] [place] for other Pathology & MD Evan general examination Laboratory Medicine [address] [place], [place] [address] [facility] [id number] [place] [address] [id number] Social History Tobacco Use Types Packs/Day Years Used Date Never Assessed Sex Assigned at Date Recorded Not on file documented as of this encounter Plan of Treatment Not on filedocumented as of this encounter Procedures Procedure Name Priority Date/Time Associated Diagnosis Comme nts SURGICAL PATHOLOGY Today 07/20/2020 12:00 Encounter for othe r Results for this EDT general examination procedur e are in the results section. documented in this encounter Results SURGICAL PATHOLOGY (07/20/2020 12:00 EDT) Final Diagnosis A. SIGMOID COLON, BIOPSY: [facility] - Hyperplastic polyp [facility] Attestation By the signature [facility] lly below, the attending CENTER signed by Anna physician certifies LABORATORY Donna Lara MD on that they have 1) SERVICES 07/23/2020 at 1340 personally conducted a gross and/or microscopic examination of the described specimen(s), and/or personally interpreted the results of laboratory testing of the described specimen(s), and 2) personally rendered or confirmed the above diagnosis. Clinical History Hx polyps; lipoma, [facility] diverticulosis [facility] Gross Description A. [facility] Received in formalin reece d with proper patient identification (initials P, V) and sigmoid polyp are 3 fragments of zeng soft tissue (ranging from 0.1 cm to 0.2 cm in greatest dimension). The specimen is entirely submitted in A1. [facility] PARAG BOOTH(ASCP) 07/20/2020 17:07 SE RVICES Performing Lab [facility] Scanned Images [facility] Specimen Tissue - Entire sigmoid colon (body stru cture) Performing Organization Address City/State/ZIP Code Phon e Number [facility] [address] [place] [address] SERVICES documented in this encounter Visit Diagnoses Diagnosis Encounter for other general examination documented in this encounter Care Teams Patternmaker Grader Relationship Specialty Start Date End Date Miriam Agee MD PCP - General 07/04/20 [address] [place], [place] [address] documented as of this encounter
--- OUTSIDE RECORDS SUMMARY | 2021-11-12 00:55 | XMS_ITS | Encounter Summary ---
:1955 Author Organization [facility] [place] [address] Care Team Providers Name Role Phone Miriam Agee MD Primary Care Provider Reason for Referral Diagnostic Test (Routine) - Closed Specialty Diagnoses / Procedures Referred By Contact Refer red To Contact Radiology Diagnoses Multiple pulmonary nodules [facility] Rad [facility] Scan Procedures CT Chest wo Contrast (Generic) [place] [address] [place] [address] Referral ID Status Reason Start Date Expiration Date Visits V isits Requested Authorized [id number] Closed Specialty 04/24/2019 05/05/2019 1 1 Service Requested Encounter Details Date Type Department Care Team Description 03/22/2019 Orders Only Thoracic Surgery at [facility] Mult iple pulmonary [facility] [place] [address] Social History Tobacco Use Types Packs/Day [...] Not on filedocumented as of this encounter Results CT Chest wo Contrast (Generic) (04/29/2019 9:27 AM EST) Anatomical Region Laterality Modality Chest Computed Tomography Specimen (Source) Anatomical Location Collection Method / Collectio n Time Received Time / Laterality Volume Impressions 04/29/2019 9:50 AM EST Unchanged bilateral pulmonary nodules. No appreciable change in hiatal hernia. Unchanged borderline enlarged ascending aorta, mid ascending diameter 40 mm. Thank you for letting us participate in the care of this patient. For questions regarding this report, please contact e number below. ? Narrative 04/29/2019 9:50 AM EST EXAMINATION: CT CHEST WO CONTRAST (GENERIC) CLINICAL HISTORY: Lung nodule, > 8mm, fo llow up exam h/o neuroendocrine hyperplasia, s/p RMLo bectomy 2001, eval nodules/new nodules/hiatal hernia TECHNIQUE: 3.75 mm thick axial contiguou s sections were obtained through the chest via helical acquisition without in travenous contrast administration. Thin-section reconstructions as well as coronal and sagittal reformatted images were generated. COMPARISON: 02/26/2017. FINDINGS: Pulmonary parenchyma: Status post resect ion by medial segment right middle lobe, as before, with no findings for resectio n site recurrence. However, there are bilateral pulmonary nodules as before, l argest in lateral segment right middle lobe measuring 10 mm on series 4 image 4 4, unchanged from series 5 image 56 of prior. Other smaller nodules in both vimal gs, more numerous on the right, also appear unchanged. Airways: No endobronchial opacities. Pleura: No pleural effusion. Lymph nodes:Within limits of noncontrast technique, no thoracic lymphadenopathy Heart, pericardium, and great vessels: M ild coronary and scattered aortic atherosclerotic calcification as before. Unchanged mid ascending aortic diameter, 40 mm. Other mediastinal structures: No appreci able change in hiatal hernia. Lower neck: No new findings. Upper abdomen: Postoperative changes at GE junction, as before. Exophytic left renal lesion, with attenuation 25 Hounsf ield units, incompletely imaged, consistent with cyst on 06/26/2017 ultras ound, increased from 28 mm to 34 mm. Body wall soft tissues: No new findings. Skeletal structures: No new findings. Procedure Note Hailey Garza MD - 04/29/2019Formatt ing of this note might be different from the original. EXAMINATION: CT CHEST WO CONTRAST (GENER IC) CLINICAL HISTORY: Lung nodule, > 8mm, fo llow up exam h/o neuroendocrine hyperplasia, s/p RMLo bectomy 2000, eval nodules/new nodules/hiatal hernia TECHNIQUE: 3.75 mm thick axial contiguou s sections were obtained through the chest via helical acquisition without in travenous contrast administration. Thin-section reconstructions as well as coronal and sagittal reformatted images were generated. COMPARISON: 02/26/2017. FINDINGS: Pulmonary parenchyma: Status post resect ion by medial segment right middle lobe, as before, with no findings for resectio n site recurrence. However, there are bilateral pulmonary nodules as before, l argest in lateral segment right middle lobe measuring 10 mm on series 4 image 4 4, unchanged from series 5 image 56 of prior. Other smaller nodules in both vimal gs, more numerous on the right, also appear unchanged. Airways: No endobronchial opacities. Pleura: No pleural effusion. Lymph nodes:Within limits of noncontrast technique, no thoracic lymphadenopathy Heart, pericardium, and great vessels: M ild coronary and scattered aortic atherosclerotic calcification as before. Unchanged mid ascending aortic diameter, 40 mm. Other mediastinal structures: No appreci able change in hiatal hernia. Lower neck: No new findings. Upper abdomen: Postoperative changes at GE junction, as before. Exophytic left renal lesion, with attenuation 25 Hounsf ield units, incompletely imaged, consistent with cyst on 06/26/2017 ultras ound, increased from 28 mm to 34 mm. Body wall soft tissues: No new findings. Skeletal structures: No new findings. IMPRESSION Unchanged bilateral pulmonary nodules. No appreciable change in hiatal hernia. Unchanged borderline enlarged ascending aorta, mid ascending diameter 40 mm. Thank you for letting us participate in the care of this patient. For questions regarding this report, please contact e number below. Erasto Hammond MD IMG CT ORDERABLES documented in this encounter Visit Diagnoses Diagnosis Multiple pulmonary nodules bilaterally Other nonspecific abnormal finding of gadiel ng field Multiple pulmonary nodules bilaterally Other nonspecific abnormal finding of gadiel ng field documented in this encounter Care Teams Financial Business Analyst Relationship Specialty Start Date End Date Miriam Agee MD PCP - General General Internal Medicine 08/14/15 [address] [facility] [place] [address] documented as of this encounter
--- OUTSIDE RECORDS SUMMARY | 2021-11-12 00:55 | XMS_ITS | Clinical Summary ---
:1955 Author Organization [facility] Address [address] [place] [address] Care Team Providers Name Role Phone Miriam Agee MD Primary Care Provider Social History Tobacco Use Types Packs/Day Years Used Date Never Assessed Sex Assigned at Date Recorded Not on file Plan of Treatment Health Maintenance Due Date Last Done Comments Fall Risk Screening 02/24/2020 Insurance Payer Benefit Plan / Subscriber ID Effective Dates Phone Addre ss Type Group MEDICARE MEDICARE A/B [id number] 2020-Prese [id number] [place] [address] [employer] & [id number] 2020-Presen [address] [place] [address] [phone] (Work) [id number] Uma Hood Personal/Family Self 1955 [id number] [facility] (Home) [address] [place], [place] X[place] (Work) [id number] Uma Hood Personal/Family Self 1955 [address] [facility] ([address]) [address] [place], [place] X121 (Work) [id number] Uma Hood Personal/Family Self 1955 [address] [facility] (Home) [address] [place], [place] X121 (Work) [id number] Uma Hood Personal/Family Self 1955 [address] [facility] (Home) [address] [place], [place] X[place] (Work) [id number] Care Teams License Distributor Relationship Specialty Start Date End Date Miriam Agee MD PCP - General 07/04/20 [address] [place], [place] [id number]
--- OUTSIDE RECORDS SUMMARY | 2021-11-12 00:55 | XMS_ITS | Encounter Summary ---
:1955 Author Organization [facility] [place] [address] Care Team Providers Name Role Phone Miriam Agee MD Primary Care Provider Encounter Details Date Type Department Care Team Description 06/19/2020 Orders Only Cardiology at [facility] Cathy Crabtree Family history of [facility] M, RN aortic an eurysm in Drive mother and brother) [place] [id number] Social History Tobacco Use Types Packs/Day Years [...] on filedocumented as of this encounter Results EKG 12 Lead (07/01/2020 3:04 PM EDT) Component Value Ref Range Test Analysis Performed Pathologis t Method Time At Signature Ventricular rate 104 BPM MUSE SYSTEM Atrial Rate 104 BPM MUSE SYSTEM P-R Interval 152 ms MUSE SYSTEM QRS Duration 86 ms MUSE SYSTEM Q-T Interval 340 ms MUSE SYSTEM QTC Calculated 447 ms MUSE SYSTEM (Bezet) Calculated P [place] 44 degrees MUSE SYSTEM Calculated R [place] 54 degrees MUSE SYSTEM Calculated T [place] 33 degrees MUSE SYSTEM INTERPRETATION Sinus tachycardia MUSE SY STEM Cannot rule out Inferior infarct , age undetermined Abnormal ECG When compared with ECG of 18-DEC-2015 15:11, No significant change was found Confirmed by Joseph Montez MD ([id number]) on 07/02/2020 6:36:30 AM Specimen Anatomical Collection Method Collection Time Receive d Time (Source) Location / / Volume Laterality 07/01/2020 3:04 PM 6:36 EDT AM EDT Kevin Reza MD ECG ORDERABLES Performing Organization Address City/State/ZIP Code Phon e Number MUSE SYSTEM documented in this encounter Visit Diagnoses Diagnosis Family history of aortic aneurysm in mot her and brother) Family history of other cardiovascular d iseases documented in this encounter Care Teams Platform Inspector Relationship Specialty Start Date End Date Miriam Agee MD PCP - General General Internal Medicine 08/14/[address] [place] [address] documented as of this encounter
--- OUTSIDE RECORDS SUMMARY | 2021-11-12 00:55 | XMS_ITS | Encounter Summary ---
:1955 Author Organization [facility] [place] [address] Care Team Providers Name Role Phone Miriam Agee MD Primary Care Provider Reason for Referral Diagnostic Test (Routine) - Closed Specialty Diagnoses / Procedures Referred By Contact Refer red To Contact Radiology Diagnoses Multiple pulmonary nodules History of carcinoid syndrome Erasto Hammond, [facility] Rad Ct Scan Procedures CT Chest wo Contrast (Generic) [place] [address] [place] [address] Referral ID Status Reason Start Date Expiration Date Visits V isits Requested Authorized [id number] Closed Specialty 06/01/2020 03/05/2021 1 1 Service Requested Reason for Visit Reason Comments Advice Only Consultation (Routine) - Closed Specialty Diagnoses / Procedures Referred By Contact Refer red To Contact Thoracic Surgery Diagnoses Malignant (primary) neoplasm, unspecified F/U CARCINOID SPINDLE CELL TUMOR Miriam Agee MD [place], Timothy M, [address] [place] [address] 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 in [address] [place], [place] THORACIC SURGERY [address] [place] [address] [phone] Social History Tobacco Use Types Packs/Day Years [...] Sign Reading Time Taken Comments Blood Pressure 115/68 04/29/2019 10:17 AM EST Pulse 98 04/29/2019 10:17 AM EST Temperature 36.9 ??C (98.4 ??F) 04/29/2019 10:17 AM EST Respiratory Rate 19 04/29/2019 10:17 AM EST Oxygen Saturation 98% 04/29/2019 10:17 AM EST Inhaled Oxygen Concentration - - Weight 79.8 kg (176 lb) 04/29/2019 10:17 AM EST Height 160 cm (5' 3) 04/29/2019 10:17 AM EST Body Mass Index 31.18 04/29/2019 10:17 AM EST documented in this encounter Patient Instructions Patient InstructionsAmee Perez RN - 04/29/2019 10:30 AM EST Thank you for visiting Dr. Hammond in clinic 04/29/19 Dr. Hammond would like to see you back in clinic in 1 year with a recent CT scan of your chest with low dose IV contrast. You will receive a letter in the mail/ receive a call to schedule this appointment. ?? Exercise each day for 30 minutes or longer. Daily aerobic exercise for at least 30 minutes will help improve your endurance and improve the breathing capacity of your lungs. This means that you are breathing hard, your heart is beating fast and that you are sweating. Examples of this include walking, biking, swimming, and using a treadmill or stationary bike. Please call Thoracic surgery at with any questions or concerns. documented in this encounter H&P Notes Zenobia Lay APRN - 04/29/2019 10:30 AM EST Thoracic Surgery Attending Outpatient Consultation Note Erasto Hammond MD [place] [address] FAX: Date of Consultation: 04/29/2019 This consultation has been requested by PCP: Miriam Agee MD Referring Physician: Miriam Agee MD Purpose for Consultation: paraesophageal hernia, h/o spindle cell carcinoid cancer HPI: Uma Hood is a 64 y.o. 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 She was last seen by Thoracic Surgery in February 2017. Today she reports losing 35 pounds intentionally since she retired, bilateral knee replacement, and having a diverticulitis flare which prompted a CT abd/pelvis. The CT noted her pulmonary nodules and her PCP encouraged her to follow up. In the last 5 months she has stopped her Prilosec. She denies GERD unless she eats spicy foods, waking up with acid in the back of her throat, abdominal pain, or dysphagia. The patient denies dyspnea, dyspnea on exertion, cough, hemoptysis, wheeze, chest pain, fever, chills, nausea, vomiting. She is not smoking and is going to PT twice a week since her knee replacements. Past Medical History: Patient Active Problem List Diagnosis Date Noted ??? Hyperparathyroidism, primary (PTH 168, Ca 10.3-10.4, low phos 2.3, Cr 1.0 on 01/05/13) 03/05/2013 Priority: High Class: Chronic ??? History of carcinoid syndrome s/p right middle lobectomy for a spindle cell carcinoid tumor in 200003/05/2013 Priority: High Class: Chronic ? ? Subclinical hypothyroidism (TSH 5.8 with FT4 0.9 => better spontaneously TSH 2.6 in ) 03/05/2013 Priority: High Class: Chronic ??? Prediabetes (A1c 6.4% 12/17/12) 03/05/2013 Priority: High Class: Chronic ??? Paraesophageal hernia 01/15/2016 ??? Family history of aortic aneurysm in mother and brother) 01/28/2014 ??? Family history of hypothyroidism in mother and 2 maternal aunts 01/28/2014 ??? Parathyroid adenoma 06/24/2013 ??? Hyperparathyroidism 04/22/2013 ??? Multiple pulmonary nodules bilaterally 03/05/2013 ? ? Left kidney mass 1.[address] scan=> simple cyst by US 03/05/2013 ??? Solitary cyst of right breast 1.3 cm 03/05/2013 ??? Obesity 03/05/2013 ??? Renal cyst 01/24/2013 Past Medical History: Diagnosis Date ??? GERD (gastroesophageal reflux disease) well controlled on meds ??? Hyperparathyroidism ??? Hypothyroidism no replacement ??? Lung tumor ??? Osteoarthritis ??? Postoperative nausea and vomiting last surgery 2000 without problems, prior history of PONV ??? Renal cyst ??? Seizures Past Surgical History: Past Surgical History: Procedure Laterality Date ??? LUNG SURGERY ??? PRO EXPLORE PARATHYROID GLANDS 05/14/2013 PARATHYROIDECTOMY OR EXPLORATION OF PARATHYROID(S) performed by Papa Dominguez MD at [facility] MAIN OR ??? PRO LAPAROSCOPY, SURG, REPAIR PARAESOPHAGEAL HERNIA, W/O IMPLANTATION OF MESH N/A 01/15/2016 ROBOT XI LAPAROSCOPIC PARAESOPHAGEAL HERNIA REPAIR W/FUNDOPLASTY,W/O MESH performed by Erasto Hammond MD at [facility] MAIN OR ??? PRO UPPER GI ENDOSCOPY, DIAGNOSTIC N/A 01/15/2016 ENDOSCOPY, UPPER GI, DIAGNOSTIC, WITH OR WITHOUT SPECIMENS performed by Erasto Hammond MD at [facility] MAIN OR Medications: Allergies: Allergies Allergen Reactions ??? Ciprofloxacin (Mixture) Hives ??? Metronidazole Hives ??? Sulfa (Sulfonamide Antibiotics) Hives Family History: Family History Problem Relation Age of Onset ??? Thyroid Disease Mother ??? Coronary Artery Disease Mother ??? Coronary Artery Disease Father ??? Cancer Maternal Aunt breast ??? Thyroid Disease Maternal Aunt ??? Cancer Maternal Uncle colon Social History: Social History Socioeconomic History ??? Marital status: Spouse name: Not on file ??? Number of children: Not on file ??? Years of education: Not on file ??? Highest education level: Not on file Occupational History ??? Not on file Social Needs ??? Financial resource strain: Not on file ??? Food insecurity Worry: Not on file Inability: Not on file ??? Transportation needs Medical: Not on file Non-medical: Not on file Tobacco Use ??? Smoking status: Never Smoker ??? Smokeless tobacco: Never Used Substance and Sexual Activity ??? Alcohol use: No Comment: seldom ??? Drug use: No ??? Sexual activity: Never Lifestyle ??? Physical activity Days per week: Not on file Minutes per session: Not on file ??? Stress: Not on file Relationships ??? Social connections Talks on phone: Not on file Gets together: Not on file Attends gnosticist service: Not on file Active member of club or organization: Not on file Attends meetings of clubs or organizations: Not on file Relationship status: Not on file ??? Intimate partner violence Fear of current or ex partner: Not on file Emotionally abused: Not on file Physically abused: Not on file Forced sexual activity: Not on file Other Topics Concern ??? Not on file Social History Narrative ??? Not on file REVIEW OF SYSTEMS: General: Positive for intentional weight loss, Denies fatigue, chills, night sweats. Neuro: Denies seizure, TIA, CVA, neurologic deficits including tremor, incoordination, paresthesias,difficulties with memory or speech, sensory or motor disturbances, or muscular coordination. Psychiatric: Denies depression, anxiety, thoughts of suicide in the past, PTSD, substance abuse, previous hallucinations, other psychiatric diagnoses Cardiovascular: Denies arrythmias, CAD, HTN, family history of cardiac disease, CHF, hyperlipidemia. Respiratory: Denies asthma, COPD, emphysema, cough, dyspnea, wheezing, stridor, hemoptysis, respiratory infection, TB or exposure to TB. GI: Denies ulcer disease, irritable bowel syndrome, denies past GI bleed, jaundice : Denies urgency, frequency, dysuria, nocturia, polyuria,denies oliguria, stones, UTI, nephritis, Hematologic: Denies history of DVT, PE, petechiae, bleeding diathesis. Endocrine: positive for thyroid disease, Denies diabetes mellitus, other endocrine disorder. Musculoskeletal: Denies fractures, arthritis Integument: Denies skin cancer. Physical Exam: BP 115/68 (Patient Position: Sitting) Pulse 98 Temp 36.9 ??C (98.4 ??F) (Temporal) Resp 19 Ht 160 cm (5' 3) Wt 79.8 kg (176 lb) SpO2 98% BMI 31.18 kg/m?? General Appearance: Alert, cooperative, no distress, appears stated age, appropriate for situation HEENT: PERRL, MMM, non-icteric Neck: Supple, symmetrical, trachea midline, no adenopathy; thyroid: not enlarged, symmetric, no tenderness/mass/nodules Lungs: Clear to auscultation bilaterally, respirations unlabored, no wheezes, crackles or ronchi. Heart: Regular rate and rhythm, S1 and S2 normal, no murmur, rub, or gallop Abdomen: Soft, non-tender, bowel sounds normo-active in all four quadrants, no masses, no organomegaly Extremities: Extremities normal, no cyanosis, clubbing. no edema Neurologic: A+Ox3, cranial nerves II-XII grossly intact Musculoskeletal: 5/5 throughout with normal gait Diagnostics: I have independently visualized all relevant imaging studies, including: CT Chest (02/06/17): Numerous bilateral pulmonary nodules. These are unchanged in number and size. ?? UNEXPECTED FINDING of displacement of part of the stomach into the chest above the level of surgery.This is concerning for recurrent hernia. ?? Soft tissue density mass at the upper pole of the left kidney, which is new in comparison to the most remote exams and has continuously grown on consecutive follow-up's. Although it is not possible to exclude malignancy, favor a proteinaceous cyst over malignancy considering that a prior ultrasound [id number] showed a small cyst in the corresponding region. ?? 40 mm borderline aneurysmal ascending aorta. CT Chest (04/29/2019): Unchanged bilateral pulmonary nodules. No appreciable change in hiatal hernia. Unchanged borderline enlarged ascending aorta, mid ascending diameter 40 mm. Assessment: Uma Hood is a 64 y.o. female with multiple pulmonary nodules and a paraesophagealhernia with a history of spindle cell carcinoid tumor. Her paraesophageal hernia and pulmonary nodules are stable since 2017. Plan of Management: 1. RTC in 12 months with low dose CT Chest 2. Encouraged to continue exercising regularly 3. Please call with any questions or concerns This patient was seen and examined with Dr Hammond. Zenobia Lay APRN 04/29/19 Thoracic Surgery [facility] Erasto Anderson MD - 04/29/2019 10:30 AM EST Thoracic surgery new patient evaluation I saw and examined Ms. Hood with Zenobia Lay APRN, and agree with her findings, assessment and plan. In brief: Chief complaint: Multiple lung nodules, paraesophageal hernia History of present illness: Ms. Hood is a 64-year-old woman reestablishing care with thoracic surgery for multiple lung nodules and a previously repaired paraesophageal hernia. In November 2000 sheunderwent a right middle lobe wedge resection for what transpired to be a spindle cell carcinoid tumor. She was followed with surveillance imaging. She developed a large symptomatic hiatal hernia whichwas repaired with a minimally invasive robotic approach in 2015. I last saw her in February 2017 andshe was subsequently lost to follow-up for more than 2 years. In the interim she has retired and reports an intentional 35 pound weight loss as well as bilateral knee replacements and a recent diverticulitis flare. She is not having any swallowing difficulties at this time. Past Medical History: Diagnosis Date ??? GERD (gastroesophageal reflux disease) well controlled on meds ??? Hyperparathyroidism ??? Hypothyroidism no replacement ??? Lung tumor ??? Osteoarthritis ??? Postoperative nausea and vomiting last surgery 2000 without problems, prior history of PONV ??? Renal cyst ??? Seizures Past Surgical History: Procedure Laterality Date ??? LUNG SURGERY ??? PRO EXPLORE PARATHYROID GLANDS 05/14/2013 PARATHYROIDECTOMY OR EXPLORATION OF PARATHYROID(S) performed by Papa Dominguez MD at [facility] MAIN OR ??? PRO LAPAROSCOPY, SURG, REPAIR PARAESOPHAGEAL HERNIA, W/O IMPLANTATION OF MESH N/A 01/15/2016 ROBOT XI LAPAROSCOPIC PARAESOPHAGEAL HERNIA REPAIR W/FUNDOPLASTY,W/O MESH performed by Erasto Hammond MD at [facility] MAIN OR ??? PRO UPPER GI ENDOSCOPY, DIAGNOSTIC N/A 01/15/2016 ENDOSCOPY, UPPER GI, DIAGNOSTIC, WITH OR WITHOUT SPECIMENS performed by Erasto Hammond MD at [facility] MAIN OR Social History Socioeconomic History ??? Marital status: Spouse name: Not on file ??? Number of children: Not on file ??? Years of education: Not on file ??? Highest education level: Not on file Occupational History ??? Not on file Social Needs ??? Financial resource strain: Not on file ??? Food insecurity Worry: Not on file Inability: Not on file ??? Transportation needs Medical: Not on file Non-medical: Not on file Tobacco Use ??? Smoking status: Never Smoker ??? Smokeless tobacco: Never Used Substance and Sexual Activity ??? Alcohol use: No Comment: seldom ??? Drug use: No ??? Sexual activity: Never Lifestyle ??? Physical activity Days per week: Not on file Minutes per session: Not on file ??? Stress: Not on file Relationships ??? Social connections Talks on phone: Not on file Gets together: Not on file Attends gnosticist service: Not on file Active member of club or organization: Not on file Attends meetings of clubs or organizations: Not on file Relationship status: Not on file ??? Intimate partner violence Fear of current or ex partner: Not on file Emotionally abused: Not on file Physically abused: Not on file Forced sexual activity: Not on file Other Topics Concern ??? Not on file Social History Narrative ??? Not on file Current Outpatient Medications on File Prior to Visit Medication Sig Dispense Refill ? levothyroxine (SYNTHROID) 50 mcg Tablet Take 1 tablet by mouth daily. 90 tablet 3 ??? ergocalciferol, vitamin D2, (VITAMIN D) 50,000 unit Capsule Take 1 capsule by mouth once a week.13 capsule 3 ??? magnesium 250 mg Tablet Take 250 mg by mouth daily. ??? metFORMIN (FORTAMET) 500 mg Tablet Extended Rel 24 hr Take 1 tablet by mouth daily. 90 [...] Take 1 tablet by mouth daily. ??? [DISCONTINUED] losartan (COZAAR) 25 mg Tablet Take 25 mg by mouth daily. ??? [DISCONTINUED] cycloSPORINE (RESTASIS) 0.05 % Dropperette Place 1 drop into both eyes 2 times daily. ??? [DISCONTINUED] omeprazole (PRILOSEC) 20 mg capsule Take 20 mg by mouth daily. No current facility-administered medications on file prior to visit. BP 115/68 (Patient Position: Sitting) Pulse 98 Temp 36.9 ??C (98.4 ??F) (Temporal) Resp 19 Ht 160 cm (5' 3) Wt 79.8 kg (176 lb) SpO2 98% BMI 31.18 kg/m?? Physical exam: She appears comfortable. She has no neurologic deficits and no palpable adenopathy. Her lungs are clear. Imaging: A chest CT was obtained. This demonstrates stability of her pulmonary nodules, and no change in her small recurrent hiatal hernia Assessment: 64-year-old woman with multiple small lung nodules and a previous diagnosis of carcinoidtumor. 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 I advised her that in this circumstance continued follow-up of her nodules was important, but only those changing in appearance or growing above a certain size threshold need to be resected. I again advised her of the small recurrence of her paraesophageal hernia, but advised against repair in the absence of symptoms. She will return to clinic in 1 year for a noncontrast chest CT. We discussed using the low-dose CT protocol and in view of her age I do think this is appropriate. Plan: Return to clinic in 1 year for noncontrast chest CT ERASTO HAMMOND MD documented in this encounter Plan of Treatment Not on filedocumented as of this encounter Results CT Chest wo Contrast (Generic) (06/01/2020 3:24 PM EDT) Anatomical Region Laterality Modality Chest Computed Tomography Specimen (Source) Anatomical Location Collection Method / Collectio n Time Received Time / Laterality Volume Impressions 06/01/2020 3:54 PM EDT Numerous bilateral smoothly-marginated subcentimeter pulmonary nodules, with a single 10 mm nodule in the right lung, n ot appreciably changed, upon background of heterogeneous/mosaic pulmonary parenc hymal attenuation, a constellation of findings that may reflect diffuse idiopa thic neuroendocrine cell hyperplasia (DIPNECH). Thank you for letting us participate in the care of this patient. ??If you are a health care provider and have any questi ons regarding this report, please contact the number below. ??For our patricia ents who have questions regarding this report, please first contact your doctor prior to speaking to our radiologists. ? Electr onically signed by: Hailey Garza MD, [facility] ([phone]), at 06/01/2020 3:54 PM Narrative 06/01/2020 3:54 PM EDT EXAMINATION: CT CHEST WO CONTRAST (GENERIC) CLINICAL HISTORY: Sarcoidosis; Lung nodu le, > 8mm, follow up exam LOW DOSE CT SCAN - hx of spindle cell ca rcinoid tumor 2000, please perform a LOW DOSE CT SCAN, multiple lung nodules, ple ase eval TECHNIQUE: 3.0mm thick axial contiguous sections were obtained through the chest via helical acquisition without intraven ous contrast administration. Thin-section reconstructions as well as coronal and sagittal reformatted images were generated. COMPARISON: 04/29/2019. FINDINGS: Pulmonary parenchyma: At least a few doz en noncalcified smoothly-marginated subcentimeter nodules scattered througho ut both lungs. Although the smaller nodules appear associated with airways, such as at the lateral right lung base on series 4 image 266 and in the left up per lobe on series 4 image 173. The largest nodule on the right is 10 mm in the right middle lobe, unchanged. These nodules are not significantly changed an d are on a background of heterogeneous/ mosaic lung attenuation. Chain suture in the right lung, as before. Airways: No new findings. Pleura: No pleural effusion. Lymph nodes:Noncontrast technique, no th oracic lymphadenopathy seen. Heart, pericardium, and great vessels: C oronary atherosclerotic calcification and borderline dilated ascending thoraci c aorta, 4 cm mid ascending diameter. No new findings. Other mediastinal structures: Unchanged hiatal hernia. Lower neck: No new findings. Upper abdomen: Postoperative changes by the GE junction and left renal cyst, unchanged. Body wall soft tissues: No new findings. Skeletal structures: No new findings. Procedure Note Hailey Garza MD - 06/01/2020Formatt ing of this note might be different from the original. EXAMINATION: CT CHEST WO CONTRAST (GENER IC) CLINICAL HISTORY: Sarcoidosis; Lung nodu le, > 8mm, follow up exam LOW DOSE CT SCAN - hx of spindle cell ca rcinoid tumor 2000, please perform a LOW DOSE CT SCAN, multiple lung nodules, ple ase eval TECHNIQUE: 3.0mm thick axial contiguous sections were obtained through the chest via helical acquisition without intraven ous contrast administration. Thin-section reconstructions as well as coronal and sagittal reformatted images were generated. COMPARISON: 04/29/2019. FINDINGS: Pulmonary parenchyma: At least a few doz en noncalcified smoothly-marginated subcentimeter nodules scattered througho ut both lungs. Although the smaller nodules appear associated with airways, such as at the lateral right lung base on series 4 image 266 and in the left up per lobe on series 4 image 173. The largest nodule on the right is 10 mm in the right middle lobe, unchanged. These nodules are not significantly changed an d are on a background of heterogeneous/ mosaic lung attenuation. Chain suture in the right lung, as before. Airways: No new findings. Pleura: No pleural effusion. Lymph nodes:Noncontrast technique, no th oracic lymphadenopathy seen. Heart, pericardium, and great vessels: C oronary atherosclerotic calcification and borderline dilated ascending thoraci c aorta, 4 cm mid ascending diameter. No new findings. Other mediastinal structures: Unchanged hiatal hernia. Lower neck: No new findings. Upper abdomen: Postoperative changes by the GE junction and left renal cyst, unchanged. Body wall soft tissues: No new findings. Skeletal structures: No new findings. IMPRESSION Numerous bilateral smoothly-marginated s ubcentimeter pulmonary nodules, with a single 10 mm nodule in the right lung, n ot appreciably changed, upon background of heterogeneous/mosaic pulmonary parenc hymal attenuation, a constellation of findings that may reflect diffuse idiopa thic neuroendocrine cell hyperplasia (DIPNECH). Thank you for letting us participate in the care of this patient. If you are a health care provider and have any questi ons regarding this report, please contact the number below. For our patien ts who have questions regarding this report, please first contact your doctor prior to speaking to our radiologists. Electronically signed by: Hailey Garza MD, 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
--- OUTSIDE RECORDS SUMMARY | 2021-11-12 00:55 | XMS_ITS | Encounter Summary ---
:1955 Author Organization [facility] [place] [address] Care Team Providers Name Role Phone Miriam Agee MD Primary Care Provider Reason for Visit Reason Onset Date Comments Medication Refill 12/10/2019 Encounter Details Date Type Department Care Team Description 12/10/2019 Refill Endocrinology at [facility] Veronica Baez V, Adult onset hypothyroidism; [facility] Stevo tab[place] [address] Social History Tobacco Use Types Packs/Day [...] as of this encounter Visit Diagnoses Diagnosis Adult onset hypothyroidism Pre-diabetes Other abnormal glucose documented in this encounter Care Teams Acetone Button Paster Relationship Specialty Start Date End Date Miriam Agee MD PCP - General General Internal Medicine 08/14/[address] [place] [address] documented as of this encounter
--- OUTSIDE RECORDS SUMMARY | 2021-11-12 00:55 | XMS_ITS | Encounter Summary ---
:1955 Author Organization [facility] Address [address] [place] [address] Care Team Providers Name Role Phone Miriam Agee MD Primary Care Provider Encounter Details Date Type Department Care Team Description 06/12/2017 Office Visit Endocrinology at [facility] C Elisabetidagenevieve, Other specified hypothyroidi sm; [facility] Reyes Vogt MD History of hyperparathyroidism; [facility] Vitamin D deficiency; [place] [address] [facility] Controlled type 2 diabetes mellitus with out complication, without long-term current use of insulin [phone] ENDOCRINOLOGY DEPT. [place] [id number] Social History Tobacco Use Types Packs/Day Years [...] Sign Reading Time Taken Comments Blood Pressure 139/79 06/12/2017 10:35 AM EDT Pulse 84 06/12/2017 10:35 AM EDT Temperature - - Respiratory Rate - - Oxygen Saturation - - Inhaled Oxygen Concentration - - Weight 88.4 kg (194 lb 12.8 oz) 06/12/2017 10:35 AM EDT Height 162.6 cm (5' 4) 06/12/2017 10:35 AM EDT Body Mass Index 33.44 06/12/2017 10:35 AM EDT documented in this encounter Progress Notes Reyes Gillespie MD - 06/12/2017 10:30 AM EDT Endocrine Clinic Name: Uma Hood : 1955 PCP: Miriam Agee MD Provided by: Reyes Gillespie MD, PhD, FACE Date: 06/12/2017 Reason for visit: Endocrine visit for post right lower pole parathyroid adenoma resection since 05/2013 for primary hyperparathyroidism with normalized Ca & PTH after the surgery but then her PTH kenney back up to 78-132 due to 2ry hyperPTH, and recently better with PTH down to 74 => [...] Paraesophageal hernia K44.9 Uma Hood is doing better during the interim, stopped working, and having more time for healthy life style with better A1c down from 6.8 to 6.1% quickly and lost wt down 16 lbs which is excellent. She has diarrhea on higher dose of metforminER 500 mg BID and already reduced the dose back to qd over the last 4 days with improvement. She has been on vitamin D 50,000 iu weekly since July 2014 with better vitamin D levels and normalized PTH now. She used to have low normal Ca 8.8 in July 2014 with low normal 25vitamin D at 32-33 associated with 2ry hyperPTH before she started on high dose vitD supplement. She is taking CaD 1 tab 2x/daily as well. She felt much better after her PTH adenoma was removed in 2010 with less fatigue and didnot have much symptoms from having mild hypothyroidism. No fracture with normal DXA scan at the timeof PTH surgery and recent DXA on 06/07/16 was also ok (T-score -0.3 at hip and +0.2 at spine). She tried wt watcher and already had Ramya fundoplication surgery in . No palpitations, CP, SOB, GI issues and better from dry skin. No changes in her hairs (still having thin hairs for years) and no heat or cold intolerance. No REDMOND or visual changes. No swelling in LEs or foot problem. After her usp at the end of 2016, she has more time to take care of herself with less stress from work and kept wt back down as planned. ROS: Please see HPI, all others negative [...] Z83.49 ??? Paraesophageal hernia K44.9 Current Outpatient Prescriptions on File Prior to Visit Medication Sig Dispense Refill ??? ergocalciferol (VITAMIN D) 50,000 unit Capsule Take 1 capsule by mouth once a week. 13 capsule 1 ??? hydroCHLOROthiazide (HYDRODIURIL) 25 mg Tablet 25 mg daily. ??? metFORMIN (FORTAMET) 500 mg Tablet Extended Rel 24 hr Take 1-3 tablets by mouth daily. 1 tab daily for 3-7 days then 2 tab/day for 3-7 days and then 3 tablets daily astolerated 270 tablet 4 ??? levothyroxine (SYNTHROID) 25 mcg Tablet Take 1.5 tablets by mouth daily. 140 tablet 3 ??? losartan (COZAAR) 25 mg Tablet Take 25 mg by mouth daily. ??? cycloSPORINE (RESTASIS) 0.05 % Dropperette Place 1 drop into both eyes 2 times daily. ??? CALCIUM CITRATE/VITAMIN D3 (CALCIUM CITRATE + D ORAL) Take 1 tablet by mouth 2 times daily. ??? GLUC/FATMATA-MSM#1/VIT C/NATALIE/BOR ([id number]-[id number]-ARV COMPLEX ORAL) Take by mouth daily. Reported on 06/13/2016 ??? ibuprofen (ADVIL;MOTRIN) 200 mg tablet Take 200 mg by mouth every 6 hours as needed. Reported on06/13/2016 ??? multivitamin (THERAGRAN) tablet Take 1 tablet by mouth daily. ??? omeprazole (PRILOSEC) 20 mg capsule Take 20 mg by mouth daily. No current facility-administered medications on file prior to visit. Allergies Allergen Reactions ??? Ciprofloxacin (Mixture) Hives ??? Metronidazole Hives ??? Sulfa (Sulfonamide Antibiotics) Hives Social History Social History ??? Marital status: Spouse name: N/A ??? Number of children: N/A ??? Years of education: N/A Social History Main Topics ??? Smoking status: Never Smoker ??? Smokeless tobacco: Never Used ??? Alcohol use No Comment: seldom ??? Drug use: No ??? Sexual activity: No Other Topics Concern ??? None Social History Narrative FAMILY HISTORY Family History Problem Relation Age of Onset ??? Thyroid Disease Mother ??? Coronary Artery Disease Mother ??? Coronary Artery Disease Father ??? Cancer Maternal Aunt breast ??? Thyroid Disease Maternal Aunt ??? Cancer Maternal Uncle colon Physical exam BP 139/79 Pulse 84 Ht 162.6 cm (5' 4) Wt 88.4 kg (194 lb 12.8 oz) BMI 33.44 kg/m2 Appearance: obese, pleasant, NAD HEENT: PERRLA, EOMI, no lid [...] 55, TG 263 (non-fasting) => A1c 6.8% BG 124 (<140, ok for non-fasting) => 110 Recent Lab on 05/27/16 showed slightly good PTH 41 with entirely normal Ca 9.8, better 25vitD 62.3, TSH 1.94, and good A1c 6.1% Recent DXA scan on 06/07/16 at [facility] showed normal BMD (T-score +0.2 at L-spine and T-score at -0.3 at the left hip, up from -0.8 in 2013) Assessment: 62 y.o. lady s/p right lower pole parathyroid adenoma resection since 05/2013 for primary hyperparathyroidism with normalized Ca & PTH initially. 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 Her PTH was then normalized at 51 after taking weekly vitamin D treatment with entirely normal vitamin D at 45-49range. She will cont taking the prescription vitamin D weekly to keep her vitamin D in mid normal range further, which in turn helps suppress PTH for her. Also, borderline hypothyroid with TSH 5.8->5.38 in the past, better spontaneously with TSH of 2.61-3.0 range but then back up to 6.91, started on levothyroxine since August 2015 (LT4 25->37.5 mcg qd). She used to lose wt 11 lbs down with wt watcher but then stable with more stress from her dad's in . She has strong FH of hypothyroid in mother and 2 maternal aunts. Target TSH 1.0-3.0 for her. She has preDM/mild DM with high A1c 6.7% in , down to 6.0% in , back up to 6.8% on 11/26/16 and now better at 6.1% on low dose metformin to help reduce insulin resistance plus eating healthyand stay active physically after she stopped working since late 2016. Plan: 1. Medication: Pt will cont taking metforminER 500 mg qd (higher dose caused diarrhea) for her T2DM (A1c 6.8% downto 6.1% now) To cont LT4 37.5 mcg qd (optimal TSH 1.0-3.0) To cont taking vitamin D 50,000 iu weekly (q Mon) Pt will cont her gummy Calcium citrate/vit D 250/500 iu 2x/day along with vitamin D 50,000 iu weekly to cont to suppress PTH with target [...] Lab: Already checked DXA scan locally at [facility] on 06/07/2016 with normal results. 3. RTC: Next visit in 6 months. Will follow lab at outside lab again in 6 mo for TSH, PTH, BMP, A1c,and 25-vitamin D. We have reviewed our plan [...] encounter Visit Diagnoses Diagnosis Other specified hypothyroidism History of hyperparathyroidism Personal history of other endocrine, met abolic, and immunity disorders Vitamin D deficiency Unspecified vitamin D deficiency Controlled type 2 diabetes mellitus with out complication, without long-term current use of insulin documented in this encounter Care Teams Piping Designer Relationship Specialty Start Date End Date Miriam Agee MD PCP - General General Internal Medicine 08/14/[address] [place] [address] documented as of this encounter
--- OUTSIDE RECORDS SUMMARY | 2021-11-12 00:55 | XMS_ITS | Encounter Summary ---
:1955 Author Organization [facility] [place] [address] Care Team Providers Name Role Phone Miriam Agee MD Primary Care Provider Encounter Details Date Type Department Care Team Description 12/08/2017 Telephone Endocrinology at [facility] [place] [address] Social History Tobacco Use Types Packs/Day [...] this encounter Miscellaneous Notes Telephone Encounter - Marleni Burch LPN - 12/08/2017 2:43 PM EDT Lab results received for appointment 12/11/[address] Gillespie. Patient notified. documented in this encounter Plan of Treatment Not on filedocumented as of this encounter Visit Diagnoses Not on filedocumented in this encounter Care Teams Process Cheese Cooker Relationship Specialty Start Date End Date Miriam Agee MD PCP - General General Internal Medicine 08/14/[address] [place] [address] [phone] documented as of this encounter
--- OUTSIDE RECORDS SUMMARY | 2021-11-12 00:55 | XMS_ITS | Encounter Summary ---
:1955 Author Organization [facility] [place] [address] Care Team Providers Name Role Phone Miriam Agee MD Primary Care Provider Encounter Details Date Type Department Care Team Description 03/03/2017 Telephone [place] [facility] [place]ito Barrientos [place] [facility] [place] [address] UROLOGY [phone] [place] [address] (Wo rk) Social History Tobacco Use Types Packs/Day Years [...] this encounter Miscellaneous Notes Telephone Encounter - Lisa Casarez - 03/03/2017 8:15 AM EST Left message to schedule ultrasound sometime in early April 2017 (no follow up needed, Dr. Barrientos will call with results) documented in this encounter Plan of Treatment Not on filedocumented as of this encounter Visit Diagnoses Not on filedocumented in this encounter Care Teams Lean Manufacturing Coordinator Relationship Specialty Start Date End Date Miriam Agee MD PCP - General General Internal Medicine 08/14/[address] [place] [address] documented as of this encounter
--- OUTSIDE RECORDS SUMMARY | 2021-11-12 00:55 | XMS_ITS | Encounter Summary ---
:1955 Author Organization [facility] Address [address] [place] [address] Care Team Providers Name Role Phone Jasen Perez MD Primary Care Provider Encounter Details Date Type Department Care Team Description 05/02/2014 Hospital Encounter [facility] - S Unknown, Pro Gracy martinez MD [address] [facility] [phone] [place] [address] (Work) [phone] Social History Tobacco Use Types Packs/Day Years Used Date Never Assessed Sex Assigned at Date Recorded Not on file documented as of this encounter Discharge Disposition Disposition Code Departure Means Destination Home or Self [facility] documented in this encounter Plan of Treatment Not on filedocumented as of this encounter Visit Diagnoses Not on filedocumented in this encounter Care Teams Vinegar Maker Relationship Specialty Start Date End Date Jasen Perez MD PCP - General 08/10/10 07/03/[address] [place] [address] [address] [place], [place] [id number] documented as of this encounter
--- OUTSIDE RECORDS SUMMARY | 2021-11-12 00:55 | XMS_ITS | Encounter Summary ---
:1955 Author Organization [facility] [place] [address] Care Team Providers Name Role Phone Miriam Agee MD Primary Care Provider Reason for Referral Consultation (Routine) - Closed Specialty Diagnoses / Procedures Referred By Contact Refer red To Contact Cardiology Diagnoses Atherosclerosis of [place] coronary artery of [place] heart without angina pectoris Dilation of thoracic aorta CT scan of chest 06/01/2020, showing Coronary atherosclerotic Erasto Hammond [facility] 4a calcification and borderline dilated ascending thoracic aorta, 4 cm mid ascending diameter *[place] [address] [place] [address] Referral ID Status Reason Start Date Expiration Date Visits V isits Requested Authorized [id number] Closed Consult, 06/01/2020 06/01/2021 1 1 Test & Treat Diagnostic Test (Routine) - Closed Specialty Diagnoses / Procedures Referred By Contact Refer red To Contact Radiology Diagnoses History of carcinoid syndrome Multiple pulmonary [facility] CT Chest wo Contrast (Generic) [place] [address] [place] [address] Referral ID Status Reason Start Date Expiration Date Visits V isits Requested Authorized [id number] Closed Specialty 07/12/2021 03/05/2022 1 1 Service Requested Reason for Visit Reason Comments Follow-up Encounter Details Date Type Department Care Team Description 06/01/2020 Office Visit Thoracic Surgery at [facility], Atherosc lerosis of [place] coronary artery of [place] heart without angina pectoris[place] [facility]asto [place] Dilation of thoracic aorta; [facility] History 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; [facility] Multiple pulmonary nodules bilaterally [place], [place] THORACIC SURGERY [address] [place] [address] [phone] Social History Tobacco Use Types Packs/Day Years [...] Sign Reading Time Taken Comments Blood Pressure 128/83 06/01/2020 3:51 PM EDT Pulse 93 06/01/2020 3:51 PM EDT Temperature 36.2 ??C (97.2 ??F) 06/01/2020 3:51 PM EDT Respiratory Rate 13 06/01/2020 3:51 PM EDT Oxygen Saturation 98% 06/01/2020 3:51 PM EDT Inhaled Oxygen Concentration - - Weight 93.4 kg (206 lb) 06/01/2020 3:51 PM EDT Height 165.5 cm (5' 5.16) 06/01/2020 3:51 PM EDT Body Mass Index 34.12 06/01/2020 3:51 PM EDT documented in this encounter Progress Notes Yosef Ferrer PA - 06/01/2020 4:15 PM EDT Thoracic Surgery Outpatient Consultation Note MD Yosef Asher PA-C [place] [address] Reason for Visit: Follow up HPI: Uma Hood is a 65 y.o. 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 She was last seen on 04/29/2019, at which time she was feeling well and paraesophageal hernia and pulmonary nodules were stable. Since then, patient has been doing well overall, but reports she has gained about 20-25 lbs and has been having more acid reflux symptoms. She is working on improving her diet and looking forward to increasing her physical activity now that the weather is improving. Physical Exam: Patient Vitals for the past 24 hrs: Temp Pulse Resp BP SpO2 06/01/20 1551 36.2 ??C (97.2 ??F) 93 13 128/83 98 % Gen: NAD, pleasant, sitting up in chair HEENT: normocephalic, atraumatic, EOMI, sclerae anicteric Neck: supple, trachea midline Card: regular rate, not tachycardic Pulm: no audible wheeze or stridor, no accessory muscle use, non-labored breathing on RA Ext: warm, dry, no edema Neuro: A&Ox3, nonfocal, conversant Imaging: CT Chest I- (06/01/2020): Numerous bilateral smoothly-marginated subcentimeter pulmonary nodules, with a single 10 mm nodule in the right lung, not appreciably changed, upon background of heterogeneous/mosaic pulmonary parenchymal attenuation, a constellation of findings that 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 Assessment: Uma Hood is a 65 y.o. 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 Pulmonary nodules continue to appear stable on imaging. Patient has had weight gain and increased acid reflux symptom s over the past year. Plan: 1. RTC in [address] Chest I- for continued surveillance of pulmonary nodules 2. Recommend weight loss with dietary modifications and minimum of 30 minutes of exercise daily, if acid reflux symptoms do not improve patient should touch base with thoracic surgery clinic for earlier follow up for further discussion 3. Will refer patient to cardiology for discussion of coronary atherosclerosis and borderline dilated ascending thoracic aorta 4. Please call with any questions or concerns at any time PARAG Mujica 06/01/2020 Thoracic Surgery [facility] SEYT Erasto Hammond MD - 06/01/2020 4:15 PM EDT Thoracic surgery follow-up visit I saw and examined Ms. Hood with PARAG Peralta, and agree with his findings, assessment andplan. In brief: Chief complaint: Follow-up of multiple lung nodules and recurrent hiatal hernia History of present illness: Ms. Hood is a 65-year-old woman who underwent right middle lobe wedgeresection for a spindle cell carcinoid tumor in 2000 and robotic assisted laparoscopic paraesophageal hernia repair in 2016. 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 In addition, she has a known recurrence of her paraesophageal hernia which has previously been asymptomatic. She comes in today noting 20 to 25 pound weight gain and worsening acid reflux. In addition, she denies any pulmonary symptoms. Current Outpatient Medications on File Prior to Visit Medication Sig Dispense Refill ??? famotidine (Pepcid) 20 mg Tablet Take 20 mg by mouth 2 times daily. ??? vitamin D 50,000 unit Capsule TAKE 1 CAPSULE BY MOUTH ONCE A WEEK 13 capsule 3 ??? metFORMIN (FORTAMET) 500 mg Tablet Extended Rel 24 hr Take 1 tablet by mouth daily. 90 tablet 3 ??? levothyroxine (Synthroid) 50 mcg Tablet Take 1 tablet by mouth daily. 90 tablet 3 ??? UNABLE TO FIND Med Name: ??? magnesium 250 mg Tablet Take 250 mg by mouth daily. ??? hydroCHLOROthiazide (HYDRODIURIL) 25 mg Tablet 25 mg daily. ??? CALCIUM CITRATE/VITAMIN D3 (CALCIUM CITRATE + D ORAL) Take 1 tablet by mouth 2 times daily. ??? ibuprofen (ADVIL;MOTRIN) 200 mg tablet Take 200 mg by mouth every 6 hours as needed. Reported on06/13/2016 ??? multivitamin (THERAGRAN) tablet Take 1 tablet by mouth daily. No current facility-administered medications on file prior to visit. BP 128/83 (Patient Position: Sitting) Pulse 93 Temp 36.2 ??C (97.2 ??F) (Temporal) Resp 13 Ht 165.5 cm (5' 5.16) Wt 93.4 kg (206 lb) SpO2 98% BMI 34.12 kg/m?? Physical exam: She appears comfortable. She is alert, oriented and in no distress. Her lungs are clear, her heart is regular and her abdomen is nontender and nondistended. Imaging: I reviewed with the patient her noncontrast chest CT and compared it extensively with her previous imaging. Although multitudinous enriqueta nodules are present they are stable in size and configuration and no new nodules are appreciated from a year ago. The size of her recurrent paraesophageal hernia is stable. Assessment: 65-year-old woman with multiple stable pulmonary nodules consistent with DIPNECH and also a small recurrent paraesophageal hernia. I advised the patient that no intervention was required this year for her lung nodules. I further advised her that although her paraesophageal hernia repair was amenable to revision, that I would advise weight loss prior to any attempt at revisional surgery. The patient agrees with this plan and will attempt to lose weight and will contact me if her reflux symptoms persist after losing weight. She will return in 1 year for a noncontrast chest CT. Plan: Attempt at weight loss, return to clinic in 1 year for Noncon chest CT ERASTO HAMMOND MD documented in this encounter Plan of Treatment Scheduled Referrals Name Type Priority Associated Diagnoses Order S chedule Referral to Outpatient Routine Atherosclerosis of Ordered: Cardiology Referral [place] coronary artery 06/01 of [place] heart without angina pectoris Dilation of thoracic aorta documented as of this encounter Results (ABNORMAL) CT Chest wo Contrast (Generic) (07/12/2021 9:54 AM EDT) Anatomical Region Laterality Modality Chest Computed Tomography Specimen (Source) Anatomical Collection Method Collection Time Re ceived Time Location / / Volume Laterality 07/12/2021 10:12 AM EDT Impressions 07/12/2021 2:31 PM EDT 1. ??Findings are consistent with DIPNECH. 2. ??Numerous small bilateral pulmonary nodules are unchanged in size and number compared to 06/01/2020. However, when com pared to a more remote exam from 02/06/2017 a pulmonary nodule in the left upper lobe has increased in size from 5 mm to now 8 mm. UNEXPECTED FINDING. 3. ??No appreciable change in the modera te sized hiatal hernia. 4. ??Unchanged 4 cm ectasia of the ascen ding thoracic aorta. I have personally reviewed the image(s) and the resident's interpretation and agree with the findings, Judy Murray MD at 07/12/2021 2:31 PM Thank you for letting us participate in the care of this patient. ??If you are a health care provider and have any questi ons regarding this report, please contact the number below. ??For patients who have questions please contact the health client care representative that requested your imaging first. ? Narrative 07/12/2021 2:31 PM EDT EXAMINATION: CT CHEST WO CONTRAST (GENERIC) CLINICAL HISTORY: Non-small cell lung ca ncer, post treatment, no evidence of disease hx of Right middle lobe wedge resection for spindle cell carcinoid tumor in 2000, paraesophageal hernia, please eval for changes, evidence of disease/surveillance/changes of hernia TECHNIQUE: CT of the chest without contr ast. Coronal and sagittal reformatted images were generated. COMPARISON: CT chest 06/01/2020 FINDINGS: Pulmonary parenchyma: Status post right middle lobe wedge resection. Stable appearance of the surgical margins. Nume alejandra small bilateral pulmonary nodules are unchanged in size and number from pr evious exam. However, 8 mm nodule in the left upper lobe (series 4 image 127) has increased in size compared to more remote CT from 02/06/2017 (previously 5 m m; series 4 image 128). Airways: The large airways are patent. Pleura: No effusions. Lymph nodes, mediastinum and yara: No ma ss or lymphadenopathy. Unchanged moderate sized hernia. Heart, pericardium, and great vessels: N ormal cardiac size. No pericardial effusion. Unchanged 4 cm ectasia of the ascending thoracic aorta. Coronary artery and aortic calcifications. Lower neck: Unremarkable thyroid gland. No visible cervical lymphadenopathy. Upper abdomen: Unchanged left renal cyst . Body wall soft tissues: Normal. Skeletal structures: Degenerative change s in the spine. No suspicious lesions. 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
--- OUTSIDE RECORDS SUMMARY | 2021-11-12 00:55 | XMS_ITS | Encounter Summary ---
:1955 Author Organization [facility] [place] [address] Care Team Providers Name Role Phone Miriam Agee MD Primary Care Provider Encounter Details Date Type Department Care Team Description 03/10/2021 Telephone Endocrinology at [facility] Stephaine Fernandes, [facility] [place] [address] Social History Tobacco Use Types Packs/Day [...] this encounter Miscellaneous Notes Telephone Encounter - Kenia German - 03/10/2021 8:30 AM EST Pt called back with [facility] fax - [phone]. Labs have been faxed, please call pt with any questions Telephone Encounter - Stephanie Clarke RN - 03/10/2021 8:14 AM EST Arlet called requesting lab orders be mailed to her so she can labs done at her local hospital prior to her appt on 04/05/2021. Returned Arlet's call, she will call us with [facility] fax number for their lab so we can fax the lab orders directly. documented in this encounter Plan of Treatment Not on filedocumented as of this encounter Visit Diagnoses Not on filedocumented in this encounter Care Teams Incident Analyst Relationship Specialty Start Date End Date Miriam Agee MD PCP - General General Internal Medicine 08/14/15 [address] [place] [address] documented as of this encounter
--- OUTSIDE RECORDS SUMMARY | 2021-11-12 00:55 | XMS_ITS | Encounter Summary ---
:1955 Author Organization [facility] [place] [address] Care Team Providers Name Role Phone Miriam Agee MD Primary Care Provider Encounter Details Date Type Department Care Team Description 06/19/2020 Orders Only Cardiology at [facility] Cathy Crabtree, [place] [address] Social History Tobacco Use Types Packs/Day [...] on filedocumented in this encounter Care Teams Reimbursement Director Relationship Specialty Start Date End Date Miriam Agee MD PCP - General General Internal Medicine 08/14/15 [facility] [place] [address] documented as of this encounter
--- OUTSIDE RECORDS SUMMARY | 2021-11-12 00:55 | XMS_ITS | Encounter Summary ---
:1955 Author Organization [facility] [place] [address] Care Team Providers Name Role Phone Miriam Agee MD Primary Care Provider Reason for Visit Reason Onset Date Comments Medication Refill 05/03/2018 Encounter Details Date Type Department Care Team Description 05/03/2018 Refill Endocrinology at [facility] Alicia Noriega, [place] [address] Social History Tobacco Use Types Packs/Day Years [...] on filedocumented in this encounter Care Teams Home Health Care Case Manager Relationship Specialty Start Date End Date Miriam Agee MD PCP - General General Internal Medicine 08/14/15 [address] [place] [address] documented as of this encounter
--- OUTSIDE RECORDS SUMMARY | 2021-11-12 00:55 | XMS_ITS | Encounter Summary ---
:1955 Author Organization [facility] [place] [address] Care Team Providers Name Role Phone Miriam Agee MD Primary Care Provider Encounter Details Date Type Department Care Team Description 02/20/2018 Telephone Endocrinology at [facility] C [place] [address] Social History Tobacco Use Types Packs/Day [...] this encounter Miscellaneous Notes Telephone Encounter - Alicia Rich RN - 02/22/2018 8:48 AM EST Spoke to pt and relayed info from Dr Gillespie below. Telephone Encounter - Alicia Rich RN - 02/21/2018 3:32 PM EST Left msg for pt to please call me at [phone], choose option for secretaries and ask to have me paged so that we can stop playing phone tag. Telephone Encounter - Alicia Rich RN - 02/21/2018 10:25 AM EST Pt returned call and left message. Tried to call pt and had to leave message. Telephone Encounter - Marleni Burch LPN - 02/20/2018 4:32 PM EST Called patient. Message left on home v/m for patient to r/c to nurse at which time message from Dr Gillespie will be read to her. Telephone Encounter - Reyes Gillespie MD - 02/20/2018 4:02 PM EST Sina Yepez, please tell pt that outside lab on 02/14/18 showed normal TSH at 1.68, down from 4.16 in Oct (optimal 0.5-3.0). So, pt should take the same dose of levothyroxine 50 mcg qd further as prescribed. Will see her again with qd lab at next visit as planned. Reyes Matias Telephone Encounter - Marleni Burch LPN - 02/20/2018 3:17 PM EST Message from patient that she had TSH done at [facility] on 02/14[facility]. Called for results. Received and forward to Dr Gillespie. documented in this encounter Plan of Treatment Not on filedocumented as of this encounter Visit Diagnoses Not on filedocumented in this encounter Care Teams General Production Laborer Relationship Specialty Start Date End Date Miriam Agee MD PCP - General General Internal Medicine 08/14/15 [facility] [place] [address] documented as of this encounter
--- OUTSIDE RECORDS SUMMARY | 2021-11-12 00:55 | XMS_ITS | Encounter Summary ---
:1955 Author Organization [facility] [place] [address] Care Team Providers Name Role Phone Miriam Agee MD Primary Care Provider Encounter Details Date Type Department Care Team Description 04/24/2019 Telephone Thoracic Surgery at [facility] [place] [address] Social History Tobacco Use Types Packs/Day [...] this encounter Miscellaneous Notes Telephone Encounter - Katherine Macdonald LNA - 04/24/2019 10:49 AM EST Prior Authorization for CT scan [id number] Call placed to [employer] ([phone]) for PA of CT scan [id number] Rationale: Multiple pulmonary nodules (R91.8) Spoke renata/ Benita PA# Approved [id number] documented in this encounter Plan of Treatment Not on filedocumented as of this encounter Visit Diagnoses Not on filedocumented in this encounter Care Teams Flotation Operator Relationship Specialty Start Date End Date Miriam Agee MD PCP - General General Internal Medicine 6/10/[address] [place] [address] documented as of this encounter
--- OUTSIDE RECORDS SUMMARY | 2021-11-12 00:55 | XMS_ITS | Encounter Summary ---
:1955 Author Organization [facility] [place] [address] Care Team Providers Name Role Phone Miriam Agee MD Primary Care Provider Reason for Referral Diagnostic Test (Routine) - Closed Specialty Diagnoses / Procedures Referred By Contact Refer red To Contact Radiology Diagnoses Multiple pulmonary nodules History of carcinoid syndrome Erasto Hammond [facility] Rad Ct Scan Procedures CT Chest wo Contrast (Generic) [place] [address] [place] [address] Referral ID Status Reason Start Date Expiration Date Visits V isits Requested Authorized [id number] Closed Specialty 06/01/2020 03/05/2021 1 1 Service Requested Reason for Visit Diagnostic Test (Routine) - Closed Specialty Diagnoses / Procedures Referred By Contact Refer red To Contact Radiology Diagnoses Multiple pulmonary nodules History of carcinoid syndrome Erasto Hammond, [facility] Rad Ct Scan Procedures CT Chest wo Contrast (Generic) [place] [address] [place] [address] Referral ID Status Reason Start Date Expiration Date Visits V isits Requested Authorized [id number] Closed Specialty 06/01/2020 03/05/2021 1 1 Service Requested Encounter Details Date Type Department Care Team Description 06/01/[address] Scan at [facility], Multiple pulmonary nodules b ilaterally; [facility] Erasto eDal MD 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 vitamin D 50,000 unit TAKE 1 CAPSULE 13 capsule 3 01/14/2020 Capsule BY MOUTH ONCE A WEEK UNABLE TO FIND Med Name: 0 magnesium 250 mg Tablet Take 250 mg by 0 mouth daily. hydroCHLOROthiazide 25 mg daily. 0 11/16/2016 (HYDRODIURIL) 25 mg Tablet CALCIUM CITRATE/VITAMIN D3 Take 1 tablet by 0 (CALCIUM CITRATE + D ORAL) mouth 2 times daily. ibuprofen (ADVIL;MOTRIN) 200 Take 200 mg by 0 mg tablet mouth every 6 hours as needed. Reported on 06/13/2016 multivitamin (THERAGRAN) Take 1 tablet by 0 tablet mouth daily. metFORMIN (FORTAMET) 500 mg Take 1 tablet by 90 tablet 3 12/30/2020 Tablet Extended Rel 24 mouth daily. hrIndications: Pre-diabetes levothyroxine (Synthroid) 50 Take 1 tablet by 90 tablet 3 1 12/02/2020 mcg TabletIndications: Adult mouth daily. 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
--- OUTSIDE RECORDS SUMMARY | 2021-11-12 00:55 | XMS_ITS | Encounter Summary ---
:1955 Author Organization [facility] [address] Care Team Providers Name Role Phone Miriam Agee MD Primary Care Provider Encounter Details Date Type Department Care Team Description 03/21/2019 Orders Only Thoracic Surgery at [facility], Multiple pulmonary [facility] TOOL LATHE OPERATOR nodules bilaterally [facility] [address] [place] [id number] [phone] Social History Tobacco Use Types Packs/Day Years [...] as of this encounter Visit Diagnoses Diagnosis Multiple pulmonary nodules bilaterally Other nonspecific abnormal finding of gadiel ng field documented in this encounter Care Teams Hotel Superintendent Relationship Specialty Start Date End Date Miriam Agee MD PCP - General General Internal Medicine 08/14/15 [place] [address] documented as of this encounter
--- OUTSIDE RECORDS SUMMARY | 2021-11-12 00:55 | XMS_ITS | Encounter Summary ---
:1955 Author Organization [facility] [place] [address] Care Team Providers Name Role Phone Miriam Agee MD Primary Care Provider Reason for Referral Diagnostic Test (Routine) - Closed Specialty Diagnoses / Procedures Referred By Contact Refer red To Contact Cardiology Diagnoses Family history of aortic aneurysm Emilia Pisano MD [facility] Non-Inv Card Lab Procedures Echocardiogram Transthoracic([facility] or [facility]) [facility] [place] [address] [place] [address] Referral ID Status Reason Start Date Expiration Date Visits V isits Requested Authorized [id number] Closed Specialty 07/01/2020 07/01/2021 1 1 Service Requested Reason for Visit Consultation (Routine) - Closed Specialty Diagnoses / Procedures Referred By Contact Refer red To Contact Cardiology Diagnoses Atherosclerosis of grayling coronary artery of grayling heart without angina pectoris Dilation of thoracic aorta CT scan of chest 06/01/2020, showing Coronary atherosclerotic Erasto aHmmond [facility] Cardiology 4a calcification and borderline dilated ascending thoracic aorta, 4 cm mid ascending diameter *[place] [address] [place] [address] Referral ID Status Reason Start Date Expiration Date Visits V isits Requested Authorized [id number] Closed Consult, 06/01/2020 06/01/2021 1 1 Test & Treat Encounter Details Date Type Department Care Team Description 07/01/2020 Office Visit Cardiology at [facility] Kevin Reza MD [facility] [address] [place] [address] Family history of [facility] Emilia Pisano MD [facility] [place] [address] mother and brother) [place] [address] Social History Tobacco Use Types Packs/Day Years [...] Sign Reading Time Taken Comments Blood Pressure 144/80 07/01/2020 2:59 PM EDT Pulse 112 07/01/2020 2:59 PM EDT Temperature - - Respiratory Rate 18 07/01/2020 2:59 PM EDT Oxygen Saturation 98% 07/01/2020 2:59 PM EDT Inhaled Oxygen Concentration - - Weight 91.3 kg (201 lb 3.2 oz) 07/01/2020 2:59 PM EDT Height 160 cm (5' 3) 07/01/2020 2:59 PM EDT Body Mass Index 35.64 07/01/2020 2:59 PM EDT documented in this encounter Progress Notes Emilia Piasno MD - 07/01/2020 3:00 PM EDT Images from the original note were not included. [facility] [place] [place] [address] SPECIAL ORDER [facility] NOTE PRIMARY CARE PROVIDER: Miriam Agee MD REFERRING PROVIDER: Erasto Hammond PROBLEM LIST: # spindle cell carcinoid tumor (2000) # paraesophageal hernia repair (2016) # hyperparathyroidism Subjective: Patient ID: Uma Guillen is a 65 y.o. 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 Referred for discussion of coronary atherosclerosis and borderline dilated ascending thoracic aorta. She has a family history of aortic aneurysm in her mother and brother. She notes her mother and brother were around 51 yo when they were diagnosed with an enlarged aorta. Dr. Ramirez performed a aortic valve replacement; 20 years later she apparently had a bleeding complication from the aorta (?rupturethat she passed). Her brother presented with fatigue and his PCP also noted he had an aneurysm (he also had an SAVR 13 years ago). She notes her father had a CABG in late 70s. He ulitmately passed of a CVA. Denies chest pain or pressure. Denies shortness of breath but does have some dyspnea if she is 'hurrying' but no more than usual. Denies orthopnea, PND or leg swelling. No fevers, chills, or weight loss. She had a wedge resection in 2000; no radiation or chemo. Not very active right now but wants to be. Has a stationary bike and goes to a gym twice a week (weight lifting), finishes with treadmill. Wants to walk more. Does not check her BP at home but knows how. Cardiac Meds: - HCTZ 25 mg QD ROS: negative unless noted above Family History: She has a family history of aortic aneurysm in her mother and brother. Family History Problem Relation Age of Onset ??? Thyroid Disease Mother ??? Coronary Artery Disease Mother ??? Coronary Artery Disease Father ??? Cancer Maternal Aunt breast ??? Thyroid Disease Maternal Aunt ??? Cancer Maternal Uncle colon Social History: Occupation: Retired Tobacco: Never smoker EtOH: None Illicits/IVDU: None Social History Socioeconomic History ??? Marital status: Spouse name: Not on file ??? Number of children: Not on file ??? Years of education: Not on file ??? Highest education level: Not on file Occupational History ??? Not on file Tobacco Use ??? Smoking status: Never Smoker ??? Smokeless tobacco: Never Used Substance and Sexual Activity ??? Alcohol use: No Comment: seldom ??? Drug use: No ??? Sexual activity: Never Other Topics Concern ??? Not on file Social History Narrative ??? Not on file Social Determinants of Health Financial Resource Strain: ??? Difficulty of Paying Living Expenses: Food Insecurity: ??? Worried About Running Out of Food in the Last Year: ??? Ran Out of Food in the Last Year: Transportation Needs: ??? Lack of Transportation (Medical): ??? Lack of Transportation (Non-Medical): Physical Activity: ??? Days of Exercise per Week: ??? Minutes of Exercise per Session: Stress: ??? Feeling of Stress : Social Connections: ??? Frequency of Communication with Friends and Family: ??? Frequency of Social Gatherings with Friends and Family: ??? Attends Denominational Services: ??? Active Member of Clubs or Organizations: ??? Attends Club or Organization Meetings: ??? Marital Status: Intimate Partner Violence: ??? Fear of Current or Ex-Partner: ??? Emotionally Abused: ??? Physically Abused: ??? Sexually Abused: Objective: Patient Vitals for the past 24 hrs: Pulse Resp BP SpO2 07/01/20 1459 (!) 112 18 144/80 98 % Body mass index is 35.64 kg/m??. BP Readings from Last 3 Encounters: 07/01/20 144/80 06/01/20 128/83 12/10/19 122/80 General: alert, conversant female appears in NAD HEENT: nares/OP, MMM + pink Heart: tachycardic but regular, normal S1 and S2; no m/r/g apparent Lungs: No increased WOB; CTAB, no rhonchi/wheezes/rales Extremities: Full ROM; no edema; pulses 2+ bilaterally Neuro: AOx3, non-focal Skin: Warm, dry Labs: Recent Results (from the past 72 hour(s)) EKG 12 Lead Result Value Ventricular rate 104 Atrial Rate 104 P-R Interval 152 QRS Duration 86 Q-T Interval 340 QTC Calculated (Bezet) 447 Calculated P [place] 44 Calculated R [place] 54 Calculated T [place] 33 INTERPRETATION Sinus tachycardia Cannot rule out Inferior infarct , age undetermined Abnormal ECG When compared with ECG of 18-DEC-2015 15:11, No significant change was found Lipid Panel Lab Results Component Value Date HA1C 6.8 (EXTERNAL/ABN) 11/26/2016 HA1C 6.8 (EXTERNAL/ABN) 11/26/2016 Relevant Cardiac Studies: none recent Assessment: Uma Guillen is a 65 y.o. 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 Referred for discussion of coronary atherosclerosis and borderline dilated ascending thoracic aorta. She has a significant family history of aortic aneurysm and aortic replacement; I wonder if she has been evaluated for a bicuspid valve. Would recommend an echocardiogram to evaluate her baseline structure and function, and valves, as well as her aorta. Her PCP Miriam Agee MD is following her lipids and blood pressure. I would recommend a high intensity statin (atorvastatin 40-80 mg or rosuvastatin 20 mg QD). Her blood pressure is elevated today; she will take a log of her blood pressure with a goal of <120/80. If she continues to be hypertensive, would recommend starting losartan for strict blood pressure control in light of her dilated aorta. Would continue to check aortic dimensions on routine annual chest CTs. Details below: Plan: # borderline dilated thoracic aorta - obtain TTE (ordered) - evaluate aortic dimension on annual chest CT - recommend strict BP control # routine - recommend high intensity statin - recommend addition of losartan if BP remains elevated - screening for hemoglobin a1c Thank you for the opportunity to participate in this patient's cardiovascular care. All questions were answered and I look forward to the next visit. The patient was seen and discussed with attending physician, Dr. Reza. Please see attending addendum for any additions or modifications. Emilia Pisano MD Cardiovascular Diseases Fellow, PGY-6 [facility] Pager #[phone] Kevin Reza MD - 07/01/2020 3:00 PM EDT Cardiology Attending Addendum I have personally reviewed the relevant medical data, interviewed and examined the patient and agreewith Dr. Pisano's note as below. documented in this encounter Plan of Treatment Not on filedocumented as of this encounter Procedures Procedure Name Priority Date/Time Associated Diagnosis Comme nts EKG 12-LEAD Routine 07/01/2020 3:04 PM Family history of Resu lts for this EDT aortic aneurysm in procedure are in the mother and brother) results section. documented in this encounter Results ECHOCARDIOGRAM COMPLETE (07/07/2020 10:19 AM EDT) athologist Signature EF 63 HEARTArkadin SYSTEM Anatomical Region Laterality Modality Other Specimen (Source) Anatomical Location Collection Method / Collectio n Time Received Time / Laterality Volume 07/07/2020 Narrative 07/07/2020 11:17 AM EDT Procedure: ?Transthoracic Echocardiogram Patient: ?GUILLEN UMA Winston ? (Age): 1955(65y) Med Rec#: ? [id number] ?Sex: ?F ? Site Loc: ? [facility] ?Ht / Wt: ??160(cm)/91.3(kg Pt. Loc: ?Echo Lab ?BSA: ?1.94 Study Date: ?? 07/07/2020 ?Pt. Type: Outpatient Tape: ? Referring: DANA Reading: Joseph Montez ([id number]) Operational Intelligence Officer: Marielena Atwood Operational Intelligence Officer 2: Angela Cowart Interpreting Fellow: Duane Gillespie ([id number]) Diagnosis: *Family history of ischemic heart disea se and other diseases of the circulatory system (Z82.49) BP: ? 150/78 SUMMARY: 1. The left ventricular chamber size is normal, with basal septal hypertrophy. There is normal global left ventricular systolic function, with calculated ejection fraction 63% by biplane Hamilton's method. There are no left ventricular segmental wall m otion abnormalities. 2. The right ventricle is normal in size and systolic function. Estimated pulmonary artery systolic pres sure is 20 mmHg. 3. The left atrium is normal in size, an d the right atrium is normal in size. 4. There is no hemodynamically significa nt valve disease. 5. The aortic root is normal in size (3. 6cm), and there is mild dilatation of the ascending aorta (3.8cm ) 6. There are no previous studies availab le for comparison. 7. See remainder of report for additiona l findings. Findings ? : Left Ventricle: ? The left ventricul ar chamber size is normal. ?Basal septal hypertrophy is observ ed. ?There is no evidence of LVOT obstr uction. ?No ventricular septal defect is vi sualized. ?There is normal global left ventri cular systolic function. ?The quantitative left ventricular ejection fraction by biplane Hamilton's method is 63%. ?There are no left ventricular segm ental wall motion abnormalities. ?Left ventricular diastolic functio n is normal. ?Doppler assessment is consistent w ith normal left sided filling pressure. Left Atrium: ? The left atrium is no rmal in size. ?There is no patent foramen ovale v isualized. Right Ventricle: ? Right ventricular chamber size, wall thickness, and systolic function are within normal limi ts. ?The estimated pulmonary artery sys tolic pressure is 20 mmHg. ?The estimated right atrial pressur e is 3 mmHg. Right Atrium: ? The right atrium katelin ears normal. Aortic Valve: ? The aortic valve is tricuspid. ?The aortic valve leaflets are mild ly thickened. ?Systolic excursion of the aortic v alve is normal. ?There is no evidence of aortic justina ve stenosis. ?There is no evidence of aortic reg urgitation. Mitral Valve: ? The mitral valve virgie flets are mildly thickened. ?There is mild (1+/4+) mitral regur gitation present. Tricuspid Valve: ? The tricuspid justina ve appears normal in structure and function. ?There is mild (1+/4+) tricuspid re gurgitation present. Pulmonic Valve: ? The pulmonic valve appears normal in structure and function. ?There is mild (1+/4+) pulmonic reg urgitation present. Pericardium: ? The pericardium appea rs normal and there is no evidence of a pericardial effusion. Aorta: ? The aortic root is normal i n size. 3.6cm ?There is mild dilatation of the as cending aorta. 3.8cm Pulmonary Artery: ? The main pulmona ry artery appears normal. Venous: ? The inferior vena cava katelin ears normal in size. ?There is a greater than 50% respir atory change in the inferior vena cava dimension. Misc: ? See remainder of report for additional findings. ?Two-dimensional echo, spectral Dop pler and color Doppler performed. Chambers 2D ?Value ?Units (Range) ? IVSd (2D) ? 1.54 ? cm ? LVPWd (2D) ?0.72 ? cm ? IVS:LVPW ratio (2D) 2.15 ? ratio ? RWT (2D) ?0.57 ? ratio ? RWT PW (2D) ? 0.36 ? ratio ? LVIDd (2D) ?3.95 ? cm ? LVIDs (2D) ?2.58 ? cm ? LVIDd (2D) index ?2.04 ? cm/m2 ? LVIDs (2D) index ?1.33 ? cm/m2 ? LV FS (2D) ?34.66 ?% ? EF Teichholz (2D) ?? 64.43 ?% ? Ao root diameter (2D3.58 ? cm (2.1 - 3.6) ? Ascending Ao ?3.79 ? cm (2 - 3.5) ? Volumes/Mass ?Value ?Units (Range) ? LA Area 4 CH ?16.8 ? cm2 (<21) ? LA ESV BP (A/L) inde25.8 ? ml/m2 ? RA AREA 4CH ? 12.5 ? cm2 ? LV ESV SP 4CH (MOD) 23.96 ? ml ? LV ESV SP 2CH (MOD) 33.28 ? ml ? LV EDV BP ? 77.91 ?ml ? LV ESV BP ? 28.89 ?ml ? LV EDV BP index ? 40.18 ?ml/m2 ? LV ESV BP index ? 14.9 ? ml/m2 ? BP EF (MOD) ? 62.92 ?% ? LV mass (2D) ?147.69 ? g ? LV mass (2D) index ??76.17 ?g/m2 ? Diastolic/Systolic Function ?Value ?Units (Range) ? MV E-wave Vmax ?0.64 ? m/sec ? MV deceleration uvkt110.85 ? m sec ? MV A-wave Vmax ?0.76 ? m/sec ? MV E:A ratio ?0.84 ? ratio ? LV septal e' Vmax ?? 0.06 ? m/sec ? LV lateral e' Vmax ??0.06 ? m/sec ? LV average e' Vmax ??0.06 ? m/sec ? LV E:e' septal ratio10.66 ? ratio ? LV E:e' lateral rati10.66 ? ratio ? LV average E:e' rati10.66 ? ratio ? Tricuspid Valve ?Value ?Units (Range) ? TR Vmax ? 2.08 ? m/sec ? TR peak gradient ?17.29 ?mmHg ? RAP ? 3 ?mmHg ? RVSP ?20 ? mmHg ? Wall Motion: Segment Name ?Rest ? Base-Anteroseptal ?? Normal ? Base-Anterior ? Normal ? Base-Anterolateral ??Normal ? Base-Posterolateral Normal ? Base-Inferior ? Normal ? Base-Inferoseptal ?? Normal ? Mid-Anteroseptal ?Normal ? Mid-Anterior ?Normal ? Mid-Anterolateral ?? Normal ? Mid-Posterolateral ??Normal ? Mid-Inferior ?Normal ? Mid-Inferoseptal ?Normal ? [place]-Septal ? Normal ? [place]-Anterior ? Normal ? [place]-Lateral ?Normal ? [place]-Inferior ? Normal ? [place]-Tip ?Normal ? This report has been electronically sign ed by: _ Joseph Montez MD ? 07/07/2020 1 1:17:01 Images reviewed and interpretation [facility]a [facility] Cardiac Ultrasound Laboratory Procedure Note Joseph Montez MD - 07/07/2020Format ting of this note might be different from the original. Procedure: Transthoracic Echocardiogram Patient: WILMER OROZCO(Age): [birth year]65y) [place] Rec#: [id number] Sex: F Site Loc: [facility] Ht / Wt: 160(cm)/91.3(kg Pt. Loc: Echo Lab BSA: 1.94 Study Date: 07/07/2020 Pt. Type: Outpati ent Tape: Referring: DANA Reading: Joseph Montez ([id number]) Operational Intelligence Officer: Marielena Atwood Operational Intelligence Officer 2: Angela Cowart Interpreting Fellow: Duane Gillespie ([id number]) Diagnosis: *Family history of ischemic heart disea se and other diseases of the circulatory system (Z82.49) BP: 150/78 SUMMARY: 1. The left ventricular chamber size is normal, with basal septal hypertrophy. There is normal global left ventricular systolic function, with calculated ejection fraction 63% by biplane Hamilton's method. There are no left ventricular segmental wall m otion abnormalities. 2. The right ventricle is normal in size and systolic function. Estimated pulmonary artery systolic pres sure is 20 mmHg. 3. The left atrium is normal in size, an d the right atrium is normal in size. 4. There is no hemodynamically significa nt valve disease. 5. The aortic root is normal in size (3. 6cm), and there is mild dilatation of the ascending aorta (3.8cm ) 6. There are no previous studies availab le for comparison. 7. See remainder of report for additiona l findings. Findings : Left Ventricle: The left ventricular edwin mber size is normal. Basal septal hypertrophy is observed. There is no evidence of LVOT obstructio n. No ventricular septal defect is visuali zed. There is normal global left ventricular systolic function. The quantitative left ventricular eject ion fraction by biplane Hamilton's method is 63%. There are no left ventricular segmental wall motion abnormalities. Left ventricular diastolic function is normal. Doppler assessment is consistent with n ormal left sided filling pressure. Left Atrium: The left atrium is normal i n size. There is no patent foramen ovale visual ized. Right Ventricle: Right ventricular chamb er size, wall thickness, and systolic function are within normal limi ts. The estimated pulmonary artery systolic pressure is 20 mmHg. The estimated right atrial pressure is 3 mmHg. Right Atrium: The right atrium appears n ormal. Aortic Valve: The aortic valve is tricus pid. The aortic valve leaflets are mildly th ickened. Systolic excursion of the aortic valve is normal. There is no evidence of aortic valve st enosis. There is no evidence of aortic regurgit ation. Mitral Valve: The mitral valve leaflets are mildly thickened. There is mild (1+/4+) mitral regurgitat ion present. Tricuspid Valve: The tricuspid valve katelin ears normal in structure and function. There is mild (1+/4+) tricuspid regurgi tation present. Pulmonic Valve: The pulmonic valve appea rs normal in structure and function. There is mild (1+/4+) pulmonic regurgit ation present. Pericardium: The pericardium appears nor mal and there is no evidence of a pericardial effusion. Aorta: The aortic root is normal in size . 3.6cm There is mild dilatation of the ascendi ng aorta. 3.8cm Pulmonary Artery: The main pulmonary art ralph appears normal. Venous: The inferior vena cava appears n ormal in size. There is a greater than 50% respiratory change in the inferior vena cava dimension. Misc: See remainder of report for additi onal findings. Two-dimensional echo, spectral Doppler and color Doppler performed. Chambers 2D Value Units (Range) IVSd (2D) 1.54 cm LVPWd (2D) 0.72 cm IVS:LVPW ratio (2D) 2.15 ratio RWT (2D) 0.57 ratio RWT PW (2D) 0.36 ratio LVIDd (2D) 3.95 cm LVIDs (2D) 2.58 cm LVIDd (2D) index 2.04 cm/m2 LVIDs (2D) index 1.33 cm/m2 LV FS (2D) 34.66 % EF Teichholz (2D) 64.43 % Ao root diameter (2D3.58 cm (2.1 - 3.6) Ascending Ao 3.79 cm (2 - 3.5) Volumes/Mass Value Units (Range) LA Area 4 CH 16.8 cm2 (<21) LA ESV BP (A/L) inde25.8 ml/m2 RA AREA 4CH 12.5 cm2 LV ESV SP 4CH (MOD) 23.96 ml LV ESV SP 2CH (MOD) 33.28 ml LV EDV BP 77.91 ml LV ESV BP 28.89 ml LV EDV BP index 40.18 ml/m2 LV ESV BP index 14.9 ml/m2 BP EF (MOD) 62.92 % LV mass (2D) 147.69 g LV mass (2D) index 76.17 g/m2 Diastolic/Systolic Function Value Units (Range) MV E-wave Vmax 0.64 m/sec MV deceleration pxtn361.85 msec MV A-wave Vmax 0.76 m/sec MV E:A ratio 0.84 ratio LV septal e' Vmax 0.06 m/sec LV lateral e' Vmax 0.06 m/sec LV average e' Vmax 0.06 m/sec LV E:e' septal ratio10.66 ratio LV E:e' lateral rati10.66 ratio LV average E:e' rati10.66 ratio Tricuspid Valve Value Units (Range) TR Vmax 2.08 m/sec TR peak gradient 17.29 mmHg RAP 3 mmHg RVSP 20 mmHg Wall Motion: Segment Name Rest Base-Anteroseptal Normal Base-Anterior Normal Base-Anterolateral Normal Base-Posterolateral Normal Base-Inferior Normal Base-Inferoseptal Normal Mid-Anteroseptal Normal Mid-Anterior Normal Mid-Anterolateral Normal Mid-Posterolateral Normal Mid-Inferior Normal Mid-Inferoseptal Normal [place]-Septal Normal [place]-Anterior Normal [place]-Lateral Normal [place]-Inferior Normal [place]-Tip Normal This report has been electronically sign ed by: _ Joseph Montez MD 07/07/2020 11:17:0 1 Images reviewed and interpretation ver ied [facility] Cardiac Ultrasound Laboratory Kevin Reza MD ECHO ORDERABLES EKG 12 Lead (07/01/2020 3:04 PM EDT) Component Value Ref Range Test Analysis Performed Pathologis t Method Time At Signature Ventricular rate 104 BPM MUSE SYSTEM Atrial Rate 104 BPM MUSE SYSTEM P-R Interval 152 ms MUSE SYSTEM QRS Duration 86 ms MUSE SYSTEM Q-T Interval 340 ms MUSE SYSTEM QTC Calculated 447 ms MUSE SYSTEM (Bezet) Calculated P [place] 44 degrees MUSE SYSTEM Calculated R [place] 54 degrees MUSE SYSTEM Calculated T [place] 33 degrees MUSE SYSTEM INTERPRETATION Sinus tachycardia [...] Family history of other cardiovascular d iseases Family history of aortic aneurysm in mot her and brother) Family history of other cardiovascular d iseases documented in this encounter Care Teams Wallpaper Scraper Relationship Specialty Start Date End Date Miriam Agee MD PCP - General General Internal Medicine 08/14/[email or web address] [place] [address] documented as of this encounter
--- OUTSIDE RECORDS SUMMARY | 2021-11-12 00:55 | XMS_ITS | Encounter Summary ---
:1955 Author Organization [facility] [place] [address] Care Team Providers Name Role Phone Miriam Agee MD Primary Care Provider Reason for Referral Diagnostic Test (Routine) - Closed Specialty Diagnoses / Procedures Referred By Contact Refer red To Contact Radiology Diagnoses History of carcinoid syndrome Multiple pulmonary nodules Erasto Hammond [facility] Rad Ct Scan Procedures CT Chest wo Contrast (Generic) [place] [address] [place] [address] Referral ID Status Reason Start Date Expiration Date Visits V isits Requested Authorized [id number] Closed Specialty 07/12/2021 03/05/2022 1 1 Service Requested Reason for Visit Diagnostic Test (Routine) - Closed Specialty Diagnoses / Procedures Referred By Contact Refer red To Contact Radiology Diagnoses History of carcinoid syndrome Multiple pulmonary nodules Erasto Hammond [facility] Rad Ct Scan Procedures CT Chest wo Contrast (Generic) [place] [address] [place] [address] Referral ID Status Reason Start Date Expiration Date Visits V isits Requested Authorized [id number] Closed Specialty 07/12/2021 03/05/2022 1 1 Service Requested Encounter Details Date Type Department Care Team Description 07/12/[address] Scan at [facility], 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 esomeprazole (NexIUM) 20 mg Take 2 capsules 30 capsule 1 11/2021 Capsule, Delayed by mouth daily. Release(E.C.)Indications: Gastroesophageal reflux disease, unspecified whether esophagitis present, Paraesophageal hernia ergocalciferoL, vitamin D2, Take 1 capsule by 13 capsule 3 1 04/18/2020 (vitamin D2) 50,000 unit mouth once a Capsule week. metFORMIN XR (Glucophage XR) Take 1 tablet by 90 tablet 1 1 500 mg Tablet Sustained mouth daily. Release 24 hr levothyroxine (Synthroid) 50 Take 1 tablet by 90 tablet 3 0 12/02/2020 mcg TabletIndications: Adult mouth daily. onset hypothyroidism famotidine (Pepcid) 20 mg Take 20 mg by 0 Tablet mouth 2 times daily. vitamin D 50,000 unit Capsule TAKE 1 CAPSULE BY 13 capsule 3 01/14/2020 MOUTH ONCE A WEEK UNABLE TO FIND [...] 1 tablet by 0 tablet mouth daily. documented as of this encounter Plan of Treatment Not on filedocumented as of this encounter Procedures Procedure Name Priority Date/Time Associated Diagnosis Comme nts CT CHEST WO Routine 07/12/2021 9:54 AM History of carcinoid R esults for this CONTRAST (GENERIC) EDT syndrome s/p right pro cedure are in middle lobectomy for the res ults a spindle cell section. carcinoid tumor in 2000 Multiple pulmonary nodules bilaterally documented in this encounter Results (ABNORMAL) CT Chest wo [...] who have questions please contact the health animal caretaker supervisor that requested your imaging first. ? 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
--- OUTSIDE RECORDS SUMMARY | 2021-11-12 00:55 | XMS_ITS | Encounter Summary ---
:1955 Author Organization [facility] [place] [address] Care Team Providers Name Role Phone Miriam Agee MD Primary Care Provider Reason for Referral Diagnostic Test (Routine) - Closed Specialty Diagnoses / Procedures Referred By Contact Refer red To Contact Cardiology Diagnoses Family history of aortic aneurysm Emilia Pisano MD [facility] Non-Inv Card Lab Procedures Echocardiogram Transthoracic([facility]) [facility] [place] [address] [place] [address] Referral ID Status Reason Start Date Expiration Date Visits V isits Requested Authorized [id number] Closed Specialty 07/01/2020 07/01/2021 1 1 Service Requested Reason for Visit Diagnostic Test (Routine) - Closed Specialty Diagnoses / Procedures Referred By Contact Refer red To Contact Cardiology Diagnoses Family history of aortic aneurysm Emilia Pisano MD [facility] Non-Inv Card Lab Procedures Echocardiogram Transthoracic([facility]) [facility] [place] [address] [place] [address] Referral ID Status Reason Start Date Expiration Date Visits V isits Requested Authorized [id number] Closed Specialty 07/01/2020 07/01/2021 1 1 Service Requested Encounter Details Date Type Department Care Team Description 07/07/2020 Hospital Encounter Non-Invasive Kevin Reza, Family history of aortic aneurysm in mother and brother); Cardiology Lab Jojo WARD Family history of aortic aneurysm [facility] DR Costello [facility] CARDIOLOGY [address] [place], [place] [address] [phone] Social History Tobacco Use Types Packs/Day Years [...] Procedure Name Priority Date/Time Associated Comments Diagnosis ECHOCARDIOGRAM COMPLETE Routine 07/07/2020 10:19 Family histor y of Results for this AM EDT aortic aneurysm procedure ar e in the results section. documented in this encounter Results ECHOCARDIOGRAM COMPLETE (07/07/2020 10:19 AM EDT) P athologist Signature EF 63 HEARTLAB SYSTEM Anatomical Region Laterality Modality Other Specimen (Source) Anatomical Location Collection Method / Collectio n Time Received Time / Laterality Volume 07/07/2020 Narrative 07/07/2020 11:17 AM EDT Procedure: ?Transthoracic Echocardiogram Patient: ?WILMER CABRERA L ? (Age): 1955(65y) Med Rec#: ? [id number] ?Sex: ?F ? Site Loc: ? [facility] ?Ht / Wt: ??160(cm)/91.3(kg Pt. Loc: ?Echo Lab ?BSA: ?1.94 Study Date: ?? 07/07/2020 ?Pt. Type: Outpatient Tape: ? Referring: DANA Reading: Joseph Montez ([id number]) Door Liner Helper: Marielena Atwood Door Liner Helper 2: Angela Cowart Interpreting Fellow: Duane Gillespie ([phone]) Diagnosis: *Family history of ischemic heart disea [...] Vmax ?0.64 ? m/sec ? MV deceleration aana560.85 ? m sec ? MV A-wave Vmax [...] ? Mid-Inferior ?Normal ? Mid-Inferoseptal ?Normal ? [place]-Septal ? Normal ? [place]-Anterior ? Normal ? [place]-Lateral ?Normal ? [place]-Inferior ? Normal ? [place]-Tip ?Normal ? This report has been electronically sign ed by: _ Joseph Montez MD ? 07/07/2020 1 1:17:01 Images reviewed and interpretation yinka centeno [facility] Cardiac Ultrasound Laboratory Procedure Note Joseph Montez MD - 07/07/2020Format ting of this note might be different from the original. Procedure: Transthoracic Echocardiogram Patient: GUILLEN UMA Winston DOB(Age): [birth year]65y) Med Rec#: [id number] Sex: F Site Loc: [facility] Ht / Wt: 160(cm)/91.3(kg Pt. Loc: Echo Lab BSA: 1.94 Study Date: 07/07/2020 Pt. Type: Outpati ent Tape: Referring: DANA Reading: Joseph Montez ([id number]) Door Liner Helper: Marielena Atwood Door Liner Helper 2: Angela Cowart Interpreting Fellow: Duane Gillespie ([phone]) Diagnosis: *Family history of ischemic heart disea [...] MV E-wave Vmax 0.64 m/sec MV deceleration ipej878.85 msec MV A-wave Vmax 0.76 m/sec MV [...] Normal Mid-Posterolateral Normal Mid-Inferior Normal Mid-Inferoseptal Normal [place]-Septal Normal [place]-Anterior Normal [place]-Lateral Normal [place]-Inferior Normal [place]-Tip Normal This report has been electronically sign ed by: _ Joseph Montez MD 07/07/2020 11:17:0 1 Images reviewed and interpretation verif ied [facility] Cardiac Ultrasound Laboratory Kevin Reza MD ECHO ORDERABLES documented in this encounter Visit Diagnoses Diagnosis Family history of aortic aneurysm in mot her and brother) Family history of other cardiovascular d iseases documented in this encounter Care Teams Brand Lead Relationship Specialty Start Date End Date Miriam Agee MD PCP - General General Internal Medicine 08/14/15 [address] [place] [address] documented as of this encounter
--- OUTSIDE RECORDS SUMMARY | 2021-11-12 00:55 | XMS_ITS | Encounter Summary ---
:1955 Author Organization [facility] Address [address] [place] [address] Care Team Providers Name Role Phone Unavailable Primary Care Provider Unavailable Encounter Details Date Type Department Care Team Description 08/06/2010 Results Only [facility] Andrew Aburto MD Laboratory Services - [address], [place] [id number] [place] [address] [place] [address] [phone] Social History Tobacco Use Types Packs/Day Years Used Date Never Assessed Sex Assigned at Date Recorded Not on file documented as of this encounter Plan of Treatment Not on filedocumented as of this encounter Procedures Procedure Name Priority Date/Time Associated Diagnosis Comme [facility] SURGICAL PATHOLOGY Routine 08/06/2010 0:00 EDT Re sults for this procedure are i n the results section. documented in this encounter Results SURGICAL PATHOLOGY (08/06/2010 0:00 EDT) Pathology Report: SURGICAL PATHOLOGY REPORT ? JOELLE GILBERT Reports generated via electr ShoutOmatic interface contain original data; ? LAB however they are lacking the format of the original report. ? Caution should be taken when reading/interpreting unformatted reports. ? Name: ? GUILLEN, UMA ? Accession #: ? [id number] ? : ? 1955 (Age: 55) ??F ? Collec t Date: ? 08/06/2010 ? Location: ? [facility] ? R eceive Date: ? 08/07/2010 ? Provider: ANDREW WALKO MD ? Copy to: BENSON GUPTA MD ? Final Pathologic Diagnosis: ? A. ?Terminal il eum, biopsies: ? 1. ??Focal active ile itis. ??See comment. ? B. ?Colon, cecu m, ? polyp, biopsy: ? 1. ??Inflamed tubular adenoma. ? C. ?Colon, righ t, ascending and transverse, random biopsies: ? 1. ??Colonic mucosa w ith no specific pathologic features. ??See comment. ? D. ?Colon, hepa tic flexure, ? polyp, biopsy: ? 1. ??Inflamed tubular adenoma. ? E. ?Colon, left , descending and sigmoid, biopsies: ? 1. ??Colonic mucosa w ith no pathologic features. ? F. ?Rectum, bio psy: ? 1. ??Colorectal mucos a with no pathologic features. ? Comment: ? Sections of (C) show rare eosinophils in the surface epithelium, the ? clinical significance of whi ch is uncertain. ??There is focal active inflammation in the terminal ileum, which is also of uncertain significance, but adverse drug effect may be a consideratio n. (Dr. Zapata) ? Document reviewed and electr onically signed by: ? FAUSTINO ZAPATA MD ? Report ??Date: 08/11/2010 16 :04 ? By the signature above, the attending physician certifies that he/she has ? personally conducted a gross and/or microscopic examination of the described ? specimens and rendered or co nfirmed the above diagnosis. ? Specimen(s) Received: ? A. ?Terminal il eum bxs ? B. ? cecal polyp ? C. ? Random R colon bxs (including ascending & transverse colon) ? D. ? Hepatic flexure p olyp ? E. ? L colon bxs (includ ing descending & sigmoid colon) ? F. ? Rectum bx ? Clinical History: ? Intermittent diarrhea ? Gross Description: ? Received in formalin labelled Uma Guillen and terminal ileum bx are three zeng-white tissue fragm ents ranging from 0.2 x 0.2 x 0.1 cm to 0.4 x 0.2 x 0.2 cm. ??The specimen is en tirely submitted as (A). ? Received in formalin reece d Uma Guillen and ? cecal polyp is a ? zeng-white tissue fragment me asuring 1.2 x 0.2 by less than 0.1 cm. ??The specimen is entirely submitted as (B) . ? Received in formalin reece d Uma Guillen and random R colon bx includes ?? ascending & transverse are five zeng-white tissue fragments ranging from 0.2 x ?? 0.2 x 0.1 cm to 0.6 x 0.3 x 0.2 cm. ??The specimen is entirely submitted as (C1) and (C2). ? Received in formalin reece d Uma Guillen and ? hepatic flexure polyp is a zeng-white tissue fragment measuring 0.3 x 0.3 x 0.2 cm. ??The specimen is ? entirely submitted as (D). ? Received in formalin reece d Uma Guillen and L colon bx including ? descending & sigmoid colon are seven zeng-white tissue fragments ranging from ?? 0.2 x 0.1 x 0.1 cm to 0.5 x 0.3 x 0.2 cm. ??The specimen is entirely submitted as (E1)-(E3). ? Received in formalin reece d Guillen, Uma and rectum bx are four ? zeng-white tissue fragments r anging from 0.3 x 0.3 x 0.2 cm to 0.5 x 0.2 x 0.2 ?? cm. ??The specimen is entire ly submitted as (F1) and (F2). (Jesus Sorensen)/mpl ? End of Report ? Specimen Performing Organization Address City/State/ZIP Code Phon e Number [facility] [address] [place] [address] SERVICES [facility] [address] [place] [address] documented in this encounter Visit Diagnoses Not on filedocumented in this encounter
--- OUTSIDE RECORDS SUMMARY | 2021-11-12 00:55 | XMS_ITS | Encounter Summary ---
:1955 Author Organization [facility] [place] [address] Care Team Providers Name Role Phone Miriam Agee MD Primary Care Provider Reason for Referral Diagnostic Test (Routine) - Closed Specialty Diagnoses / Procedures Referred By Contact Refer red To Contact Radiology Diagnoses Multiple pulmonary nodules [facility] Rad Ct Scan Procedures CT Chest wo Contrast (Generic) [place] [address] [place] [address] Referral ID Status Reason Start Date Expiration Date Visits V isits Requested Authorized [id number] Closed Specialty 04/24/2019 05/05/2019 1 1 Service Requested Reason for Visit Diagnostic Test (Routine) - Closed Specialty Diagnoses / Procedures Referred By Contact Refer red To Contact Radiology Diagnoses Multiple pulmonary nodules [facility] Rad Ct Scan Procedures CT Chest wo Contrast (Generic) [place] [address] [place] [address] Referral ID Status Reason Start Date Expiration Date Visits V isits Requested Authorized [id number] Closed Specialty 04/24/2019 05/05/2019 1 1 Service Requested Encounter Details Date Type Department Care Team Description 04/29/[address] Scan at [facility], Multiple pulmonary [facility] Erasto Deal MD nodules bilaterally [place] [address] THORACIC SURGERY [phone] [place] [address] Social History Tobacco Use Types Packs/Day Years [...] Sig Dispensed Refills Start Date End Date UNABLE TO FIND Med Name: 0 magnesium [...] 1 tablet by 0 tablet mouth daily. levothyroxine (SYNTHROID) 50 Take 1 tablet by 90 tablet 3 1 12/10/2019 mcg Tablet mouth daily. ergocalciferol, vitamin D2, Take 1 capsule 13 capsule 3 11/201801/14/2020 (VITAMIN D) 50,000 unit by mouth once a Capsule week. metFORMIN (FORTAMET) 500 mg Take 1 tablet by 90 tablet 3 12/10/2019 Tablet Extended Rel 24 hr mouth daily. documented as of this encounter Plan of Treatment Not on filedocumented as of this encounter Procedures Procedure Name Priority Date/Time Associated Diagnosis Comme nts CT CHEST WO Routine 04/29/2019 9:27 AM Multiple pulmonary Res ults for this CONTRAST (GENERIC) EST nodules bilaterally pr ocedure are in the results section. documented in this encounter Results CT Chest [...] report, please contact e number below. ? Electronically signed by: Hailey Garza [facility] ([phone]), at 04/29/2019 9:50 AM Narrative 04/29/2019 9:50 AM EST EXAMINATION: CT [...] this report, please contact e number below. Electronically signed by: Hailey Garza [facility] ([phone]), at 04/29/2019 9:50 AM Erasto Hammond MD IMG CT ORDERABLES documented in this encounter Visit Diagnoses Diagnosis Multiple pulmonary nodules bilaterally Other nonspecific abnormal finding of gadiel ng field documented in this encounter Care Teams Stone Carver Relationship Specialty Start Date End Date Miriam Agee MD PCP - General General Internal Medicine 08/14/[address] [place] [address] documented as of this encounter
--- OUTSIDE RECORDS SUMMARY | 2021-11-12 00:55 | XMS_ITS | Clinical Summary ---
:1955 Author Organization [place] [address] Care Team Providers Name Role Phone Miriam Agee MD Primary Care Provider Allergies Active Allergy Reactions Severity Noted Date Comments Ciprofloxacin (Mixture) Medium Hiv es Metronidazole Medium Hives Sulfa (Sulfonamide Antibiotics) Hives Medications Medication Sig Dispensed Refills Start Date End Date Status ibuprofen (ADVIL;MOTRIN) Take 200 mg by 0 Active 200 mg tablet mouth every 6 hours as needed. Reported on 06/13/2016 multivitamin (THERAGRAN) Take 1 tablet 0 Active tablet by mouth daily. CALCIUM CITRATE/VITAMIN Take 1 tablet 0 Active D3 (CALCIUM CITRATE + D by mouth 2 ORAL) times daily. hydroCHLOROthiazide 25 mg daily. 0 11/16/2016 Active (HYDRODIURIL) 25 mg Tablet magnesium 250 mg Tablet Take 250 mg by 0 Active mouth daily. UNABLE TO FIND Med Name: 0 A ctive vitamin D 50,000 unit TAKE 1 CAPSULE 13 capsule 3 01/14/2020 Active Capsule BY MOUTH ONCE A WEEK Additional Information Patient not taking. Reported on 07/12/2021 famotidine (Pepcid) 20 mg Take 20 mg by mouth 2 0 Active Tablet times daily. levothyroxine (Synthroid) 50 Take 1 tablet by mouth 90 tablet 3 12/02/2020 Active mcg TabletIndications: Adult daily. onset hypothyroidism metFORMIN XR (Glucophage XR) Take 1 tablet by mouth 90 tablet 1 01/01/2021 Active 500 mg Tablet Sustained daily. Release 24 hr ergocalciferoL, vitamin D2, Take 1 capsule by 13 capsule 3 Active (vitamin D2) 50,000 unit mouth once a week. Capsule atorvastatin (Lipitor) 20 mg Take 20 mg by mouth 0 Active Tablet daily. esomeprazole (NexIUM) 20 mg Take 2 capsules by 30 capsule 1 Active Capsule, Delayed mouth daily. Release(E.C.)Indications: Gastroesophageal reflux disease, unspecified whether esophagitis present, Paraesophageal hernia Active Problems Problem Noted Date Paraesophageal hernia 01/15/2016 Family history of aortic aneurysm in mother and brothe r) 01/28/2014 Family history of hypothyroidism in mother and 2 mater nal aunts 01/28/2014 Parathyroid adenoma 06/24/2013 Hyperparathyroidism 04/22/2013 Hyperparathyroidism, primary (PTH 168, Ca 10.3-10.4, l ow phos 2.3, Cr 1.0 03/05/2013 on 01/05/13) Multiple pulmonary nodules bilaterally 03/05/2013 Left kidney mass 1.[address] scan=> simple cyst by US 03/05/2013 Solitary cyst of right breast 1.3 cm 03/05/2013 History of carcinoid syndrome s/p right middle lobecto my for a spindle 03/05/2013 cell carcinoid tumor in 2000 Subclinical hypothyroidism (TSH 5.8 with FT4 0.9 => be tter spontaneously 03/05/2013 TSH 2.6 in ) Prediabetes (A1c 6.4% 12/17/12) 03/05/2013 Obesity 03/05/2013 Renal cyst 01/24/2013 Family History Medical History Relation Comments Coronary Artery Disease Father Cancer Maternal Aunt breast Thyroid Disease Maternal Aunt Cancer Maternal Uncle colon Coronary Artery Disease Mother Thyroid Disease Mother Relation Status Comments Brother Alive Father Alive Maternal Aunt Maternal Uncle Mother Social History Tobacco Use Types Packs/Day Years [...] Assigned at Date Recorded Not on file Last Filed Vital Signs Vital Sign Reading Time Taken Comments Blood Pressure 125/79 07/12/2021 10:41 AM EDT Pulse 98 07/12/2021 10:41 AM EDT Temperature 35.9 ??C (96.6 ??F) 07/12/2021 10:41 AM EDT Respiratory Rate 14 07/12/2021 10:41 AM EDT Oxygen Saturation 97% 07/12/2021 10:41 AM EDT Inhaled Oxygen Concentration - - Weight 87.5 kg (192 lb 12.8 oz) 07/12/2021 10:41 AM EDT Height 161.3 cm (5' 3.5) 07/12/2021 10:41 AM EDT Body Mass Index 33.62 07/12/2021 10:41 AM EDT Plan of Treatment Health Maintenance Due Date Last Done Comments Covid-19 Vaccine (#1) 02/24/1960 Hepatitis C Screening 1973 Tdap adult 1974 Tetanus vaccine 1974 HPV test 1985 PAP Smear 1985 Breast Cancer Share Decision 1995 Needed Colonoscopy 02/24/2000 Zoster vaccine (1 of 2) 2005 Breast Cancer screening 12/05/2013 12/06/2011 Pre-DM monitoring (HgbA1C or FBG) 11/26/2017 11/26/2016, , 11/26/2016, Additional history exists Bone Density Scan 02/24/2020 Pneumoccocal Vaccine: 65+ (1 - 02/24/2020 PCV) Influenza (Flu) vaccine (1 of - 11/04/2021 Influenza standard series) Insurance Payer Benefit Plan / Subscriber ID Effective Dates Phone Addre ss Type Group [facility] [id number] 2020-Prese [address] [place] [address] MEDICARE MEDICARE PART [id number] 2020-Presen [phone] [place] [address] Advance Directives Documents on File Type Date Recorded 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 Yes, order is based on Patient wishes. Care Teams Dance Artist Relationship Specialty Start Date End Date Miriam Agee MD PCP - General General Internal Medicine 08/14/15 [facility] [place] [address]
--- OUTSIDE RECORDS SUMMARY | 2021-11-12 00:55 | XMS_ITS | Encounter Summary ---
:1955 Author Organization [facility] [place] [address] Care Team Providers Name Role Phone Miriam Agee MD Primary Care Provider Encounter Details Date Type Department Care Team Description 06/28/2017 Telephone Urology at [facility] Papito Barrientos MD [facility] [place] [address] UROLOGY [phone] [place] [address] (Wo rk) Social History Tobacco Use Types [...] this encounter Miscellaneous Notes Telephone Encounter - Papito Barrientos MD - 06/28/2017 11:47 AM EDT I called with RBUS result that confirmed a simple renal cyst. I explained that this does not requiresite specific follow-up. All questions answered. PRN follow-up only. documented in this encounter Plan of Treatment Not on filedocumented as of this encounter Visit Diagnoses Not on filedocumented in this encounter Care Teams Unclaimed Property Officer Relationship Specialty Start Date End Date Miriam Agee MD PCP - General General Internal Medicine 08/14/[address] [place] [address] documented as of this encounter
--- OUTSIDE RECORDS SUMMARY | 2021-11-12 00:55 | XMS_ITS | Encounter Summary ---
:1955 Author Organization [facility] Address [address] [place] [address] Care Team Providers Name Role Phone Unavailable Primary Care Provider Unavailable Encounter Details Date Type Department Care Team Description 01/07/2002 Results Only [facility] Blake Palacios MD conversion [address] [place] [address] Social History Tobacco Use Types Packs/Day Years Used Date Never Assessed Sex Assigned at Date Recorded Not on file documented as of this encounter Plan of Treatment Not on filedocumented as of this encounter Procedures Procedure Name Priority Date/Time Associated Diagnosis Comme nts SURGICAL PATHOLOGY Routine 01/07/2002 0:00 EST Re sults for this procedure are i n the results section. documented in this encounter Results SURGICAL PATHOLOGY (01/07/2002 0:00 EST) Pathology Report: SURGICAL PATHOLOGY REPORT JOELLE PERRIN Reports generated via electronic interface contain ananth ginal data; LAB however they are lacking the format of the original re port. Caution should be taken when reading/interpreting unfo rmatted reports. Name: ? UMA GUILLEN ? Accession #: ? [id number] ? : ? 1955 (Age: 46) ??F ? Collect Date: ? 01/07/2002 ? Location: ? [facility] ? Receive Date: ? 002 ? Provider: BLAKE BARRERA MD Copy to: MANE GUPTA MD ? Final Pathologic Diagnosis: A. ?Skin of mons pubis, left, biopsy: 1. ?Squamous proliferation consiste nt with seborrheic keratosis. B. ?Skin of left labum majus, biopsy: 1. ?Melanocytic nevus, compound type. Document reviewed and electronically signed by: Josias Wei MD Report ??Date: 01/09/2002 17:14 By the signature above, the attending physician certif ies that he/she has personally conducted a gross and/or microscopic examin ation of the described specimens and rendered or confirmed the above diagnosi s. Specimen(s) Received: A. ?L mons region 2 cm mole (#1) B. ?L labia majora 0.5 cm lesion (#2) Clinical History: ? Benign skin lesion Gross Description: ? Received in formalin labelled Guillen and le ft mons pubis is an elliptical unoriented 1.1 x 0.5 cm portion of skin excised to a depth of 0.2 cm. There is a 0.8 x 0.5 x 0.3 cm papule which occupies t he entire epidermal surface. ??The specimen is i nked, serially sectioned, and is entirely submitted as (A1) and (A2) with the distal ends submitted revers e en face as (A2). Received in formalin labelled Guillen and L labia is a zeng-brown curling hair bearing 0.5 x 0.3 cm skin shave. ??The spec imen is bisected and entirely submitted as (B). ??(Tam Dumont/tevin End of Report Specimen Performing Organization Address City/State/ZIP Code Phon e Number [facility] [address] [place] [address] SERVICES [facility] [address] [place] [address] documented in this encounter Visit Diagnoses Not on filedocumented in this encounter
--- OUTSIDE RECORDS SUMMARY | 2021-11-12 00:55 | XMS_ITS | Encounter Summary ---
:1955 Author Organization [facility] [place] [address] Care Team Providers Name Role Phone Miriam Agee MD Primary Care Provider Reason for Visit Reason Comments Hypothyroidism Encounter Details Date Type Department Care Team Description 12/11/2017 Office Visit Endocrinology at [facility] Nav Gillespie, Other specified [facility] Reyes Vogt [place] [address] [facility] [phone] [place] [address] Social History Tobacco Use Types Packs/Day Years [...] Sign Reading Time Taken Comments Blood Pressure 129/68 12/11/2017 10:10 AM EDT Pulse 86 12/11/2017 10:10 AM EDT Temperature - - Respiratory Rate - - Oxygen Saturation - - Inhaled Oxygen Concentration - - Weight 80.9 kg (178 lb 6.4 oz) 12/11/2017 10:10 AM EDT Height 165.1 cm (5' 5) 12/11/2017 10:10 AM EDT Body Mass Index 29.69 12/11/2017 10:10 AM EDT documented in this encounter Patient Instructions Patient InstructionsReyes Gillespie MD - 12/11/2017 10:00 AM EDT Plan: 1. Medication: To increase LT4 37.5 mcg to 75 mcg daily loading dose for 1 week and then switch to levothyroxine 50 mcg qd (optimal TSH 1.0-3.0)\ Pt will cont taking metforminER 500 mg qd (higher dose caused diarrhea) for her T2DM (A1c 6.8% downto 6.1% 2x now) To cont taking vitamin D 50,000 iu [...] Lab: Already checked DXA scan locally at [facility] on 06/07/2016 with normal results. Ok to wait 5 yrs to recheck DXA scan. To recheck TSH at local lab in 2-3 mo. 3. RTC: Next visit in 12 months. Will follow lab at outside lab again in 12 mo for TSH, PTH, BMP, A1c, and 25-vitamin D. documented in this encounter Progress Notes Reyes Gillespie MD - 12/11/2017 10:00 AM EDT Endocrine Clinic Name: Uma Hood : 1955 PCP: Miriam Agee MD Provided by: Reyes Gillespie MD, PhD, FACE Date: 12/11/2017 Reason for visit: Endocrine visit for post [...] K44.9 Uma Hood is doing ok but lots of stress from her 's sudden of massive heart attack in Oct 2017. She has 2 step-daughter and good friends around. It's good that she already stopped working since 2017, and having more time for healthy life style with better A1c down from 6.8 to 6.1% quickly 2x now. She lost wt down another 18 lbs which is excellent. She has diarrhea [...] or foot problem. She plans to have left TKR soon on 01/02/18 at [facility]. ROS: Please see HPI, all others negative [...] once a week. 13 capsule 1 ??? levothyroxine (SYNTHROID) 75 mcg Tablet Take 0.5 tablets by mouth daily. 45 tablet 3 ??? hydroCHLOROthiazide (HYDRODIURIL) 25 mg Tablet 25 mg daily. ??? metFORMIN (FORTAMET) 500 mg Tablet Extended Rel 24 hr Take 1-3 tablets by mouth daily. 1 tab daily for 3-7 days then 2 tab/day for 3-7 days and then 3 tablets daily astolerated 270 tablet 4 ??? losartan (COZAAR) 25 mg Tablet Take [...] Cancer Maternal Uncle colon Physical exam BP 129/68 Pulse 86 Ht 165.1 cm (5' 5) Wt 80.9 kg (178 lb 6.4 oz) BMI 29.69 kg/m2 Appearance: non-obese, pleasant, NAD HEENT: PERRLA, EOMI, [...] 263 (non-fasting) => A1c 6.8% => 6.1% now BG 124 (<140, ok for non-fasting) => 110 Lab on 05/27/16 showed good PTH 41 with entirely normal Ca 9.8, better 25vitD 62.3, TSH 1.94, and good A1c 6.1% Lab on 12/04/17 showed good PTH 55 with entirely normal Ca 9.4, 25vitD 55 but high TSH 4.16, and excellent A1c 6.1% DXA scan on 06/07/16 at [facility] showed normal BMD (T-score +0.2 at L-spine [...] treatment with entirely normal vitamin D at 45-62range. She will cont taking the prescription vitamin [...] until 12/04/17 when her TSH kenney to 4.16. She has lost wt with wt watcher [...] active physically after she stopped working since 2016. Plan: 1. Medication: To increase LT4 37.5 mcg to 75 mcg daily loading dose for 1 week and then switch to levothyroxine 50 mcg qd (optimal TSH 1.0-3.0)\ Pt will cont taking metforminER 500 mg qd (higher dose caused diarrhea) for her T2DM (A1c 6.8% downto 6.1% 2x now) To cont taking vitamin D 50,000 iu [...] Lab: Already checked DXA scan locally at [facility] on 06/07/2016 with normal results. Ok to wait 5 yrs to recheck DXA scan. To recheck TSH at local lab in 2-3 mo (after she is having left TKR soon on 01/02/18 at [facility]). 3. RTC: Next visit in 12 months. [...] encounter Visit Diagnoses Diagnosis Other specified hypothyroidism documented in this encounter Care Teams Road Production General Manager Relationship Specialty Start Date End Date Miriam Agee MD PCP - General General Internal Medicine 08/14/[address] [place] [address] documented as of this encounter
--- OUTSIDE RECORDS SUMMARY | 2021-11-12 00:55 | XMS_ITS | Encounter Summary ---
:1955 Author Organization [facility] [place] [address] Care Team Providers Name Role Phone Miriam Agee MD Primary Care Provider Encounter Details Date Type Department Care Team Description 07/08/2020 Telephone Cardiology Emilia Pisano MD [facility] [place] [address] CARDIOLOGY DEPT [phone] [place] [id number] (Wo rk) Social History Tobacco Use Types [...] this encounter Miscellaneous Notes Telephone Encounter - Emilia Pisano MD - 07/08/2020 2:06 PM EDT Called patient to discuss her echo results. Her AV is tricuspid and her ascending aorta is mildly dilated at 3.8 cm. She is relieved to hear this, especially given her family history of aortic disease.I recommended that her aortic diameter continues to be monitored yearly, which she can have done with her annual chest CTs she has anyway in the setting of prior carcinoid. I additionally stressed the importance of adequate blood pressure control and she will replace the batteries in her cuff and start logging those values. She will be further followed by her PCP and is welcome to return to Cardiology clinic if any further need arises. Emilia Pisano MD Cardiovascular Disease Fellow, PGY-6 [facility] # [id number] documented in this encounter Plan of Treatment Not on filedocumented as of this encounter Visit Diagnoses Not on filedocumented in this encounter Care Teams Family Caseworker Relationship Specialty Start Date End Date Miriam Agee MD PCP - General General Internal Medicine 08/14/[address] [place] [address] documented as of this encounter
--- OUTSIDE RECORDS SUMMARY | 2021-11-12 00:55 | XMS_ITS | Encounter Summary ---
:1955 Author Organization [facility] Address [facility] [place] [address] Care Team Providers Name Role Phone Miriam Agee MD Primary Care Provider Encounter Details Date Type Department Care Team Description 11/19/2018 Orders Only Endocrinology at [facility] Alicia Noriega Other specified hypothyroidi sm; [facility] M, RN Vitamin D deficiency; Drive Controlled type 2 diabetes m ellitus without complication, without long-term [place] [address] Social History Tobacco Use Types Packs/Day [...] on file documented as of this encounter Progress Notes Alicia Rich RN - 11/19/2018 4:35 PM EDT Phone call from pt looking for lab orders to be mailed to you prior to her upcoming annual appt on 12/11/18. Per last OV on 12/11/17: 3. RTC: Next visit in 12 months. Will follow lab at outside lab again in 12 mo for TSH, PTH, BMP, A1c, and 25-vitamin D. TSH already ordered, pending orders to Dr Gillespie for remaining labs. documented in this encounter Plan of Treatment Not on filedocumented as of this encounter Visit Diagnoses Diagnosis Other specified hypothyroidism Vitamin D deficiency Unspecified vitamin D deficiency Controlled type 2 diabetes mellitus with out complication, without long-term current use of insulin documented in this encounter Care Teams Seal Mixing Operator Relationship Specialty Start Date End Date Miriam Agee MD PCP - General General Internal Medicine 08/14/[address] [place] [address] documented as of this encounter
--- OUTSIDE RECORDS SUMMARY | 2021-11-12 00:55 | XMS_ITS | Encounter Summary ---
:1955 Author Organization [facility] [place] [address] Care Team Providers Name Role Phone Miriam Agee MD Primary Care Provider Reason for Visit Reason Onset Date Comments Medication Refill 02/15/2021 Encounter Details Date Type Department Care Team Description 02/15/2021 Refill Endocrinology at [facility] Juliana Quinteros, Prediabetes; [facility] Stevo tabares RN Adult onset hypothyroidism; [place] [address] Hyperparathyroidism, primary (PTH 168, Ca 10.3-10.4, low phos 2.3, Cr 1.0 on 01/05/13) [phone] Social History Tobacco Use Types Packs/Day Years [...] as of this encounter Plan of Treatment Scheduled Orders Name Type Priority Associated Diagnoses Order S chedule TSH Lab Routine Adult onset hypothyroidism E xpected: 02/15/2021 (Approximate), Expires: 2021 PTH Lab Routine Hyperparathyroidism, Expecte d: 02/15/2021, primary (PTH 168, Ca Expires : 02/15/2022 10.3-10.4, low phos 2.3, Cr 1.0 on 01/05/13) Basic Metabolic Panel Lab Routine Prediabetes Expect ed: 02/15/2021 (non-fasting) (Approximate), Expires: 2021 Hemoglobin A1c Lab Routine Prediabetes Expected: , Expires: 2021 Vitamin D, 25-Hydroxy Lab Routine Hyperparathyroidism , Expected: 02/15/2021, primary (PTH 168, Ca Expires : 02/15/2022 10.3-10.4, low phos 2.3, Cr 1.0 on 01/05/13) documented as of this encounter Visit Diagnoses Diagnosis Prediabetes Other abnormal glucose Adult onset hypothyroidism Hyperparathyroidism, primary (PTH 168, C a 10.3-10.4, low phos 2.3, Cr 1.0 on 01/05/13) Primary hyperparathyroidism documented in this encounter Care Teams Remnant Sorter Relationship Specialty Start Date End Date Miriam Agee MD PCP - General General Internal Medicine 08/14/[address] [place] [address] documented as of this encounter
--- OUTSIDE RECORDS SUMMARY | 2021-11-12 00:55 | XMS_ITS | Encounter Summary ---
:1955 Author Organization [facility] [place] [address] Care Team Providers Name Role Phone Miriam Agee MD Primary Care Provider Reason for Referral Diagnostic Test (Routine) - New Request Specialty Diagnoses / Procedures Referred By Contact Refer red To Contact Radiology Diagnoses History of carcinoid syndrome Multiple pulmonary nodules Erasto Hammond, [facility] Scan Procedures CT Chest wo Contrast (Generic) [place] [address] [place] [address] Referral ID Status Reason Start Expiration Visits Visits Date Date Requested Authorized [id number] New Request Specialty 07/12/2021 01/12/2023 1 1 Service Requested Reason for Visit Reason Comments Follow-up Encounter Details Date Type Department Care Team Description 07/12/2021 Office Visit Thoracic Surgery at [facility], History of carcinoid syndrome; [facility] Erasto Deal MD Multiple pulmonary nodules; [facility] Gastroeso phageal reflux disease, unspecified whether esophagitis present; [facility] Paraesophageal hernia [place], [place] [facility] [address] [place], [place] [phone] [address] Social History Tobacco Use Types Packs/Day Years [...] Mass Index 33.62 07/12/2021 10:41 AM EDT documented in this encounter Progress Notes Erasto Hammond MD - 07/12/2021 11:00 AM EDT Thoracic surgery follow-up visit Chief complaint: Follow-up of multiple lung nodules and recurrent hiatal hernia History of present illness: Ms. 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 I last saw her on June 01, 2020 at which time she noted 20 to 25 pound weight gain and worsening of her acid reflux. She comes in today for scheduled follow-up. Her weight has beenstable and her acid reflux is better controlled with certain lifestyle modifications, although it isstill present. She denies any new pulmonary symptoms. Current Outpatient Medications on File Prior to Visit Medication Sig Dispense Refill ??? ergocalciferoL, vitamin D2, (vitamin D2) 50,000 unit Capsule Take 1 capsule by mouth once a week. 13 capsule 3 ??? metFORMIN XR (Glucophage XR) 500 mg Tablet Sustained Release 24 hr Take 1 tablet by mouth daily.90 tablet 1 ??? levothyroxine (Synthroid) 50 mcg Tablet Take 1 tablet by mouth daily. 90 tablet 3 ??? famotidine (Pepcid) 20 mg Tablet Take 20 mg by mouth 2 times daily. ??? UNABLE TO FIND Med Name: fff ??? magnesium 250 mg Tablet Take 250 [...] Take 1 tablet by mouth daily. ??? atorvastatin (Lipitor) 20 mg Tablet Take 20 mg by mouth daily. ??? vitamin D 50,000 unit Capsule TAKE 1 CAPSULE BY MOUTH ONCE A WEEK (Patient not taking: Reported on 07/12/2021) 13 capsule 3 No current facility-administered medications on file prior to visit. BP 125/79 (Patient Position: Sitting) Pulse 98 Temp 35.9 ??C (96.6 ??F) (Temporal) Resp 14 Ht 161.3 cm (5' 3.5) Wt 87.5 kg (192 lb 12.8 oz) SpO2 97% BMI 33.62 kg/m?? Physical exam: She appears well. She is alert, oriented and in no distress. Her lungs are clear, herheart is regular and her abdomen is nontender and nondistended. Imaging: I reviewed the patient's noncontrast chest CT dated July 12. This demonstrates multiple subcentimeter lung nodules which are stable. A recurrent hiatal hernia is present, also stable Assessment: 66-year-old woman now 21 years removed from a wedge resection for a spindle cell carcinoid tumor, with stable lung nodules in the context of DIPNECH. I recommended continuing annual surveillance for these. We discussed the possibility of repair of her recurrent hiatal hernia. Her BMI is 33.6 but I did advise her that weight loss would potentially improve her symptoms. She has not been on a PPI since prior to her attempt at hernia repair, and I recommended a trial of Nexium. If she is able to lose significant amounts of weight and if Nexium is ineffective, we could consider redo hernia repair. Plan: Trial of Nexium, attempt at weight loss, telehealth follow-up in about a month, return to clinic in 1 year for noncontrast chest CT for carcinoid tumor surveillance ERASTO HAMMOND MD documented in this encounter Plan of Treatment Scheduled Orders Name Type Priority Associated Diagnoses Order S chedule CT Chest wo Contrast Imaging Routine History of carcinoid Expected: 07/04/2022 (Generic) syndrome (Approximate), Multiple pulmonary Expires: 01/12/2023 nodules documented as of this encounter Visit Diagnoses Diagnosis History of carcinoid syndrome Personal history of other endocrine, met abolic, and immunity disorders Multiple pulmonary nodules Other nonspecific abnormal finding of gadiel ng field Gastroesophageal reflux disease, unspeci fied whether esophagitis present Paraesophageal hernia Diaphragmatic hernia without mention of obstruction or gangrene documented in this encounter Care Teams Wellness Educator Relationship Specialty Start Date End Date Miriam Agee MD PCP - General General Internal Medicine 08/14/[address] [place] [address] documented as of this encounter
--- OUTSIDE RECORDS SUMMARY | 2021-11-12 00:55 | XMS_ITS | Encounter Summary ---
:1955 Author Organization [employer] Address [address] [place] [address] Care Team Providers Name Role Phone Miriam Agee MD Primary Care Provider Encounter Details Date Type Department Care Team Description 12/10/2019 TH Visit Endocrinology at [facility] Nav Gillespie, Hyperparathyroidism, primary (PTH 168, Ca 10.3-10.4, low phos 2.3, Cr 1.0 on 01/05/13); (TeleHealth) [facility] Reyes Vogt MD Subclinical hypothyroidism (TSH 5.8 with FT4 0.9 => better spontaneously TSH 2.6 in ); [facility] Prediabetes (A1c 6.4% ); [place] [address] [facility] 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 [address] Social History Tobacco Use Types Packs/Day Years [...] Sign Reading Time Taken Comments Blood Pressure 122/80 12/10/2019 4:12 PM EDT Pulse - - Temperature - - Respiratory Rate 12 12/10/2019 4:12 PM EDT Oxygen Saturation - - Inhaled Oxygen Concentration - - Weight 84.4 kg (186 lb) 12/10/2019 4:12 PM EDT Height 160 cm (5' 3) 12/10/2019 4:12 PM EDT Body Mass Index 32.95 12/10/2019 4:12 PM EDT documented in this encounter Patient Instructions Patient InstructionsReyes Gillespie MD - 12/10/2019 4:00 PM EDT Plan: 1. Medication: To cont LT4 50 mcg daily (optimal TSH 1.0-3.0). Pt will cont taking metforminER 500 mg qd (higher dose caused diarrhea) for her T2DM (A1c 6.8% downto 6.1% 2x and then 5.9% in prediabetes). To cont taking vitamin [...] Lab: Already checked DXA scan locally at [facility] on 06/07/2016 with normal results. Ok to wait 5 yrs to recheck DXA scan. To recheck lab tests as planned at local lab soon. 3. RTC: Next visit in 12 month or earlier as needed. Will follow lab at outside lab again in 12 mo for TSH, PTH, BMP, A1c, and 25-vitamin D. documented in this encounter Progress Notes Reyes Gillespie MD - 12/10/2019 4:00 PM EDT Endocrine Clinic Name: Uma Hood : 1955 PCP: Miriam Agee MD Provided by: Reyes Gillespie MD, PhD, FACE Patient verbally consents to this telehealth visit and understands that this visit may be billed, similar to a clinic office visit. I provided care to the patient today via VDO call. The total time associated with this visit was 21 minutes. Date: 12/10/2019 Reason for visit: Endocrine visit for post right lower pole parathyroid adenoma resection since 05/2013 for primary hyperparathyroidism with normalized Ca & PTH after the surgery but then her PTH kenney back up to 78-132 due to 2ry hyperPTH, and then better with PTH down to 74 => 51 (normal <77) after taking vitamin D 50,000 iu weekly since . Uma Hood is doing ok and moved to R apartment since Oct 2018. She already had 2nd TKR without problem. It's good that she already stopped working since 2016, and having more time for healthy life style with better A1c down from 6.8 to 6.1% quickly 2x and 5.9%. She used to lose wt down 32 lbs down from 210 to 180 lbs last year but recently gained back to 186 lbs. She tried to quit metforminERfor 2-3 months last year but noted more carb craving, so she already resumed taking metforminER 500 mg qd for her prediabetes with A1c 5.9% (normal A1c < 5.6%) which is excellent. She had diarrhea on a higher dose of metforminER 500 mg BID and tolerated the lowered dose without problem. She has been on vitamin [...] at hip and +0.2 at spine). She stayed on wt watcher and already had Ramya fundoplication surgery in . No palpitations, CP, SOB, GI issues and better from dry skin. No changes in her hairs (still having thin hairs for years) and no heat or cold intolerance. No REDMOND or visual changes. No swelling in LEs or foot problem. She plans to have lab test for us and PCP soon this Mon12/13/19 at [facility] lab as ordered. ROS: Please see HPI, all others negative [...] maternal aunts Z83.49 ??? Paraesophageal hernia K44.9 Allergies Allergen Reactions ??? Ciprofloxacin (Mixture) Hives ??? Metronidazole Hives ??? Sulfa (Sulfonamide Antibiotics) Hives Social History Tobacco Use ??? Smoking status: Never Smoker ??? Smokeless tobacco: Never Used Substance Use Topics ??? Alcohol use: No Comment: seldom ??? Drug use: No , GoPo FAMILY HISTORY Family History Problem Relation Age of Onset ??? Thyroid Disease Mother ??? Coronary Artery Disease Mother ??? Coronary Artery Disease Father ??? Cancer Maternal Aunt breast ??? Thyroid Disease Maternal Aunt ??? Cancer Maternal Uncle colon Physical exam BP 122/80 Resp 12 Ht 160 cm (5' 3) Wt 84.4 kg (186 lb) BMI 32.95 kg/m?? Deferred. Previous PE from last visit: Appearance: non-obese, pleasant, NAD HEENT: PERRLA, EOMI, [...] => A1c 6.8% => 6.1% => 5.9% (12/05/18) BG 124 (<140, ok for non-fasting) [...] K 4.1 DXA scan on 06/07/16 at [facility] showed normal BMD (T-score +0.2 at L-spine and T- score at -0.3 at the left hip, up from -0.8 in 2013) Assessment: 64 y.o. lady s/p right lower pole parathyroid adenoma resection since 05/2013 for primary hyperparathyroidism with normalized Ca & PTH initially. Her PTH kenney back to 78 (07/10/13) and 132 (07/12/14) with low normal Ca 8.8 and low normal [...] started on levothyroxine since August 2015 (LT4 25->37.5-> 50 mcg qd) with better results. She has a strong FH of hypothyroid in mother and 2 maternal aunts. Target TSH 1.0-3.0 for her. She has preDM/mild DM with high A1c 6.7% in , down to 6.0% in , back up to 6.8% on 11/26/16 and then better at 6.1% x2 and then 5.9% on a low dose metformin to help reduce insulin resistanceplus eating healthy and staying active physically after she stopped working since late 2016. Plan: 1. Medication: To cont LT4 50 mcg daily (optimal TSH 1.0-3.0). Pt will cont taking metforminER 500 mg qd (higher dose caused diarrhea) for her T2DM (A1c 6.8% downto 6.1% 2x and then 5.9% in prediabetes last year). To cont taking vitamin D 50,000 iu [...] Lab: Already checked DXA scan locally at [facility] on 06/07/2016 with normal results. Ok to wait 5 yrs to recheck DXA scan. To recheck lab tests as planned at local lab soon. 3. RTC: Next visit in 12 month or earlier as needed. 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
--- OUTSIDE RECORDS SUMMARY | 2021-11-12 00:55 | XMS_ITS | Encounter Summary ---
:1955 Author Organization [facility] Address [address] [place] [address] Care Team Providers Name Role Phone Jasen Perez MD Primary Care Provider Miriam Agee MD Primary Care Provider Encounter Details Date Type Department Care Team Description 12/13/2019 Lab Requisition [facility] Outr Resulting Lab, Pathology & Laboratory Provider [facility] [address], [place] [address] Social History Tobacco Use Types Packs/Day Years Used Date Never Assessed Sex Assigned at Date Recorded Not on file documented as of this encounter Plan of Treatment Not on filedocumented as of this encounter Procedures Procedure Name Priority Date/Time Associated Diagnosis Comme nts HEPATITIS C AB W Routine 12/13/2019 7:52 EDT Resu lts for this REFLEX TO HCV RNA procedure are in BY PCR the results section. documented in this encounter Results HEPATITIS C AB W REFLEX TO HCV RNA BY PCR (12/13/2019 7:52 EDT) Pathologist Sig nature Hep C Antibody Negative Negative [facility] Specimen Blood - Venous blood (substance) Performing Organization Address City/State/ZIP Code Phon e Number [facility] [address] [place] [address] SERVICES documented in this encounter Visit Diagnoses Not on filedocumented in this encounter Care Teams Turf Grower Relationship Specialty Start Date End Date Jasen Perez MD PCP - General 08/10/10 07/03/20 [facility] [place] [address] Miriam Agee MD PCP - General 07/04/[address] [place] [address] documented as of this encounter
--- OUTSIDE RECORDS SUMMARY | 2021-11-12 00:55 | XMS_ITS | Encounter Summary ---
:1955 Author Organization [facility] [place] [address] Care Team Providers Name Role Phone Miriam Agee MD Primary Care Provider Reason for Visit Reason Comments Medication Refill Encounter Details Date Type Department Care Team Description 01/13/2020 Refill Endocrinology at [facility] Reyes Early MD [facility] [place] [address] [place] [address] ENDOCRINOLOGY DEPT. [phone] [place] [address] (Wo rk) Social History Tobacco Use Types [...] on filedocumented in this encounter Care Teams Sprinkler Inspector Relationship Specialty Start Date End Date Miriam Agee MD PCP - General General Internal Medicine 08/14/[address] [place] [address] documented as of this encounter
--- OUTSIDE RECORDS SUMMARY | 2021-11-12 00:55 | XMS_ITS | Encounter Summary ---
:1955 Author Organization [facility] [place] [address] Care Team Providers Name Role Phone Miriam Agee MD Primary Care Provider Encounter Details Date Type Department Care Team Description 04/18/2017 Notes Only Endocrinology at [facility] [place] [address] Social History Tobacco Use Types Packs/Day [...] documented as of this encounter Progress Notes Marleni Burch LPN - 04/18/2017 8:10 AM EST Per patient request lab orders for June appointment faxed to her to have done locally. 3. RTC: Next visit in 6 months. Will follow lab at outside lab again in 6 mo for TSH, PTH, BMP, A1c,and 25-vitamin D. documented in this encounter Plan of Treatment Not on filedocumented as of this encounter Visit Diagnoses Not on filedocumented in this encounter Care Teams Roof Panel Hanger Relationship Specialty Start Date End Date Miriam Agee MD PCP - General General Internal Medicine 08/14/[address] [place] [address] documented as of this encounter
--- OUTSIDE RECORDS SUMMARY | 2021-11-12 00:55 | XMS_ITS | Encounter Summary ---
:1955 Author Organization [facility] [place] [address] Care Team Providers Name Role Phone Miriam Agee MD Primary Care Provider Reason for Visit Reason Onset Date Comments Medication Refill 10/25/2017 Encounter Details Date Type Department Care Team Description 10/25/2017 Refill Endocrinology at [facility] Reyes Early MD [facility] [place] [address] ENDOCRINOLOGY DEPT. [phone] [place], [place] [address] (Wo rk) Social History Tobacco Use Types [...] on filedocumented in this encounter Care Teams Car Knocker Relationship Specialty Start Date End Date Miriam Agee MD PCP - General General Internal Medicine 08/14/15 [address] [place] [address] documented as of this encounter
--- OUTSIDE RECORDS SUMMARY | 2021-11-12 00:56 | XMS_ITS | Encounter Summary ---
:1955 Author Organization [facility] [place] [address] Care Team Providers Name Role Phone Miriam Agee MD Primary Care Provider Reason for Referral Diagnostic Test (Routine) - Closed Specialty Diagnoses / Procedures Referred By Contact Refer red To Contact Radiology Diagnoses Encounter for follow-up surveillance of lung cancer [facility] Thoracic Surg [address] [place] [address] Chest Wo Contrast (GENERIC) [place] [address] [place] [address] Phone: Referral ID Status Reason Start Date Expiration Date Visits V isits Requested Authorized [id number] Closed Specialty 08/06/2015 09/05/2015 1 1 Service Requested Reason for Visit Diagnostic Test (Routine) - Closed Specialty Diagnoses / Procedures Referred By Contact Refer red To Contact Radiology Diagnoses Encounter for follow-up surveillance of lung cancer [facility] [address] [place] [address] Chest Wo Contrast (GENERIC) [place] [address] [place] [address] Phone: Referral ID Status Reason Start Date Expiration Date Visits V isits Requested Authorized [id number] Closed Specialty 08/06/2015 09/05/2015 1 1 Service Requested Encounter Details Date Type Department Care Team Description 08/14/[address] Scan at [facility] Jasen Rodriguez, Encounter for [facility] MD follow-up Drive [facility] surveillance of lung [place], [place] [address] [address] cancer [address] THORACIC SURGERY [phone] [place] [address] Social History Tobacco Use Types Packs/Day Years Used Date Never Smoker Smokeless Tobacco: Never Used Alcohol Use Standard Drinks/Week Comments No 0 (1 standard drink = 0.6 oz pure alcoho l) Sex Assigned at Date Recorded Not on file documented as of this encounter Medications at Time of Discharge Medication Sig Dispensed Refills Start Date End Date CALCIUM CITRATE/VITAMIN Take 1 tablet by 0 D3 (CALCIUM CITRATE + D mouth 2 times ORAL) daily. ibuprofen (ADVIL;MOTRIN) Take 200 mg by 0 200 mg tablet mouth every 6 hours as needed. Reported on 06/13/2016 multivitamin (THERAGRAN) Take 1 tablet by 0 tablet mouth daily. ergocalciferol (VITAMIN Take 1 capsule by 13 capsule 4 08/1308/30/2016 D) 50,000 unit Capsule mouth once a week. levothyroxine (SYNTHROID) Take 1 tablet by 30 tablet 08/0406/13/2016 25 mcg Tablet mouth daily. losartan (COZAAR) 25 mg Take 25 mg by mouth 0 02/201504/29/2019 Tablet daily. cycloSPORINE (RESTASIS) Place 1 drop into 0 04/29/2019 0.05 % Dropperette both eyes 2 times daily. omeprazole (PRILOSEC) 20 Take 20 mg by mouth 0 04/29/2019 mg capsule daily. documented as of this encounter Plan of Treatment Not on filedocumented as of this encounter Procedures Procedure Name Priority Date/Time Associated Diagnosis Comme nts CT CHEST WO Routine 08/14/2015 11:50 Encounter for Results fo r this CONTRAST (GENERIC) AM EDT follow-up procedure are in surveillance of lung the res ults cancer section. documented in this encounter Results CT Chest Wo Contrast (GENERIC) (08/14/2015 11:50 AM EDT) Anatomical Region Laterality Modality Chest Computed Tomography Specimen (Source) Anatomical Location Collection Method / Collectio n Time Received Time / Laterality Volume Impressions 08/14/2015 2:24 PM EDT Impression: Multiple bilateral pulmonary nodules are unchanged in size and appearance. I have personally reviewed the image(s) and the residents interpretation and agree with the findings, Hailey rodriguez 08/14/2015 2:24 PM Narrative 08/14/2015 2:24 PM EDT EXAMINATION: CT CHEST WO CONTRAST CLINICAL HISTORY: S/P RESECTED LUNG CANC ER, F/U STABLE PULMONARY NODULES TECHNIQUE: Helical CT of the chest was p erformed without contrast. Multiplanar reformatted images were reviewed. COMPARISON: None ? FINDINGS: Lungs and airways: There is a 1.1 cm pul monary nodule in the right middle lobe (series 2, image 42), this is unchanged in size and appearance compared prior exam. Multiple additional subcentimeter bilateral pulmonary nodules are also unchanged in size and appearance. Pleura and pericardium: No pleural or pe ricardial effusion. Heart and vasculature: Within normal hill its Mediastinum and hilar structures: No lym phadenopathy There is a hiatal hernia, slightly incre ased in size compared to prior exam. Otherwise, for the lack of intravenous c ontrast, the portions of the abdominal organs included in the field of view are unremarkable. Left superior pole exophytic renal cyst appears unchanged. Osseous structure: No focal lytic or scl erotic osseous lesion. ? Procedure Note Hailey Garza MD - 08/14/2015Formatt ing of this note might be different from the original. EXAMINATION: CT CHEST WO CONTRAST CLINICAL HISTORY: S/P RESECTED LUNG CANC ER, F/U STABLE PULMONARY NODULES TECHNIQUE: Helical CT of the chest was p erformed without contrast. Multiplanar reformatted images were reviewed. COMPARISON: None ? FINDINGS: Lungs and airways: There is a 1.1 cm pul monary nodule in the right middle lobe (series 2, image 42), this is unchanged in size and appearance compared prior exam. Multiple additional subcentimeter bilateral pulmonary nodules are also unchanged in size and appearance. Pleura and pericardium: No pleural or pe ricardial effusion. Heart and vasculature: Within normal hill its Mediastinum and hilar structures: No lym phadenopathy There is a hiatal hernia, slightly incre ased in size compared to prior exam. Otherwise, for the lack of intravenous c ontrast, the portions of the abdominal organs included in the field of view are unremarkable. Left superior pole exophytic renal cyst appears unchanged. Osseous structure: No focal lytic or scl erotic osseous lesion. ? IMPRESSION Impression: Multiple bilateral pulmonary nodules are unchanged in size and appearance. I have personally reviewed the image(s) and the residents interpretation and agree with the findings, Hailey rodriguez 08/14/2015 2:24 PM Jasen Rodriguez MD IMG CT ORDERABLES documented in this encounter Visit Diagnoses Diagnosis Encounter for follow-up surveillance of lung cancer Unspecified follow-up examination documented in this encounter Care Teams Passenger Conductor Relationship Specialty Start Date End Date Miriam Agee MD PCP - General General Internal Medicine 08/14/15 [address] [place] [address] documented as of this encounter
--- OUTSIDE RECORDS SUMMARY | 2021-11-12 00:56 | XMS_ITS | Encounter Summary ---
:1955 Author Organization [facility] [place] [address] Care Team Providers Name Role Phone Miriam Agee MD Primary Care Provider Reason for Visit Reason Comments Follow-up Encounter Details Date Type Department Care Team Description 11/16/2015 Office Visit Thoracic Surgery at [place], Paraesop hageal hernia [facility] [place] [place] Erasto Deal MD [facility] [address] [place] THORACIC SURGERY [id number] [place] [address] [phone] Social History Tobacco Use Types Packs/Day Years Used Date Never Smoker Smokeless Tobacco: Never Used Alcohol Use Standard Drinks/Week Comments No 0 (1 standard drink = 0.6 oz pure alcoho l) Sex Assigned at Date Recorded Not on file documented as of this encounter Last Filed Vital Signs Vital Sign Reading Time Taken Comments Blood Pressure 139/78 11/16/2015 9:58 AM EDT Pulse 87 11/16/2015 9:58 AM EDT Temperature 36.6 ??C (97.9 ??F) 11/16/2015 9:58 AM EDT Respiratory Rate 20 11/16/2015 9:58 AM EDT Oxygen Saturation 97% 11/16/2015 9:58 AM EDT Inhaled Oxygen Concentration - - Weight 93.4 kg (205 lb 12.8 oz) 11/16/2015 9:58 AM EDT Height 162.6 cm (5' 4.02) 11/16/2015 9:58 AM EDT Body Mass Index 35.31 11/16/2015 9:58 AM EDT documented in this encounter Patient Instructions Patient InstructionsRuAbigail rock RN - 11/16/2015 10:15 AM EDT You will be having a robot-assisted paraesophageal hernia repair. Thoracic surgery will contact you in the next 5 to 7 business days to schedule the surgery. Before your Surgery: ?? Preadmission Testing in clinic 4V during the month of December. ?? Exercise: Daily aerobic exercise for at least 30 minutes will help improve your endurance and improve the breathing capacity of your lungs. This means that you are breathing hard, your heart is beating fast and that you are sweating. Examples of this include walking, biking, swimming, and using a treadmill or stationary bike. You will be expected to exercise after surgery as well. ?? Incentive Spirometer: Use your incentive spirometer as you were shown in clinic: 6 times daily/10 breaths each time. Take a slow, deep breath in through your mouth. While the piston rises, the indicator on the right should move upwards. It should stay between the 2 arrows for 2 to 4 seconds with each breath. If the indicator does not stay between the arrows, you are breathing either too fast or too slowly. The incentive spirometer will help you expand your lungs and encourage you to breathe deeply and fully. Please bring your incentive spirometer to the hospital with you on the day of surgery. You will use the incentive spirometer as part of your recovery process and to prevent complications such as pneumonia. Some things to expect during your surgery and while you are in the hospital: Before your surgery you will most likely have an epidural placed for pain control. This is a very thin catheter placed just outside the covering of the spinal cord (the epidural space). This will be done just before your operation and you will receive some medication to sedate you before having it placed. You will lie on your belly or prone, to have this procedure. The epidural will help to control your pain by focusing pain medications near the site of your operation. An anesthesiologist will put the epidural in. The area on your back will be cleaned first. A numbing medicine will be injected intothe area. Once the area is numb, the doctor will insert a needle into the area. They will check for correct placement with an x-ray. When the needle is in the correct spot, a thin wire-like catheter will be inserted through the needle and the needle will be removed. You will be able to walk with this epidural. It typically is removed a day or two after surgery, but may stay in for a week. Small amounts of pain medication will be administered through the catheter continuously with a pump monitored bythe nurse and doctor. You will also be able to give yourself a small amount of medication by pushinga button attached to the pain medication pump. The nursing staff will be giving you acetaminophen ortylenol along with the epidural pain medication. Please have acetaminophen at home to take after surg ralph along with your prescription pain medication. If your pain is not adequately controlled please let your nurse know. You will leave the operating room with a urinary catheter. The catheter is usually removed a day or two after surgery. You will have a chest tube placed while you are in surgery. A Chest tube is a flexible tube that is used to drain blood, fluid and air from around your lungs after surgery. The tube enters your body between your ribs and goes into the space between the inner lining and outer lining of your lung. This is called the pleural space. The chest tube will come out a day after surgery, if there is no air leak in your lung. If there is an air leak, the chest tube will stay in until it stops. The nurse and doctor will be watching for the air leak to clear up regularly throughout the day. Dr. Hammond's team will see you twice per day while you are in the hospital. Two weeks after you leave the hospital, you will be scheduled to see Dr. Hammond in his clinic and will also have a chest x-ray before you see him on this day. Please call the Thoracic surgery nurses, Elysia and Joselyn, if you have any questions before or after your surgery at . 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 She was last seen here in August at which time several pulmonary nodules were being monitored and thought to be stable. She reported worsening reflux symptoms and her hiatal hernia was slightlyincreased in size. She returns today after additional testing to discuss results and possibly proceeding with surgical repair. She reports her symptoms are unchanged. She endorses reflux if she eats too fast or too large an amount. She continues to take Prilosec daily which helps. She does not enjoy eating anymore and is very frustrated by this. She denies f/c/n/v/pain/weight loss. She reports she is trying to lose weight via walking 3x weekly, going to weight watchers and eating better. Medications: Current Outpatient Prescriptions on File Prior to Visit Medication Sig Dispense Refill ??? ergocalciferol (VITAMIN D) 50,000 unit Capsule Take 1 capsule by mouth once a week. 13 capsule 4 ??? levothyroxine (SYNTHROID) 25 mcg Tablet Take 1 tablet by mouth daily. 30 tablet 11 ??? losartan (COZAAR) 25 mg Tablet daily. ??? cycloSPORINE (RESTASIS) 0.05 % Dropperette Place 1 drop into both eyes 2 times daily. ??? CALCIUM CITRATE/VITAMIN D3 (CALCIUM CITRATE + D ORAL) Take 1 tablet by mouth daily. ??? GLUC/FATMATA-MSM#1/VIT C/NATALIE/BOR (DCSWLGBKNHE-IDZRW-OOF COMPLEX ORAL) Take by mouth daily. ??? ibuprofen (ADVIL;MOTRIN) 200 mg tablet Take 200 mg by mouth every 6 hours as needed. ??? multivitamin (THERAGRAN) tablet Take 1 tablet by mouth daily. ??? omeprazole (PRILOSEC) 20 mg capsule Take 20 mg by mouth daily. Current Facility-Administered Medications on File Prior to Visit Medication Dose Route Frequency Provider Last Rate Last Dose ??? [COMPLETED] barium sulfate (E-Z DISK) tablet 700 mg 700 mg Oral Once Jami Long MD 700 mg at 11/16/15 0900 ??? [COMPLETED] barium sulfate (E-Z-HD) 98 % oral suspension 50 mL 50 mL Oral Once Jami Long MD 50 mL at 11/16/15 0900 ??? [COMPLETED] barium sulfate (EZPAQUE) oral suspension 355 mL 355 mL Oral Once Jami Long MD 355 mL at 11/16/15 0900 Physical Exam: BP 139/78 (BP Location (NBP): Left arm, Patient Position: Sitting, BP Cuff Sizes: Adult (25-34 cm)) Pulse 87 Temp 36.6 ??C (97.9 ??F) (Temporal) Resp 20 Ht 162.6 cm (5' 4.02) Wt 93.4 kg (205 lb 12.8 oz) SpO2 97% BMI 35.31 kg/m2 General Appearance: Alert, cooperative, no distress, appears stated age Nk: Supple, symmetrical, trachea midline Lungs: Clear to auscultation bilaterally, respirations unlabored, no wheezes, crackles or ronchi. Heart: Regular rate and rhythm, S1 and S2 normal, no murmur, rub, or gallop Abdomen: Overweight, Soft, non-tender, bowel sounds active all four quadrants Extremities: Extremities normal, atraumatic, no cyanosis or edema Imaging: I have independently visualized the following studies: Barium Swallow (11/16/15): There is tertiary waves noted within the esophagus. There is to and fro peristalsis within the loweresophagus and witnessed reflux to the upper esophagus. Moderate sized paraesophageal hernia. Moderate gastroesophageal reflux observed. CT Chest (08/14/15): Multiple bilateral pulmonary nodules are unchanged in size and appearance. Thereis a hiatal hernia, slightly increased in size compared to prior exam. Assessment: Uma Hood is a 60 y.o. 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 Now withsymptomatic paraesophageal hernia. She is currently a surgical candidate. Plan: 1. Paraesophageal hernia repair, possible fundoplication. Consent signed. She would like this scheduled in January of this year 2. 30 minutes of exercise daily at a minimum 3. Pre-admission testing, closer to the time of surgery 4. Call with any questions PARAG Hu 11/16/2015 Erasto Hammond MD - 11/16/2015 10:15 AM EDT ADDENDUM: Follow up paraesophageal hernia. I saw and examined Ms. Hood with the physician general surgery physician assistant and agree with the findings, assessment, and plan. 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 She has stable pulmonary nodules which have been monitored with serial imaging. She does complain of worsening reflux and dysphagia and a slight increase in the size of her hiatal hernia. We performed additional testing today which include a Barium swallow and esophageal manometry to determine her fitness for robotic-assisted minimally invasive repair of her paraesophageal hernia. The testing does confirm reflux and a moderate size hiatal hernia, although the manometry is not yet available. She is quite symptomatic and is a reasonable candidate for repair of the hiatal hernia and possible fundoplication. We will schedule this procedure in January. She will need preadmission testing at the time. Whether or not we perform a fundoplication will be determined based on the results of the patient's esophageal manometry which is not available. ERASTO HAMMOND MD documented in this encounter Plan of Treatment Not on filedocumented as of this encounter Results (ABNORMAL) Comprehensive metabolic panel (non-fasting) (12/18/2015 3:17 PM EDT) athologist Signature Glucose Lvl 118 65 - 199 [facility] mg/dL [facility] Comment: Diabetes: >=200 mg/dL plus symp toms BUN 10 8 - 18 mg/dL [facility] Creatinine 1.08 0.70 - 1.20 mg/dL [facility] Comment: Please note that the pediatric reference intervals supplied above were not validated at [facility] [place] [place]. Results from pediatri c patients should be interpreted in conjunction to the patient's age, height and muscle mass. Sodium 139 135 - 145 mmol/L [facility] Potassium 4.1 3.5 - 5.0 mmol/L [facility] Comment: Please note: ??Patients with WBC >100,00 0 may have falsely elevated Potassium levels. ??For accurate Potassium quantif ication in these patients send serum separator tube (gold top) for subsequent determinations. ??Contact the Clinical Chemistry Laboratory if there are any qu estions. Chloride 101 98 - 107 mmol/L [facility] CO2 23 22 - 31 mmol/L [facility] Anion Gap 15 5 - 15 mmol/L [facility] Calcium 9.5 8.5 - 10.5 mg/dL [facility] Total Protein 7.0 6.1 - 8.0 gm/dL [facility] Albumin 4.5 3.2 - 5.2 gm/dL [facility] AST 21 0 - 30 unit/L [facility] ALT 21 0 - 30 unit/L [facility] Alk Phos 69 40 - 104 unit/L [facility] Total Bilirubin 0.2 0.2 - 1.3 mg/dL [facility] Bili, Direct 0.1 0.0 - 0.3 mg/dL [facility] Estimated GFR 52 (L) >=60 [facility] Comment: This estimated GFR (eGFR) value was calc ulated using the MDRD equation which has been validated on patients between t he ages of 18 and 70. The MDRD should not be used to assess kidney function in patients < 18 years of age or in patients with extremes of body mass, or in patients with acute kidney failure. This value should be multiplied by 1.2 f or patients. For further information please copy and past e the following links into your internet browser. [email or web address] Specimen Anatomical Collection Method Collection Time Receive d Time (Source) Location / / Volume Laterality Blood specimen 12/18/2015 3:17 PM 016 3:38 (specimen) EDT PM EDT Resulting Agency Comment Spec In Lab Erasto Hammond MD CHEMISTRY ORDERABLES Performing Organization Address City/State/[place] [address] EKG 12 Lead (12/18/2015 3:11 PM EDT) [facility] gist Method Time Signature Ventricular rate 77 BPM MUSE SYSTEM Atrial Rate 77 BPM MUSE SYSTEM P-R Interval 148 ms MUSE SYSTEM QRS Duration 82 ms MUSE SYSTEM Q-T Interval 372 ms MUSE SYSTEM QTC Calculated 420 ms MUSE SYSTEM (Bezet) Calculated P [place] 28 degrees MUSE SYSTEM Calculated R [place] 47 degrees MUSE SYSTEM Calculated T [place] 33 degrees MUSE SYSTEM INTERPRETATION Normal sinus rhythm MUSE SYSTEM Normal ECG No previous ECGs available Confirmed by MD Sirena, Sahil ([id number]) on 12/18/2015 5: 38:12 PM Specimen Anatomical Collection Method Collection Time Receive d Time (Source) Location / / Volume Laterality 12/18/2015 3:11 PM 6 5:38 EDT PM EDT Erasto Hammond MD ECG ORDERABLES Performing Organization Address City/State/ZIP Code Phon e Number MUSE SYSTEM documented in this encounter Visit Diagnoses Diagnosis Paraesophageal hernia Diaphragmatic hernia without mention of obstruction or gangrene documented in this encounter Care Teams Dining Room Server Relationship Specialty Start Date End Date Miriam Agee MD PCP - General General Internal Medicine 08/14/[address] [place] [address] documented as of this encounter
--- OUTSIDE RECORDS SUMMARY | 2021-11-12 00:56 | XMS_ITS | Encounter Summary ---
:1955 [place] [address] Care Team Providers Name Role Phone Miriam Agee MD Primary Care Provider Reason for Visit Auth/Cert Specialty Diagnoses / Procedures Referred By Contact Refer red To Contact Diagnoses Diaphragmatic hernia without obstruction or gangrene paraesophageal hernia Procedures PRO LAPAROSCOPY, SURG, REPAIR PARAESOPHAGEAL HERNIA, W/O IMPLANTATION OF MESH PRO UPPER GI ENDOSCOPY, DIAGNOSTIC LAPAROSCOPIC PARAESOPHAGEAL HERNIA REPAIR W/FUNDOPLASTY, W/O MESH ENDOSCOPY, UPPER GI, DIAGNOSTIC, WITH OR WITHOUT SPECIMENS Referral ID Status Reason Start Date Expiration Date Visits Requ ested Visits Authorized [id number] 1 1 Encounter Details Date Type Department Care Team Description 01/15/2016 Surgery Main Operating Room Erasto Hammond NDOSCOPY, UPPER GI, Jojo Deal MD DIAGNOSTIC, WITH OR Hospital [facility] WITHOUT SPECIMENS [facility] [address] [place] [address] [place] [id number] [phone] (Wo rk) Social History Tobacco Use Types [...] Sign Reading Time Taken Comments Blood Pressure 127/74 01/16/2016 3:17 PM EST Pulse 83 01/16/2016 3:17 PM EST Temperature 37.1 ??C (98.8 ??F) 01/16/2016 3:17 PM EST Respiratory Rate 16 01/16/2016 3:17 PM EST Oxygen Saturation 92% 01/16/2016 3:17 PM EST Inhaled Oxygen Concentration - - Weight 91.5 kg (201 lb 11.2 oz) 01/15/2016 10:02 AM EST Height 165.1 cm (5' 5) 01/15/2016 10:02 AM EST Body Mass Index 33.56 01/15/2016 10:02 AM EST documented in this encounter Discharge Summaries Jacinto Swift MD - 01/16/2016 8:51 AM EST Department of Thoracic Surgery - Discharge Summary Patient Name: Uma Hood Patient Age: 60 y.o. Birthdate: 1955 Admit date: 01/15/2016 Discharge date: 01/16/2016 Attending Physician: Erasto Hammond MD Discharge Diagnoses (Hospital Problems) and Secondary Diagnoses (Chronic Problems): Active Hospital Problems Diagnosis ??? Paraesophageal hernia Resolved Hospital Problems Diagnosis Date Resolved No resolved problems to display. Active Non-Hospital Problems Diagnosis ??? Hyperparathyroidism, primary (PTH 168, Ca 10.3-10.4, low phos 2.3, Cr 1.0 on 01/05/13) ??? 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 ? Subclinical hypothyroidism (TSH 5.8 with FT4 0.9 => better spontaneously TSH 2.6 in ) ??? Prediabetes (A1c 6.4% 12/17/12) ??? Family history of aortic aneurysm in mother and brother) ??? Family history of hypothyroidism in mother and 2 maternal aunts ??? Parathyroid adenoma ??? Hyperparathyroidism ??? Multiple pulmonary nodules bilaterally ? ? Left kidney mass 1.[address] scan=> simple cyst by US ??? Solitary cyst of right breast 1.3 cm ??? Obesity ??? Renal cyst Operations/Major Procedures: Operations: Case Date: 01/15/2016 Surgeon: Surgeon(s) and Role: * Erasto Hammond MD - Primary * Yosef Ferrer PA - Physician Char [employer]or Tender Procedure: Procedure(s): ENDOSCOPY, UPPER GI, DIAGNOSTIC, WITH OR WITHOUT SPECIMENS ROBOT XI LAPAROSCOPIC PARAESOPHAGEAL HERNIA REPAIR W/FUNDOPLASTY,W/O MESH MODIFIER ROBOT,RENETTA XI History of Presentation: Uma Hood is a 60 y.o. 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 She was last seen here in August at which time several pulmonary nodules were being monitored andthought to be stable. She reported worsening reflux symptoms and her hiatal hernia was slightly increased in size. She returns today after additional testing to discuss results and possibly proceeding with surgical repair. ?? She reports her symptoms are unchanged. She endorses reflux if she eats too fast or too large an amount. She continues to take Prilosec daily which helps. She does not enjoy eating anymore and is very frustrated by this. She denies f/c/n/v/pain/weight loss. Hospital Course: Uma Hood was admitted to [facility] on 01/15/2016 via the Same Day Program. She was brought to the operating room on 01/15/[address] Erasto Hammond performed surgery as described above. She tolerated the procedure well and was brought to the Post Anesthesia Care Unit for recovery. After a brief period of time she was transferred to the floorfor continued rehabilitation. Her hospital and post operative course was uncomplicated. On POD#1, her NGT was removed, barium swallow study showed no evidence of complication (no leak, no delay of contr ast), though did show some dysmotility in the mid to distal esophagus, and her diet was advanced to post operative taz diet. By postoperative day # 1 she had met all criteria for discharge to home. Pain was controlled on oralmedications. She had walked 5 minutes. She was tolerating a regular diet and had had a bowel movement. Vital signs: Vital Signs Temp: 37.1 ??C (98.8 ??F) Temp Source: Oral Heart Rate: 83 Heart Rate Source: Monitor Resp: 16 BP: 127/74 MAP (NBP): 86 mmHg BP Method: Automatic SpO2: 92 % O2 Flow Rate (L/min): 3 L/min O2 Device: None (Room air) Admission Wt: 91.49 kg Last Wt: Wt Readings from Last 3 Encounters: 01/15/16 91.5 kg (201 lb 11.2 oz) 12/18/15 93.6 kg (206 lb 6.4 oz) 11/16/15 93.4 kg (205 lb 12.8 oz) Pertinent physical exam findings prior to discharge: General: NAD, A/O x 3, lying in bed HEENT: NC/AT, PERRL, EOMI CV: RRR, no appreciable murmurs Pulm: CTAB, no w/r/r Abd: soft, NT/ND, benign Extremity: no c/c/e Skin: Warm, Dry Neuro: CN 2-12 grossly intact, nonfocal Incision: Dressings c/d/i. No evidence of hematoma/seroma/infection Important Lab Data: Lab Results Component Value Date WBC 14.5 (H) 01/15/2016 HGB 14.1 01/15/2016 HCT 43.2 01/15/2016 MCV 90.9 01/15/2016 Lab Results Component Value Date NA 140 01/15/2016 K 3.6 01/15/2016 CL 101 01/15/2016 CO2 24 01/15/2016 Lab Results Component Value Date CREATININE 0.82 01/15/2016 Lab Results Component Value Date BUN 7 (L) 01/15/2016 No results found for: PREALBUMIN No results for input(s): PT, PTT, INR in the last 168 hours. Diagnostic Imaging: Barium Swallow 01/15: IMPRESSION 1. Status post repair of paraesophageal hernia with fundoplication with no evidence of postsurgical complications. Specifically no leak or delay to the flow of contrast through the fundoplication. 2. Tertiary contractions within the mid to distal esophagus consistent with esophageal dysmotility. CXR 01/14: 1. Tip of the enteric tube overlies the expected region of the gastric antrum. 2. Mild pulmonary vascular prominence suggesting pulmonary vascular congestion. Pending Studies and Lab Data: No current labs Discharge Conditions/Prognosis: Stable Discharge to: Home Discharge Medications: Your Medications New Medications Dose Details docusate sodium 100 mg Cap Commonly known as: COLACE Take 1 capsule by mouth 3 times daily for 10 days. 100 mg Quantity: 30 capsule Refills: 0 oxyCODONE 5 mg/5 mL Soln Commonly known as: ROXICODONE Take 5-10 mLs by mouth every 4 hours as needed for Pain (for pain 4-6 take 5ml (5mg), for pain 7-1 take 10ml (10mg)). 5-10 mg Quantity: 300 mL Refills: 0 polyethylene glycol 17 gram Pwpk Commonly known as: MIRALAX Take 17 g by mouth daily. 17 g Quantity: 14 each Refills: 0 senna 8.6 mg Tab Commonly known as: SENOKOT Take 2 tablets by mouth every evening. 2 tablet Quantity: 30 tablet Refills: 0 Continued medications, unchanged Dose Details CALCIUM CITRATE + D ORAL Take 1 tablet by mouth daily. 1 tablet Refills: 0 cycloSPORINE 0.05 % Dpet Commonly known as: RESTASIS Place 1 drop into both eyes 2 times daily. 1 drop Refills: 0 ergocalciferol 50,000 unit Cap Commonly known as: vitamin D Take 1 capsule by mouth once a week. 47743 Units Quantity: 13 capsule Refills: 4 [id number] COMPLEX ORAL Take by mouth daily. Refills: 0 ibuprofen 200 mg Tab Commonly known as: ADVIL;MOTRIN Take 200 mg by mouth every 6 hours as needed. 200 mg Refills: 0 levothyroxine 25 mcg Tab Commonly known as: SYNTHROID Take 1 tablet by mouth daily. 25 mcg Quantity: 30 tablet Refills: 11 losartan 25 mg Tab Commonly known as: COZAAR daily. Refills: 0 multivitamin Tab Commonly known as: THERAGRAN Take 1 tablet by mouth daily. 1 tablet Refills: 0 omeprazole 20 mg Cpdr Commonly known as: PriLOSEC Take 20 mg by mouth daily. 20 mg Refills: 0 Updated Allergies/ADRs: Allergies Allergen Reactions ??? Ciprofloxacin (Mixture) Hives ??? Metronidazole Hives ??? Sulfa (Sulfonamide Antibiotics) Hives Instructions Given to Patient at Discharge: Patient Instructions Call if you have a fever of greater than 101 degrees, shaking chills, develop redness or drainage from your incision site(s), or if you have questions. During normal business hours, Monday- Monday 8:00a.m.-5:00 p.m., please call [phone] to speak to a nurse in the Thoracic Clinic. If you get an answering machine or it is after hours or on weekends or holidays please call [phone] and ask to speak to the Thoracic Physician acquisition specialist. Exercise & Activity Level: As you recover from surgery exercise at least 30 minutes a day. This can be broken up into several times a day to achieve this goal at first, but you will be able to workup to doing all 30 minutes at once. Walking, treadmill, stationary bike, elliptical machine or stationary exercise equipment is appropriate. Take your incentive spirometer home with you. You should use this every hour while awake, 10 times each. This helps you to exercise your respiratory muscles and to breathe deeply. Taking purposeful deep breaths can be just as effective. Do not lift more than 10 pounds for 2 weeks (nothing heavier than a gallon of milk). Don???t exhaustyourself. Rest between activities as you recover from your procedure. Diet: You should follow a post operative Taz Diet: ?? For the first week, stay on a liquid or soft diet. This includes broths, soups, milk shakes, puddings, and mashed potatoes. When you can eat these without difficulty, try eating foods that are easy to swallow, such as ground meat, shredded chicken, fish, pasta, and soft vegetables. ?? Have 5 or 6 small meals each day instead of 2 or 3 large meals. ?? Chew each bite of food very well. Eat slowly. You may need to take 20 to 30 minutes to eat a meal. ?? Avoid crusty breads, bagels, tough meats, raw vegetables, nuts and seeds (including crackers and breads that have nuts and seeds), and other foods that are hard to digest. ?? If you feel full quickly, try to drink fluids between meals instead of with meals. ?? Avoid carbonated beverages, such as soda pop. ?? Avoid drinking with straws. This may help you swallow less air when you drink. ?? Gradually return to your normal foods. This usually takes 4 to 6 weeks. ?? You may notice that your bowel movements are not regular right after your surgery. This is common. Try to avoid constipation and straining with bowel movements. Take a fiber supplement every day. Ifyou have not had a bowel movement after a couple of days, ask your doctor about taking a mild laxative. Driving: No driving for 1 week or while taking narcotic pain medication. Shower/Bath: You may shower daily, no bathing or swimming until your follow-up appointment. Incision care: Wash your incision(s) daily with soap and rinse well, pat dry. Assess for any signs of infection such as increased redness, pain, warmth or drainage. If you have steri strips over your incision(s), they will fall off on their own after about 7-10 days. If they do not fall off on their own after 7-10 days, you may gently remove them. Pain: Pain after surgery is normal. The goal is for you to be able to tolerate pain so you can complete your daily activities. You may notice a burning or numbness on the side of your incision that mayinclude your breast area. This should improve over time but there may be areas that remain numb. Youmay use a heating pad set on low or medium, over your incision to help relax the muscles in the areaand decrease discomfort. Please take your medication as prescribed. If you are not having good pain control, please call and speak to the nurse in the Thoracic Clinic or the acquisition specialist Attending Physicianafter hours. We are unable to refill narcotics after 5 pm or on weekends or holidays. If you need more pain medication please call us before you run out of pills. Please allow 3 days for us to mail a refill for pain medication to you. Narcotic medication is intended for your use only. Do not share with others. If you are given a prescription for narcotics please keep these in a safe place and dispose of properly when you no longer need these pills. Sleep: Try to establish normal sleep patterns. Long naps during the day may make it hard for you to sleep at night. Use the pain medication at bedtime for the first week at home. Bowel Movements: After surgery, your bowel movements may not be regular for you, but you should be able to get back to your daily routine quickly. Please make sure to take the stool softeners or mild laxatives as prescribed to get back to your normal routine. If you do not have a bowel movement for more than 2 days, please call the office. Follow up appointments: You will have a follow up appointment in two weeks. A letter will be mailed to you confirming your appointment information. Please call the thoracic clinic at [phone] to confirm/reschedule your appointment. You should arrange to see your primary care physician, in two weeks. If you have any questions or concerns during normal business hours, Monday- Monday 8:00 a.m.-5:00 p.m., please call [phone] to speak to a nurse in the Thoracic Clinic. If you get an answering machine or it is after hours or on weekends or holidays please call [phone] and ask to speak to the Thoracic Physician acquisition specialist. General Instructions None Future Appointments and Orders Future Appointments Provider Department Dept Phone 06/13/2016 2:30 PM Reyes Gillespie MD Endocrinology [phone] Future Orders Complete By Expires XR Chest PA & Lateral (Generic) [[id number] Custom] 02/01/2016 (Approximate) 01/14/2017 Process Instructions: Scheduling Instructions: Questions: Where will study be performed?: [facility] Portable exam?: No Reason for exam and clinical history: s/p paraesophageal hernia repair, please eval interval changes Other pertinent information: Stat read required?: Date of injury if applicable: Requested Time: Provider Contact Information: Primary Care Provider: Miriam Agee MD [phone] Discharge References/Attachments: Discharge References/Attachments None For questions regarding this document or issues relating to this hospitalization on the Thoracic Surgery Service, please contact Dr. Hammond's office at . Signed: Jacinto Swift MD 01/16/2016 CC: PCP: Miriam Agee MD Referring: Unknown None documented in this encounter Discharge Instructions Patient InstructionsCotVannessa foster PA - 01/16/2016 8:57 AM EST Call if you have a fever of greater than 101 degrees, shaking chills, develop redness or drainage from your incision site(s), or if you have questions. During normal business hours, Monday- Monday 8:00a.m.-5:00 p.m., please call [phone] to speak to a nurse in the Thoracic Clinic. If you get an answering machine or it is after hours or on weekends or holidays please call [phone] and ask to speak to the Thoracic Physician acquisition specialist. Exercise & Activity Level: As you recover from surgery exercise at least 30 minutes a day. This can be broken up into several times a day to achieve this goal at first, but you will be able to workup to doing all 30 minutes at once. Walking, treadmill, stationary bike, elliptical machine or stationary exercise equipment is appropriate. Take your incentive spirometer home with you. You should use this every hour while awake, 10 times each. This helps you to exercise your respiratory muscles and to breathe deeply. Taking purposeful deep breaths can be just as effective. Do not lift more than 10 pounds for 2 weeks (nothing heavier than a gallon of milk). Don???t exhaustyourself. Rest between activities as you recover from your procedure. Diet: You should follow a post operative Taz Diet: ?? For the first week, stay on a liquid or soft diet. This includes broths, soups, milk shakes, puddings, and mashed potatoes. When you can eat these without difficulty, try eating foods that are easy to swallow, such as ground meat, shredded chicken, fish, pasta, and soft vegetables. ?? Have 5 or 6 small meals each day instead of 2 or 3 large meals. ?? Chew each bite of food very well. Eat slowly. You may need to take 20 to 30 minutes to eat a meal. ?? Avoid crusty breads, bagels, tough meats, raw vegetables, nuts and seeds (including crackers and breads that have nuts and seeds), and other foods that are hard to digest. ?? If you feel full quickly, try to drink fluids between meals instead of with meals. ?? Avoid carbonated beverages, such as soda pop. ?? Avoid drinking with straws. This may help you swallow less air when you drink. ?? Gradually return to your normal foods. This usually takes 4 to 6 weeks. ?? You may notice that your bowel movements are not regular right after your surgery. This is common. Try to avoid constipation and straining with bowel movements. Take a fiber supplement every day. Ifyou have not had a bowel movement after a couple of days, ask your doctor about taking a mild laxative. Driving: No driving for 1 week or while taking narcotic pain medication. Shower/Bath: You may shower daily, no bathing or swimming until your follow-up appointment. Incision care: Wash your incision(s) daily with soap and rinse well, pat dry. Assess for any signs of infection such as increased redness, pain, warmth or drainage. If you have steri strips over your incision(s), they will fall off on their own after about 7-10 days. If they do not fall off on their own after 7-10 days, you may gently remove them. Pain: Pain after surgery is normal. The goal is for you to be able to tolerate pain so you can complete your daily activities. You may notice a burning or numbness on the side of your incision that mayinclude your breast area. This should improve over time but there may be areas that remain numb. Youmay use a heating pad set on low or medium, over your incision to help relax the muscles in the areaand decrease discomfort. Please take your medication as prescribed. If you are not having good pain control, please call and speak to the nurse in the Thoracic Clinic or the acquisition specialist Attending Physicianafter hours. We are unable to refill narcotics after 5 pm or on weekends or holidays. If you need more pain medication please call us before you run out of pills. Please allow 3 days for us to mail a refill for pain medication to you. Narcotic medication is intended for your use only. Do not share with others. If you are given a prescription for narcotics please keep these in a safe place and dispose of properly when you no longer need these pills. Sleep: Try to establish normal sleep patterns. Long naps during the day may make it hard for you to sleep at night. Use the pain medication at bedtime for the first week at home. Bowel Movements: After surgery, your bowel movements may not be regular for you, but you should be able to get back to your daily routine quickly. Please make sure to take the stool softeners or mild laxatives as prescribed to get back to your normal routine. If you do not have a bowel movement for more than 2 days, please call the office. Follow up appointments: You will have a follow up appointment in two weeks. A letter will be mailed to you confirming your appointment information. Please call the thoracic clinic at [phone] to confirm/reschedule your appointment. You should arrange to see your primary care physician, in two weeks. If you have any questions or concerns during normal business hours, Monday- Monday 8:00 a.m.-5:00 p.m., please call [phone] to speak to a nurse in the Thoracic Clinic. If you get an answering machine or it is after hours or on weekends or holidays please call [phone] and ask to speak to the Thoracic Physician acquisition specialist. documented in this encounter Medications at Time of Discharge Medication Sig Dispensed Refills Start Date End Date CALCIUM CITRATE/VITAMIN Take 1 tablet by 0 D3 (CALCIUM CITRATE + D mouth 2 times ORAL) daily. ibuprofen (ADVIL;MOTRIN) Take 200 mg by 0 200 mg tablet mouth every 6 hours as needed. Reported on 06/13/2016 multivitamin (THERAGRAN) Take 1 tablet by 0 tablet mouth daily. docusate sodium (COLACE) Take 1 capsule by 30 capsule 0 01/0401/26/2016 100 mg Capsule mouth 3 times daily for 10 days. senna (SENOKOT) 8.6 mg Take 2 tablets by 30 tablet 0 201506/13/2016 Tablet mouth every evening. polyethylene glycol Take 17 g by mouth 14 each 0 01/16/20 16 06/13/2016 (MIRALAX) 17 gram Powder daily. in Packet oxyCODONE (ROXICODONE) 5 Take 5-10 mLs by 300 mL 0 01/1506/13/2016 mg/5 mL Solution mouth every 4 hours as needed for Pain (for pain 4-6 take 5ml (5mg), for pain 7-1 take 10ml (10mg)). ergocalciferol (VITAMIN Take 1 capsule by 13 [...] capsule daily. documented as of this encounter Progress Notes Kalli Sosa RN - 01/16/2016 6:37 PM EST Discharge instructions reviewed with patient and spouse. Pt verbalizes understanding, all questions answered. Prescriptions filled prior to discharge, including narcotic pain meds. Lap sites CDI, voiding adequately, tolerating full liquids, ambulating in hallway independently, passing flatus, pain controlled, VSS. PIV removed. Pt escorted to discharge in wheelchair by staff to be driven home by . Víctor Early MD - 01/16/2016 1:15 AM EST Post-op Check Patient Name: Uma Hood Patient Age: 60 y.o. Attending Physician: Erasto Hammond MD Uma Hood is a 60 y.o. female s/p Procedure(s): ENDOSCOPY, UPPER GI, DIAGNOSTIC, WITH OR WITHOUT SPECIMENS ROBOT XI LAPAROSCOPIC PARAESOPHAGEAL HERNIA REPAIR W/FUNDOPLASTY,W/O MESH MODIFIER RENETTA ALVES S: Pt seen, examined and w/o complaints; denies f/c/n/v, chest pain, SOB. Pain well controlled on medications O: Last value Range last 24hrs Temperature Temp: 36.5 ??C (97.7 ??F) Temp: [36.1 ??C (97 ??F)-36.9 ??C (98.4 ??F)] Heart Rate Heart Rate: 83 Heart Rate: [82-87] Blood Pressure BP: 153/88 BP: (123-153)/(70-99) Respiratory Rate Resp: 20 Resp: [12-20] SpO2 SpO2: 98 % SpO2: [92 %-99 %] I/O this shift: In: 410 [I.V.:380; Other:30] Out: 360 [Urine:360] NGT: 200cc General: NAD, A/O x 3 HEENT: NC/AT, PERRL, EOMI CV: RRR, no appreciable murmurs Pulm: CTAB, no w/r/r Abd: soft, NT/ND, benign Extremity: no c/c/e Skin: Warm, Dry Neuro: CN 2-12 grossly intact, nonfocal Incision: Dressings c/d/i. No evidence of hematoma/seroma/infection Recent Labs 01/15/16 1748 WBC 14.5* HGB 14.1 HCT 43.2 PLATELET 234 Recent Labs 01/15/16 1748 NA 140 K 3.6 CL 101 CO2 24 BUN 7* CREATININE 0.82 Xr Chest Pa Or Ap 1 View Result Date: 01/15/2016 1. Tip of the enteric tube overlies the expected region of the gastric antrum. 2. Mild pulmonary vascular prominence suggesting pulmonary vascular congestion. A/P: Uma Hood is a 60 y.o. female with paraesophageal hernia now 1 Day Post-Op s/p robotic paraesophageal hernia repair. It appeared as though the NGT was advanced too far so it was retracted to60cm with good sump function and return of gastric contents appreciated afterwards. Continue postop plans. - Appropriate for floor - Pain well controlled - Hemodynamically stable, UOP adequate - Continue post-op plan Víctor Early MD 01/16/2016 1:15 AM P. [id number] ' Cody Pool RN - 01/15/2016 7:55 PM EST Report received from PACU. Pt admitted to [facility]. Oriented to call kaitlynn, voiced understanding. Leonie initiated. Assessment completed as documented. Will continue to monitor. Samia Blanca RN - 01/15/2016 6:26 PM EST 1824 Break coverage provided. Patient resting quietly in no acute distress. VSS. 1830 Anesthesiology at patient bedside. 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 She was last seen here in August at which time several pulmonary nodules were being monitored and thought to be stable. She reported worsening reflux symptoms and her hiatal hernia was slightly increased in size. She returns today after additional [...] weekly, going to weight watchers and eating better.The patient reports no interval change. There has been no interval medical illness or hospitalizations. Questions have been addressed. No interval change int he patient's history since her last clinic visit on 11/15 Smoking HX: History Smoking Status ??? Never Smoker Smokeless Tobacco ??? Never Used PMH: Patient Active Problem List Diagnosis Date Noted [...] 12/17/12) 03/05/2013 Priority: High Class: Chronic ??? Family history of aortic aneurysm in [...] ??? Obesity 03/05/2013 ??? Renal cyst 01/24/2013 PSH: Past Surgical History Procedure Laterality Date ??? Lung surgery ??? Pro explore parathyroid glands 05/14/2013 PARATHYROIDECTOMY OR EXPLORATION OF PARATHYROID(S) performed by Papa Dominguez MD at [facility] MAIN OR MEDS: No current facility-administered medications on file prior to encounter. Current Outpatient Prescriptions on File Prior to Encounter Medication Sig Dispense Refill ??? ergocalciferol (VITAMIN [...] tablet by mouth daily. ??? GLUC/FATMATA-MSM#1/VIT C/NATALIE/BOR ([id number] COMPLEX ORAL) Take by mouth daily. ??? ibuprofen (ADVIL;MOTRIN) 200 mg tablet Take 200 mg by mouth every 6 hours as needed. ??? multivitamin (THERAGRAN) tablet Take 1 tablet by mouth daily. ??? omeprazole (PRILOSEC) 20 mg capsule Take 20 mg by mouth daily. ALL: Allergies Allergen Reactions ??? Ciprofloxacin (Mixture) Hives ??? Metronidazole Hives ??? Sulfa (Sulfonamide Antibiotics) Hives Physical Exam Vitals: 01/15/16 1002 BP: (!) 142/99 Pulse: 86 Resp: 20 Temp: 36.9 ??C (98.4 ??F) Gen/Neuro:AOx3, NAD, CN II-XII intact CV: RRR Pulm:CTAB Abd:soft, nttp LABS: Lab Results Component Value Date WBC 8.9 12/18/2015 RBC 5.12 12/18/2015 HGB 14.8 12/18/2015 HCT 45.1 12/18/2015 MCV 88.1 12/18/2015 MCH 28.9 12/18/2015 MCHC 32.8 12/18/2015 PLATELET 260 12/18/2015 RDWCV 13.0 12/18/2015 Lab Results Component Value Date/Time NA 139 12/18/2015 03:17 PM K 4.1 12/18/2015 03:17 PM CL 101 12/18/2015 03:17 PM CO2 23 12/18/2015 03:17 PM BUN 10 12/18/2015 03:17 PM CREATININE 1.08 12/18/2015 03:17 PM FILM ON PACS: CONSENT: Yes/EMR - Yes Assessment/Plan: Uma Hood is a 60 y.o. F presenting today for planned endoscopy and robotic lap paraesophageal hernia repair with fundoplication for hiatal hernia. Consent signed and confirmed in chart. Questions addressed. Will proceed with planned surgery. documented in this encounter Miscellaneous Notes Plan of Care - Cody Pool RN - 01/16/2016 2:52 AM EST Problem: Patient Care Overview Goal: Plan of Care Review 01/15/16 1955 01/16/16 0237 Plan of Care Review Progress -- improving Coping/Psychosocial Plan Of Care Reviewed With patient -- OUTCOME EVALUATION NOTE: OUTCOME SUMMARY: Uma had a good night. NGT kept to LCWS with low output. Leo draining adequate amounts. Lap sitesCDI. Weaned off O2, satting above 94%. 7/10 pain in upper back/shoulders that per pt is chronic, eased with PRN oxycodone. PLAN MOVING FORWARD: Encourage ambulation. INDIVIDUALIZED FALL PREVENTION INTERVENTIONS: Patient-specific fall risk factors per assessment: [current deficits]: narcotics Assistance [level of assistance required for transfers and ambulation]: Has not been OOB yet Supervision [direct monitoring required during toileting and ADLs]: Has not been OOB yet Surveillance [continuous indirect monitoring]: Purposeful rounding, call calderón in reach Patient-specific fall prevention interventions for sensory deficits provided, if applicable: [X] Yes, glasses at bedside CPG GOAL OUTCOME EVALUATION: Goal: Individualization & Mutuality Outcome: Ongoing (Interventions Implemented as Appropriate) 01/16/16236 Mutuality/Individual Preferences What Anxieties, Fears or Concerns Do You Have About Your Health or Care? none What Questions Do You Have About Your Health or Care? none What Information Would Help Us Give You More Personalized Care? none Goal: Fall Prevention-Safe Patient Handling Outcome: Ongoing (Interventions Implemented as Appropriate) 01/15/16 1900 01/15/16 [id number] Musculoskeletal Interventions Muscle Strengthening -- -- -- Daily Care Interventions Self-Care Promotion -- -- -- Cerda Fall Risk History of Falling -- 0 -- Secondary Diagnosis -- 15 -- Ambulatory Aids -- 0 -- Intravenous Therapy/Heparin/Saline Lock -- 20 -- Gait/Transferring -- 0 -- Mental Status -- 0 -- Score -- 35 -- Activity and Safety Assistive Device None -- -- OTHER Cerda Fall Risk -- Med -- Restraint Interventions Safety Promotion/Fall Prevention -- activity supervised;fall prevention program maintained;safety round/check completed;nonskid shoes/slippers when out of bed -- Positioning Body Position -- -- side-lying, right 01/16/16236 Musculoskeletal Interventions Muscle Strengthening activity/mobility promoted Daily Care Interventions Self-Care Promotion independence encouraged Cerda Fall Risk History of Falling -- Secondary Diagnosis -- Ambulatory Aids -- Intravenous Therapy/Heparin/Saline Lock -- Gait/Transferring -- Mental Status -- Score -- Activity and Safety Assistive Device -- OTHER Cerda Fall Risk -- Restraint Interventions Safety Promotion/Fall Prevention -- Positioning Body Position -- Goal: Infection Control Outcome: Ongoing (Interventions Implemented as Appropriate) 01/15/161954 Safety Interventions Isolation Precautions standard precautions maintained Infection Prevention rest/sleep promoted Coping Strategies Supportive Measures self-care encouraged;counseling provided Goal: Discharge Needs Assessment Outcome: Ongoing (Interventions Implemented as Appropriate) 01/16/16 0237 Discharge Needs Assessment Concerns To Be Addressed no discharge needs identified Readmission Within The Last 30 Days no previous admission in last 30 days Equipment Needed After Discharge none Current Health Anticipated Changes Related to Illness none Activity/Self Care Review of Systems Equipment Currently Used at Home none Living Environment Transportation Available car Op Note - Erasto Hammond MD - 01/15/2016 5:58 PM EST [facility] Operative Note Patient Name: Uma Hood : [id number] MR#: [id number] Case Date: 01/15/2016 Surgeon: Surgeon(s) and Role: * Erasto Hammond MD - Primary * Yosef Ferrer PA - Physician Char Conveyor Tender Preoperative diagnosis: paraesophageal hernia Postoperative diagnosis: paraesophageal hernia Procedure(s): ENDOSCOPY, UPPER GI, DIAGNOSTIC, WITH OR WITHOUT SPECIMENS ROBOT XI LAPAROSCOPIC PARAESOPHAGEAL HERNIA REPAIR W/FUNDOPLASTY,W/O MESH MODIFIER RENETTA ALVES Findings: paraesophageal hernia Anesthesia: General Estimated Blood Loss: * No values recorded between 01/15/2016 2:10 PM and 01/15/2016 5:11 PM * Specimens removed during surgery: hernia sac Drains: none Surgical Closure: Primary Closure - closure of ALL tissue levels during the original surgery regardless of wires, wickes, drains, or other devices extruding through the incision Disposition: awakened from anesthesia, extubated and taken to the recovery room in a stable condition, having suffered no apparent untoward event. Condition: doing well without problems (Please see the Surgical Encounter Summary for any Implant and Specimen details pertinent to this patient.) HPI/Surgical Indications: 60 year old woman with a symptomatic hiatal / paresophageal hernia Procedure Description: The patient was brought to the operating room and placed on the table in supine position. General anesthesia was induced, and she was endotracheally intubated. Upper GI endoscopy was then performed. No esophageal lesions or Lamar's esophagus were appreciated. The scope was advanced into the stomach and retroflexed where a paraesophageal hernia was apparent. There were no gastric junction lesions. The scope was easily advanced into the proximal duodenum through to pylorus. The endoscope was then withdrawn, and the abdomen was prepped and draped in a standard sterile fashion. A hard stop surgical timeout confirmed the patient's identify and the nature and laterality of the procedure to be performed. The abdomen was then entered by making an approximately 15-mm vertical incision in the midline just above the umbilicus. A robotic port was placed, and the abdomen was insufflated without difficulty. Two additional ports were placed in the left upper quadrant, one in the right upper quadrant, and a liver retractor was placed. The liver was retracted cephalad to expose the hiatus where a paraesophageal hernia was apparent. With the liver retractor secured, the patient was placed in steep reverse Trendelenburg and the robots brought into the field and docked. I went to the console. The paraesophageal hernia was readily reduced, and I incised the phrenoesophageal ligament to excise the hernia sac. Once the hernia sac was adequately mobilized into the abdomen, I carried this dissection around the right and left yari posteriorly in order to completely encircle the esophagus with [place] drain. The esophagus was retracted superiorly, and the left and right crura exposed posterior to it. The crural defect was closed with interrupted pledgeted 0 Ethibond horizontal mattress sutures. We placed 3 of these posterior to the esophagus and then allowed it to return to its natural position before placing an additional suture anterior to the esophagus. A toupee-type fundoplication was then performed by plicating the fundus of the stomach to its right lateral edge with 2 interrupted pledgeted 0 Ethibond horizontal mattress sutures. I then went to the head of the bed and performed upper GI endoscopy. Although the scope could be advanced into the stomach and the raphe visualized, the hiatus appeared tighter than I would have preferred. For this reason, I returned to the console and removed the anterior stitch. Repeated endoscopy now suggested a more patent hiatus. The robotic instruments and ports were removed and the liver retractor was removed under direct vision. The carbon dioxide was allowed out of the peritoneal cavity, and the fascial defect was then closed with [id number] Vicryl sutures. Skin incisions were closed and dressings applied. The patient was allowed to emerge from anesthesia. She was extubated in the operating room and transported to recovery in stable condition. All of the relevant counts were correct; and as the attending surgeon, I was present and scrubbed for the entire case with the exception of those portions of which I was at the robotic console. Brief Op Note - Yosef Ferrer PA - 01/15/2016 5:27 PM EST Brief Operative Note Patient Name: Uma Hood : [id number] MR#: [id number] Case Date: 01/15/2016 Surgeon: Surgeon(s) and Role: * Erasto Hammond MD - Primary * Yosef Ferrer PA - Physician Char Conveyor Tender Preoperative diagnosis: paraesophageal hernia Postoperative diagnosis: paraesophageal hernia Procedure(s): ENDOSCOPY, UPPER GI, DIAGNOSTIC, WITH OR WITHOUT SPECIMENS ROBOT XI LAPAROSCOPIC PARAESOPHAGEAL HERNIA REPAIR W/FUNDOPLASTY,W/O MESH MODIFIER ROBOT,DAVINCI XI Anesthesia: General Findings: paraesophageal hernia reduced, three pledgeted ethibond sutures posteriorly, toupe wrap with two pledgeted ethibond sutures, intraoperative EGD scope passed freely into stomach, NG placed at end of case Complications: None Fluids: 2.1 L crystalloid Estimated Blood Loss: * No values recorded between 01/15/2016 2:10 PM and 01/15/2016 5:11 PM * Drains: NG tube to CLWS Disposition: awakened from anesthesia, extubated and taken to the recovery room in a stable condition, having suffered no apparent untoward event. Condition: doing well without problems (Please see the Surgical Encounter Summary for any Implant and Specimen details pertinent to this patient.) Infection Bundle used? N/A documented in this encounter Plan of Treatment Not on filedocumented as of this encounter Procedures Procedure Name Priority Date/Time Associated Diagnosis Comme nts PASSENGER BARGE MASTER SCAN 01/17/2016 12:00 AM EST XR FLUORO BARIUM Routine 01/16/2016 11:14 Results for this SWALLOW (SINGLE AM EST procedure ar e in CONTRAST) the results section. XR CHEST ONE VIEW STAT 01/15/2016 6:10 Results for this PM EST procedure are i n the results section. HEMOGRAM STAT 01/15/2016 5:48 Results for this PM EST procedure are i n the results section. DIFFERENTIAL, STAT 01/15/2016 5:48 Results for this AUTOMATED PM EST procedure are i n the results section. CREATININE STAT 01/15/2016 5:48 Results for this PM EST procedure are i n the results section. CBC (WITH DIFF) STAT 01/15/2016 5:48 PM EST BUN STAT 01/15/2016 5:48 Results for this PM EST procedure are i n the results section. ELECTROLYTES PANEL STAT 01/15/2016 5:48 Result s for this PM EST procedure are i n the results section. POCT GLUCOSE Routine 01/15/2016 5:36 Results for this PM EST procedure are i n the results section. SPECIMEN TO PATHOLOGY Routine 01/15/2016 4:11 Res ults for this PM EST procedure are i n the results section. SURGICAL PATHOLOGY Routine 01/15/2016 4:10 Result s for this REPORT PM EST procedure are i n the results section. MODIFIER ROBOT,DAVINCI Yes 01/15/2016 1:25 paraesophageal hernia XI PM EST ROBOT XI LAPAROSCOPIC Yes 01/15/2016 1:25 paraesophageal h ernia PARAESOPHAGEAL HERNIA PM EST REPAIR W/FUNDOPLASTY,W/O MESH (WRVU 26.6) ENDOSCOPY, UPPER GI, Yes 01/15/2016 1:25 paraesophageal he rnia DIAGNOSTIC, WITH OR PM EST WITHOUT SPECIMENS POCT GLUCOSE Routine 01/15/2016 10:08 Results for this AM EST procedure are i n the results section. documented in this encounter Results XR Chest PA & Lateral (Generic) (02/01/2016 9:59 AM EST) Anatomical Region Laterality Modality Chest N/A Digital Radiography Specimen (Source) Anatomical Location Collection Method / Collectio n Time Received Time / Laterality Volume Impressions 02/01/2016 10:35 AM EST Improved inflation. No acute cardiopulmonary process. Narrative 02/01/2016 10:35 AM EST EXAMINATION: XR CHEST PA AND LATERAL (GENERIC) CLINICAL HISTORY: s/p paraesophageal her arjun repair, please eval interval changes TECHNIQUE: Standing PA and lateral chest COMPARISON: 01/15/2016 FINDINGS: There is a slightly better degree of inf lation of the lungs, which are clear. The previously seen enteric tube is been removed. There is no other interval change. Procedure Note Jensen Lagunas MD - 02/01/2016Formatt ing of this note might be different from the original. EXAMINATION: XR CHEST PA AND LATERAL (GE NERIC) CLINICAL HISTORY: s/p paraesophageal her arjun repair, please eval interval changes TECHNIQUE: Standing PA and lateral chest COMPARISON: 01/15/2016 FINDINGS: There is a slightly better degree of inf lation of the lungs, which are clear. The previously seen enteric tube is been removed. There is no other interval change. IMPRESSION Improved inflation. No acute cardiopulmo nary process. Erasto Hammond MD IMG DX ORDERABLES SCAN DOC: PASSENGER BARGE MASTER (01/17/2016 12:00 AM EST) Narrative This result has an attachment that is no t available. Scanning Provider MEDIA MGR SCAN EXT ORDR/RSLT XR Fluoro Barium Swallow (01/16/2016 11:14 AM EST) Anatomical Region Laterality Modality N/A Radio Fluoroscopy Specimen (Source) Anatomical Location Collection Method / Collectio n Time Received Time / Laterality Volume Impressions 01/16/2016 1:31 PM EST 1. ??Status post repair of paraesophageal hernia with fundoplication with no evidence of postsurgical complications. Specifically no leak or delay to the flow of contrast through the fundoplicat ion. 2. ??Tertiary contractions within the mi d to distal esophagus consistent with esophageal dysmotility. I have personally reviewed the image(s) and the residents interpretation and agree with the findings, Lorrie rodriguez 01/16/2016 1:31 PM Narrative 01/16/2016 1:31 PM EST EXAMINATION: XR FLUORO BARIUM SWALLOW CLINICAL HISTORY: s/p paraesophageal her arjun repair with toupe wrap TECHNIQUE: Initial AP standing Hatchery Supervisor estephania ge was obtained. Single contrast esophagram was performed. Multiple fluor oscopic spot images were obtained after the administration of water-soluble oral contrast followed by thin barium. Fluoroscopy time: 1.55 minute COMPARISON: Radiograph of the chest 01/04 and barium swallow 11/16/2015 FINDINGS: Hatchery Supervisor: Interval removal of previously se en enteric tube. Scattered air seen throughout nondilated loops of bowel. In determinate density overlying the right upper quadrant. Finding is new when comp ared to prior chest radiograph from 01/15/2016 and may represent ingested me dication or retained oral contrast within a diverticulum. Fluoroscopy: Patient is status post repa ir of previously seen paraesophageal hernia with fundoplication. Patient was able to swallow both water-soluble and thin barium without difficulty. No esoph ageal leak. Contrast passed easily from the esophagus into the stomach through t he fundoplication wrap. Multiple tertiary contractions within the mid to distal esophagus consistent with esophageal dysmotility. Procedure Note Lorrie Wright MD - 01/16/2016Formatt ing of this note might be different from the original. EXAMINATION: XR FLUORO BARIUM SWALLOW CLINICAL HISTORY: s/p paraesophageal her arjun repair with toupe wrap TECHNIQUE: Initial AP standing Hatchery Supervisor estephania ge was obtained. Single contrast esophagram was performed. Multiple fluor oscopic spot images were obtained after the administration of water-soluble oral contrast followed by thin barium. Fluoroscopy time: 1.55 minute COMPARISON: Radiograph of the chest 01/04 and barium swallow 11/16/2015 FINDINGS: Hatchery Supervisor: Interval removal of previously se en enteric tube. Scattered air seen throughout nondilated loops of bowel. In determinate density overlying the right upper quadrant. Finding is new when comp ared to prior chest radiograph from 01/15/2016 and may represent ingested me dication or retained oral contrast within a diverticulum. Fluoroscopy: Patient is status post repa ir of previously seen paraesophageal hernia with fundoplication. Patient was able to swallow both water-soluble and thin barium without difficulty. No esoph ageal leak. Contrast passed easily from the esophagus into the stomach through t he fundoplication wrap. Multiple tertiary contractions within the mid to distal esophagus consistent with esophageal dysmotility. IMPRESSION 1. Status post repair of paraesophageal hernia with fundoplication with no evidence of postsurgical complications. Specifically no leak or delay to the flow of contrast through the fundoplicat ion. 2. Tertiary contractions within the mid to distal esophagus consistent with esophageal dysmotility. I have personally reviewed the image(s) and the residents interpretation and agree with the findings, Lorrie rodriguez 01/16/2016 1:31 PM Erasto Hammond MD IMG FLUORO ORDERABLES XR Chest PA or AP 1 view (01/15/2016 6:10 PM EST) Anatomical Region Laterality Modality Chest N/A Digital Radiography Specimen (Source) Anatomical Location Collection Method / Collectio n Time Received Time / Laterality Volume Impressions 01/15/2016 7:15 PM EST 1. ??Tip of the enteric tube overlies the expected region of the gastric antrum. 2. ??Mild pulmonary vascular prominence suggesting pulmonary vascular congestion. I have personally reviewed the image(s) and the residents interpretation and agree with the findings, JOSY JULIAN at 01/15/2016 7:15 PM Narrative 01/15/2016 7:15 PM EST EXAMINATION: XR CHEST PA OR AP 1 VIEW CLINICAL HISTORY: s/p paraesophageal her arjun repair, please assess NGT placement, assess for ptx TECHNIQUE: Single AP semiupright radiogr aph of the chest. COMPARISON: CT chest dated 08/14/2015. FINDINGS: An enteric tube is present which courses below the level of diaphragm with the tip of the catheter overlying the expect ed region of the gastric antrum. There is mild prominence of pulmonary vasculat ure suggesting pulmonary vascular congestion. Streaky opacities within the bilateral lung bases are most consistent with atelectasis. Chain sutur es are noted within the right perihilar region consistent with known history of right middle lobectomy. Accounting for technique the cardiomediastinal silhouet te is within normal limits. Procedure Note Josy Brady MD - 01/15/2016 EXAMINATION: XR CHEST PA OR AP 1 VIEW CLINICAL HISTORY: s/p paraesophageal her arjun repair, please assess NGT placement, assess for ptx TECHNIQUE: Single AP semiupright radiogr aph of the chest. COMPARISON: CT chest dated 08/14/2015. FINDINGS: An enteric tube is present which courses below the level of diaphragm with the tip of the catheter overlying the expect ed region of the gastric antrum. There is mild prominence of pulmonary vasculat ure suggesting pulmonary vascular congestion. Streaky opacities within the bilateral lung bases are most consistent with atelectasis. Chain sutur es are noted within the right perihilar region consistent with known history of right middle lobectomy. Accounting for technique the cardiomediastinal silhouet te is within normal limits. IMPRESSION 1. Tip of the enteric tube overlies the expected region of the gastric antrum. 2. Mild pulmonary vascular prominence rubalcava ggesting pulmonary vascular congestion. I have personally reviewed the image(s) and the residents interpretation and agree with the findings, JOSY JULIAN at 01/15/2016 7:15 PM Erasto Hammond MD IMG DX ORDERABLES (ABNORMAL) Differential, Automated (01/15/2016 5:48 PM EST) [facility] Method Time Signature Neutrophils % 89.0 % [facility] Neutr Abs (ANC) 12.94 (H) 1.70 - [facility] 6.10 [facility] x10(3)/[facility] L LABORATORY Lymphocytes % 8.5 % [facility] Lymphocytes Abs 1.2 0.9 - 3.2 [facility] x10(3)/[facility] LABORATORY Monocytes % 1.7 % [facility] Monocyte Abs 0.2 (L) 0.3 - 0.9 [facility] x10(3)/[facility] LABORATORY Eosinophils % 0.1 % [facility] Eosinophils Abs 0.0 0.0 - 0.4 [facility] x10(3)/[facility] LABORATORY Basophils % 0.1 % [facility] Basophils Abs 0.0 0.0 - 0.1 [facility] x10(3)/[facility] LABORATORY Immature Gran % 0.60 % [facility] Comment: Immature granulocytes(IG's)percentage an d absolute count will include metamyelocytes, myelocytes, and promyelo cytes. Blood smears from CBCs yielding IG's will be scanned manually for concor dance. If this scan disagrees with the automated IG or if promyelocytes are not ed, a manual differential will be performed. Lindsay Gran Abs 0.08 (H) 0.00 - 0.04 x10(3)/[facility] LABORATORY Specimen Anatomical Collection Method Collection Time Receive d Time (Source) Location / / Volume Laterality Blood specimen 01/15/2016 5:48 PM 016 5:54 (specimen) EST PM EST Resulting Agency Comment Spec In Lab Erasto Hammond MD HEMATOLOGY ORDERABLES Performing Organization Address City/State/ZIP Code Phon e Number [place] [id number] (ABNORMAL) Hemogram (01/15/2016 5:48 PM EST) Analysis Performed At Patho logist Time Signature WBC 14.5 (H) 4.0 - 9.5 [facility] x10(3)/[facility] LABORATORY RBC 4.75 4.00 - [place] 5.21 [facility] x10(6)/[facility] LABORATORY Hemoglobin 14.1 11.7 - [facility] 15.5 gm/dL [facility] Hematocrit 43.2 35.7 - [facility] 45.8 % [facility] MCV 90.9 82.6 - [facility] 94.4 [facility] LAB[facility]ATORY MCH 29.7 27.1 - [place] 32.0 pg [facility] MCHC 32.6 31.7 - [place] 35.0 gm/dL [facility] Platelets 234 145 - 357 [facility] x10(3)/[facility] LABORATORY RDWSD 44.7 37.0 - [facility] MORE 46.0 [facility] LABORATORY RDWCV 13.2 11.5 - [place] MORE 14.1 % [facility] LABORATORY MPV 10.3 7.6 - 12.9 [facility] nRBC % Auto 0.0 % [facility] LABORATORY nRBC Abs Auto 0.000 0.000 - [facility] MORE 0.000 [facility] x10(3)/[facility] LABORATORY Specimen Anatomical Collection Method Collection Time Receive d Time (Source) Location / / Volume Laterality Blood specimen 01/15/2016 5:48 PM 016 5:54 (specimen) EST PM EST Resulting Agency Comment Spec In Lab Erasto Hammond MD HEMATOLOGY ORDERABLES Performing Organization Address City/State/[place] [address] Creatinine (01/15/2016 5:48 PM EST) athologist Signature Creatinine 0.82 0.70 - 1.20 [place] mg/dL [facility] LABORATORY Comment: Please note that the pediatric reference intervals supplied above were not validated at [facility]. Results from pediatri c patients should be interpreted in conjunction to the patient's age, height and muscle mass. Estimated GFR >60 >=60 [place] [facility] LABORATORY Comment: This estimated GFR (eGFR) value [...] the following links into your internet browser. [email or web address] [email or web address] Specimen Anatomical Collection Method Collection Time Receive d Time (Source) Location / / Volume Laterality Blood specimen 01/15/2016 5:48 PM 016 5:54 (specimen) EST PM EST Resulting Agency Comment Spec In Lab Erasto Hammond MD CHEMISTRY ORDERABLES Performing Organization Address City/[facility]/ZIP Code Phon e Number [address] (ABNORMAL) BUN (01/15/2016 5:48 PM EST) athologist Signature BUN 7 (L) 8 - 18 [facility] mg[facility]dL [facility] LABORATORY Specimen Anatomical Collection Method Collection Time Receive d Time (Source) Location / / Volume Laterality Blood specimen 01/15/2016 5:48 PM 016 5:54 (specimen) EST PM EST Resulting Agency Comment Spec In Lab Erasto Hammond MD CHEMISTRY ORDERABLES Performing Organization Address City/[facility]/ZIP Code Phon e Number [address] Electrolytes panel (01/15/2016 5:48 PM EST) athologist Signature Sodium 140 135 - 145 [facility] mmol/[facility] LABORATORY Potassium 3.6 3.5 - 5.0 [facility] mmol/L [facility] LABORATORY Comment: Please note: ??Patients with WBC >100,00 0 may have falsely elevated Potassium levels. ??For accurate Potassium quantif ication in these patients send serum separator tube (gold top) for subsequent determinations. ??Contact the Clinical Chemistry Laboratory if there are any qu estions. Chloride 101 98 - 107 mmol/L [facility] LABORATORY CO2 24 22 - 31 mmol/L [facility] LABORATORY Anion Gap 15 5 - 15 mmol/L [facility] LABORATORY Specimen Anatomical Collection Method Collection Time Receive d Time (Source) Location / / Volume Laterality Blood specimen 01/15/2016 5:48 PM 016 5:54 (specimen) EST PM EST Resulting Agency Comment Spec In Lab Erasto Hammond MD CHEMISTRY ORDERABLES Performing Organization Address City/[facility]/[place] [address] POCT Glucose (01/15/2016 5:36 PM EST) P athologist Signature POC Glucose 173 65 - 199 [facility] mg/dL [facility] LABOR[facility]ORY Comment: Supplemental ranges: <140 mg/dL before meals <180 mg/dL all other times of the day Specimen Anatomical Collection Method Collection Time Receive d Time (Source) Location / / Volume Laterality Blood specimen 01/15/2016 5:36 PM 016 5:36 (specimen) EST PM EST Erasto Hammond MD POINT OF CARE TEST ORDERABLE S Performing Organization Address City/State/[place] [address] Specimen to Pathology (surgical or derm) (01/15/2016 4:11 PM EST) Specimen Anatomical Collection Method Collection Time Receive d Time (Source) Location / / Volume Laterality AP Specimen 01/15/2016 4:11 PM 6 4:11 EST PM EST Narrative [facility] LABORAT ORY - 01/15/2016 4:11 PM EST Specimen requisition ordered. ??Separate Pathology report to follow Erasto Hammond MD PATHOLOGY/CYTOLOGY ORDERABLE S Performing Organization Address City/State/[place] [address] Surgical Pathology Report (01/15/2016 4:10 PM EST) Component Value Ref Test Analysis Performed At Patholo gist Range Method Time Signature Surgical [id number] ?Location: 4WST; 0404; A [facility] Report The signing pathologist has (i) examined the relevant preparation(s) for the [facility] specimen(s) and (ii) rendered or confirmed the diagnosis(es) . HOSPITAL LABORATORY . ?Surgic al Pathology DIAGNOSIS Fibromembranous tissue, hernia sac ??, paraesophageal. ? Gross surgical pathology examination. Electronically signed by: ??Keith Dickerson MD Verified: ??01/18/2016 ?Dermatopathologist, Bone & Soft Tissue Pathologist CLINICAL INFORMATION Specimen Submitted: A - Hernia Sack Clinical History: Paraesophageal hernia Clinical Diagnosis: Same SPECIMEN PROCESSING A - ??Labeled/Fixative: Hernia sac, fresh. Quantity/Size: Single, 9.0 x 2.5 x 0.4 cm. Tissue Description: Soft, zeng-pink, semi transparent, membranous tissue without grossly identifiable lesions. Sections/Processing: No sections are submitted. ??sns Specimen (Source) Anatomical Collection Method Collection Time Re ceived Time Location / / Volume Laterality 01/15/2016 4:10 PM EST Erasto Hammond MD PATHOLOGY/CYTOLOGY ORDERABLE S Performing Organization Address City/State/Z[place] [address] POCT Glucose (01/15/2016 10:08 AM EST) P athologist Signature POC Glucose 97 65 - 199 [facility] mg/dL [facility] LABOR[facility]ORY Comment: Supplemental ranges: <140 mg/dL before meals <180 mg/dL all other times of the day Specimen Anatomical Collection Method Collection Time Receive d Time (Source) Location / / Volume Laterality Blood specimen 01/15/2016 10:08 6 (specimen) AM EST 10:08 AM EST Erasto Hammond MD POINT OF CARE TEST ORDERABLE S Performing Organization Address City/State/ZIP [place] [address] documented in this encounter Visit Diagnoses Not on filedocumented in this encounter Admitting Diagnoses Diagnosis Paraesophageal hernia Diaphragmatic hernia without mention of obstruction or gangrene documented in this encounter Administered Medications Inactive Administered Medications - up to 3 most recent administrations Medication Order MAR Action Action Date Dose Rate Site BUpivacaine (PF) Given 01/15/2016 2:15 PM 13 mLs 19- Surgical Site (MARCAINE) 0.5 % (5 EST mg/mL) injection ONCE PRN, Starting on Mon01/15/16 at 1415, Until 01/16/16 at 2044, Intra-Operative (Intra-Procedure), Routine BUpivacaine liposome (PF) Given 01/15/2016 5:25 PM EST 266 mg 19- Surgical Site (EXPAREL) 266 mg/20 mL (13.3 mg/mL) injection for infiltration ONCE PRN, Starting on Mon01/15/16 at 1725, Until 01/16/16 at 2044, Intra-Operative (Intra-Procedure) cycloSPORINE (RESTASIS) 0.05 % ophthalmic Given 01/16/2016 8:52 AM EST 1 drop emulsion 1 drop 1 drop, Both Eyes, 2 TIMES DAILY, First dose on Mon01/15/16 at 2200, Until Discontinued, Routine heparin (porcine) subcutaneous injection Given 016 8:52 AM EST 5,000 Units 5,000 Units 5,000 Units, Subcutaneous, EVERY 12 HOURS SCHEDULED (2 times per day), First dose on Mon01/15/16 at 2100, Until Discontinued, Routine Given 01/15/2016 8:29 PM EST 5,000 Units lactated ringers infusion New Bag 01/16/2016 8:51 AM EST 75 mL/hr 75 mL/hr 75 mL/hr, Intravenous, CONTINUOUS, Starting on Mon01/15/16 at 1800, Until 01/16/16 at 2044, Recovery (Recovery-Hospital Unit) New Bag 01/15/2016 6:03 PM EST 75 mL/hr 75 mL/hr oxyCODONE (ROXICODONE) 5 mg/5 mL solution 5-10 Given 1 03/17/2015 5:59 PM EST 5 mg mg 5-10 mg, Per NG tube, EVERY 4 HOURS PRN, Starting on Mon01/15/16 at 1746, Until 01/16/16 at 2044, Pain, For pain on pain scale 3-6 please give 5 mg. For pain on pain scale 7-10 please give 10 mg., Routine Given 01/16/2016 1:48 PM EST 5 mg Given 01/16/2016 9:40 AM EST 5 mg senna (SENOKOT) tablet 17.2 mg Given 01/16/2016 4:23 PM EST 17.2 mg 17.2 mg, Oral, EVERY EVENING, First dose on 01/16/16 at 1700, Until Discontinued, Routine sodium chloride 0.9 % flush 5 mL Given 01/16/2016 8:51 AM EST 5 mLs 5 mL, Intravenous, 2 TIMES DAILY, First dose on Mon01/15/16 at 2100, Until Discontinued, Recovery (Recovery-Hospital Unit), Routine Given 01/15/2016 8:30 PM EST 5 mLs documented in this encounter Active and Recently Administered Medications Times are shown in EST. Scheduled Medication Order 01/14/2016 01/15/2016 01/16/2016 acetaminophen (OFIRMEV) injection 1,000 mg 1811 (Given - Provider: Janet Herron, ANA)2314 (Given - Provider: Cody Pool, ANA) 0600 (Given - Provider: Cody Pool, ANA)1146 (Given - Provider: Kalli Sosa RN) 1,000 mg, Intravenous, at 400 mL/hr, RUSLAN RY 6 HOURS SCHEDULED, 4 doses, First dose on Mon01/15/16 at 1815, Last dose on 01/16/16 at 1200, Maximum dose of acetaminophen is 4000 mg from all sources in 24 hours., Routine ceFAZolin (ANCEF) 2g in dextrose 5% 50 mL (CANCELED) 1245 (Due)1334 (Given - Provider: Lisa De Los Santos)1629 (Given - Provider: Jojo Silva CRNA) 0224 (Given - Provider: Cody Pool, ANA) 2 g, Intravenous, EVERY 8 HOURS, First d ose on Mon01/15/16 at 1245, Until Discontinued, Administer over 30 Minutes, Indication for (Active or Suspected): Prophylaxis cycloSPORINE (RESTASIS) 0.05 % ophthalmic emulsion 1 drop 2200 (Not Given - Provider: Cody Pool RN - Reason: Patient/family refused) 0852 (Given - Provider: Kalli Sosa RN) 1 drop, Both Eyes, 2 TIMES DAILY, First dose on Mon01/15/16 at 2200, Until Discontinued, Routine docusate sodium (COLACE) capsule 100 mg 0900 (Not Given - Provider: Kalli Sosa RN - Reason: Patient/family refused)1500 (Not Given - Provider: Kalli Sosa RN - Reason: Patient/family refused) 100 mg, Oral, 3 TIMES DAILY, First dose on Mon01/16/16 at 0900, Until Discontinued, Routine heparin (porcine) subcutaneous injection 5,000 Units 2028 (Given - Provider: Cody Pool RN) 0852 (Given - Provider: Romana Tolliver) 5,000 Units, Subcutaneous, EVERY 12 HOUR S SCHEDULED (2 times per day), First dose on Mon01/15/16 at 2100, Until Discontinued, Routine levothyroxine (SYNTHROID) tablet 25 mcg 0600 (Not Given - Provider: Cody Pool RN - Reason: NPO) 25 mcg, Oral, EVERY MORNING, First dose on Mon01/16/16 at 0600, Until Discontinued, Routine senna (SENOKOT) tablet 17.2 mg 1 623 (Given - Provider: Kalli Sosa RN) 17.2 mg, Oral, EVERY EVENING, First dose on Mon01/16/16 at 1700, Until Discontinued, Routine sodium chloride 0.9 % flush 5 mL 2029 (Given - P rovider: Cody Pool RN) 0851 (Given - Provider: Kalli Sosa RN) 5 mL, Intravenous, 2 TIMES DAILY, First dose on Mon01/15/16 at 2100, Until Discontinued, Recovery (Recovery-Hospital Unit), Routine Continuous Medication Order 01/14/2016 01/15/2016 01/16/2016 lactated ringers infusion 180 (New Bag - Provid er: Janet Herron RN) 0851 (New Bag - Provider: Kalli Sosa RN) 75 mL/hr, at 75 mL/hr, Intravenous, CONT INUOUS, Starting Mon01/15/16 at 1800, Until 01/16/16 at 2044, Recovery (Recovery-Hospital Unit) PRN Medication Order 01/14/2016 01/15/2016 01/16/2016 barium sulfate (EZPAQUE) oral suspension 50 mL (COMPLETED) 1100 (Given - Provider: Marleni Olivas - Comment: #[id number] EXP ) 50 mL, Oral, ONCE PRN, 1 dose, Starting 01/16/16 at 1120, Until 01/16/16 at 1100, Per Protocol, Routine BUpivacaine (PF) (MARCAINE) 0.5 % (5 mg/mL) injection (CANCE LED) 1415 (Given - Provider: Erasto Hammond MD) ONCE PRN, Starting 01/15/16 at 1415, Until 01/16/16 at 2044, Intra- Operative (Intra-Procedure), Routine BUpivacaine liposome (PF) (EXPAREL) 266 mg/20 mL (13.3 mg/mL) injection for infiltration (CANCELED) 1725 (Given - Provider: PARAG Carter) ONCE PRN, Starting 01/15/16 at 1725, Until 01/16/16 at 2044, Intra- Operative (Intra-Procedure), Routine iohexol (OMNIPAQUE) 300 mg/mL solution 50 mL (COMPLETED) 1055 (Given - Provider: Marleni Olivas - Comment: #[id number] EXP 10-14-2018) 50 mL, Oral, ONCE PRN, 1 dose, Starting 01/16/16 at 1119, Until 01/16/16 at 1055, Per Protocol, Warning Vesicant/Irritant Medication , Routine lidocaine (XYLOCAINE) 10 mg/mL (1 %) injection 3 mg 3 mg (0.3 mL), Subcutaneous, ONCE PRN, 1 dose, Starting Mon01/15/16 at 1955, Until 01/16/16 at 2044, for discomfort with PIV insertion, Recovery (Recovery-Hospital Unit), Routine oxyCODONE (ROXICODONE) 5 mg/5 mL solution 5-10 mg 2314 (Given - Provider: Cody Pool, RN) 0448 (Given - Provider: Cody Pool, R N)0940 (Given - Provider: Kalli Sosa, RN)1348 (Given - Provider: Kalli Sosa, ANA)1759 (Given - Provider: Kalli Sosa, ANA) 5-10 mg, Per NG tube, EVERY 4 HOURS PRN, Starting Mon01/15/16 at 1746, Until 01/16/16 at 2043, Pain, For pain on pain scale 3-6 please give 5 mg. For pain on pain scale 7-10 please give 10 mg., Routine sodium chloride 0.9 % flush 5-20 mL 5-20 mL, Intravenous, EVERY 1 MIN PRN, S tarting Mon01/15/16 at 1955, Until 01/16/16 at 2043, flush, Flush pertains to all indwelling lines. Flush per protocol found in the job aid using the link pr ovided on this medication record., Recovery (Recovery-Hospital U nit), Routine documented in this encounter Care Teams Senior Planning Manager Relationship Specialty Start Date End Date Miriam Agee MD PCP - General General Internal Medicine 08/14/15 [address] [place] [address] documented as of this encounter
--- OUTSIDE RECORDS SUMMARY | 2021-11-12 00:56 | XMS_ITS | Encounter Summary ---
:1955 [place] [address] Care Team Providers Name Role Phone Miriam [...] Expiration Date Visits Requ ested Visits Authorized [id number] 1 1 Encounter Details Date Type Department Care Team Description 01/15/2016 - [address], Paraesophageal hernia 01/16/2016 Encounter Ana eRbecca Deal MD [facility] [place], [place] SURGERY [address] [place], [place] [phone] [facility] Social History Tobacco Use Types Packs/Day Years [...] Primary * Yosef Ferrer PA - Physician Youth Support Worker Procedure: Procedure(s): ENDOSCOPY, UPPER GI, DIAGNOSTIC, WITH OR WITHOUT SPECIMENS ROBOT XI LAPAROSCOPIC PARAESOPHAGEAL HERNIA REPAIR W/FUNDOPLASTY,W/O MESH MODIFIER ROBOT,DAVINCI XI History of Presentation: Uma Hood is [...] Hospital Course: Uma Hood was admitted to [facility] on 01/15/2016 via the Same Day Program. [...] 1 capsule by mouth once a week. [id number] Units Quantity: 13 capsule Refills: 4 [id number] COMPLEX ORAL Take by mouth daily. Refills: [...] hours, Monday- Monday 8:00a.m.-5:00 p.m., please call [phone] to speak to a nurse in the Thoracic Clinic. If you get an answering machine or it is after hours or on weekends or holidays please call [phone] and ask to speak to the Thoracic Physician assembler ping pong table. Exercise & Activity Level: As you recover [...] nurse in the Thoracic Clinic or the assembler ping pong table Attending Physicianafter hours. We are unable to [...] information. Please call the thoracic clinic at [phone] to confirm/reschedule your appointment. You should arrange to see your primary care physician, in two weeks. If you have any questions or concerns during normal business hours, Monday- Monday 8:00 a.m.-5:00 p.m., please call [phone] to speak to a nurse in the Thoracic Clinic. If you get an answering machine or it is after hours or on weekends or holidays please call [phone] and ask to speak to the Thoracic Physician assembler ping pong table. General Instructions None Future Appointments and Orders Future Appointments Provider Department Dept Phone 06/13/2016 2:30 PM Reyes Gillespie MD [facility] [phone] Future Orders Complete By Expires XR Chest PA & Lateral (Generic) [[id number] Custom] 02/01/2016 (Approximate) 01/14/2017 Process Instructions: Scheduling Instructions: Questions: Where will study be performed?: [facility] Portable exam?: No Reason for exam and clinical history: s/p paraesophageal hernia repair, please eval interval changes Other pertinent information: Stat read required?: Date of injury if applicable: Requested Time: Provider Contact Information: Primary Care Provider: Miriam Agee MD [phone] Discharge References/Attachments: Discharge References/Attachments None For questions [...] hours, Monday- Monday 8:00a.m.-5:00 p.m., please call [phone] to speak to a nurse in the Thoracic Clinic. If you get an answering machine or it is after hours or on weekends or holidays please call [phone] and ask to speak to the Thoracic Physician assembler ping pong table. Exercise & Activity Level: As you recover [...] nurse in the Thoracic Clinic or the assembler ping pong table Attending Physicianafter hours. We are unable to [...] information. Please call the thoracic clinic at [phone] to confirm/reschedule your appointment. You should arrange to see your primary care physician, in two weeks. If you have any questions or concerns during normal business hours, Monday- Monday 8:00 a.m.-5:00 p.m., please call [phone] to speak to a nurse in the Thoracic Clinic. If you get an answering machine or it is after hours or on weekends or holidays please call [phone] and ask to speak to the Thoracic Physician assembler ping pong table. documented in this encounter Medications at Time [...] (SYNTHROID) Take 1 tablet by 30 tablet 11 06/1 06/13/2016 25 mcg Tablet mouth daily. losartan (COZAAR) [...] PARAESOPHAGEAL HERNIA REPAIR W/FUNDOPLASTY,W/O MESH MODIFIER RENETTA ALVSE S: Pt seen, examined and w/o complaints; [...] Report received from PACU. Pt admitted to [facility]. Oriented to call kaitlynn, voiced understanding. Leonie initiated. Assessment completed as documented. Will continue to monitor. Samia Blanca RN - 01/15/2016 6:26 PM EST 1824 Break coverage provided. Patient resting quietly in no acute distress. VSS. 183 Anesthesiology at patient bedside. documented in this encounter H&P Notes Víctor Early MD - 01/15/2016 12:18 PM EST Thoracic Surgery Preop NAME: Uma Hood DATE: 01/15/16 SURGEON: Manish PROCEDURE: Procedure(s): ENDOSCOPY, UPPER GI, DIAGNOSTIC, WITH OR WITHOUT SPECIMENS ROBOT XI LAPAROSCOPIC PARAESOPHAGEAL HERNIA REPAIR W/FUNDOPLASTY,W/O MESH MODIFIER ROBOT,DAVINCI XI BRIEF HISTORY: Uma Hood is a [...] PARATHYROID(S) performed by Papa Dominguez MD at [facility] MAIN OR MEDS: No current facility-administered medications [...] tablet by mouth daily. ??? GLUC/FATMATA-MSM#1/VIT C/NATALIE/BOR ([id number] COMPLEX ORAL) Take by mouth daily. ??? [...] Ongoing (Interventions Implemented as Appropriate) 01/15/16 1900 01/15/16195401/15/162129 Musculoskeletal Interventions Muscle Strengthening -- -- -- [...] Hammond MD - 01/15/2016 5:58 PM EST [facility] Operative Note Patient Name: Uma Hood : [id number] MR#: [id number] Case Date: 01/15/2016 Surgeon: Surgeon(s) and Role: * Erasto Hammond MD - Primary * Yosef Ferrer PA - Physician Youth Support Worker Preoperative diagnosis: paraesophageal hernia Postoperative diagnosis: paraesophageal [...] order to completely encircle the esophagus with [place] drain. The esophagus was retracted superiorly, and [...] the fascial defect was then closed with [id number] 0 Vicryl sutures. Skin incisions were closed [...] Operative Note Patient Name: Uma Hood : [id number] MR#: [id number] Case Date: 01/15/2016 Surgeon: Surgeon(s) and Role: * Erasto Hammond MD - Primary * Yosef Ferrer PA - Physician Youth Support Worker Preoperative diagnosis: paraesophageal hernia Postoperative diagnosis: paraesophageal [...] Name Priority Date/Time Associated Diagnosis Comme nts INDUSTRIAL PHOTOGRAPHER SCAN 01/17/2016 12:00 AM EST XR FLUORO [...] Hammond MD IMG DX ORDERABLES SCAN DOC: INDUSTRIAL PHOTOGRAPHER (01/17/2016 12:00 AM EST) Narrative This result [...] with toupe wrap TECHNIQUE: Initial AP standing Traveling Representative estephania ge was obtained. Single contrast esophagram was performed. Multiple fluor oscopic spot images were obtained after the administration of water-soluble oral contrast followed by thin barium. Fluoroscopy time: 1.55 minute COMPARISON: Radiograph of the chest 01/04 and barium swallow 11/16/2015 FINDINGS: Traveling Representative: Interval removal of previously se en enteric [...] with toupe wrap TECHNIQUE: Initial AP standing Traveling Representative estephania ge was obtained. Single contrast esophagram was performed. Multiple fluor oscopic spot images were obtained after the administration of water-soluble oral contrast followed by thin barium. Fluoroscopy time: 1.55 minute COMPARISON: Radiograph of the chest 01/04 and barium swallow 11/16/2015 FINDINGS: Traveling Representative: Interval removal of previously se en enteric [...] (ABNORMAL) Differential, Automated (01/15/2016 5:48 PM EST) [facility] Method Time Signature Neutrophils % 89.0 % [facility] LABOR[facility]ORY Neutr Abs (ANC) 12.94 (H) 1.70 - [facility] 6.10 [facility] x10(3)/[facility] L LABORATORY Lymphocytes % 8.5 % [facility] Lymphocytes Abs 1.2 0.9 - 3.2 [facility] x10(3)/[facility] LABORATORY Monocytes % 1.7 % [facility] Monocyte Abs 0.2 (L) 0.3 - 0.9 [facility] x10(3)/[facility] LABORATORY Eosinophils % 0.1 % [facility] Eosinophils Abs 0.0 0.0 - 0.4 [facility] x10(3)/[facility] LABORATORY Basophils % 0.1 % [facility] Basophils Abs 0.0 0.0 - 0.1 [facility] x10(3)/[facility] LABORATORY Immature Gran % 0.60 % [facility] Comment: Immature granulocytes(IG's)percentage an d absolute count will include metamyelocytes, myelocytes, and promyelo cytes. Blood smears from CBCs yielding IG's will be scanned manually for concor dance. If this scan disagrees with the automated IG or if promyelocytes are not ed, a manual differential will be performed. Lindsay Gran Abs 0.08 (H) 0.00 - 0.04 x10(3)/[facility] LABORATORY Specimen Anatomical Collection Method Collection Time Receive d Time (Source) Location / / Volume Laterality Blood specimen 01/15/2016 5:48 PM 016 5:54 (specimen) EST PM EST Resulting Agency Comment Spec In Lab Erasto Hammond MD HEMATOLOGY ORDERABLES Performing Organization Address City/State/ZIP Code Phon e Number [place] [phone] [facility] [address] (ABNORMAL) Hemogram (01/15/2016 5:48 PM EST) Analysis Performed At Patho logist Time Signature WBC 14.5 (H) 4.0 - 9.5 [place] x10(3)/[facility] LABORATORY RBC 4.75 4.00 - [place] A[place] 5.21 [facility] x10(6)/[facility] LABORATORY Hemoglobin 14.1 11.7 - [facility] 15.5 gm/dL [facility] LABORATORY Hematocrit 43.2 35.7 - [facility] 45.8 % [facility] MCV 90.9 82.6 - [facility] 94.4 [facility] LABORATORY MCH 29.7 27.1 - [place] 32.0 pg [facility] LABOR[facility]ORY MCHC 32.6 31.7 - [place] 35.0 gm/dL [facility]ORY Platelets 234 145 - 357 [facility] x10(3)/[facility] LABORATORY RDWSD 44.7 37.0 - [place] 46.0 [facility] LABORATORY RDWCV 13.2 11.5 - [place] 14.1 % [facility] LABORATORY MPV 10.3 7.6 - 12.9 [facility] LABORATORY nRBC % Auto 0.0 % [facility] nRBC Abs Auto 0.000 0.000 - [facility] ANA 0.000 [facility] x10(3)/[facility] LABORATORY Specimen Anatomical Collection Method Collection Time Receive d Time (Source) Location / / Volume Laterality Blood specimen 01/15/2016 5:48 PM 016 5:54 (specimen) EST PM EST Resulting Agency Comment Spec In Lab Earsto Hammond MD HEMATOLOGY ORDERABLES Performing Organization Address City/State/[place] [address] Creatinine (01/15/2016 5:48 PM EST) P athologist Signature Creatinine 0.82 0.70 - 1.20 [place] mg/dL [facility] Comment: Please note that the pediatric reference intervals supplied above were not validated at [facility]. Results from pediatri c patients should be interpreted in conjunction to the patient's age, height and muscle mass. Estimated GFR >60 >=60 [place] [facility] LABOR[facility] Comment: This estimated GFR (eGFR) value [...] the following links into your internet browser. [email or web address] Specimen Anatomical Collection Method Collection Time Receive d Time (Source) Location / / Volume Laterality Blood specimen 01/15/2016 5:48 PM 016 5:54 (specimen) EST PM EST Resulting Agency Comment Spec In Lab Erasto Hammond MD CHEMISTRY ORDERABLES Performing Organization Address City/[facility]/ZIP Code Phon e Number [address] (ABNORMAL) BUN (01/15/2016 5:48 PM EST) athologist Signature BUN 7 (L) 8 - 18 [facility] ANA mg/dL [facility] LABORATORY Specimen Anatomical Collection Method Collection Time Receive d Time (Source) Location / / Volume Laterality Blood specimen 01/15/2016 5:48 PM 016 5:54 (specimen) EST PM EST Resulting Agency Comment Spec In Lab Erasto Hammond MD CHEMISTRY ORDERABLES Performing Organization Address City/[facility]/ZIP Code Phon e Number [address] Electrolytes panel (01/15/2016 5:48 PM EST) athologist Signature Sodium 140 135 - 145 [facility] ANA mmol/L [facility]ORY Potassium 3.6 3.5 - 5.0 [facility] mmol/L [facility] Comment: Please note: ??Patients with WBC >100,00 0 may have falsely elevated Potassium levels. ??For accurate Potassium quantif ication in these patients send serum separator tube (gold top) for subsequent determinations. ??Contact the Clinical Chemistry Laboratory if there are any qu estions. Chloride 101 98 - 107 mmol/L [facility] CO2 24 22 - 31 mmol/L [facility] Anion Gap 15 5 - 15 mmol/L [facility] LABORATORY Specimen Anatomical Collection Method Collection Time Receive d Time (Source) Location / / Volume Laterality Blood specimen 01/15/2016 5:48 PM 016 5:54 (specimen) EST PM EST Resulting Agency Comment Spec In Lab Erasto Hammond MD CHEMISTRY ORDERABLES Performing Organization Address City/[facility] Phon e Number [address] POCT Glucose (01/15/2016 5:36 PM EST) P athologist Signature POC Glucose 173 65 - 199 [facility] mg/dL [facility] Comment: Supplemental ranges: <140 mg/dL before meals <180 mg/dL all other times of the day Specimen Anatomical Collection Method Collection Time Receive d Time (Source) Location / / Volume Laterality Blood specimen 01/15/2016 5:36 PM 016 5:36 (specimen) EST PM EST Erasto Hammond MD POINT OF CARE TEST ORDERABLE S Performing Organization Address City/[facility]/[place] [address] Specimen to Pathology (surgical or derm) (01/15/2016 4:11 PM EST) Specimen Anatomical Collection Method Collection Time Receive d Time (Source) Location / / Volume Laterality AP Specimen 01/15/2016 4:11 PM 6 4:11 EST PM EST Narrative [facility] ORY - 01/15/2016 4:11 PM EST Specimen requisition ordered. ??Separate Pathology report to follow Erasto Hammond MD PATHOLOGY/CYTOLOGY ORDERABLE S Performing Organization Address City/[facility]/ZIP [facility] [place] [address] Surgical Pathology Report (01/15/2016 4:10 PM EST) Component Value Ref Test Analysis Performed At Patholo gist Range Method Time Signature Surgical [id number] ?Location: [facility]; [facility]; A [facility] Report The signing pathologist has (i) examined the relevant preparation(s) for the [facility] specimen(s) and (ii) rendered or confirmed the [...] Organization Address City/State/[place] [address] [facility] [address] POCT Glucose (01/15/2016 10:08 AM EST) P athologist Signature POC Glucose 97 65 - 199 [facility] mg/dL [facility] Comment: Supplemental ranges: <140 mg/dL before meals <180 mg/dL all other times of the day Specimen Anatomical Collection Method Collection Time Receive d Time (Source) Location / / Volume Laterality Blood specimen 01/15/2016 10:08 6 (specimen) AM EST 10:08 AM EST Erasto Hammond MD POINT OF CARE TEST ORDERABLE S Performing Organization Address City/State/[place] [address] documented in this encounter Visit Diagnoses Diagnosis Paraesophageal hernia Diaphragmatic hernia without mention of obstruction or gangrene Paraesophageal hernia Diaphragmatic hernia without mention of obstruction or gangrene documented in this encounter Admitting Diagnoses Diagnosis Paraesophageal hernia Diaphragmatic hernia without mention of obstruction or gangrene documented in this encounter Administered Medications Inactive Administered Medications - up to 3 most recent administrations Medication Order MAR Action Action Date Dose Rate Site acetaminophen (OFIRMEV) Given 01/16/2016 11:46 AM 1,000 mg 400 mL/hr injection 1,000 mg EST 1,000 mg, Intravenous, at 400 mL/hr, EVERY 6 HOURS SCHEDULED, 4 doses, First dose on Mon01/15/16 at 1815, Last dose on Mon01/16/16 at 1200, Maximum dose of acetaminophen is 4000 mg from all sources in 24 hours., Routine Given 01/16/2016 6:00 AM EST 1,000 mg 400 mL/hr Given 01/15/2016 11:14 PM EST 1,000 mg 400 mL/hr barium sulfate (EZPAQUE) oral suspension 50 Given 01/04 11:00 AM EST 50 mLs mL 50 mL, Oral, ONCE PRN, 1 dose, Starting on Mon01/16/16 at 1120, Until 01/16/16 at 1100, Per Protocol, Routine ceFAZolin (ANCEF) 2g in dextrose 5% 50 Given 01/16/2016 2:24 AM EST 2 g 100 mL/hr mL 2 g, Intravenous, EVERY 8 HOURS, First dose on Mon01/15/16 at 1245, Until Discontinued, Administer over 30 Minutes, Indication for (Active or Suspected): Prophylaxis Given 01/15/2016 4:29 PM EST 2 g Given 01/15/2016 1:34 PM EST 2 g cycloSPORINE (RESTASIS) 0.05 % ophthalmic Given 01/16/2016 8:52 AM EST 1 drop emulsion 1 drop 1 drop, Both Eyes, 2 TIMES DAILY, First dose on 11/11/16 at 2200, Until Discontinued, Routine heparin (porcine) subcutaneous injection Given 016 8:52 AM EST 5,000 Units 5,000 Units 5,000 Units, Subcutaneous, EVERY 12 HOURS SCHEDULED (2 times per day), First dose on Mon01/15/16 at 2100, Until Discontinued, Routine Given 01/15/2016 8:29 PM EST 5,000 Units iohexol (OMNIPAQUE) 300 mg/mL solution 5 0 mL Given 01/16/2016 10:55 AM EST 50 mLs 50 mL, Oral, ONCE PRN, 1 dose, Starting on 01/16/16 at 1119, Until 01/16/16 at 1055, Per Protocol, Warning Vesicant/Irritant Medication , Routine lactated ringers infusion New Bag 01/16/2016 8:51 [...] 1,000 mg 1811 (Given - Provider: Janet Herron RN)2314 (Given - Provider: Cody Pool, ANA) 0600 (Given - Provider: Cody Pool, ANA)1146 (Given - Provider: Kalli Sosa RN) 1,000 mg, Intravenous, at 400 mL/hr, RUSLAN RY 6 HOURS SCHEDULED, 4 doses, First dose on Mon01/15/16 at 1815, Last dose on Mon01/16/16 at 1200, Maximum dose of acetaminophen is 4000 mg from all sources in 24 hours., Routine ceFAZolin (ANCEF) 2g in dextrose 5% 50 mL (CANCELED) 1245 (Due)1334 (Given - Provider: Lisa De Los Santos)1629 (Given - Provider: Jojo Silva CRNA) 0224 (Given - Provider: Cody Pool RN) 2 g, Intravenous, EVERY 8 HOURS, First d ose on Mon01/15/16 at 1245, Until Discontinued, Administer over 30 Minutes, Indication for (Active or Suspected): Prophylaxis cycloSPORINE (RESTASIS) 0.05 % ophthalmic emulsion 1 drop 0 (Not Given - Provider: Cody Pool RN - Reason: Patient/family refused) 0852 (Given - Provider: Kalli Sosa, ANA) 1 drop, Both Eyes, 2 TIMES DAILY, First dose on Mon01/15/16 at 2200, Until Discontinued, Routine docusate sodium (COLACE) capsule 100 mg 09 (Not Given - Provider: Kalli Sosa RN [...] mcg, Oral, EVERY MORNING, First dose on 01/16/16 at 0600, Until Discontinued, Routine senna (SENOKOT) tablet 17.2 mg 1 623 (Given - Provider: Kalli Sosa, ANA) 17.2 mg, Oral, EVERY EVENING, First dose on 01/16/16 at 1700, Until Discontinued, Routine sodium chloride 0.9 % flush 5 mL 2030 (Given - P rovider: Cody Pool RN) 0851 (Given - Provider: Kalli Sosa RN) 5 mL, Intravenous, 2 TIMES DAILY, First dose on Mon01/15/16 at 2100, Until Discontinued, Recovery (Recovery-Hospital Unit), Routine Continuous Medication Order 01/14/2016 01/15/2016 01/16/2016 lactated ringers infusion 1803 (New Bag - Provid er: Janet Herron RN) 0851 (New Bag - Provider: Kalli Sosa RN) 75 mL/hr, at 75 mL/hr, Intravenous, CONT INUOUS, Starting Mon01/15/16 at 1800, Until 01/16/16 at 2044, Recovery (Recovery-Hospital Unit) PRN Medication Order 01/14/2016 01/15/2016 01/16/2016 barium sulfate (EZPAQUE) oral suspension 50 mL (COMPLETED) 1100 (Given - Provider: Marleni Olivas - Comment: #[id number] EXP ) 50 mL, Oral, ONCE PRN, 1 dose, Starting 01/16/16 at 1120, Until 01/16/16 at 1100, Per Protocol, Routine BUpivacaine (PF) (MARCAINE) 0.5 % (5 mg/mL) injection (CANCE LED) 1415 (Given - Provider: Erasto Hammond MD) ONCE PRN, Starting Mon01/15/16 at 1415, Until 01/16/16 at 2044, Intra- Operative (Intra-Procedure), Routine BUpivacaine liposome (PF) (EXPAREL) 266 mg/20 mL (13.3 mg/mL) injection for infiltration (CANCELED) 1725 (Given - Provider: PARAG Carter) ONCE PRN, Starting Mon01/15/16 at 1725, Until 01/16/16 at 2043, Intra- Operative (Intra-Procedure), Routine iohexol (OMNIPAQUE) 300 mg/mL solution 50 mL (COMPLETED) 1055 (Given - Provider: Marleni Olivas - Comment: #[id number] EXP 10-14-2018) 50 mL, Oral, ONCE PRN, 1 dose, Starting 01/16/16 at 1119, Until 01/16/16 at 1055, Per Protocol, Warning Vesicant/Irritant Medication , Routine lidocaine (XYLOCAINE) 10 mg/mL (1 %) injection 3 mg 3 mg (0.3 mL), Subcutaneous, ONCE PRN, 1 dose, Starting Mon01/15/16 at 1955, Until 01/16/16 at 2043, for discomfort with PIV insertion, Recovery (Recovery-Hospital Unit), Routine oxyCODONE (ROXICODONE) 5 mg/5 mL solution 5-10 mg 2314 (Given - Provider: Cody Pool RN) 0448 (Given - Provider: Cody Pool, Romana Ledezma)0940 (Given - Provider: Kalli Sosa, ANA)1348 (Given - Provider: Kalli Sosa, ANA)1759 (Given - Provider: Kalli Sosa RN) 5-10 mg, Per NG tube, EVERY 4 [...] Routine documented in this encounter Care Teams Manager Gas Relationship Specialty Start Date End Date Miriam Agee MD PCP - General General Internal Medicine 08/14/[address] [place] [address] [place] [address] documented as of this encounter
--- OUTSIDE RECORDS SUMMARY | 2021-11-12 00:56 | XMS_ITS | Encounter Summary ---
:1955 Author Organization [facility] [place] [address] Care Team Providers Name Role Phone Papa Dunn MD Primary Care Provider [phone] Reason for Referral Diagnostic Test (Routine) - Closed Specialty Diagnoses / Procedures Referred By Contact Refer red To Contact Radiology Diagnoses Encounter for follow-up surveillance of lung cancer [facility] Thoracic Surg [address] [place] [address] Procedures [address] Chest Wo Contrast (GENERIC) [place] [address] [place] [address] Phone: Referral ID Status Reason Start Date Expiration Date Visits V isits Requested Authorized [id number] Closed Specialty 08/06/2015 09/05/2015 1 1 Service Requested Encounter Details Date Type Department Care Team Description 06/10/2015 Orders Only Thoracic Surgery at [facility] for follow-up [facility] Catrachito, [place] [address] Social History Tobacco Use Types Packs/Day Years Used Date Never Smoker Smokeless Tobacco: Never Used Alcohol Use Standard Drinks/Week Comments No 0 (1 standard drink = 0.6 oz pure alcoho l) Sex Assigned at Date Recorded Not on file documented as of this encounter Plan of Treatment Not on filedocumented as of this encounter Results CT Chest Wo Contrast [...] interpretation and agree with the findings, Hailey Garza francisco rodriguez 08/14/2015 2:24 PM Jasen Rodriguez MD IMG CT ORDERABLES documented in this encounter Visit Diagnoses Diagnosis Encounter for follow-up surveillance of lung cancer Unspecified follow-up examination Encounter for follow-up surveillance of lung cancer Unspecified follow-up examination documented in this encounter Care Teams Weigh Machine Operator Relationship Specialty Start Date End Date Papa Dunn MD PCP - General 02/03/14 08/13/[address] [place] [address] documented as of this encounter
--- OUTSIDE RECORDS SUMMARY | 2021-11-12 00:56 | XMS_ITS | Encounter Summary ---
:1955 [place] [address] Care Team Providers Name Role Phone Miriam [...] Expiration Date Visits Requ ested Visits Authorized [id number] 1 1 Encounter Details Date Type Department Care Team Description 01/15/2016 Anesthesia Event Main Operating Room Jesús Gonsalez MD [facility] [place] [address] Jojo [facility] Lisa De Los Santos MD [facility] [place] [address] [place] [address] Anesthesia Record Procedure Summary Procedure Name Responsible Anesthesia Start Anesthesia Stop Time Anesthesiologist Time ENDOSCOPY, UPPER Mary Carmen Gonsalez MD 01/15/16 1322 01/15/16 1732 GI, DIAGNOSTIC, WITH OR WITHOUT SPECIMENS (N/A ) Events Date Time Event Comment 01/15/2016 1310 1322 Start 1326 AN Verify 1326 An Start Data 1330 An Induction 1332 An Intubation 1334 Anesthesia Ready 1342 An Data Art 1355 Quick Note NIBP cuff switch ed to adult large long cuff 1411 Procedure Start 1419 Quick Note Position change to steep reverse Tberg 1435 An Data Art 1606 Handoff Intra-procedure anesthesia care was transferred afte r review of the patient's history, current anesthetic/surgical status and plan, accord ing to the [facility] Provider Handoff Checklis t. 1630 Quick Note EGD by surgeon 1652 Break/Relief In Violetta Pacheco, ELECT[employer]IC PUBLICATIONS SPECIALIST 1702 Break/Relief Out 1722 Extubation/LMA Out 1722 an stop data 1732 Recovery or ICU Handoff Patient care was transferred to the destination unit staff after review of the patient's medica l history, current anesthetic/surgi андрей status and plan, according to the Provider Handoff Checklist. 1732 Stop Name Total Midazolam 1 mg fentaNYL 100 mcg IV Lidocaine 60 mg Propofol 220 mg Rocuronium 90 mg PHENYLephrine 560 mcg ePHEDrine 15 mg Ondansetron 4 mg Dexamethasone 8 mg Neostigmine 2 mg Glycopyrrolate 0.4 mg ceFAZolin (ANCEF) 2g in dextrose 5% 50 mL 4 g Succinylcholine 100 mg Heparin 5000 units SQ 5,000 Units Dexmedetomidine 48 mcg Propofol INF 504.17 mg PHENYLephrine INF 5,980 mcg HYDROmorphone 0.8 mg Lactated Ringers 2,000 mL Lactated Ringers 100 mL Agents Name O2 Air N2O Sevoflurane (et) Blood No blood administrations on file. Lines, Drains, and Airways Type Details Placement Removal Incision 05/14/13; neck; 01/16/16; 05/14/13 0000 by 01/15 1801 by 1801 Margy Olivas RN Tosi, Lau ren B RN Urethral Catheter 01/15/16; Surgery longer 01/15/16 0000 by Rea , 01/16/16 1215 by than 2 hours; Physician ANA Marvin La uren B RN order; indwelling double lumen catheter; latex; inserted at this facility; 1; 5; 10; none; drainage bag to dependent drainage; 01/16/16; 1215 Incision 01/15/16; abdomen; 01/15/16 0000 by Álvaro, 1715 by laparoscopic punctures ANA Marvin D ierdre L (specify), transverse; 11/01/21 (LDA cleanup utility RA#[id number]); 1715 (LDA cleanup utility RA#[id number]) PIV 01/15/16; 1051; 01/15/16 1051 by 01/16/16 1801 b y metacarpal vein (top of Friend, Marva Espinosa, Kalli De La Cruz, RN hand), left; [id number]-[id number] catheter system; 20 gauge, 1 in length; friend, RN; intradermal injection, tolerated well, appears comfortable; 1; metacarpal vein (top of hand), left; 01/16/16; 1801 PIV 01/15/16; 1322; 01/15/16 1322 by 01/16/16 1801 b y metacarpal vein (top of Lisa De Los Santos, To Kalli pathak, RN hand), left; whsd-zsm-[id number] catheter system; 18 gauge; Sidash; 01/16/16; 1801 ETT Mask Ventilation: Not 01/15/16 1332 by 01/15/16 1722 by Attempted (0); ETT Type: Lisa De Los Santos J ohnson, Mary E, Cuffed; ETT Size: 7 mm; MD SANDERS Indirect:Video; Notes: Asleep, Pre-O2, Stylette; Attempts: 1; Laryngoscopy Grade: 1; ETT Placement Verified By: Auscultation, Capnometry, Visual; Secured at Teeth: 22 cm; Inserted by: Spencer NG/OG Tube 01/15/16; 1600; left 01/15/16 1600 by 01/16/16 0 815 by nostril; Taped; 01/16/16; Janet Herron RN Tosi, Lauren B, RN 0815 documented in this encounter Social History Tobacco Use Types Packs/Day Years [...] on file documented as of this encounter OR Notes Anesthesia Postprocedure Evaluation - Mary Carmen Gonsalez MD - 01/15/2016 7:13 PM EST [facility] Department of Anesthesiology Post-procedure Note Patient: Uma Hood Procedure Summary Date Anesthesia Start Anesthesia Stop Room / Location 01/15/16 1322 1732 [facility] Procedure Diagnosis Surgeon Responsible Provider ENDOSCOPY, UPPER GI, DIAGNOSTIC, WITH OR WITHOUT SPECIMENS (N/A ); ROBOT XI LAPAROSCOPIC PARAESOPHAGEAL HERNIA REPAIR W/FUNDOPLASTY,W/O MESH (N/A Abdomen); MODIFIER ROBOT,DAVINCI XI (N/A ) (paraesophageal hernia) Erasto Hammond MD Seiffert, Ellen A, MD All Anesthesia Providers: Anesthesiologist: Mary Carmen Gonsalez MD; Emanuel Huertas MD ELECTRONIC PUBLICATIONS SPECIALIST: Jojo Silva CRNA Formula Clerk: Lisa De Los Santos MD Last (1hr) Vitals: BP 132/71 (01/15/16 184) Temp Pulse 82 (01/15/16 184) Resp 12 (01/15/161844) SpO2 96 % (01/15/161844) Patient [facility]: [facility] Level of Consciousness: Awake and Alert Pain Management: Satisfactory Analgesia PONV: None Cardiovascular Status: At Baseline Respiratory Status: Room Air, Stable Respiratory Status and At Baseline Postoperative Fluid Status: Intravascular EUvolemia Possible Anesthetic Complications: NONE apparent at time of evaluation Final Primary Anesthesia Type: General (The anesthetic type performed was the same as planned.) Comments: Ms. Hood tolerated the procedure well and without complication. VSS on RA. Pt reports slight discomfort related to the NGT only. Anesthesia Preprocedure Evaluation - Emanuel Huertas MD - 01/14/2016 9:54 PM EST Pre-Anesthesia Evaluation for: Uma Hood a 60 y.o. female. Procedure(s): ENDOSCOPY, UPPER GI, DIAGNOSTIC, WITH OR WITHOUT SPECIMENS ROBOT XI LAPAROSCOPIC PARAESOPHAGEAL HERNIA REPAIR W/FUNDOPLASTY,W/O MESH MODIFIER ROBOT,DELMII XI Patient Active Problem List Diagnosis ??? Hyperparathyroidism, primary (PTH 168, Ca [...] 1.3 cm ??? Obesity ??? Renal cyst Past Medical History Diagnosis Date ??? GERD (gastroesophageal reflux disease) well controlled on meds ??? Hyperparathyroidism ??? Hypothyroidism no replacement ??? Lung tumor ??? Osteoarthritis ??? Postoperative nausea and vomiting last surgery 2000 without problems, prior history of PONV ??? Renal cyst ??? Seizures Past Surgical History Procedure Laterality Date ??? Lung surgery ??? Pro explore parathyroid glands 05/14/2013 PARATHYROIDECTOMY OR EXPLORATION OF PARATHYROID(S) performed by Papa Dominguez MD at [facility] MA[facility] OR Social History Substance Use Topics ??? Smoking status: Never Smoker ??? Smokeless tobacco: Never Used ??? Alcohol use No Comment: seldom History Drug Use No Allergies Allergen Reactions ??? Ciprofloxacin (Mixture) Hives ??? Metronidazole Hives ??? Sulfa (Sulfonamide Antibiotics) Hives Medications: MAR and/or home medications have been reviewed. Physical Exam: There were no vitals filed for this visit. There is no height or weight on file to calculate BMI. Airway Assessment: Mallampati: I TM distance: <3 FB Neck ROM: full Cardiovascular Assessment: Rhythm: regular Rate: normal Pulmonary Assessment: (-) decreased breath sounds pulmonary exam normal Dental Assessment: - normal exam Misc Assessment: Patient is wearing No contact(s). IV access: Peripheral line Anesthesia Plan: ASA 3 general, with a(n) intravenous induction This is a 60 y.o. 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 Continues to take PPI, with some improvement in her symptoms. Appropriately NPO. Adequate exercise tolerance with no VALLECILLO/CP METS >4. Allergies to cipro, metronidazole, sulfa drugs. Never smoker. Labs significant for hgb 14.8, PLT 260, Na 139, K 4.1, Cr 1.08. Active T&S available. Patient's documented history was negative for seizures, CVA, cardiopulmonary disease, hepatic/renal disease or coagulopathy. There is no evidence of any recent URI symptoms, fevers/chills, or other signs of infection. Anesthetic History: Mac4, Gr2V, 2 attempts with 1 esophageal intubation. Anesthetic Plan: GA with ETT, RSI Standard ASA monitoring Adequate IV access The patient was informed of the risks, benefits and alternatives of anesthesia. All questions soughtand answered. Consent was signed and placed in chart. Region - Other Informed Consent: Anesthetic plan and risks discussed with patient. Use of blood products discussed with patient who consented to blood products. Plan discussed with attending. PAT Staff Note documented in this encounter Plan of Treatment Not on filedocumented as of this encounter Visit Diagnoses Not on filedocumented in this encounter Administered Medications Inactive Administered Medications - up to 3 most recent administrations Medication Order MAR Action Action Date Dose Rate Site ceFAZolin (ANCEF) 2g in Given 01/16/2016 2:24 AM EST 2 g 100 mL/hr dextrose 5% 50 mL 2 g, Intravenous, EVERY 8 HOURS, First dose on Mon01/15/16 at 1245, Until Discontinued, Administer over 30 Minutes, Indication for (Active or Suspected): Prophylaxis Given 01/15/2016 4:29 PM EST 2 g Given 01/15/2016 1:34 PM EST 2 g dexamethasone (DECADRON) injection Given 01/15/2016 1:34 PM EST 8 mg PRN, Starting on Mon01/15/16 at 1334, Until Mon01/15/16 at 1732, Anesthesia Intra-op, Routine dexmedetomidine (PRECEDEX) injection Given 01/15/2016 3:32 PM EST 8 mcg PRN, Starting on Mon01/15/16 at 1334, Until Mon01/15/16 at 1732, Anesthesia Intra-op, Routine Given 01/15/2016 2:18 PM EST 8 mcg Given 01/15/2016 2:14 PM EST 8 mcg ePHEDrine 5 mg/mL multi-dose injection Given 01/15/2016 2:44 PM EST 5 mg PRN, Starting on Mon01/15/16 at 1357, Until Mon01/15/16 at 1732, Anesthesia Intra-op, Routine Given 01/15/2016 2:00 PM EST 5 mg Given 01/15/2016 1:57 PM EST 5 mg fentaNYL 50 mcg/mL multi-dose injection Given 01/15/2016 1:31 PM EST 100 mcg PRN, Starting on Mon01/15/16 at 1331, Until Mon01/15/16 at 1732, Pain, Anesthesia Intra-op, Routine glycopyrrolate (ROBINUL) multi-dose inje ction Given 01/15/2016 5:01 PM EST 0.4 mg PRN, Starting on Mon01/15/16 at 1701, Until Mon01/15/16 at 1732, Anesthesia Intra-op, Routine heparin (porcine) multi-dose injection Given 01/15/2016 1:34 PM EST 5,000 Units PRN, Starting on Mon01/15/16 at 1334, Until Mon01/15/16 at 1732, Anesthesia Intra-op, Routine HYDROmorphone (DILAUDID) injection Given 01/15/2016 3:33 PM EST 0.4 mg PRN, Starting on Mon01/15/16 at 1510, Until Mon01/15/16 at 1732, Pain, Anesthesia Intra-op, Routine Given 01/15/2016 3:10 PM EST 0.4 mg lactated ringers infusion New Bag 01/15/2016 1:00 PM EST CONTINUOUS PRN, Starting on Mon01/15/16 at 1300, Until Mon01/15/16 at 1732, Anesthesia Intra-op lactated ringers infusion New Bag 01/15/2016 1:34 PM EST CONTINUOUS PRN, Starting on Mon01/15/16 at 1334, Until Mon01/15/16 at 1732, Anesthesia Intra-op lidocaine (PF) (XYLOCAINE) 100 mg/5 mL (2 %) Given 6 1:30 PM EST 60 mg injection PRN, Starting on Mon01/15/16 at 1330, Until Mon01/15/16 at 1732, Anesthesia Intra-op, Routine midazolam (PF) (VERSED) 1 mg/mL multi-dose Given 01/15/2016 1:22 PM EST 1 mg injection PRN, Starting on Mon01/15/16 at 1322, Until Mon01/15/16 at 1732, Sleep, Anesthesia Intra-op, Routine neostigmine (PROSTIGMINE) multi-dose inj ection Given 01/15/2016 5:01 PM EST 2 mg PRN, Starting on Mon01/15/16 at 1701, Until Mon01/15/16 at 1732, Anesthesia Intra-op, Routine ondansetron (ZOFRAN) injection Given 01/15/2016 5:01 PM EST 4 mg PRN, Starting on Mon01/15/16 at 1701, Until Mon01/15/16 at 1732, Nausea, Anesthesia Intra-op, Routine PHENYLephrine Rate/Dose Change 01/15/2016 5:02 PM 20 mcg/min 15 mL/hr (HEENA-SYNEPHRINE) 20 mg in EST sodium chloride 250 mL (standard ADULT & Myron greater than 20kg) infusion CONTINUOUS PRN, Starting on Mon01/15/16 at 1444, Until Mon01/15/16 at 1732, Anesthesia Intra-op, Routine Rate/Dose Change 01/15/2016 3:42 PM EST 40 mcg/min 30 mL/hr Rate/Dose Change 01/15/2016 3:35 PM EST 20 mcg/min 15 mL/hr PHENYLephrine HCl in NS (PF) Given 01/15/2016 2:43 PM EST 160 mc g (HEENA-SYNEPHRINE) 0.8 mg/10 mL (80 mcg/mL) multi-dose injection Syrg PRN, Starting on Mon01/15/16 at 1357, Until Mon01/15/16 at 1732, Anesthesia Intra-op, Routine Given 01/15/2016 2:25 PM EST 80 mcg Given 01/15/2016 2:23 PM EST 80 mcg propofol (DIPRIVAN) 10 mg/mL bolus injection Given 6 2:17 PM EST 20 mg (Anesthesia) PRN, Starting on Mon01/15/16 at 1330, Until Mon01/15/16 at 1732, Anesthesia Intra-op Given 01/15/2016 1:30 PM EST 200 mg propofol (DIPRIVAN) infusion Restarted 01/15/2016 3:30 PM 50 mcg/kg/min 27.5 mL/hr CONTINUOUS PRN, Starting on EST Mon01/15/16 at 1411, Until Mon01/15/16 at 1732, Anesthesia Intra-op, Routine New Bag 01/15/2016 2:11 PM EST 30 mcg/kg/min 16.5 mL/hr rocuronium (ZEMURON) multi-dose injectio n Given 01/15/2016 4:38 PM EST 10 mg PRN, Starting on Mon01/15/16 at 1334, Until Mon01/15/16 at 1732, Anesthesia Intra-op, Routine Given 01/15/2016 4:01 PM EST 20 mg Given 01/15/2016 2:39 PM EST 20 mg succinylcholine (ANECTINE) injection Given 01/15/2016 1:30 PM EST 100 mg PRN, Starting on Mon01/15/16 at 1330, Until Mon01/15/16 at 1732, Anesthesia Intra-op, Routine documented in this encounter Care Teams [employer] Lieutenant Relationship Specialty Start Date End Date Miriam Agee MD PCP - General General Internal Medicine 08/14/15 [address] [place] [address] documented as of this encounter
--- OUTSIDE RECORDS SUMMARY | 2021-11-12 00:56 | XMS_ITS | Encounter Summary ---
:1955 Author Organization [facility] [place] [address] Care Team Providers Name Role Phone Miriam Agee MD Primary Care Provider Encounter Details Date Type Department Care Team Description 12/08/2016 External Results Endocrinology at [facility] Nav Gillespie, Hyperparathyroidism [facility] [place] [address] CENTER [phone] [place] [address] Social History Tobacco Use Types Packs/Day Years [...] Name Priority Date/Time Associated Diagnosis Comme nts PTH Routine 11/26/2016 Hyperparathyroidism Results for this procedure are i n the results section . VITAMIN D, 25-HYDROXY Routine 11/26/2016 Hyperparathyroidism Results for this procedure are i n the results section . documented in this encounter Results (ABNORMAL) Vitamin D, 25-Hydroxy (11/26/2016) [facility] 25-OH Vit D 46.2 Total (External Lab) Specimen (Source) Anatomical Location Collection Method / Collectio n Time Received Time / Laterality Volume Blood specimen 11/26/2016 (specimen) Narrative This result has an attachment that is no t available. Reyes Gillespie MD CHEMISTRY ORDERABLES (ABNORMAL) PTH (11/26/2016) P athologist Signature PTH 73 (External Lab) Specimen (Source) Anatomical Location Collection Method / Collectio n Time Received Time / Laterality Volume Blood specimen 11/26/2016 (specimen) Narrative This result has an attachment that is no t available. Reyes Gillespie MD CHEMISTRY ORDERABLES documented in this encounter Visit Diagnoses Diagnosis Hyperparathyroidism Hyperparathyroidism, unspecified documented in this encounter Care Teams Glaze Supervisor Relationship Specialty Start Date End Date Miriam Agee MD PCP - General General Internal Medicine 08/14/15 [address] [place] [address] documented as of this encounter
--- OUTSIDE RECORDS SUMMARY | 2021-11-12 00:56 | XMS_ITS | Encounter Summary ---
:1955 Author Organization [facility] [place] [address] Care Team Providers Name Role Phone Miriam Agee MD Primary Care Provider Reason for Visit Surgical (Routine) - Closed Specialty Diagnoses / Procedures Referred By Contact Refer red To Contact Gastroenterology Diagnoses Hiatal hernia HH Erasto Hammond, [facility] Gastro 4t Procedures MANOMETRY ESOPHAGEAL [facility] [place] [address] [place] [address] Referral ID Status Reason Start Date Expiration Date Visits V isits Requested Authorized [id number] Closed Test Only 08/14/2015 08/13/2016 1 1 Encounter Details Date Type Department Care Team Description 11/16/2015 Procedure visit Gastroenterology at [facility] STEVIE Syed (hiatus hernia) [facility] [place] [address] RN [phone] Social History Tobacco Use Types Packs/Day Years Used Date Never Smoker Smokeless Tobacco: Never Used Alcohol Use Standard Drinks/Week Comments No 0 (1 standard drink = 0.6 oz pure alcoho l) Sex Assigned at Date Recorded Not on file documented as of this encounter Progress Notes Tasha Syed RN - 11/16/2015 8:00 AM EDT HROEM catheter placed via Left nare without difficulty. Patient tolerated procedure well. documented in this encounter Plan of Treatment Scheduled Referrals Name Type Priority Associated Order Schedule Diagnoses Referral to Outpatient Routine Hiatal hernia Ordered: Gastroenterology Referral 08/14/2015 documented as of this encounter Visit Diagnoses Diagnosis HH (hiatus hernia) Diaphragmatic hernia without mention of obstruction or gangrene documented in this encounter Care Teams Bricklayer Supervisor Relationship Specialty Start Date End Date Miriam Agee MD PCP - General General Internal Medicine 08/14/[address] [place] [address] documented as of this encounter
--- OUTSIDE RECORDS SUMMARY | 2021-11-12 00:56 | XMS_ITS | Encounter Summary ---
:1955 Author Organization [facility] [place] [address] Care Team Providers Name Role Phone Miriam Agee MD Primary Care Provider Encounter Details Date Type Department Care Team Description 12/05/2016 External Results Endocrinology at [facility] Nav Gillespie, Hyperparathyroidism [facility] [place] [address] CENTER [phone] [place] [address] Social History Tobacco Use Types Packs/Day Years [...] Name Priority Date/Time Associated Diagnosis Comme nts HEMOGLOBIN A1C Routine 11/26/2016 Hyperparathyroidism Result s for this procedure are i n the results section . BASIC METABOLIC PANEL Routine 11/26/2016 Hyperparathyroidism Results for this (NON-FASTING) procedure are in the results section . documented in this encounter Results (ABNORMAL) Hemoglobin A1c (11/26/2016) [facility] gist Method Time Signature Hemoglobin A1C 6.8 (EXTERNAL/ ABN) Specimen (Source) Anatomical Location Collection Method / Collectio n Time Received Time / Laterality Volume Blood specimen 11/26/2016 (specimen) Narrative This result has an attachment that is no t available. Reyes Gillespie MD CHEMISTRY ORDERABLES (ABNORMAL) Basic Metabolic Panel (non-fasting) (11/26/2016) P athologist Signature Glucose Lvl 118 (EXTERNAL/ ABN) BUN 12 (External Lab) Creatinine 0.72 (External Lab) Sodium 141 (External Lab) Potassium 3.8 (External Lab) Calcium 9.4 (External Lab) TSH 2.83 (External Lab) Specimen (Source) Anatomical Location Collection Method / Collectio n Time Received Time / Laterality Volume Blood specimen 11/26/2016 (specimen) Narrative This result has an attachment that is no t available. Reyes Gillespie MD CHEMISTRY ORDERABLES documented in this encounter Visit Diagnoses Diagnosis Hyperparathyroidism Hyperparathyroidism, unspecified documented in this encounter Care Teams Second Baller Relationship Specialty Start Date End Date Miriam Agee MD PCP - General General Internal Medicine 08/14/[address] [place] [address] documented as of this encounter
--- OUTSIDE RECORDS SUMMARY | 2021-11-12 00:56 | XMS_ITS | Encounter Summary ---
:1955 Author Organization [facility] [place] [address] Care Team Providers Name Role Phone Enedina Agee MD Primary Care Provider Encounter Details Date Type Department Care Team Description 12/18/2015 Office Visit Endocrinology at [facility] Nav Gillespie, Hyperparathyroidism; [facility] Reyes Vogt MD Other specified acquired hypothyroidism; [facility] [place] [address] CENTER [phone] [address] [place] [address] Social History Tobacco Use Types Packs/Day Years [...] Sign Reading Time Taken Comments Blood Pressure 141/89 12/18/2015 1:23 PM EDT Pulse 100 12/18/2015 1:23 PM EDT Temperature - - Respiratory Rate - - Oxygen Saturation - - Inhaled Oxygen Concentration - - Weight 93.6 kg (206 lb 6.4 oz) 12/18/2015 1:23 PM EDT Height 165.1 cm (5' 5) 12/18/2015 1:23 PM EDT Body Mass Index 34.35 12/18/2015 1:23 PM EDT documented in this encounter Patient Instructions Patient InstructionsReyes Gillespie MD - 12/18/2015 1:30 PM EDT Plan: 1. Medication: Pt will cont levothyroxine 25 mcg qd upon awakening at least 30 mins before breakfastfor her mild hypothyroid (TSH 6.91=> 2.36 now after Rx, normal 0.3-4.2) To cont taking vitamin D 50,000 iu weekly Pt will increase her Ca/D 600/400 mg from 1 to 2 tablets qPM for her rising PTH with stable vitD levels at 44-49 range (normal 30-100) in addition to MVI. This will help suppress PTH in entirely normal range further for her. Info on possible side effects and how to take the medication properly was discussed at visit today. To continue all other medications, low fat/controlled carb diet & exercise per wt watcher program as tolerated to keep weight stable. 2. Lab: Already checked lab locally as above and will rechek lab locally in 3 months for calcium and PTH. To repeat DXA scan locally in early 2017 before next visit with us. 3. RTC: Next visit in 6 months. Will follow lab at outside lab again in 6 mo for TSH, PTH, BMP and 25-vitamin D. documented in this encounter Progress Notes Reyes Gillespie MD - 12/18/2015 1:30 PM EDT Endocrine Clinic Name: Uma Winston Hood : 1955 PCP: ENEDINA AGEE MD Provided by: Reyes Gillespie MD, PhD, FACE Date: 12/18/2015 Reason for visit: Endocrine visit for post right lower pole parathyroid adenoma resection since 05/2013 for primary hyperparathyroidism with normalized Ca & PTH after the surgery but then her PTH kenney back up to 78-132 due to 2ry hyperPTH, and recently better with PTH down to 81 and then normal at 51 after taking vitamin D 50,000 iu weekly [...] in mother and 2 maternal aunts Z83.49 OSH lab 02/03/15 PTH- 81 (was 132; [...] PTH 91 25vitamin D 44.4 TSH 2.36 Uma Hood is doing better during the interim on vitamin D 50,000 iu weekly since July 2014 withbetter vitamin D and normalized PTH results but then rising back to 91 as above. She used to have low normal Ca 8.8 in July 2014 and pending for lab results to fax to me soon for Ca level. She is takingCaD 1 tab daily and will increase to 2 tab qpm for now. She felt much better after her PTH adenoma was removed with less fatigue and did not have much symptoms from having mild hypothyroidism. No fracture with normal DXA scan ~2 yrs ago at that time pf PTH surgery per pt. She has good weight control (down from 212 to 208 and now 206 lbs over 6 months), using wt watcher. No palpitations, CP, SOB, GI issues and better from dry skin. No changes in her hairs (still having thin hairs for years) and no heat or cold intolerance. No REDMOND or visual changes. No swelling in LEs or foot problem. ROS: Please see HPI, all others negative [...] in mother and 2 maternal aunts Z83.49 Current Outpatient Prescriptions on File Prior to [...] tablet by mouth daily. ??? GLUC/FATMATA-MSM#1/VIT C/NATALIE/BOR ([id number] COMPLEX ORAL) Take by mouth daily. ??? [...] tobacco: Never Used ??? Alcohol use No ??? Drug use: No ??? Sexual activity: No Other Topics Concern ??? None Social History Narrative FAMILY HISTORY Family History Problem Relation Age of Onset ??? Thyroid Disease Mother ??? Coronary Artery Disease Mother ??? Coronary Artery Disease Father ??? Cancer Maternal Aunt breast ??? Thyroid Disease Maternal Aunt ??? Cancer Maternal Uncle colon Physical exam BP 141/89 Pulse 100 Ht 165.1 cm (5' 5) Wt 93.6 kg (206 lb 6.4 oz) BMI 34.35 kg/m2 Appearance: obese, pleasant, NAD HEENT: PERRLA, EOMI, no lid lag or exophthalmos Neck: supple, no goiter or lymphadenopathy Chest: CTA bilaterally, no wheeze or crackles Heart: normal S1, S2, no murmur Abd: benign, ND, NT Ext: normal skin texture and temperature no pitting edema Neuro: no weakness, normal reflexes Assessment: 60 yo lady s/p right lower pole parathyroid adenoma resection since 05/2013 for primary hyperparathyroidism with normalized Ca & PTH initially. However, her PTH then kenney back up to 78 (07/10/13) and 132 (07/12/14) with low normal Ca 8.8 and low normal vitamin D in low 30s, suggestive of 2ry hyperPTH. Her PTH is now normalized ar 51 after weekly vitamin D treatment for the past year with entirely normal vitamin D at 45-49 range. She will cont taking the prescription vitamin D weekly to keep her vitamin D in mid normal range further, which in turn helps suppress PTH for her. Also, borderline hypothyroid with TSH 5.8->5.38 in the past, better spontaneously with TSH of 2.61-3.0 range but then back up to 6.91. She used to lose wt 11 lbs down with wt watcher but then stablelately with stress from her dad's in . She has strong FH of hypothyroid in mother and 2 maternal aunts. She started a low dose LT4 since August 2015 with good response and will try to help keep TSH back in normal range. She has preDM/mild DM with high A1c 6.7% in and then went back down to 6.0% in . Plan: 1. Medication: Pt will cont levothyroxine 25 mcg qd upon awakening at least 30 mins before breakfastfor her mild hypothyroid (TSH 6.91=> 2.36 now after Rx, normal 0.3-4.2) To cont taking vitamin D 50,000 iu weekly Pt will increase her Ca/D 600/400 mg from 1 to 2 tablets qPM for her rising PTH with stable vitD levels at 44-49 range (normal 30-100) in addition to MVI. This will help suppress PTH in entirely normal range further for her. Info on possible side effects and how to take the medication properly was discussed at visit today. To continue all other medications, low fat/controlled carb diet & exercise per wt watcher program as tolerated to keep weight stable. 2. Lab: Already checked lab locally as above and will rechek lab locally in 3 months for calcium and PTH. To repeat DXA scan locally in early 2017 before next visit with us. 3. RTC: Next visit in 6 months. Will follow lab at outside lab again in 6 mo for TSH, PTH, BMP and 25-vitamin D. We have reviewed our plan outlined above with the patient and patient verbalized understanding. All questions were answered and most of the time was spent on counseling about medication adjustment, thediagnostic and therapeutic decisions, and coordination of care. Reyes Gillespie MD, PhD, FACE CC: ENEDINA AGEE MD documented in this encounter Plan of Treatment Not on filedocumented as of this encounter Visit Diagnoses Diagnosis Hyperparathyroidism Hyperparathyroidism, unspecified Other specified acquired hypothyroidism Vitamin D deficiency Unspecified vitamin D deficiency documented in this encounter Care Teams Switch Maker Relationship Specialty Start Date End Date Enedina Agee MD PCP - General General Internal Medicine 08/14/[address] [place] [address] documented as of this encounter
--- OUTSIDE RECORDS SUMMARY | 2021-11-12 00:56 | XMS_ITS | Encounter Summary ---
:1955 Author Organization [facility] [place] [address] Care Team Providers Name Role Phone Miriam Agee MD Primary Care Provider Encounter Details Date Type Department Care Team Description 08/27/2015 External Endocrinology at [facility], Other speci fied hypothyroidism; Results [facility] Reyes Vogt MD [facility] [address] [place] ENDOCRINOLOGY [id number] DEPT. [phone] [place] [address] Social History Tobacco Use Types Packs/Day Years [...] Date/Time Associated Diagnosis Comme nts PTH Routine 08/08/2015 Other specified Results for this hypothyroidism procedure are in the Vitamin D deficiency results section. VITAMIN D, 25-HYDROXY Routine 08/08/2015 Hyperparat hyroidism Results for this Vitamin D deficiency procedu re are in the results section . documented in this encounter Results (ABNORMAL) VIT D Total Evaluation (08/08/2015) Analysis Performed At Patho logist Time Signature 25-OH Vit D 49.4 Total (External Lab) Specimen (Source) Anatomical Location Collection Method / Collectio n Time Received Time / Laterality Volume Blood specimen 08/08/2015 (specimen) Narrative This result has an attachment that is no t available. Reyes Gillespie MD CHEMISTRY ORDERABLES (ABNORMAL) PTH (08/08/2015) Analysis Performed At Patho logist Time Signature PTH Intact-Eso 51 (External Lab) Specimen (Source) Anatomical Location Collection Method / Collectio n Time Received Time / Laterality Volume Blood specimen 08/08/2015 (specimen) Narrative This result has an attachment that is no t available. Reyes Gillespie MD CHEMISTRY ORDERABLES documented in this encounter Visit Diagnoses Diagnosis Other specified hypothyroidism Vitamin D deficiency Unspecified vitamin D deficiency Hyperparathyroidism Hyperparathyroidism, unspecified documented in this encounter Care Teams Construction Scheduler Relationship Specialty Start Date End Date Miriam Agee MD PCP - General General Internal Medicine 08/14/[address] [place] [address] documented as of this encounter
--- OUTSIDE RECORDS SUMMARY | 2021-11-12 00:56 | XMS_ITS | Encounter Summary ---
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 I will complete this process today and get it into the mail. documented in this encounter Plan of Treatment Not on filedocumented as of this encounter Visit Diagnoses Not on filedocumented in this encounter Care Teams Conveyor Installer Relationship Specialty Start Date End Date Miriam Agee MD PCP - General General Internal Medicine 08/14/15 [address] [place] [address] documented as of this encounter
--- OUTSIDE RECORDS SUMMARY | 2021-11-12 00:56 | XMS_ITS | Encounter Summary ---
:1955 Author Organization [facility] [place] [address] Care Team Providers Name Role Phone Miriam Agee MD Primary Care Provider Reason for Visit Reason Comments Medication Refill Encounter Details Date Type Department Care Team Description 08/30/2016 Refill Endocrinology at [facility] Reyes Early MD [facility] [place] [address] ENDOCRINOLOGY DEPT. [phone] [place] [id number] (Wo rk) Social History Tobacco Use Types [...] on filedocumented in this encounter Care Teams Big Data Engineer Relationship Specialty Start Date End Date Miriam Agee MD PCP - General General Internal Medicine 08/14/[address] [place] [address] documented as of this encounter
--- OUTSIDE RECORDS SUMMARY | 2021-11-12 00:56 | XMS_ITS | Encounter Summary ---
:1955 Author Organization [facility] [place] [address] Care Team Providers Name Role Phone Miriam Agee MD Primary Care Provider Encounter Details Date Type Department Care Team Description 12/18/2015 Clinical Support Same Day at [facility] Paraesophageal hernia [facility] [place] [address] Social History Tobacco Use Types Packs/Day [...] documented as of this encounter Progress Notes Magalis Anderson RN - 12/18/2015 2:40 PM EDT PAT questionnaire reviewed with patient while in Pre Admission testing. Anesthesia has made patient sick to her stomach in the past. Patient does not sleep well at night due to chronic bilateral hip pain. Pre-operative instruction booklet reviewed with patient. Reviewed importance of pain control and cough and deep breathing exercise during the post-operative period. Instructed patient on use of Hibiclens soap to shower with the night before surgery or the morning of surgery. Pt verbalizes good understanding of all information reviewed. PLAN Testing: Labs, T&S, EKG Special medication instructions: Procedure date: 01-13-16 Dr. Hammond documented in this encounter Plan of Treatment Not on filedocumented as of this encounter Procedures Procedure Name Priority Date/Time Associated Diagnosis Comme nts EKG 12-LEAD Routine 12/18/2015 3:11 PM Paraesophageal hernia Results for this EDT procedure are i n the results section. documented in this encounter Results EKG 12 Lead (12/18/2015 3:11 PM EDT) [facility] gist Method Time Signature Ventricular rate 77 BPM MUSE SYSTEM Atrial Rate 77 BPM MUSE SYSTEM P-R Interval 148 ms MUSE SYSTEM QRS Duration 82 ms MUSE SYSTEM Q-T Interval 372 ms MUSE SYSTEM QTC Calculated 420 ms MUSE SYSTEM (Bezet) Calculated P [place] 28 degrees MUSE SYSTEM Calculated R [place] 47 degrees MUSE SYSTEM Calculated T [place] 33 degrees MUSE SYSTEM INTERPRETATION Normal sinus rhythm MUSE SYSTEM Normal ECG No previous ECGs available Confirmed by MD Sirena, Sahil ([id number]) on 12/18/2015 5: 38:12 PM Specimen Anatomical [...] gangrene documented in this encounter Care Teams Cable Technician Relationship Specialty Start Date End Date Miriam Agee MD PCP - General General Internal Medicine 08/14/[address] [place] [address] documented as of this encounter
--- OUTSIDE RECORDS SUMMARY | 2021-11-12 00:56 | XMS_ITS | Encounter Summary ---
:1955 Author Organization [facility] [place] [address] Care Team Providers Name Role Phone Miriam Agee MD Primary Care Provider Encounter Details Date Type Department Care Team Description 01/11/2016 Telephone Thoracic Surgery at [facility] [place] [address] Social History Tobacco Use Types Packs/Day [...] Telephone Encounter - Katherine Macdonald LNA - 01/11/2016 3:48 PM EST Call made to patient to talk about her surgery date. documented in this encounter Plan of Treatment Not on filedocumented as of this encounter Visit Diagnoses Not on filedocumented in this encounter Care Teams Data Reporting Analyst Relationship Specialty Start Date End Date Miriam Agee MD PCP - General General Internal Medicine 08/14/[address] [place] [address] documented as of this encounter
--- OUTSIDE RECORDS SUMMARY | 2021-11-12 00:56 | XMS_ITS | Encounter Summary ---
:1955 Author Organization [facility] [place] [address] Care Team Providers Name Role Phone Miriam Agee MD Primary Care Provider Encounter Details Date Type Department Care Team Description 01/25/2017 Telephone Thoracic Surgery at [facility] Kelsy Olivas [facility] [place] [address] Social History Tobacco Use Types Packs/Day [...] this encounter Miscellaneous Notes Telephone Encounter - Kelsy Olivas - 01/25/2017 3:22 PM EST left for Uma to call back to schedule f/u with Manish with CT and Barium Swallow prior documented in this encounter Plan of Treatment Not on filedocumented as of this encounter Visit Diagnoses Not on filedocumented in this encounter Care Teams Cognos Analyst Relationship Specialty Start Date End Date Miriam Agee MD PCP - General General Internal Medicine 08/14/15 [address] [place] [address] documented as of this encounter
--- OUTSIDE RECORDS SUMMARY | 2021-11-12 00:56 | XMS_ITS | Encounter Summary ---
:1955 Author Organization [facility] [place] [address] Care Team Providers Name Role Phone Miriam Agee MD Primary Care Provider Reason for Visit Consultation (Routine) - Closed Specialty Diagnoses / Procedures Referred By Contact Refer red To Contact Urology Diagnoses Single renal cyst Erasto Hammond Seigne, John D, MD MD [facility] D R UROLOGY THORACIC SURGERY [place], [place] [id number] [place] [id number] Referral ID Status Reason Start Date Expiration Date Visits V isits Requested Authorized [id number] Closed Consult, 02/07/2017 02/07/2018 1 1 Test & Treat Encounter Details Date Type Department Care Team Description 03/02/2017 Office Visit Hematology and Dagbora, Lee Renal cy st, acquired Oncology at [facility] MD Say Replaced by [facility] [address] Tol[place]ino DC UROLOGY [address] [place] [address] [phone] (Wo rk) Social History Tobacco Use Types [...] Sign Reading Time Taken Comments Blood Pressure 133/71 03/02/2017 10:27 AM EST Pulse 90 03/02/2017 10:27 AM EST Temperature - - Respiratory Rate 18 03/02/2017 10:27 AM EST Oxygen Saturation 98% 03/02/2017 10:27 AM EST Inhaled Oxygen Concentration - - Weight 94.5 kg (208 lb 5.4 oz) 03/02/2017 10:27 AM EST Height 164.5 cm (5' 4.76) 03/02/2017 10:27 AM EST Body Mass Index 34.92 03/02/2017 10:27 AM EST documented in this encounter Progress Notes Lee Barrientos MD - 03/02/2017 10:30 AM EST Images from the original note were not included. Patient Name: Uma Guillen Date of Service: 03/02/2017 Primary Care Provider: Miriam Agee MD Reason for Visit: Uma Guillen is a 62 y.o. 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 She has been on surveillance since then. On a recent chest CT she was incidentally found to have a left renal cyst. This cyst was seen in [address], she was seen by Dr. Brody at that time and a renal ultrasound confirmed a simple renal cyst and no further work-up was recommended. IT has increased slightly in size since 2013. Currently the patient has no irritative symptoms with minimal frequency and nocturia. The urinary stream is good and the bladder is emptied completely. There is no hematuria. Appetite is good weight is stable. There is no bone pain. Past Medical History: Past Medical History: Diagnosis Date ??? GERD [...] by Papa Dominguez MD at [facility] MAIN OR ??? PRO LAPAROSCOPY, SURG, REPAIR PARAESOPHAGEAL HERNIA, W/O IMPLANTATION OF MESH N/A 01/15/2016 ROBOT XI LAPAROSCOPIC PARAESOPHAGEAL HERNIA REPAIR W/FUNDOPLASTY,W/O MESH performed by Erasto Hammond MD at [facility] MAIN OR ??? PRO UPPER GI ENDOSCOPY, DIAGNOSTIC N/A 01/15/2016 ENDOSCOPY, UPPER GI, DIAGNOSTIC, WITH OR WITHOUT SPECIMENS performed by Erasto Hammond MD at [facility] MAIN OR Family History: No family history or disease, benign or malignant Social History: Social History Social History ??? Marital status: Spouse name: N/A ??? Number of children: N/A ??? Years of education: N/A Occupational History ??? Not on file. Social History Main Topics ??? Smoking status: Never Smoker ??? Smokeless tobacco: Never Used ??? Alcohol use No Comment: seldom ??? Drug use: No ??? Sexual activity: No Other Topics Concern ??? Not on file Social History Narrative Medications: Reviewed in EMR Allergies: Reviewed in EMR Systems review: HEENT: Denies problems with vision, hearing, runny nose, epistaxis, sore throat, hoarseness Cardiovascular: Denies Chest pain, palpitations, shortness of breath, ankle swelling, claudication Respiratory: Denies cough, phlegm, hemoptysis,wheeze, Gastrointestinal: Denies nausea, difficulty swallowing, vomiting, hematemesis. Occasional loose bowels. NO true diarrhea. Feels that foods trigger bowels. Neurological: Denies dizziness, double vision, headache, weakness of one side of the body or the other,sudden loss of vision in one eye, Bones and muscles: Knee pain (getting injections) and bilateral MS lower back pain. All other systems negative. Physical Exam: Vital Signs are reviewed. The patient appears healthy and in no distress. Examination of the hands, head neck, eyes ears nose and throat is normal. The skin is normal. There is no lymphadenopathy or thyroidomegaly The chest is clear to percussion and auscultation. Heart sounds I and II are normal without murmurs or added sounds. Peripheral pulses are full withoutbruits The abdomen is benign. There are no masses or organomegaly. Examination of the extremities and neurological examination is grossly normal. Lab values are reviewed in the EMR 11/2016 - Cr 0.72, BUN 12, lytes OK X-rays Have been independently 01/2013 RBUS - 2cm upper pole simple renal cyst 02/08/17 CT - 2cm simple appearing left renal cyst slightly increased in size from prior images Impression: #1: Left renal cyst, stable in size from 2013 #2: Moderate co-morbidity Plan: # RBUS to confirm simple cyst, if so then no follow-up is warranted We discussed renal cysts as well as the Bosniak classification system and recommended follow-up (seebelow). We discussed that this classification system was initially designed to use CT scans but manyfeel MRI and renal ultrasound have similar sensitivity to assess renal cyst complexity. This cyst has been previously characterized as consistent with a Bosniak 1 cyst and therefore no further work-up was recommended. There is no reason to believe that this has changed however, as the cyst has grown and was inadequately imaged on CT I think it makes the most sense to obtain a renal ultrasound to characterize. Bosniak 1 - simple cyst, anechoic, imperceptable wall, rounded - work up : nil - % malignant : ~ 0 Bosniak 2 - minimally complex, single thin (< 1mm) septations, thin Ca++; non-enhancing high-attenuation (due to to proteinaceous or hemorrhagic fluid) renal lesions of less than 3 cm are also included in this category; these lesions are generally well marginated. - work up : nil - % malignant : ~ 0 Bosniak 2F - minimally complex but requiring follow up. - increased number of septa, minimally thickened or enhancing septa or wall thick Ca++, - hyperdense cyst that is: > 3 cm diameter, mostly intrarenal (less than 25% of wall visible); noenhancement - work up : needs ultrasound / CT follow up - % malignant : ~ 25 %6 Bosniak 3 - indeterminate, thick or multiple septations, mural nodule, hyperdense on CT (see 2F) - treatment / work up : partial nephrectomy or RF ablation in elderly / poor surgical risk - % malignant : ~ 54%6 Bosniak 4 - clearly malignant, solid mass with large cystic or necrotic component - treatment: partial / total nephrectomy - % malignant : ~100% documented in this encounter Plan of Treatment Not on filedocumented as of this encounter Results US Retroperitoneal Complete (06/26/2017 [...] 10:25 am) PATIENT INFO: ID #: ? [id number] ?: ??[birth year] (62 yrs) Name: ? UMA GUILLEN ?Visit Date: 06/26/2017 09:29 am PERFORMED BY: Performed By: ? Audrey PALACIOS, ??Lenin fowler Attending: ?tEhan WARD, There J. Referred By: ?LEE BARRIENTOS Location: ? [facility] SERVICE(S) PROVIDED: ??URETRO - Retroperitoneal Complete - I [id number] ? [id number] INDICATIONS: ??incidential left renal cyst on Chest [...] 10:25 am ) PATIENT INFO: ID #: [id number] : [birth year] (62 y rs) Name: UMA GUILLEN Visit Date: 06/26 09:29 am PERFORMED BY: Performed By: Miriam Ventura RDMS Attending: Jami Long MD Referred By: LEE BARRIENTOS Location: [facility] SERVICE([facility]) PROVIDED: URETRO - Retroperitoneal Complete - [facility] [id number] INDICATIONS: incidential left renal cyst on Chest [...] Renal cyst, acquired Acquired cyst of kidney Renal cyst, acquired Acquired cyst of kidney documented in this encounter Care Teams Certified Welding Inspector Relationship Specialty Start Date End Date Miriam Agee MD PCP - General General Internal Medicine 08/14/[address] [place] [address] documented as of this encounter
--- OUTSIDE RECORDS SUMMARY | 2021-11-12 00:56 | XMS_ITS | Encounter Summary ---
:1955 Author Organization [facility] [place] [address] Care Team Providers Name Role Phone Enedina Agee MD Primary Care Provider Encounter Details Date Type Department Care Team Description 08/14/2015 Office Visit Endocrinology at [facility] Nav Gillespie, Other specified hypothyroidi sm; [facility] Reyes Vogt [place] [address] CENTER [phone] [address] [place] [address] Social History Tobacco Use Types Packs/Day Years Used Date Never Smoker Smokeless Tobacco: Never Used Alcohol Use Standard Drinks/Week Comments No 0 (1 standard drink = 0.6 oz pure alcoho l) Sex Assigned at Date Recorded Not on file documented as of this encounter Patient Instructions Patient InstructionsReyes Gillespie MD - 08/14/2015 3:18 PM EDT Plan: 1. Medication: Pt will try levothyroxine 25 mcg qd upon awakening at least 30 mins before breakfast for her mild hypothyroid (TSH 6.91, normal 0.3-4.2) To cont taking vitamin D 50,000 iu weekly in addition to her Ca/D and MVI. This will help suppress PTH in [...] above and will rechek lab locally in 4-6 week soon for TSH Then recheck lab for PTH, TSH and 25vitamin D in 6 mo before we consider tapering the dose of vitamin D down to q 2 weeks in the future. 3. RTC: Next visit in 6 months. Will follow lab at outside lab again in 6 mo for TSH, PTH, Ca, 25-vitamin D. documented in this encounter Progress Notes Reyes Gillespie MD - 08/14/2015 2:48 PM EDT Endocrine Clinic Name: Uma Hood : 1955 PCP: ENEDINA AGEE MD Provided by: Reyes Gillespie MD, PhD, FACE Date: 08/14/2015 Reason for visit: Endocrine visit for post [...] ) E03.9 ??? Prediabetes (A1c 6.4% 12/17/12) R73.09 ??? Obesity E66.9 ??? Hyperparathyroidism E21.3 ??? [...] in pre-DM now (was 6.7% in ) Just had lab on Sat August 08, 2015 at outside lab & will fax the results to us soon. PTH 51 25vitamin D 49.4 TSH 6.91 Uma Hood is doing better during the interim after switching her OTC- vitamin D 2,400 iu/day tovitamin D 50,000 iu weekly since July 2014 with better vitamin D and normalized PTH results as above.She feels much better after her PTH adenoma was removed with less fatigue and did not have much symptoms from having mild hypothyroidism. She has good weight control (down from 212 to 208 lbs over 6 months), using wt watcher but lately she has difficulty losing wt and has lots of stress after her father in . No palpitations, CP, SOB, GI issues but some dry skin chronically. No changes in her hairs (still having [...] in ) E03.9 ??? Prediabetes (A1c 6.4% 13) R73.09 ??? Obesity E66.9 ??? Hyperparathyroidism E21.3 ??? Parathyroid adenoma D35.1 ??? Family history of aortic aneurysm in mother and brother) Z82.49 ??? Family history of hypothyroidism in mother and 2 maternal aunts Z83.49 Current Outpatient Prescriptions on File Prior to Visit Medication Sig Dispense Refill ??? losartan (COZAAR) 25 mg Tablet daily. ??? Cholecalciferol, Vitamin D3, 1,000 unit Capsule Take 1,000 Units by mouth daily. ??? cycloSPORINE (RESTASIS) 0.05 % Dropperette Place 1 drop into both eyes 2 times daily. ??? CALCIUM CITRATE/VITAMIN D3 (CALCIUM CITRATE + D ORAL) Take 1 tablet by mouth daily. ??? GLUC/FATMATA-MSM#1/VIT C/NATALIE/BOR ([id number] COMPLEX ORAL) Take by mouth daily. ??? [...] Metronidazole Hives ??? Sulfa (Sulfonamide Antibiotics) Hives History Social History ??? Marital status: Spouse name: N/A ??? Number of children: N/A ??? Years of education: N/A Social History Main Topics ??? Smoking status: Never Smoker ??? Smokeless tobacco: Never Used ??? Alcohol use: No ??? Drug use: No ??? Sexual activity: No Other Topics Concern ??? None Social History Narrative FAMILY HISTORY Family History Problem Relation Age of Onset ??? Thyroid Disease Mother ??? Coronary Artery Disease Mother ??? Coronary Artery Disease Father ??? Cancer Maternal Aunt breast ??? Thyroid Disease Maternal Aunt ??? Cancer Maternal Uncle colon Physical exam BW 208 lbs, BP 135/73, HR 88, RR 14 Appearance: obese, pleasant, NAD HEENT: PERRLA, EOMI, [...] spontaneously with TSH of 2.61-3.0 range but now back up to 6.91. She used to lose wt 11 lbs down with wt watcher but then stable lately with stress from her dad's in . She has strong FH of hypothyroid in mother and 2 maternal aunts. She is willing to try a low dose LT4 today to help keep TSH back in normal range. She has preDM/mild DM with high A1c 6.7% in and then went back down to 6.0% in . Plan: 1. Medication: Pt will try levothyroxine 25 mcg qd upon awakening at least 30 mins before breakfast for her mild hypothyroid (TSH 6.91, normal 0.3-4.2) To cont taking vitamin D 50,000 iu weekly in addition to her Ca/D and MVI. This will help suppress PTH in [...] above and will rechek lab locally in 4-6 week soon for TSH Then recheck lab for PTH, TSH and 25vitamin D in 6 mo before we consider tapering the dose of vitamin D down to q 2 weeks in the future. 3. RTC: Next visit in 6 months. Will follow lab at outside lab again in 6 mo for TSH, PTH, Ca and 25-vitamin D. We have reviewed our [...] filedocumented as of this encounter Results (ABNORMAL) TSH (09/19/2015) P athologist Signature TSH 2.15 (External Lab) Specimen (Source) Anatomical Location Collection Method / Collectio n Time Received Time / Laterality Volume Blood specimen 09/19/2015 (specimen) Narrative This result has an attachment [...] deficiency documented in this encounter Care Teams Performance Architect Relationship Specialty Start Date End Date Enedina Agee MD PCP - General General Internal Medicine 08/14/[address] [place] [address] documented as of this encounter
--- OUTSIDE RECORDS SUMMARY | 2021-11-12 00:56 | XMS_ITS | Encounter Summary ---
:1955 Author Organization [facility] [place] [address] Care Team Providers Name Role Phone Papa Dunn MD Primary Care Provider [phone] Reason for Visit Reason Comments Vitamin D Deficiency Encounter Details Date Type Department Care Team Description 02/12/2015 Office Visit Endocrinology at [facility] Nav Gillespie, Hyperparathyroidism; [facility] Reyes Vogt [place] [address] CENTER [phone] [address] [place] [id number] Social History Tobacco Use Types Packs/Day Years Used Date Never Smoker Smokeless Tobacco: Never Used Alcohol Use Standard Drinks/Week Comments No 0 (1 standard drink = 0.6 oz pure alcoho l) Sex Assigned at Date Recorded Not on file documented as of this encounter Last Filed Vital Signs Vital Sign Reading Time Taken Comments Blood Pressure 130/71 02/12/2015 1:54 PM EST Pulse 107 02/12/2015 1:54 PM upset her dad admitted EST here . Temperature - - Respiratory Rate - - Oxygen Saturation - - Inhaled Oxygen - - Concentration Weight 96.2 kg (212 lb) 02/12/2015 1:54 PM EST Height 165.1 cm (5' 5) 02/12/2015 1:54 PM EST Body Mass Index 35.28 02/12/2015 1:54 PM EST documented in this encounter Patient Instructions Patient InstructionsReyes Gillespie MD - 02/12/2015 2:20 PM EST Assessment: 59 yo WM status post right lower pole parathyroid adenoma resection 1.5 yrs ago since 05/2013 for primary hyperparathyroidism and then had normalized Ca & PTH intraoperatively. However, her PTH thenrose back up to 78 (07/10/13) and 132 (07/12/14) with low normal Ca 8.8 and low normal vitamin D due to 2ry hyperPTH. Her PTH is now gladys normal at 81 now on weekly vitamin D supplement for 7 months with entirely normal vitamin D at 44.6. She will cont taking the prescription vitamin D weekly to keep her vitamin D in mid normal range further, which in turn, will help suppress PTH for her. Also, borderline hypothyroid with TSH 5.8->5.38 in the past but then better at 2.61-3.0 range. She used to lose wt 11 lbs down with wt watcher but then stable in weight with stress at work and her dad's illness. She has preDM/mild DM (A1c 6.7% in and then down to 6.0% in ). She has strong FH of hypothyroid in mother and 2 maternal aunts. Plan: 1. Medication: Pt will cont taking vitamin D 50,000 iu weekly in addition to her Ca/D and MVI. This will help suppress PTH further back down to entirely normal range soon for her. Info on possible sideeffects and how to take the medication properly was discussed at visit today. To continue all other medications, low fat/controlled carb diet & exercise per wt watcher program as tolerated to keep weight stable. 2. Lab: Already checked lab locally as above and will rechek lab locally in 3 months soon for PTH and 25vitamin D before we taper the dose of vitamin D down to q 2 weeks. 3. RTC: Next visit in 6 months. Will follow lab at outside lab again in 6 mo for TSH, PTH, Ca, 25-vitamin D and A1c. If PTH is normalized, we will let her see PCP directly after that to conclude her care. documented in this encounter Progress Notes Reyes Gillespie MD - 02/12/2015 2:02 PM EST Endocrine Clinic Name: Uma Hood : 1955 PCP: PAPA DUNN MD Provided by: Reyes Gillespie MD, PhD, FACE Date: 02/12/2015 Reason for visit: Endocrine visit for the following problem list: post right lower pole parathyroid adenoma resection on 05/2013 for primary hyperparathyroidism with normalized Ca & PTH after the surgery but then PTH kenney back up to 78-132 due to 2ry hyperPTH, and then better with PTH down to 81 on 02/03/15 after taking vitamin D 50,000 iu weekly since . Patient Active Problem List Diagnosis Code ??? Renal cyst Q61.00 ??? Hyperparathyroidism, primary (PTH 168, Ca 10.3-10.4, [...] => better spontaneously TSH 2.6 in ) E03.8 ??? Prediabetes (A1c 6.4% 12/17/12) R73.09 ??? Obesity E66.9 ??? Hyperparathyroidism E21.3 ??? Parathyroid adenoma D35.1 ??? Family history of aortic aneurysm in mother and brother) Z82.49 ??? Family history of hypothyroidism in mother and 2 maternal aunts Z83.49 OSH lab 02/03/15 PTH- 81 (was 132; normal 12-77) 25vitamin D- 44.6 (was 33 in , normal 30-100) TSH 3.0 last TPO Ab <28 A1c 6.0% better in , still in pre-DM now (was 6.7% in ) Uma Hood is doing better during the interim after switching her OTC- vitamin D 2,400 iu/day tovitamin D 50,000 iu weekly with better results as above. She feels less fatigue with stable weight. She will cont wt watcher which is excellent. Also taking care of her sick father who has pneumonia and CVA (Admitted at present and will be transferred from ICU to regular floor soon). No palpitations, CP, SOB, GI issues, changes of skin (a bit dry skin chronically). No changes in her hairs and no heator cold intolerance. No REDMOND or visual changes. No swelling in LEs or foot problem. ROS: Please see HPI, all others negative Patient Active Problem List Diagnosis Code ??? Renal cyst Q61.00 ??? Hyperparathyroidism, primary (PTH 168, Ca 10.3-10.4, [...] => better spontaneously TSH 2.6 in ) E03.8 ??? Prediabetes (A1c 6.4% 12/17/12) R73.09 ??? Obesity E66.9 ??? Hyperparathyroidism E21.3 ??? Parathyroid adenoma D35.1 ??? Family history of aortic aneurysm in mother and brother) Z82.49 ??? Family history of hypothyroidism in mother and 2 maternal aunts Z83.49 Current Outpatient Prescriptions on File Prior to Visit Medication Sig Dispense Refill ??? Cholecalciferol, Vitamin D3, 1,000 unit Capsule Take 1,000 Units by mouth daily. ??? ergocalciferol (VITAMIN D) 50,000 unit Capsule Take 1 capsule by mouth once a week. Or as instructed 13 capsule 4 ??? cycloSPORINE (RESTASIS) 0.05 % Dropperette Place 1 drop into both eyes 2 times daily. ??? CALCIUM CITRATE/VITAMIN D3 (CALCIUM CITRATE + D ORAL) Take 1 tablet by mouth daily. ??? GLUC/FATMATA-MSM#1/VIT C/NATALIE/BOR ([id number] COMPLEX ORAL) Take by mouth daily. ??? multivitamin (THERAGRAN) tablet Take 1 tablet by mouth daily. ??? omeprazole (PRILOSEC) 20 mg capsule Take 20 mg by mouth daily. ??? ibuprofen (ADVIL;MOTRIN) 200 mg tablet Take 200 mg by mouth every 6 hours as needed. No current facility-administered medications on file prior to visit. Allergies Allergen Reactions ??? Ciprofloxacin (Mixture) Hives ??? Metronidazole Hives ??? Sulfa (Sulfonamide Antibiotics) Hives History Social History ??? Marital Status: Spouse Name: N/A Number of Children: N/A ??? Years of Education: N/A Social History Main Topics ??? Smoking status: Never Smoker ??? Smokeless tobacco: Never Used ??? Alcohol Use: No ??? Drug Use: No ??? Sexual Activity: No Other Topics Concern ??? None Social History Narrative FAMILY HISTORY Family History Problem Relation Age of Onset ??? Thyroid Disease Mother ??? Coronary Artery Disease Mother ??? Coronary Artery Disease Father ??? Cancer Maternal Aunt breast ??? Thyroid Disease Maternal Aunt ??? Cancer Maternal Uncle colon Physical exam BP 130/71 mmHg Pulse 107 Ht 165.1 cm (5' 5) Wt 96.163 kg (212 lb) BMI 35.28 kg/m2 Appearance: obese, pleasant, NAD HEENT: PERRLA, EOMI, no lid lag or exophthalmos Neck: supple, no goiter or lymphadenopathy Chest: CTA bilaterally, no wheeze or crackles Heart: normal S1, S2, no murmur Abd: benign, ND, NT Ext: normal skin texture and temperature no pitting edema Neuro: no weakness, normal reflexes Assessment: 59 yo WM status post right lower pole parathyroid adenoma resection 1.5 yrs ago since 05/2013 for primary hyperparathyroidism and then had normalized Ca & PTH intraoperatively. However, her PTH thenrose back up to 78 (07/10/13) and 132 (07/12/14) with low normal Ca 8.8 and low normal vitamin D due to 2ry hyperPTH. Her PTH is now gladys normal at 81 now on weekly vitamin D supplement for 7 months with entirely normal vitamin D at 44.6. She will cont taking the prescription vitamin D weekly to keep her vitamin D in mid normal range further, which in turn, will help suppress PTH for her. Also, borderline hypothyroid with TSH 5.8->5.38 in the past but then better at 2.61-3.0 range. She used to lose wt 11 lbs down with wt watcher but then stable in weight with stress at work and her dad's illness. She has preDM/mild DM (A1c 6.7% in and then down to 6.0% in ). She has strong FH of hypothyroid in mother and 2 maternal aunts. Plan: 1. Medication: Pt will cont taking vitamin D 50,000 iu weekly in addition to her Ca/D and MVI. This will help suppress PTH further back down to entirely normal range soon for her. Info on possible sideeffects and how to take the medication properly was discussed at visit today. To continue all other medications, low fat/controlled carb diet & exercise per wt watcher program as tolerated to keep weight stable. 2. Lab: Already checked lab locally as above and will rechek lab locally in 3 months soon for PTH and 25vitamin D before we taper the dose of vitamin D down to q 2 weeks. 3. RTC: Next visit in 6 months. Will follow lab at outside lab again in 6 mo for TSH, PTH, Ca, 25-vitamin D and A1c. If PTH is normalized, we will let her see PCP directly after that to conclude her care. We have reviewed our plan outlined above with the patient and patient verbalized understanding. All questions were answered and most of the time was spent on counseling about medication adjustment, thediagnostic and therapeutic decisions, and coordination of care. Reyes Gillespie MD, PhD, FACE CC: PAPA DUNN MD documented in this encounter Plan of Treatment Not on filedocumented as of this encounter Results (ABNORMAL) VIT D Total [...] encounter Visit Diagnoses Diagnosis Hyperparathyroidism Hyperparathyroidism, unspecified Vitamin D deficiency Unspecified vitamin D deficiency documented in this encounter Care Teams Paper Pattern Inspector Relationship Specialty Start Date End Date Papa Dunn MD PCP - General 02/03/14 08/13/[address] [place] [address] documented as of this encounter
--- OUTSIDE RECORDS SUMMARY | 2021-11-12 00:56 | XMS_ITS | Encounter Summary ---
:1955 Author Organization [facility] [place] [address] Care Team Providers Name Role Phone Miriam Agee MD Primary Care Provider Encounter Details Date Type Department Care Team Description 12/18/2015 Laboratory Appointment Lab at [facility] [place] [address] Social History Tobacco Use Types Packs/Day Years [...] Name Priority Date/Time Associated Diagnosis Comme nts HEMOGRAM Routine 12/18/2015 3:17 Paraesophageal hernia Res ults for this PM EDT procedure are i n the results section. DIFFERENTIAL, Routine 12/18/2015 3:17 Paraesophageal hernia Re sults for this AUTOMATED PM EDT procedure are i n the results section. TYPE AND SCREEN, SDP Routine 12/18/2015 3:17 Paraesophageal he rnia (FUTURE SURGERY, [facility] PM EDT SAME DAY PROGRAM ONLY) ABO/RH TYPING Routine 12/18/2015 3:17 Paraesophageal hernia Re sults for this PM EDT procedure are i n the results section. CBC (WITH DIFF) Routine 12/18/2015 3:17 Paraesophageal hernia PM EDT ANTIBODY SCREEN Routine 12/18/2015 3:17 Paraesophageal hernia Results for this PM EDT procedure are i n the results section. COMPREHENSIVE Routine 12/18/2015 3:17 Paraesophageal hernia Re sults for this METABOLIC PANEL PM EDT procedure ar e in (NON-FASTING) the results section. documented in this encounter Results Antibody screen (12/18/2015 3:17 PM EDT) Patholo gist Method Time Signature Ab Screen Negative [facility] LABORATORY Expires at 01/18/2016 [facility] [id number] on: [facility] LABORATORY Comment: Corrected from 01/16/16 12:00 [ Unknown] on 01/08/16 03:04 by Deepti Hook I.. Specimen Anatomical Collection Method Collection Time Receive d Time (Source) Location / / Volume Laterality Blood specimen 12/18/2015 3:17 PM 016 3:33 (specimen) EDT PM EDT Resulting Agency Comment Spec In Lab Erasto Hammond MD BLOOD BANK ORDERABLES Performing Organization Address City/[facility]/ZIP Code Phon e Number [address] ABO/Rh Typing (12/18/2015 3:17 PM EDT) P athologist Signature ABORh Type O Pos [facility] LABORATORY Specimen Anatomical Collection Method Collection Time Receive d Time (Source) Location / / Volume Laterality Blood specimen 12/18/2015 3:17 PM 016 3:33 (specimen) EDT PM EDT Resulting Agency Comment Spec In Lab Erasto Hammond MD BLOOD BANK ORDERABLES Performing Organization Address City/[facility]/ZIP [facility] Phon e Number [address] Differential, Automated (12/18/2015 3:17 PM EDT) P athologist Signature Neutrophils % 58.8 % [facility] LABORATORY Neutr Abs (ANC) 5.24 1.70 - [facility] 6.10 [facility] x10(3)/[facility] LABORATORY Lymphocytes % 29.6 % [facility] LABORATORY Lymphocytes Abs 2.6 0.9 - 3.2 [facility] x10(3)/[facility] LABORATORY Monocytes % 8.3 % [facility] LABORATORY Monocyte Abs 0.7 0.3 - 0.9 [facility] x10(3)/[facility] LABORATORY Eosinophils % 2.5 % [facility] LABORATORY Eosinophils Abs 0.2 0.0 - 0.4 [facility] x10(3)/[facility] LABORATORY Basophils % 0.6 % [facility] LABORATORY Basophils Abs 0.0 0.0 - 0.1 [facility] x10(3)/[facility] LABORATORY Immature Gran % 0.20 % [facility] LABORATORY Comment: Immature granulocytes(IG's)percentage an d absolute count will include metamyelocytes, myelocytes, and promyelo cytes. Blood smears from CBCs yielding IG's will be scanned manually for concor dance. If this scan disagrees with the automated IG or if promyelocytes are not ed, a manual differential will be performed. Lindsay Gran Abs 0.02 0.00 - 0.04 x10(3)/[facility] LABORATORY Specimen Anatomical Collection Method Collection Time Receive d Time (Source) Location / / Volume Laterality Blood specimen 12/18/2015 3:17 PM 016 3:38 (specimen) EDT PM EDT Resulting Agency Comment Spec In Lab Erasto Hammond MD HEMATOLOGY ORDERABLES Performing Organization Address City/State/ZIP [place] [address] Hemogram (12/18/2015 3:17 PM EDT) P athologist Signature WBC 8.9 4.0 - 9.5 [facility] x10(3)/[facility] LABORATORY RBC 5.12 4.00 - [facility] 5.21 [facility] x10(6)/[facility] LABORATORY Hemoglobin 14.8 11.7 - [facility] 15.5 gm/dL [facility] LABORATORY Hematocrit 45.1 35.7 - [facility] 45.8 % [facility] LAB[facility]ATORY MCV 88.1 82.6 - [facility] 94.4 fL [facility] LABORATORY MCH 28.9 27.1 - [facility] 32.0 pg [facility] LABORATORY MCHC 32.8 31.7 - [facility] 35.[facility] gm/dL [facility] LAB[facility]ORY Platelets 260 145 - 357 [facility] x10(3)/[facility] LABORATORY RDWSD 42.1 37.0 - [facility] MORE 46.0 [facility] LABORATORY RDWCV 13.0 11.5 - [facility] 14.1 % [facility] LABORATORY MPV 11.1 7.6 - 12.9 [facility] LABORATORY nRBC % Auto 0.0 % [facility] LABORATORY nRBC Abs Auto 0.000 0.000 - [facility] 0.000 [facility] x10(3)/[facility] LABORATORY Specimen Anatomical Collection Method Collection Time Receive d Time (Source) Location / / Volume Laterality Blood specimen 12/18/2015 3:17 PM 016 3:38 (specimen) EDT PM EDT Resulting Agency Comment Spec In Lab Erasto Hammond MD HEMATOLOGY ORDERABLES Performing Organization Address City/State/ZIP [place] [address] (ABNORMAL) Comprehensive metabolic panel (non-fasting) (12/18/2015 3:17 PM EDT) athologist Signature Glucose Lvl 118 65 - 199 [facility] mg/dL [facility] LABORATORY Comment: Diabetes: >=200 mg/dL plus symp toms BUN 10 8 - 18 mg/dL [facility] LABORATORY Creatinine 1.08 0.70 - 1.20 mg/dL [facility] LABORATORY Comment: Please note that the pediatric reference intervals supplied above were not validated at [facility]. Results from pediatri c patients should be interpreted in conjunction to the patient's age, height and muscle mass. Sodium 139 135 - 145 mmol/L [facility] LABORATORY Potassium 4.1 3.5 - 5.0 mmol/L [facility] LABORATORY Comment: Please note: ??Patients with WBC >100,00 0 may have falsely elevated Potassium levels. ??For accurate Potassium quantif ication in these patients send serum separator tube (gold top) for subsequent determinations. ??Contact the Clinical Chemistry Laboratory if there are any qu estions. Chloride 101 98 - 107 mmol/L [facility] LABORATORY CO2 23 22 - 31 mmol/L [facility] LABORATORY Anion Gap 15 5 - 15 mmol/L [facility] LABORATORY Calcium 9.5 8.5 - 10.5 mg/dL [facility] LABORATORY Total Protein 7.0 6.1 - 8.0 gm/dL [facility] LABORATORY Albumin 4.5 3.2 - 5.2 gm/dL [facility] LABORATORY AST 21 0 - 30 unit/L [facility] LABORATORY ALT 21 0 - 30 unit/L [facility] Alk Phos 69 40 - 104 unit/L [facility] LABORAT[facility] Total Bilirubin 0.2 0.2 - 1.3 mg/dL [facility] LABORAT[facility] Bili, Direct 0.1 0.0 - 0.3 mg/dL [facility] LABORATORY Estimated GFR 52 (L) >=60 [facility] LABORATORY Comment: This estimated GFR (eGFR) [...] the following links into your internet browser. [email or web address] Specimen Anatomical Collection Method Collection Time Receive d Time (Source) Location / / Volume Laterality Blood specimen 12/18/2015 3:17 PM 016 3:38 (specimen) EDT PM EDT Resulting Agency Comment Spec In Lab Erasto Hammond MD CHEMISTRY ORDERABLES Performing Organization Address City/State/Z[place] [address] documented in this encounter Visit Diagnoses Diagnosis Paraesophageal hernia Diaphragmatic hernia without mention of obstruction or gangrene documented in this encounter Care Teams Varnish Maker Relationship Specialty Start Date End Date Miriam Agee MD PCP - General General Internal Medicine 08/14/[address] [place] [address] documented as of this encounter
--- OUTSIDE RECORDS SUMMARY | 2021-11-12 00:56 | XMS_ITS | Encounter Summary ---
:1955 Author Organization [facility] [place] [address] Care Team Providers Name Role Phone Miriam Agee MD Primary Care Provider Reason for Referral Surgical (Routine) - Closed Specialty Diagnoses / Procedures Referred By Contact Refer red To Contact Gastroenterology Diagnoses Hiatal hernia Erasto Hammond, [facility] Gastro 4t Procedures MANOMETRY ESOPHAGEAL HREM MD [facility] [place] [address] Referral ID Status Reason Start Date Expiration Date Visits V isits Requested Authorized [id number] Closed Test Only 08/14/2015 08/13/2016 1 1 Diagnostic Test (Routine) - Closed Specialty Diagnoses / Procedures Referred By Contact Refer red To Contact Radiology Diagnoses Hiatal hernia Erasto Hammond MD Procedures XR Fluoro Barium Swallow [facility] [place] [address] Referral ID Status Reason Start Date Expiration Date Visits V isits Requested Authorized [id number] Closed Specialty 08/15/2015 08/14/2016 1 1 Service Requested Reason for Visit Consultation (Routine) - Closed Specialty Diagnoses / Procedures Referred By Contact Refer red To Contact Thoracic Surgery Diagnoses f/u pulmonary nodules hx carcinoid spindle cell tumor Miriam Agee MD Nugent, William C, MD [address] [facility] [address] [place] CARDIOTHORAC IC SURGERY [address] [place] [address] Fax: Referral ID Status Reason Start Date Expiration Date Visits V isits Requested Authorized [id number] Closed Consult, Test 06/05/2015 06/04/2016 6 [facility] PCP Updated and/or Approved Encounter Details Date Type Department Care Team Description 08/14/2015 Office Visit Thoracic Surgery at [facility] Erasto Hammond, Hiatal hernia [facility] [place] [address] [facility] [phone] THORACIC SURGERY [place], [place] [address] (Wo rk) Social History Tobacco Use Types Packs/Day Years Used Date Never Smoker Smokeless Tobacco: Never Used Alcohol Use Standard Drinks/Week Comments No 0 (1 standard drink = 0.6 oz pure alcoho l) Sex Assigned at Date Recorded Not on file documented as of this encounter Last Filed Vital Signs Vital Sign Reading Time Taken Comments Blood Pressure 135/73 08/14/2015 1:23 PM EDT Pulse 88 08/14/2015 1:23 PM EDT Temperature 36.8 ??C (98.2 ??F) 08/14/2015 1:23 PM EDT Respiratory Rate 18 08/14/2015 1:23 PM EDT Oxygen Saturation 99% 08/14/2015 1:23 PM EDT Inhaled Oxygen Concentration - - Weight 94.3 kg (208 lb) 08/14/2015 1:23 PM EDT Height 165.1 cm (5' 5) 08/14/2015 1:23 PM EDT Body Mass Index 34.61 08/14/2015 1:23 PM EDT documented in this encounter Patient Instructions Patient InstructionsAbigail Barrow, ANA - 08/14/2015 2:18 PM EDT Thank you for seeing Dr. Hammond. ?? He will see you back to his clinic in 3 months. ?? You have been referred to gastroenterology for esophageal manometry for hiatal hernia. That office will call you to schedule this procedure. ?? A Barium swallow has also been ordered on your behalf to evaluate for hiatal hernia. ?? Exercise: Daily aerobic exercise for at [...] questions or concerns. documented in this encounter Progress Notes Erasto Hammond MD - 08/31/2015 4:07 PM EDT I saw and examined Ms. Hood with the PA and agreed with the findings, assessment and plan. 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 She has been doing well, although she continues to have symptoms related to a hiatal hernia. She is having this repaired, and we will pursue a workup with esophageal manometry and swallow study in anticipation of a possible minimally invasive repair in the future. The patient will return to clinic in three months when this workup is completed. 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 She was last seen here in 2012 at which time several pulmonary nodules were being monitored. She reports that in the interval she has started treatment for HTN, and had a Right lower pole parathyroid adenoma resection in 2014. She reports that she is feeling well overall. She does note increased symptoms of I can't eat very fast and I get full quickly. She reports she experiences reflux symptoms but the prilosec helps keep them under control. She denies fevers, chills, sweats, unintentional weight changes, dysphagia, nausea, vomiting, hematemesis, nausea, vomiting, diarrhea, constipati on, melena, BRBPR, cough, hemoptysis, SOB, VALLECILLO, chest pain. Medications: Current Outpatient Prescriptions on File Prior [...] tablet by mouth daily. ??? GLUC/FATMATA-MSM#1/VIT C/NATALIE/BOR ([id number] COMPLEX ORAL) Take by mouth daily. ??? ibuprofen (ADVIL;MOTRIN) 200 mg tablet Take 200 mg by mouth every 6 hours as needed. ??? multivitamin (THERAGRAN) tablet Take 1 tablet by mouth daily. ??? omeprazole (PRILOSEC) 20 mg capsule Take 20 mg by mouth daily. No current facility-administered medications on file prior to visit. Physical Exam: BP 135/73 (Patient Position: Sitting) Pulse 88 Temp 36.8 ??C (98.2 ??F) (Temporal) Resp 18 Ht 165.1 cm (5' 5) Wt 94.3 kg (208 lb) SpO2 99% BMI 34.61 kg/m2 General Appearance: Alert, cooperative, no distress, appears stated age Lungs: Clear to auscultation bilaterally, respirations unlabored, no wheezes, crackles or ronchi. Heart: Regular rate and rhythm, S1 and S2 normal, no murmur, rub, or gallop Abdomen: Soft, NT/ND Extremities: Extremities normal, atraumatic, no cyanosis or edema Wound/Incision: Right chest clean, dry, intact, with evidence of good wound healing Imaging: I have independently visualized the following studies: CT Chest (08/14/15): Lungs and airways: There is a 1.1 cm pulmonary nodule in the right middle lobe (series 2, image 42),this is unchanged in size and appearance compared prior exam. Multiple additional subcentimeter bilateral pulmonary nodules are also unchanged in size and appearance. Pleura and pericardium: No pleural or pericardial effusion. Heart and vasculature: Within normal limits Mediastinum and hilar structures: No lymphadenopathy There is a hiatal hernia, slightly increased in size compared to prior exam. Otherwise, for the lackof intravenous contrast, the portions of the abdominal organs included in the field of view are unremarkable. Left superior pole exophytic renal cyst appears unchanged. Osseous structure: No focal lytic or sclerotic osseous lesion. Impression: Multiple bilateral pulmonary nodules are unchanged in size and appearance. Assessment: Uma Hood is a 60 y.o. 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 She is currently feeling well. Pulmonary nodules appear stable. A hiatal hernia does appear to be slightly increased in size. Patient would like to pursue possible surgical management of this hernia pendingfurther workup. Plan: 1. Swallow study 2. Esophageal manometry 3. Minimum of 30 minutes of aerobic exercise daily, weight loss as able 4. RTC in 3 months to discuss results of workup 5. Please call with any questions or concerns PARAG Mujica 08/14/2015 Thoracic Surgery documented in this encounter Plan of Treatment Scheduled Referrals Name Type Priority Associated Order Schedule Diagnoses Referral to Outpatient Routine Hiatal hernia Ordered: Gastroenterology Referral 08/14/2015 documented as of this encounter Results XR Fluoro Barium Swallow (11/16/2015 9:30 AM EDT) Anatomical Region Laterality Modality N/A Radio Fluoroscopy Specimen (Source) Anatomical Location Collection Method / Collectio n Time Received Time / Laterality Volume Impressions 11/16/2015 12:01 PM EDT Moderate sized paraesophageal hernia. Moderate gastroesophageal reflux observe jose luis I have personally reviewed the image(s) and the residents interpretation and agree with the findings, Jami Long MD at 11/16/2015 12:01 PM Narrative 11/16/2015 12:01 PM EDT EXAMINATION: XR FLUORO BARIUM SWALLOW CLINICAL HISTORY: 60-year-old female, ev aluate hiatal hernia TECHNIQUE: Double contrast esophagram wa s performed. Fluoroscopic spot films were obtained. Barium tablet was also gi zeus. Fluoroscopy time: 2.29 COMPARISON: CT chest from 08/14/2015 FINDINGS: There is a moderate sized paraesophageal hernia. The esophagus is normal in caliber, and is well distended on the do uble contrast views. The mucosal pattern is normal. There is tertiary waves noted within the esophagus. There is to and fro peristalsis within the lower esophag us and witnessed reflux to the upper esophagus. Moderate gastroesophageal ref lux was observed with the patient in NIUEAN position. The barium pill passed rapidly into the stomach. No abnormalities seen on phonation. Procedure Note Jami Long MD - 11/16/2015Forma tting of this note might be different from the original. EXAMINATION: XR FLUORO BARIUM SWALLOW CLINICAL HISTORY: 60-year-old female, ev aluate hiatal hernia TECHNIQUE: Double contrast esophagram wa s performed. Fluoroscopic spot films were obtained. Barium tablet was also gi zeus. Fluoroscopy time: 2.29 COMPARISON: CT chest from 08/14/2015 FINDINGS: There is a moderate sized paraesophageal hernia. The esophagus is normal in caliber, and is well distended on the do uble contrast views. The mucosal pattern is normal. There is tertiary waves noted within the esophagus. There is to and fro peristalsis within the lower esophag us and witnessed reflux to the upper esophagus. Moderate gastroesophageal ref lux was observed with the patient in NIUEAN position. The barium pill passed rapidly into the stomach. No abnormalities seen on phonation. IMPRESSION Moderate sized paraesophageal hernia. Moderate gastroesophageal reflux observe d. I have personally reviewed the image(s) and the residents interpretation and agree with the findings, Jami Long MD at 11/16/2015 12:01 PM Erasto Hammond MD IMG FLUORO ORDERABLES documented in this encounter Visit Diagnoses Diagnosis Hiatal hernia Diaphragmatic hernia without mention of obstruction or gangrene Hiatal hernia Diaphragmatic hernia without mention of obstruction or gangrene documented in this encounter Care Teams Engineering Supplies Sales Relationship Specialty Start Date End Date Miriam Agee MD PCP - General General Internal Medicine 08/14/15 [address] [place] [address] documented as of this encounter
--- OUTSIDE RECORDS SUMMARY | 2021-11-12 00:56 | XMS_ITS | Encounter Summary ---
:1955 Author Organization [facility] [place] [address] Care Team Providers Name Role Phone Miriam Agee MD Primary Care Provider Reason for Visit Reason Onset Date Comments Letter for School/Work 02/22/2016 Encounter Details Date Type Department Care Team Description 02/22/2016 Telephone Thoracic Surgery at [facility] for School/[place] [address] Social History Tobacco Use Types Packs/Day [...] encounter Miscellaneous Notes Telephone Encounter - Lisa Stein - 02/22/2016 8:23 AM EST She is planing on going back to work on 03/01/16 and needs a return to work letter. Please mail it to her. Please let me know if I can help. documented in this encounter Plan of Treatment Not on filedocumented as of this encounter Visit Diagnoses Not on filedocumented in this encounter Care Teams Tree Driller Relationship Specialty Start Date End Date Miriam Agee MD PCP - General General Internal Medicine 08/14/[address] [place] [address] documented as of this encounter
--- OUTSIDE RECORDS SUMMARY | 2021-11-12 00:56 | XMS_ITS | Encounter Summary ---
:1955 Author Organization [facility] [place] [address] Care Team Providers Name Role Phone Miriam Agee MD Primary Care Provider Encounter Details Date Type Department Care Team Description 12/18/2015 Telephone [place] [facility]ail Barrow[facility] [place] [address] Social History Tobacco Use Types Packs/Day [...] Telephone Encounter - Abigail Barrow RN - 12/18/2015 2:35 PM EDT SONAM Eaton on her mobile phone, as per our earlier conversation today, her [place] paperwork has been completed and signed by Dr. Hammond. It is waiting to be picked up today at the [address] [place] [address] desk. Ifit is not picked up by the patient, it will be faxed on 12/22/15 to her work. documented in this encounter Plan of Treatment Not on filedocumented as of this encounter Visit Diagnoses Not on filedocumented in this encounter Care Teams Home Health Lpn Relationship Specialty Start Date End Date Miriam Agee MD PCP - General General Internal Medicine 08/14/[address] [place] [address] documented as of this encounter
--- OUTSIDE RECORDS SUMMARY | 2021-11-12 00:56 | XMS_ITS | Encounter Summary ---
:1955 Author Organization [facility] Address [facility] [place] [address] Care Team Providers Name Role Phone Miriam Agee MD Primary Care Provider Encounter Details Date Type Department Care Team Description 02/01/2016 Hospital Encounter XRay at [facility] Paraesophageal hernia [address] [place] [address] [place]ELINDO Chaidez [phone] Social History Tobacco Use Types Packs/Day [...] 1 tablet by 0 tablet mouth daily. senna (SENOKOT) 8.6 mg Take 2 tablets [...] Name Priority Date/Time Associated Diagnosis Comme nts XR CHEST PA AND Routine 02/01/2016 9:59 AM Paraesophageal queta ia Results for this LATERAL EST procedure are i n the results [...] process. Erasto Hammond MD IMG DX ORDERABLES documented in this encounter Visit Diagnoses Diagnosis Paraesophageal hernia Diaphragmatic hernia without mention of obstruction or gangrene documented in this encounter Care Teams Industrial Gas Production Operator Relationship Specialty Start Date End Date Miriam Agee MD PCP - General General Internal Medicine 08/14/[address] [place] [address] documented as of this encounter
--- OUTSIDE RECORDS SUMMARY | 2021-11-12 00:56 | XMS_ITS | Encounter Summary ---
:1955 Author Organization [facility] [place] [address] Care Team Providers Name Role Phone Miriam Agee MD Primary Care Provider Reason for Referral Diagnostic Test (Routine) - Closed Specialty Diagnoses / Procedures Referred By Contact Refer red To Contact Radiology Diagnoses H/O esophageal hernia repair [facility] [address] [place] [address] Rad Xray Procedures XR Fluoro Barium Swallow [address] [place] [address] [place] [address] Referral ID Status Reason Start Date Expiration Date Visits V isits Requested Authorized [id number] Closed Specialty 12/29/2016 12/29/2017 1 1 Service Requested Diagnostic Test (Routine) - Closed Specialty Diagnoses / Procedures Referred By Contact Refer red To Contact Radiology Diagnoses Encounter for follow-up surveillance of lung cancer Lung nodule, multiple [facility] [address] [place] [address] Chest wo Contrast (Generic) [place] [address] [place] [address] Phone: Referral ID Status Reason Start Date Expiration Date Visits V isits Requested Authorized [id number] Closed Specialty 02/01/2017 03/03/2017 1 1 Service Requested Encounter Details Date Type Department Care Team Description 12/29/2016 Orders Only Thoracic Surgery at [facility] for follow-up surveillance of lung cancer; [facility] RN Lung nodule, multiple; [facility] H/[place] [address] Social History Tobacco Use Types Packs/Day [...] on filedocumented as of this encounter Results XR Fluoro Barium Swallow (02/06/2017 9:01 AM EST) Anatomical Region Laterality Modality N/A Radio Fluoroscopy Specimen (Source) Anatomical Location Collection Method / Collectio n Time Received Time / Laterality Volume Impressions 02/06/2017 9:53 AM EST 1. ??Small recurrent paraesophageal hernia with a sliding gastroesophageal junction. Wrap appears at and below left diaphragm. 2. ??Mild to moderate esophageal dysmoti lity. 3. ??No gastroesophageal reflux. 4. ??Normal oral and pharyngeal phases o f swallowing. 13 mm barium tablet passed easily into the stomach. I have personally reviewed the image(s) and the residents interpretation and agree with the findings, Bessie love at 02/06/2017 9:53 AM Narrative 02/06/2017 9:53 AM EST EXAMINATION: XR FLUORO BARIUM SWALLOW CLINICAL HISTORY: s/p robotic paraesopha geal hernia repair 2015, f/u exam for evaluation. TECHNIQUE: An AP standing view radiograph of the lo wer chest was obtained prior to the exam. A single contrast esophagram was p erformed. Fluoroscopic spot films were obtained. A 13 mm barium tablet was admi nistered. Fluoro time: 2.32 minutes COMPARISON: Barium swallow dated 01/16/2016, 11/16/19 16, chest CT 02/06/2017, 08/14/2015. FINDINGS: Lower chest radiograph: A small hernia w ith an air fluid level is seen above the left diaphragm. The stomach and bowel ar e not dilated. Status post right middle lobe resection. No focal consolidations in the bilateral lungs. No cardiomegaly. No osseous abnormalities. Barium swallow: The patient tolerated thin and thick con sistencies and a barium tablet without difficulty. Examination demonstrates mil d to moderate esophageal dysmotility characterized by delayed primary strippi ng wave, splitting of the barium column, tertiary contractions, residue within th e esophagus requiring secondary swallows to clear. Patient is status post paraesophageal he rnia repair with fundoplasty. There is a small recurrent paraesophageal hernia. D epending on the position of the patient, the gastroesophageal junction appears to slide, being located at, above and below the diaphragm during the exam; in the supine position the GE junction appears below the level of the diaphragm , with Valsalva maneuver the GE junction appeared above the diaphragm, and with t he patient in the upright/standing position, the GE junction was at the lev el of the diaphragm. ??The wrap appears at the level of the diaphragm in the sup ine position and below the diaphragm upon standing. No gastroesophageal reflux was elicited with provocative maneuvers. The oral and pharyngeal phases are swall owing are normal. The barium pill passed to the stomach without delay. There are flowing anterior marginal oste ophytes on C3-5, which do not cause a delay in the passage of contrast or pill ; nor did the patient complained of dysphagia or symptoms while swallowing l iquid barium pill. Procedure Note Bessie Lundy MD - 7 EXAMINATION: XR FLUORO BARIUM SWALLOW CLINICAL HISTORY: s/p robotic paraesopha geal hernia repair 2015, f/u exam for evaluation. TECHNIQUE: An AP standing view radiograph of the lo wer chest was obtained prior to the exam. A single contrast esophagram was p erformed. Fluoroscopic spot films were obtained. A 13 mm barium tablet was admi nistered. Fluoro time: 2.32 minutes COMPARISON: Barium swallow dated 01/16/2016, 11/16/19 16, chest CT 02/06/2017, 08/14/2015. FINDINGS: Lower chest radiograph: A small hernia w ith an air fluid level is seen above the left diaphragm. The stomach and bowel ar e not dilated. Status post right middle lobe resection. No focal consolidations in the bilateral lungs. No cardiomegaly. No osseous abnormalities. Barium swallow: The patient tolerated thin and thick con sistencies and a barium tablet without difficulty. Examination demonstrates mil d to moderate esophageal dysmotility characterized by delayed primary strippi ng wave, splitting of the barium column, tertiary contractions, residue within th e esophagus requiring secondary swallows to clear. Patient is status post paraesophageal he rnia repair with fundoplasty. There is a small recurrent paraesophageal hernia. D epending on the position of the patient, the gastroesophageal junction appears to slide, being located at, above and below the diaphragm during the exam; in the supine position the GE junction appears below the level of the diaphragm , with Valsalva maneuver the GE junction appeared above the diaphragm, and with t he patient in the upright/standing position, the GE junction was at the lev el of the diaphragm. The wrap appears at the level of the diaphragm in the sup ine position and below the diaphragm upon standing. No gastroesophageal reflux was elicited with provocative maneuvers. The oral and pharyngeal phases are swall owing are normal. The barium pill passed to the stomach without delay. There are flowing anterior marginal oste ophytes on C3-5, which do not cause a delay in the passage of contrast or pill ; nor did the patient complained of dysphagia or symptoms while swallowing l iquid barium pill. IMPRESSION 1. Small recurrent paraesophageal hernia with a sliding gastroesophageal junction. Wrap appears at and below left diaphragm. 2. Mild to moderate esophageal dysmotili ty. 3. No gastroesophageal reflux. 4. Normal oral and pharyngeal phases of swallowing. 13 mm barium tablet passed easily into the stomach. I have personally reviewed the image(s) and the residents interpretation and agree with the findings, Bessie love at 02/06/2017 9:53 AM Erasto Hammond MD IMG FLUORO ORDERABLES (ABNORMAL) CT Chest wo Contrast (Generic) (02/06/2017 7:59 AM EST) Anatomical Region Laterality Modality Chest Computed Tomography Specimen (Source) Anatomical Location Collection Method / Collectio n Time Received Time / Laterality Volume Impressions 02/06/2017 11:12 AM EST Numerous bilateral pulmonary nodules. These are unchanged in number and size. UNEXPECTED FINDING of displacement of pa rt of the stomach into the chest above the level of surgery. This is concerning for recurrent hernia. Soft tissue density mass at the upper po le of the left kidney, which is new in comparison to the most remote exams and has continuously grown on consecutive follow-up's. Although it is not possible to exclude malignancy, favor a proteinaceous cyst over malignancy consi dering that a prior ultrasound in 2012 showed a small cyst in the corresponding region. 40 mm borderline aneurysmal ascending ao rta. Narrative 02/06/2017 11:12 AM EST EXAMINATION: CT CHEST WO CONTRAST (GENERIC) CLINICAL HISTORY: hx. 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 bilateral pulmonary nodules on interval CT. f/u exam for surveillence. TECHNIQUE: Helical CT of the chest was p erformed without contrast. Multiplanar reformatted images were reviewed. COMPARISON: August 14, 2015. Other chest C Ts dating back to August 31, 2007. FINDINGS: Numerous bilateral pulmonary nodules (ov er 35 in total) measure between 2 mm and 1.1 cm in size (the largest is located i n the residual right middle lobe series 5, image 56). Direct comparison to prior exams is limi wesley by the large number, however, no definite change in number or size is valentina dent. One small nodule at the right medial bas e is intermittently more or less obscured by atelectasis associated with a hiatal/paraesophageal hernia (series 5, image 79). No interval enlargement of lymph nodes w ithin the chest. No pleural or pericardial effusion. Borderline ascendi ng aortic aneurysm measuring 40 mm in diameter. New postsurgical changes at the hiatus c onsistent with given history of paraesophageal hernia repair, however, t here is herniated stomach above this level. Limited upper abdomen: A 2.8 cm exophyti c soft tissue density lesion is seen at the upper pole of the left kidney. Skeleton: Degenerative changes. No aggre ssive osseous lesion. Resulting Agency Comment Unexpected Finding Erasto Hammond MD IMG CT ORDERABLES documented in this encounter Visit Diagnoses Diagnosis Encounter for follow-up surveillance of lung cancer Unspecified follow-up examination Lung nodule, multiple Other nonspecific abnormal finding of gadiel ng field H/O esophageal hernia repair Other postprocedural status Encounter for follow-up surveillance of lung cancer Unspecified follow-up examination Lung nodule, multiple Other nonspecific abnormal finding of gadiel ng field H/O esophageal hernia repair Other postprocedural status documented in this encounter Care Teams Lead Mechanic Relationship Specialty Start Date End Date Miriam Agee MD PCP - General General Internal Medicine 08/14/[address] [place] [address] documented as of this encounter
--- OUTSIDE RECORDS SUMMARY | 2021-11-12 00:56 | XMS_ITS | Encounter Summary ---
:1955 Author Organization [facility] [place] [address] Care Team Providers Name Role Phone Miriam Agee MD Primary Care Provider Encounter Details Date Type Department Care Team Description 12/09/2016 External Results Endocrinology at [facility] Reyes Early [facility] [place] [address] [facility] [phone] ENDOCRINOLOGY [facility] [place] [id number] (Wo rk) Social History Tobacco Use Types [...] Name Priority Date/Time Associated Diagnosis Comme nts EXTERNAL LAB CBC CMP Routine 11/26/2016 Results for this THYROID RESULTS PANEL proced ure are in the results section . documented in this encounter Results (ABNORMAL) CBC / CMP / Thyroid External Results (11/26/2016) [facility] gist Method Time Signature Hemoglobin A1C 6.8 (EXTERNAL/ ABN) Specimen (Source) Anatomical Location Collection Method / Collectio n Time Received Time / Laterality Volume 11/26/2016 Narrative This result has an attachment that is no t available. Reyes Gillespie MD POINT OF CARE TEST ORDERABLE S documented in this encounter Visit Diagnoses Not on filedocumented in this encounter Care Teams Typing Secretary Relationship Specialty Start Date End Date Miriam Agee MD PCP - General General Internal Medicine 08/14/[address] [place] [address] documented as of this encounter
--- OUTSIDE RECORDS SUMMARY | 2021-11-12 00:56 | XMS_ITS | Encounter Summary ---
:1955 Author Organization [facility] [place] [address] Care Team Providers Name Role Phone Miriam Agee MD Primary Care Provider Reason for Referral Diagnostic Test (Routine) - Closed Specialty Diagnoses / Procedures Referred By Contact Refer red To Contact Radiology Diagnoses H/O esophageal hernia repair [facility] [address] [place] [address] Rad Xray Procedures XR Fluoro Barium Swallow [address] [place] [address] [place] [address] Referral ID Status Reason Start Date Expiration Date Visits V isits Requested Authorized [id number] Closed Specialty 12/29/2016 12/29/2017 1 1 Service Requested Reason for Visit Diagnostic Test (Routine) - Closed Specialty Diagnoses / Procedures Referred By Contact Refer red To Contact Radiology Diagnoses H/O esophageal hernia repair [facility] [address] [place] [address] Rad Xray Procedures XR Fluoro Barium Swallow [address] [place] [address] [place] [address] Referral ID Status Reason Start Date Expiration Date Visits V isits Requested Authorized [id number] Closed Specialty 12/29/2016 12/29/2017 1 1 Service Requested Encounter Details Date Type Department Care Team Description 02/06/2017 Hospital En[place] [facility] [place] H/O esophageal [address] [place] [address] Dr Erasto Deal MD hernia repair [facility] [address] [place] [phone] [place] [address] Social History Tobacco Use Types Packs/Day Years [...] 0 tablet mouth daily. metFORMIN (FORTAMET) 500 Take 1-3 tablets 270 tablet 4 12/1212/11/2017 mg Tablet Extended Rel 24 by mouth daily. 1 hr tab daily for 3-7 days then 2 tab/day for 3-7 days and then 3 tablets daily astolerated VITAMIN D 50,000 unit TAKE ONE CAPSULE 13 capsule 1 08/31/19 17 04/18/2017 Capsule BY MOUTH ONCE A WEEK levothyroxine (SYNTHROID) Take 1.5 tablets 140 tablet 3 06/0406/13/2017 25 mcg Tablet by mouth daily. losartan (COZAAR) 25 mg Take [...] Priority Date/Time Associated Diagnosis Comme nts XR FLUORO BARIUM Routine 02/06/2017 9:01 AM H/O esophageal Res ults for this SWALLOW (SINGLE EST hernia repair procedure a re in CONTRAST) the results section. documented in this encounter Results XR Fluoro Barium Swallow [...] AM Erasto Hammond MD IMG FLUORO ORDERABLES documented in this encounter Visit Diagnoses Diagnosis H/O esophageal hernia repair Other postprocedural status documented in this encounter Care Teams Early Childhood Teacher Assistant Relationship Specialty Start Date End Date Miriam Agee MD PCP - General General Internal Medicine 08/14/[address] [place] [place] [address] documented as of this encounter
--- OUTSIDE RECORDS SUMMARY | 2021-11-12 00:56 | XMS_ITS | Encounter Summary ---
:1955 Author Organization [facility] [place] [address] Care Team Providers Name Role Phone Miriam Agee MD Primary Care Provider Encounter Details Date Type Department Care Team Description 12/09/2016 Telephone Endocrinology at [facility] [place] [address] Social History Tobacco Use Types Packs/Day [...] Telephone Encounter - Marleni Burch LPN - 12/09/2016 1:37 PM EDT Lab results received. TSH 2.83 was already scanned in. Ha1c6.8 forward to workers compensation legal secretary to scan into edh. Telephone Encounter - Marleni Burch LPN - 12/09/2016 11:08 AM EDT Uma Hood - 12/05/16 - Lab results? More Detail >> ?? Lab results? ?? Reyes Gillespie MD ?? Sent: MonDecember 07, 2016 ??7:42 PM ?? To: Nicolasa Sanchez Endocrinology Nurse ?? Message ?? Sina Yepez, please call this outside lab to verify the A1c results (hard to read the number - 5.8 or6.8?) and if they did lab for PTH and 25vitD as ordered?Will see her again on 12/12 as scheduled. Thanks, Reyes Called lab. Ha1c and TSH to be faxed. PTH and Vitamin D are in edh. documented in this encounter Plan of Treatment Not on filedocumented as of this encounter Visit Diagnoses Not on filedocumented in this encounter Care Teams Body And Fender Mechanic Apprentice Relationship Specialty Start Date End Date Miriam Agee MD PCP - General General Internal Medicine 08/14/15 [address] [place] [address] documented as of this encounter
--- OUTSIDE RECORDS SUMMARY | 2021-11-12 00:56 | XMS_ITS | Encounter Summary ---
:1955 Author Organization [facility] [place] [address] Care Team Providers Name Role Phone Miriam Agee MD Primary Care Provider Encounter Details Date Type Department Care Team Description 01/25/2017 Telephone [place] [facility] [place] [address] Social History Tobacco Use Types Packs/Day [...] Telephone Encounter - Katherine Macdonald LNA - 01/25/2017 4:00 PM EST Radiology safety questions documented in this encounter Plan of Treatment Not on filedocumented as of this encounter Visit Diagnoses Not on filedocumented in this encounter Care Teams Change Attendant Relationship Specialty Start Date End Date Miriam Agee MD PCP - General General Internal Medicine 08/14/[address] [place] [address] documented as of this encounter
--- OUTSIDE RECORDS SUMMARY | 2021-11-12 00:56 | XMS_ITS | Encounter Summary ---
:1955 Author Organization [facility] [place] [address] Care Team Providers Name Role Phone Miriam Agee MD Primary Care Provider Reason for Referral Consultation (Routine) - Closed Specialty Diagnoses / Procedures Referred By Contact Refer red To Contact Urology Diagnoses Single renal cyst Erasto Hammond Seigne, John D, MD MD [facility] Stevo Avendano [place] [address] Referral ID Status Reason Start Date Expiration Date Visits V isits Requested Authorized [id number] Closed Consult, 02/07/2017 02/07/2018 1 1 Test & Treat Encounter Details Date Type Department Care Team Description 02/07/2017 Orders Only Thoracic Surgery at [facility] Erasto Hammond Single renal cyst [facility] [place] [address] [facility] [phone] THORACIC SURGERY [place] [id number] (Wo rk) Social History Tobacco Use Types [...] of this encounter Plan of Treatment Scheduled Referrals Name Type Priority Associated Diagnoses Order S chedule Referral to Outpatient Referral Routine Single renal cyst Ord ered: Urology 02/07/2017 documented as of this encounter Visit Diagnoses Diagnosis 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
--- OUTSIDE RECORDS SUMMARY | 2021-11-12 00:56 | XMS_ITS | Encounter Summary ---
:1955 Author Organization [facility] [place] [address] Care Team Providers Name Role Phone Miriam Agee MD Primary Care Provider Encounter Details Date Type Department Care Team Description 02/01/2016 Office Visit Thoracic Surgery at [place], [place]; [facility] Erasto Deal MD Lung nodule < 6cm on CT [facility] [address] [place] [address] [place] [address] [phone] Social History Tobacco Use Types Packs/Day Years [...] Sign Reading Time Taken Comments Blood Pressure 137/79 02/01/2016 10:53 AM EST Pulse 72 02/01/2016 10:53 AM EST Temperature 36.8 ??C (98.2 ??F) 02/01/2016 10:53 AM EST Respiratory Rate 18 02/01/2016 10:53 AM EST Oxygen Saturation 95% 02/01/2016 10:53 AM EST Inhaled Oxygen Concentration - - Weight 90.5 kg (199 lb 9.6 oz) 02/01/2016 10:53 AM EST Height 165.1 cm (5' 5) 02/01/2016 10:53 AM EST Body Mass Index 33.22 02/01/2016 10:53 AM EST documented in this encounter Patient Instructions Patient InstructionsAbigail Barrow RN - 02/01/2016 11:00 AM EST Thank you for seeing Dr. Hammond. 1. He will see you in 1 year for a follow up visit. 2. Thoracic surgery will schedule you for a CT scan of your chest and a barium swallow at that 1 year visit. 3. Continue to exercise for 30 minutes per day or 3 hours per week. Please call Thoracic surgery at with any questions or concerns. 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 Treatment: Surveillance ?? Dx: Paraesophageal hernia Procedure (01/15/16): paraesophageal hernia repair HPI: Uma Hood is a 60 y.o. 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 She was discharged from the hospital on POD#1 without any complications. She was on a post taz diet which she tolerated well. Today she reports she is eating well and tolerating her diet. She is mostly eating a liquid diet butintroduces a new solid food, like eggs or mashed potatoes, daily. She states she has lost ~8lbs since the surgery. She is having regular bowel movements and is not using any pain medications. She denies f/c/n/v/SOB/CP/n/reflux. Medications: Current Outpatient Prescriptions on File Prior to Visit Medication Sig Dispense Refill ??? senna (SENOKOT) 8.6 mg Tablet Take 2 tablets by mouth every evening. 30 tablet 0 ??? polyethylene glycol (MIRALAX) 17 gram Powder in Packet Take 17 g by mouth daily. 14 each 0 ??? oxyCODONE (ROXICODONE) 5 mg/5 mL Solution Take 5-10 mLs by mouth every 4 hours as needed for Pain (for pain 4-6 take 5ml (5mg), for pain 7-1 take 10ml (10mg)). 300 mL 0 ??? ergocalciferol (VITAMIN D) 50,000 unit Capsule [...] tablet by mouth daily. ??? GLUC/FATMATA-MSM#1/VIT C/NATALIE/BOR (CXBOOMGGLOM-KUCLG-VNN COMPLEX ORAL) Take by mouth daily. ??? ibuprofen (ADVIL;MOTRIN) 200 mg tablet Take 200 mg by mouth every 6 hours as needed. ??? multivitamin (THERAGRAN) tablet Take 1 tablet by mouth daily. ??? omeprazole (PRILOSEC) 20 mg capsule Take 20 mg by mouth daily. No current facility-administered medications on file prior to visit. Physical Exam: BP 137/79 (Patient Position: Sitting) Pulse 72 Temp 36.8 ??C (98.2 ??F) (Temporal) Resp 18 Ht 165.1 cm (5' 5) Wt 90.5 kg (199 lb 9.6 oz) SpO2 95% BMI 33.22 kg/m2 General Appearance: Alert, cooperative, no distress, appears stated age Nk: Supple, symmetrical, trachea midline Lungs: Clear to auscultation bilaterally, respirations unlabored, no wheezes, crackles or ronchi. Heart: Regular rate and rhythm, S1 and S2 normal, no murmur, rub, or gallop Abdomen: Soft, non-tender, bowel sounds active all four quadrants, no masses, no organomegaly Extremities: Extremities normal, atraumatic, no cyanosis or edema Wound/Incision: Clean, dry, intact, with evidence of good wound healing Imaging: I have independently visualized the following studies: CXR 02/01/16: Improved inflation. No acute cardiopulmonary process. Barium Swallow 01/16/16: 1. Status post repair of paraesophageal hernia with fundoplication with no evidence of postsurgical complications. Specifically no leak or delay to the flow of contrast through the fundoplication. 2. Tertiary contractions within the mid to distal esophagus consistent with esophageal dysmotility. Assessment: Uma Hood is a 60 y.o. female s/p robotic paraesophageal hernia repair. She is currently recovering well from surgery. Plan: 1. Advance diet as tolerated 2. 30 minutes of exercise daily at a minimum 3. RTC in [address] chest without contrast to eval b/l pulmonary nodules 4. Barium swallow at 12 month return visit 5. Call with any questions 6. Return to work in ~ 2 weeks or sooner. Call for note as needed. 7. Recommend decreasing Prilosec to one tab every other day. PARAG Hu 02/01/2016 Thoracic Surgery Erasto Hammond MD - 02/01/2016 11:00 AM EST ADDENDUM: I saw and examined Ms. Hood with Vannessa Chong and agree with her findings, assessment, and plan. 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 On January 14, I repaired her paraesophageal hernia robotically. She has recovered well from the operation. Physical exam is unrevealing. Chest x-ray today demonstrates no acute findings. I am happy with her progress on the whole. I advised her to continue advancing her diet and to resume taking oral medications. She may return to work in 2 weeks. She is scheduled to have a repeat chest CT for her annual surveillance of pulmonary nodules and we will obtain a barium swallow at that time unless she has any recurrent symptoms previously. ERASTO HAMMOND MD documented in this encounter Plan of Treatment Not on filedocumented as of this encounter Visit Diagnoses Diagnosis Hiatal hernia Diaphragmatic hernia without mention of obstruction or gangrene Lung nodule < 6cm on CT documented in this encounter Care Teams Dietary Service Aide Relationship Specialty Start Date End Date Miriam Agee MD PCP - General General Internal Medicine 08/14/[address] [place] [address] documented as of this encounter
--- OUTSIDE RECORDS SUMMARY | 2021-11-12 00:56 | XMS_ITS | Encounter Summary ---
:1955 Author Organization [facility] [place] [address] Care Team Providers Name Role Phone Miriam Agee MD Primary Care Provider Encounter Details Date Type Department Care Team Description 10/13/2015 Telephone Endocrinology at [facility] Marlene Harmon, [place] [address] Social History Tobacco Use Types Packs/Day Years Used Date Never Smoker Smokeless Tobacco: Never Used Alcohol Use Standard Drinks/Week Comments No 0 (1 standard drink = 0.6 oz pure alcoho l) Sex Assigned at Date Recorded Not on file documented as of this encounter Miscellaneous Notes Telephone Encounter - Veronica Marshall RN - 10/15/2015 3:33 PM EDT TC to Uma - Response from Dr Gillespie read to Uma. - She was able to accurately repeat the instructions for her levothyroxine, and will return to clinic on 01/14/16 as scheduled. Telephone Encounter - Reyes Gillespie MD - 10/13/2015 6:35 PM EDT Lab on 09/19/15 at [facility] showed good TSH 2.15 (down from 6.91 last Dec; normal 0.3-3.7), so she shouldcont levothyroxine 25 mcg qd further. Will see her on 01/14/16 as scheduled. REYES GILLESPIE MD Telephone Encounter - Marlene Vidal RN - 10/13/2015 9:03 AM EDT Uma calls in and left message checking to see if lab work was received from 09/19/15. Chart reviewed no labs scanned into chart. Placed call back to Uma, let her know labs not received as of yet, typewriter assembler will call to get them faxed over Uma states she had them done at [facility] in [facility]. Uma also wants to let Dr Gillespieknow that for the last 2 weeks I have just felt that the medication isn't working anymore She started me on some thyroid medication at my appointment and it seemed to work well for a while but I don;t think it is anymore, I just feel like I'm in a slump again. Placed call to [facility] lab, waiting for labs to be faxed over. Once reviewed will forward to Dr Gillespie documented in this encounter Plan of Treatment Not on filedocumented as of this encounter Visit Diagnoses Not on filedocumented in this encounter Care Teams Control Systems Drafting Officer Relationship Specialty Start Date End Date Miriam Agee MD PCP - General General Internal Medicine 08/14/[address] [place] [address] documented as of this encounter
--- OUTSIDE RECORDS SUMMARY | 2021-11-12 00:56 | XMS_ITS | Encounter Summary ---
:1955 Author Organization [facility] [place] [address] Care Team Providers Name Role Phone Miriam Agee MD Primary Care Provider Encounter Details Date Type Department Care Team Description 12/12/2016 Office Visit Endocrinology at [facility] Nav Gillespie, History of hyperparathyroidi sm; [facility] Reyes Vogt MD Controlled type 2 diabetes mellitus with out complication, without long-term current use of insulin; [facility] Other [place] [address] [facility] [phone] [place] [address] Social History Tobacco Use Types Packs/Day Years [...] Sign Reading Time Taken Comments Blood Pressure 141/97 12/12/2016 10:16 AM EDT Pulse 88 12/12/2016 10:16 AM EDT Temperature - - Respiratory Rate - - Oxygen Saturation - - Inhaled Oxygen Concentration - - Weight 95.3 kg (210 lb) 12/12/2016 10:16 AM EDT Height 165.1 cm (5' 5) 12/12/2016 10:16 AM EDT Body Mass Index 34.95 12/12/2016 10:16 AM EDT documented in this encounter Patient Instructions Patient InstructionsReyes Gillespie MD - 12/12/2016 10:30 AM EDT Results for UMA GUILLEN ( ) as of 12/12/2016 10:27 Ref. Range 11/26/2016 00:00 Sodium Unknown 141 (External Lab) Potassium Unknown 3.8 (External Lab) BUN Unknown 12 (External Lab) Creatinine Unknown 0.72, good kidney (External) Glucose Lvl Unknown 118 (EXTERNAL/ABN) Calcium 8.5-10.5 9.4 (External Lab) Hemoglobin A1C <5.7% 6.8, was 6% (EXTERNAL/ABN) 25-OH Vit D Total 30-100 ng/dL 46.2, was 48.8 (External) TSH Unknown 2.83, good thyroid (External) PTH Unknown 73 (H), 74-91 (External Lab) Plan: 1. Medication: Pt will start taking metforminER 500 mg qd for 3-7 days and then titrate up by 500 mg q 3-7days to 1,500 mg/day as tolerated for her T2DM (A1c 6.8% with difficulty losing wt and DJD) To cont levothyroxine 25 mcg 1.5 tab daily (37.5 mcg qd) and she knows to take it upon awakening atleast 30 mins before breakfast for her mild hypothyroid (TSH 6.91=> 2.36 -> 3.25 now after Rx,optimal 1.0-3.0) To cont taking vitamin D 50,000 iu weekly (q Mon) Pt will cont her Ca/D 600/400 mg bid => ok to switch to gummy Calcium citrate/vit D 250/500 iu 3tab/day along with vitamin D 50,000 iu weekly to suppress PTH with target vitD levels at 50s-60s range (normal 30-100) in addition to MVI. Info on possible side effects and how to take the medication properly was discussed at visit today. To continue all other medications, low fat/controlled carb diet & exercise per wt watcher program as tolerated to keep weight stable. 2. Lab: Already checked DXA scan locally at [facility] on 06/07/2016 with normal results. 3. RTC: Next visit in 6 months. Will follow lab at outside lab again in 6 mo for TSH, PTH, BMP, A1c,and 25-vitamin D. documented in this encounter Progress Notes Reyes Gillespie MD - 12/12/2016 10:30 AM EDT Endocrine Clinic Name: Uma Guillen : 1955 PCP: Miriam Agee MD Provided by: Reyes Gillespie MD, PhD, FACE Date: 12/12/2016 Reason for visit: Endocrine visit for post right lower pole parathyroid adenoma resection since 05/2013 for primary hyperparathyroidism with normalized Ca & PTH after the surgery but then her PTH kenney back up to 78-132 due to 2ry hyperPTH, and recently better with PTH down to 74 (normal <77) after taking vitamin D 50,000 [...] maternal aunts Z83.49 ??? Paraesophageal hernia K44.9 OSH lab 02/03/15 PTH- 81 (was 132; [...] 124 (<140, ok for non-fasting) => 110 Uma Guillen is doing ok during the interim but still gained wt up from 201 to 210 lbs despite eating healthy. A1c is up to 6.8% in mild T2DM. She is on vitamin D 50,000 iu weekly since July 2014 with better vitamin D levels and near/normal PTH. She used to have low normal Ca [...] at the time of PTH surgery and recent DXA on 06/07/16 [...] LEs or foot problem. She plans to retire at the end of this year and will have more time to take care of herself with less stress from work and hope to be able to keep wt back down soon. ROS: Please see HPI, all others negative [...] to Visit Medication Sig Dispense Refill ??? VITAMIN D 50,000 unit Capsule TAKE ONE CAPSULE BY MOUTH ONCE A WEEK 13 capsule 1 ??? levothyroxine (SYNTHROID) 25 mcg Tablet Take 1.5 tablets by mouth daily. 140 tablet 3 ??? losartan (COZAAR) 25 mg Tablet Take 25 mg by mouth daily. ??? cycloSPORINE (RESTASIS) 0.05 % Dropperette Place 1 drop into both eyes 2 times daily. ??? CALCIUM CITRATE/VITAMIN D3 (CALCIUM CITRATE + D ORAL) Take 1 tablet by mouth 2 times daily. ??? GLUC/FATMATA-MSM#1/VIT C/NATALIE/BOR (XRJPLLGRDAY-[id number] COMPLEX ORAL) Take by mouth daily. Reported [...] Cancer Maternal Uncle colon Physical exam BP (!) 141/97 Pulse 88 Ht 165.1 cm (5' 5) Wt 95.3 kg (210 lb) BMI 34.95 kg/m2 Appearance: obese, pleasant, NAD HEENT: PERRLA, EOMI, no lid lag or exophthalmos Neck: supple, no goiter or lymphadenopathy Chest: CTA bilaterally, no wheeze or crackles Heart: normal S1, S2, no murmur Abd: benign, ND, NT Ext: normal skin texture and temperature no pitting edema Neuro: no weakness, normal reflexes Assessment: 61 y.o. lady s/p right lower pole parathyroid adenoma resection since 05/2013 for primary hyperparathyroidism with normalized Ca & PTH initially. However, her PTH then kenney back up to 78 (07/10/13) and 132 (07/12/14) with low normal Ca 8.8 and low normal vitamin D in low 30s, suggestive of 2ry hyperPTH. Her PTH was then normalized at 51 after taking weekly vitamin D treatment since then with entirely normal vitamin D at 45-49 range. She will cont taking the prescription vitamin D weekly to keep her vitamin D in mid normal range further, which in turn helps suppress PTH for her. Recent lab on 11/26/16 showed slightly high PTH 73 with entirely normal Ca 9.4 with 25vitD 46.2, Cr 0.7, TSH 2.83, and A1c 6.8% Recent DXA scan on 06/07/16 at [facility] showed normal BMD (T-score +0.2 at L-spine and T-score at -0.3 at the left hip, up from -0.8 in 2013) Also, borderline hypothyroid with TSH 5.8->5.38 in [...] 6.7% in , down to 6.0% in and now back up to 6.8% on 11/26/16. After a full explanation, she is agreeable to try taking low dose metformin to help reduceinsulin resistance and will cont eating healthy and stay active physically further. Plan: 1. Medication: Pt will start taking metforminER 500 mg qd for 3-7 days and then titrate up by 500 mg q 3-7days to 1,500 mg/day as tolerated for her T2DM (A1c 6.8% with difficulty losing wt and DJD) Pt will continue levothyroxine 25 mcg 1.5 tab daily (37.5 mcg qd) and she knows to take it upon awakening at least 30 mins before breakfast for her mild hypothyroid (TSH 6.91=> 2.36 -> 3.25 now after Rx, optimal 1.0-3.0) To cont taking vitamin D 50,000 iu weekly (q Mon) Pt will cont her Ca/D 600/400 mg bid => ok to switch to gummy Calcium citrate/vit D 250/500 iu 3tab/day along with vitamin D 50,000 iu weekly to suppress PTH with target vitD levels at 50s-60s range (normal 30-100) in addition to MVI. Info on possible side effects and how to take the medication properly was discussed at visit today. To continue all other medications, low fat/controlled carb diet & exercise per wt watcher program as tolerated to keep weight stable. 2. Lab: Already checked DXA scan locally at [facility] on 06/07/2016 with normal results. 3. [...] this encounter Visit Diagnoses Diagnosis History of hyperparathyroidism Personal history of other endocrine, met abolic, and immunity disorders Controlled type 2 diabetes mellitus with out complication, without long-term current use of insulin Other specified hypothyroidism documented in this encounter Care Teams Retort Kiln Burner Relationship Specialty Start Date End Date Miriam Agee MD PCP - General General Internal Medicine 08/14/[address] [place] [address] documented as of this encounter
--- OUTSIDE RECORDS SUMMARY | 2021-11-12 00:56 | XMS_ITS | Encounter Summary ---
:1955 Author Organization [facility] Address [facility] [address] [place] [address] Care Team Providers Name Role Phone Miriam Agee MD Primary Care Provider Reason for Visit Reason Comments Follow-up Encounter Details Date Type Department Care Team Description 02/06/2017 Office Visit Thoracic Surgery at [facility] Erasto Deal MD follow-up surveillance [facility] of lung cancer [address] [place] [address] [place] [address] [phone] Social History Tobacco Use Types Packs/Day Years [...] Sign Reading Time Taken Comments Blood Pressure 130/65 02/06/2017 9:16 AM EST Pulse 99 02/06/2017 9:16 AM EST Temperature 36.2 ??C (97.2 ??F) 02/06/2017 9:16 AM EST Respiratory Rate 17 02/06/2017 9:16 AM EST Oxygen Saturation 98% 02/06/2017 9:16 AM EST Inhaled Oxygen Concentration - - Weight 93.1 kg (205 lb 3.2 oz) 02/06/2017 9:16 AM EST Height 164.5 cm (5' 4.76) 02/06/2017 9:16 AM EST Body Mass Index 34.4 02/06/2017 9:16 AM EST documented in this encounter Patient Instructions Patient InstructionsAmalia Jones RN - 02/06/2017 9:30 AM EST Thank you for visiting Dr. Hammond in clinic 02/06/17 You will have a Chest CT scan in 1 year and be seen by Dr. Hammond for follow up as part of your regular surveillance for lung cancer. A letter will be sent to you approximately one month before youare expected to follow up to schedule this appointment and test. Please call the thoracic surgery office at with any questions. documented in this encounter Progress Notes Doni Gandhi MD - 02/06/2017 9:30 AM EST Thoracic Surgery Attending Outpatient Follow Up Note Erasto Hammond MD [place] [id number] FAX: Chief complaint: 1 year follow up s/p paraesophageal hernia repair Pre Op Dx: paraesophageal hernia, RML spindle cell carcinoid tumor Post Op Dx: same Procedure (2000): RML wedge resection Procedure (2015): paraesophageal hernia repair with fundoplasty Complications: none Treatment: surveillance HPI: Ms. 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 The patient has been able to tolerate a regular diet without dysphagia to solids or liquids. She does state she occasionally she has issues swallowing large pills, feeling as thought they sometimes feel like they get stuck in her throat. Her weight has fluctuated over the past year, but remains stable since one year ago. She denies reflux, nausea/vomiting, chest pain, shortnessof breath, fevers, and chills. Her only complaint is intermittent upper abdominal muscle spasms which are relieved with rest. Medications: Current Outpatient Prescriptions on File Prior to Visit Medication Sig Dispense Refill ??? hydroCHLOROthiazide (HYDRODIURIL) 25 mg Tablet 25 mg daily. ??? metFORMIN (FORTAMET) 500 mg Tablet Extended Rel 24 hr Take 1-3 tablets by mouth daily. 1 tab daily for 3-7 days then 2 tab/day for 3-7 days and then 3 tablets daily astolerated 270 tablet 4 ??? VITAMIN D 50,000 unit Capsule TAKE [...] Take 20 mg by mouth daily. ??? GLUC/FATMATA-MSM#1/VIT C/NATALIE/BOR ([id number] COMPLEX ORAL) Take by mouth daily. Reported on 06/13/2016 Current Facility-Administered Medications on File Prior to Visit Medication Dose Route Frequency Provider Last Rate Last Dose ??? barium sulfate (E-Z-HD) 98 % oral suspension 450 mL 450 mL Oral Once PRN Bessie Lundy MD ??? barium sulfate (E-Z DISK) tablet 700 mg 700 mg Oral Once Bessie Lundy MD ??? barium sulfate (EZPAQUE) oral suspension 355 mL 355 mL Oral Once PRN Bessie Leong MD Physical Exam: BP 130/65 (Patient Position: Sitting) Pulse 99 Temp 36.2 ??C (97.2 ??F) (Temporal) Resp 17 Ht 164.5 cm (5' 4.76) Wt 93.1 kg (205 lb 3.2 oz) SpO2 98% BMI 34.4 kg/m2 General Appearance: Alert, cooperative, no distress, appears stated age Nk: Supple, symmetrical, trachea midline, no adenopathy; thyroid: not enlarged, symmetric, no tenderness/mass/nodules; no carotid bruit or JVD Lungs: Clear to auscultation bilaterally, respirations unlabored, [...] independently visualized the following studies: CT Chest (02/06/17): stable pulmonary nodules bilaterally, no new nodules identified Barium Swallow (02/06/17): no evidence of delayed emptying Assessment: Uma Hood is a 61 y.o. female s/p RML wedge resection for spindle cell carcinoid tumor in 2000and s/p robotic paraesophageal hernia repair in 2016 who presents to clinic for 1 year follow up. She is tolerating a regular diet without dysphagia or reflux. Her CT demonstrates stable pulmonary nodules without new nodules. Plan: 1. RTC in [address] Chest 2. Call with any questions Doni Gandhi MD 02/06/17 Thoracic Surgery [facility] Erasto Anderson MD - 02/06/2017 9:30 AM EST CLARIFICATION NEEDED: Blank ADDENDUM: I saw and examined Ms. Hood with <___> and agree with his findings, assessment, and plan. In brief: CHIEF COMPLAINT: One year followup of spindle cell carcinoid tumor and paraesophageal hernia repair. HISTORY OF PRESENT ILLNESS: Ms. Hood is a 61-year-old woman with a history of a right middle lobe wedge resection for carcinoid tumor in 2000 as well as a robotic carcinoid tumor hernia repair in 2016. She comes in today for her scheduled surveillance imaging. She has complained of some occasional difficulty swallowing dry pills, but otherwise minimal symptomatology. No reflux, nausea, vomiting, no chest pain. PHYSICAL EXAM: Today, she appears well. IMAGING: Barium swallow was obtained today, which does demonstrate a small recurrence of her paraesophageal hernia with the wrap at the level of the diaphragm. There is normal passage of a barium tablet into the stomach. In addition, a chest CT was obtained. This demonstrates numerous stable bilateral pulmonary nodules. There is a small recurrent hernia consistent with the barium swallow. There is, in addition, a soft tissue density mass of the upper pole of the left kidney, which is new in comparison to her prior studies. ASSESSMENT: A 61-year-old woman with diffuse neuroendocrine hyperplasia and multiple small stable tumors, likely additional carcinoid tumor. There is some evidence of a small recurrence of her paraesophageal hiatal hernia. However, as she is asymptomatic, we will continue to observe this. I will communicate to the patient via renal findings and consider renal ultrasound or urology referral. PLAN: Annual CT next year, renal ultrasound, possible Urology referral. ERASTO HAMMOND MD documented in this encounter Plan of Treatment Not on filedocumented as of this encounter Visit Diagnoses Diagnosis Encounter for follow-up surveillance of lung cancer Unspecified follow-up examination documented in this encounter Care Teams Gaming Cashier Relationship Specialty Start Date End Date Miriam Agee MD PCP - General General Internal Medicine 08/14/[email or web address] [place] [address] documented as of this encounter
--- OUTSIDE RECORDS SUMMARY | 2021-11-12 00:56 | XMS_ITS | Encounter Summary ---
:1955 Author Organization [facility] [place] [address] Care Team Providers Name Role Phone Miriam Agee MD Primary Care Provider Encounter Details Date Type Department Care Team Description 10/16/2015 External Results Endocrinology at [facility] Nav Gillespie, Other specified [facility] Reyes Vogt MD hypothyroidism Formerly named [facility] [address] ENDOCRINOLOGY [phone] [facility] [place] [place] [address] Social History Tobacco Use Types Packs/Day Years Used Date Never Smoker Smokeless Tobacco: Never Used Alcohol Use Standard Drinks/Week Comments No 0 (1 standard drink = 0.6 oz pure alcoho l) Sex Assigned at Date Recorded Not on file documented as of this encounter Plan of Treatment Not on filedocumented as of this encounter Procedures Procedure Name Priority Date/Time Associated Diagnosis Comme nts TSH Routine 09/19/2015 Other specified Results for this hypothyroidism procedure are in the results section . documented in this encounter Results (ABNORMAL) TSH (09/19/2015) P [...] hypothyroidism documented in this encounter Care Teams Separations Scientist Relationship Specialty Start Date End Date Miriam Agee MD PCP - General General Internal Medicine 08/14/[address] [place] [address] [place] [address] documented as of this encounter
--- OUTSIDE RECORDS SUMMARY | 2021-11-12 00:56 | XMS_ITS | Encounter Summary ---
:1955 Author Organization [facility] [place] [address] Care Team Providers Name Role Phone Miriam Agee MD Primary Care Provider Reason for Referral Diagnostic Test (Routine) - Closed Specialty Diagnoses / Procedures Referred By Contact Refer red To Contact Radiology Diagnoses Encounter for follow-up surveillance of lung cancer Lung nodule, multiple [facility] 3k [facility] Rad Ct Scan Procedures CT Chest wo Contrast (Generic) [place] [address] [place] [address] Phone: Referral ID Status Reason Start Date Expiration Date Visits V isits Requested Authorized [id number] Closed Specialty 02/01/2017 03/03/2017 1 1 Service Requested Reason for Visit Diagnostic Test (Routine) - Closed Specialty Diagnoses / Procedures Referred By Contact Refer red To Contact Radiology Diagnoses Encounter for follow-up surveillance of lung cancer Lung nodule, multiple [facility] 3k [facility] Rad Ct Scan Procedures CT Chest wo Contrast (Generic) [place] [address] [place] [address] Phone: Referral ID Status Reason Start Date Expiration Date Visits V isits Requested Authorized [id number] Closed Specialty 02/01/2017 03/03/2017 1 1 Service Requested Encounter Details Date Type Department Care Team Description 02/06/[address] Scan at [facility], Encounter for follow-up surv dolores of lung cancer; [facility] Erasto Deal MD Lung nodule, multiple [address] [facility] [place], [place] [facility] [address] THORACIC SURGERY [phone] [place] [address] Social History Tobacco Use Types Packs/Day Years [...] Diagnosis Comme nts CT CHEST WO Routine 02/06/2017 7:59 AM Encounter for Results for this CONTRAST (GENERIC) EST follow-up procedure are in surveillance of lung the res ults cancer section. Lung nodule, multiple documented in this encounter Results (ABNORMAL) CT Chest wo Contrast (Generic) (02/06/2017 [...] field documented in this encounter Care Teams Oncology Technician Relationship Specialty Start Date End Date Miriam Agee MD PCP - General General Internal Medicine 08/14/[address] [place] [address] documented as of this encounter
--- OUTSIDE RECORDS SUMMARY | 2021-11-12 00:56 | XMS_ITS | Encounter Summary ---
:1955 Author Organization [facility] [place] [address] Care Team Providers Name Role Phone Miriam Agee MD Primary Care Provider Encounter Details Date Type Department Care Team Description 12/17/2015 Telephone Thoracic Surgery at [facility] Abigail Barrow, [place] [address] Social History Tobacco Use Types Packs/Day Years Used Date Never Smoker Smokeless Tobacco: Never Used Alcohol Use Standard Drinks/Week Comments No 0 (1 standard drink = 0.6 oz pure alcoho l) Sex Assigned at Date Recorded Not on file documented as of this encounter Miscellaneous Notes Telephone Encounter - Abigail Barrow RN - 12/17/2015 3:28 PM EDT Incoming call from Ms. Hood: Uma will be getting her preadmission testing tomorrow in preparation for her 01/13/16 surgery. She will drop off paperwork for her leave of absence related to her surgery to [facility]K. Thoracic surgery will attempt to complete the paperwork and have it signed before she leaves the hospital again tomorrow. If not Kenyetta will leave her work phone and fax number so that we can send it to her on 12/22/15. She will require a phone call before it is faxed. documented in this encounter Plan of Treatment Not on filedocumented as of this encounter Visit Diagnoses Not on filedocumented in this encounter Care Teams Registered Account Administrator Relationship Specialty Start Date End Date Miriam Agee MD PCP - General General Internal Medicine 08/14/[address] [place] [address] documented as of this encounter
--- OUTSIDE RECORDS SUMMARY | 2021-11-12 00:56 | XMS_ITS | Encounter Summary ---
:1955 Author Organization [facility] [address] Care Team Providers Name Role Phone Miriam Agee MD Primary Care Provider Encounter Details Date Type Department Care Team Description 11/16/2015 Tech Visit Gastroenterology at [facility] Santhosh Moses, Gastroesophageal reflux [facility] Stevo MONTEIRO MD disease, [place] [address] [facility] presence not specified [phone] [facility] [address] Social History Tobacco Use Types Packs/Day Years Used Date Never Smoker Smokeless Tobacco: Never Used Alcohol Use Standard Drinks/Week Comments No 0 (1 standard drink = 0.6 oz pure alcoho l) Sex Assigned at Date Recorded Not on file documented as of this encounter Progress Notes Santhosh Moses MD - 11/16/2015 6:00 PM EDT HIGH-RESOLUTION ESOPHAGEAL MANOMETRY Uma Hood [address] [facility] [address] : 1955 STUDY DATE: 11-16-2015 PROVIDER: Santhosh [place] ([id number]) INDICATION GERD METHODS Stationary esophageal manometry was performed with the ManoScan ESO version 3.0 in a supervised setting after verbal consent and after topical anesthesia to the nares. This system uses 36 individual circumferential solid state sensors spaced 1 cm apart. The outer diameter of the probe is 4.2 mm. Length, resting pressure, pressure inversion point (PIP), and relaxation of the lower esophageal sphincter (LES) was measured. The high pressure zone of the upper esophageal sphincter (UES) was measured. Water swallows were provided after a 2-wi-9-minute accommodation period to assess LES function and function of the esophageal body. FINDINGS LES (lower esophageal sphincter) Distal border of LES identified at 43 cm. Proximal border of LES identified at 40.7 cm. Hiatal hernia present? Yes, 4 cm Basal pressure respiratory mean pressure 11.4 mmHg (normal = 15-34 mmHg). Residual mean pressure (integrated relaxation pressure - IRP) 9.4 mmHg (normal = <15 mmHg). BODY OF ESOPHAGUS Water Swallows: 10. Failed: 10%. Transmitted (peristaltic): 90%. Panesophageal pressurization: 0% Premature: 10% Rapid: 0% With large breaks: 0%. With small breaks: 10%. DCI (distal contractile integral): 1796 mmHg-cm-s (normal is 450 to 5000 mmHg-cm-s). Contractile front velocity: 2.0 cm/s (normal is <9.0 cm/s). Intrabolus pressure (average maximum): 10 mmHg (normal is <17.0 mmHg). Distal latency: 5.1 UES (upper esophageal sphincter) Distal border of UES identified at 20.5 cm and extended to 18.3 cm. UES basal pressure 32 mmHg (normal = 34-104 mmHg). Residual pressure 4.3 mmHg (normal = <12 mmHg). IMPRESSION 1. Reduced LES resting pressure. 2. Normal LES relaxation (IRP, integrated relaxation pressure). 3. Normal UES resting pressure. 4. Normal UES relaxation. 5. Normal motility in the body of the esophagus. 6. Evidence of a hiatal hernia on this study. 7. Normal DCI (distal contractile integral). This is a measure of contractile vigor. Santhosh Moses, PhD, MD tag maker, [employer] Chief, Section of Gastroenterology and Hepatology [facility] [place] [address] V: [phone] F: [phone] CC/EC: PCP documented in this encounter Plan of Treatment Not on filedocumented as of this encounter Visit Diagnoses Diagnosis Gastroesophageal reflux disease, esophag itis presence not specified documented in this encounter Care Teams Owner/Photographer Relationship Specialty Start Date End Date Miriam Agee MD PCP - General General Internal Medicine 08/14/[address] [place] [address] documented as of this encounter
--- OUTSIDE RECORDS SUMMARY | 2021-11-12 00:57 | XMS_ITS | Encounter Summary ---
:1955 Author Organization [facility] [place] [address] Care Team Providers Name Role Phone Enedina Agee MD Primary Care Provider Reason for Referral Consultation (Routine) - Closed Specialty Diagnoses / Procedures Referred By Contact Refer red To Contact Urology Diagnoses Left kidney mass Lisa Mccauley APRN [facility]rology [facility] [place] [address] [place] [address] Referral ID Status Reason Start Date Expiration Date Visits V isits Requested Authorized [id number] Closed Consult, 01/04/2013 07/03/2013 1 1 Test & Treat Encounter Details Date Type Department Care Team Description 01/01/2013 Follow-Up Hematology and CLINIC, DR REVA luna y mass Oncology at [facility] Lisa Mccauley APRN [facility] [place] [address] (Primary Dx) [place] [address] Social History Tobacco Use Types Packs/Day Years Used Date Never Smoker Smokeless Tobacco: Never Used Sex Assigned at Date Recorded Not on file documented as of this encounter Last Filed Vital Signs Vital Sign Reading Time Taken Comments Blood Pressure 128/83 01/01/2013 11:37 AM EDT Pulse 88 01/01/2013 11:37 AM EDT Temperature 36.2 ??C (97.2 ??F) 01/01/2013 11:37 AM EDT Respiratory Rate 16 01/01/2013 11:37 AM EDT Oxygen Saturation 98% 01/01/2013 11:37 AM EDT Inhaled Oxygen Concentration - - Weight 99.5 kg (219 lb 5.7 oz) 01/01/2013 11:37 AM EDT Height 165.1 cm (5' 5) 01/01/2013 11:37 AM EDT Body Mass Index 36.5 01/01/2013 11:37 AM EDT documented in this encounter Progress Notes Lisa Mccauley, BECKY - 01/01/2013 11:37 AM EDT Images from the original note were not included. Thoracic Surgery Established Patient Follow up Visit Date of Visit: 01/01/2013 PCP: ENEDINA AGEE MD Referring Physician: Mrs. Hood is a 57 year old female who has been followed since 2000 at which time she had a right middle lobectomy for a spindle cell carcinoid tumor. Several years ago, a CXR revealed bilateral pulmonary nodules which I have been following with CT scans. She was last seen here by Dr. Ramirez 2 yearsago, at which time they had remained stable in size and number. Interval history: In the past 2 years she has been doing well. Her activity level has decreased because of a recent diagnosis ofv osteoarthritis of left knee. She denies anorexia, chills, fatigue, fevers, malaise, sweats and weight loss. Has had to cut down on walking. Is doing PT but has recently hadmore pain. Is working with orthopedic surgeon and is planning knee injection. Past Medical History: There are no active problems to display for this patient. No past medical history on file. No past surgical history on file. Review of Systems: General: Denies fatigue, weight loss, fever, chills, night sweats. Neuro: Denies seizure, TIA, CVA, neurologic deficits including tremor, incoordination, paresthesias, difficulties with memory or speech, sensory or motor disturbances, or muscular coordination. Psychiatric: Denies emotional problems, anxiety, depression, previous psychiatric care, unusual perceptions, hallucinations, and drug dependence. Cardiovascular: Denies arrythmias, CAD, HTN, family history of cardiac disease, CHF, hyperlipidemia. Respiratory: Denies asthma, COPD, emphysema, cough, dyspnea, wheezing, stridor, hemoptysis, respiratory infection, TB or exposure to TB. GI: Denies ulcer disease, GI bleed, dysphagia, abdominal pain, heartburn, nausea, vomiting, hematemesis, jaundice, constipation, diarrhea, change in bowel habits.: Denies urgency, frequency, dysuria, nocturia, polyuria, oliguria, stones, UTI, nephritis, incontinence. Hematologic: Denies history of DVT, PE, petechiae, bleeding diathesis. Endocrine: Denies diabetes mellitus, thyroid disease, other endocrine disorder. Musculoskeletal: Denies fractures, + osteoarthritis. Integument: Denies skin cancer. Family History: No family history on file. Social History: History Social History ??? Marital Status: Spouse Name: N/A Number of Children: N/A ??? Years of Education: N/A Occupational History ??? Not on file. Social History Main Topics ??? Smoking status: Never Smoker ??? Smokeless tobacco: Never Used ??? Alcohol Use: Not on file ??? Drug Use: Not on file ??? Sexually Active: Not on file Other Topics Concern ??? Not on file Social History Narrative ??? No narrative on file Allergies: Allergies Allergen Reactions ??? Ciprofloxacin (Mixture) Hives ??? Metronidazole Hives ??? Sulfa (Sulfonamide Antibiotics) Hives Medications: Outpatient Prescriptions Marked as Taking for the 01/01/13 encounter (Follow-Up) with Lisa Mccauley APRN Medication Sig Dispense Refill ??? celecoxib (CELEBREX) 200 mg capsule Take 200 mg by mouth daily. ??? cycloSPORINE (RESTASIS) 0.05 % ophthalmic emulsion Place 2 drops into both eyes 2 times daily. ??? acetaminophen (TYLENOL) 325 mg tablet Take 650 mg by mouth every 4 hours as needed. ??? CALCIUM-MAGNESIUM ORAL Take by mouth daily. ??? GLUC/FATMATA-MSM#1/VIT C/NATALIE/BOR ([id number] COMPLEX ORAL) Take by mouth daily. ??? ibuprofen (ADVIL;MOTRIN) 200 mg tablet Take 200 mg by mouth every 6 hours as needed. ??? multivitamin (THERAGRAN) tablet Take 1 tablet by mouth daily. ??? omeprazole (PRILOSEC) 20 mg capsule Take 20 mg by mouth daily. ??? Cholecalciferol, Vitamin D3, (VITAMIN D) 1,000 unit Cap Take by mouth daily. Physical Exam: BP 128/83 Pulse 88 Temp 36.2 ??C (97.2 ??F) Resp 16 Ht 165.1 cm (5' 5) Wt 99.5 kg (219 lb5.7 oz) BMI 36.50 kg/m2 SpO2 98% General Appearance: Alert, cooperative, no distress, appears stated age Neck: Supple, symmetrical, trachea midline, no adenopathy; [...] Extremities normal, atraumatic, no cyanosis or edema Neurologic: Normal Wound/Incision: Incision well healed Diagnostics: I have independently visualized the following studies: CT Chest Without Contrast Clinical History F/U SOLITARY LEFT LOWER LOBE LESION Comparison None Technique 3.75 mm transaxial slices through the thorax with no contrast. Comparison 12/17/2010 as well as multiple studies back through 2008. Findings There are multiple small bilateral pulmonary nodules which are unchanged compared to the patient's prior study. The largest are a 11 mm and an 8 mm right middle lobe nodule, and a 6 mm left upper lobe nodule. 1 of the right lower lobe nodules has a cystic component but again is unchanged. No pleural effusions or mediastinal adenopathy. Moderate size hiatal hernia. On slices through the upper abdomen. There is a approximately 18 mm mass arising from the upper pole of the left kidney which was not present in 2008 which was the only prior CT which went through the upper poles of the kidneys. This measures 27 Hounsfield units could be a hyperdense cyst but requires further evaluation. Impression Multiple bilateral pulmonary nodules. Stable liver at least 3 in appeared for head routine follow up on the basis of clinical history and concern. 18 mm indeterminate mass left kidney, new since 2008. Ultrasound recommended. Unexpected finding Assessment: Mrs. Hood is a 57 y.o. female seen in follow up for right middle lobectomy for a spindle cell carcinoid tumor. Her lungs have been stable over the past [address] scan showed a new finding of a mass on her left kidney. This will need to be followed up with an U/S and appointment with aUrologist. I reviewed her scan with Dr. Ramirez today. Plan of Management: I discussed the results of her CT scan and the the plan for future follow up. Dr. Ramirez felt she should see a Urologist at [facility]. She would like to arrange to have her appointments in the mid to late afternoon, as she has a limited amount of personal time left that she can use as it is approaching the end of the year. I have setup a referral to Urology and requested they try to set the appointments up at a time that will minimize the amount of time the patient has to spend away from work. Time for consultation: More than 20 minutes of this 25 minute visit was spent in direct patient counseling. LISA MCCAULEY APRN Thoracic Surgery Cc: ENEDINA AGEE MD documented in this encounter Plan of Treatment Scheduled Referrals Name Type Priority Associated Diagnoses Order S chedule Referral to Outpatient Referral Routine Left kidney mass Orde red: Urology 01/04/2013 documented as of this encounter Visit Diagnoses Diagnosis Left kidney mass - Primary Unspecified disorder of kidney and urete r documented in this encounter Care Teams Transportation Engineer Relationship Specialty Start Date End Date Enedina Agee MD PCP - General 12/06/11 08/22/13 [address] [place] [address] documented as of this encounter
--- OUTSIDE RECORDS SUMMARY | 2021-11-12 00:57 | XMS_ITS | Encounter Summary ---
:1955 Author Organization [facility] [place] [address] Care Team Providers Name Role Phone Papa Dunn MD Primary Care Provider [phone] Encounter Details Date Type Department Care Team Description 01/27/2015 Telephone Endocrinology at [facility] C [place] [address] Social History Tobacco Use Types Packs/Day Years Used Date Never Smoker Smokeless Tobacco: Never Used Alcohol Use Standard Drinks/Week Comments No 0 (1 standard drink = 0.6 oz pure alcoho l) Sex Assigned at Date Recorded Not on file documented as of this encounter Miscellaneous Notes Telephone Encounter - Marleni Burch LPN - 01/27/2015 3:27 PM EST R/c to patient at which time she was told that labs have been mailed to her to have done locally. Telephone Encounter - Marleni Burch LPN - 01/27/2015 7:41 AM EST Per patient request lab orders mailed to patient to have done locally for 02/12/15 appointment. Ty4uSLX, PTH Ca, and vitamin D. documented in this encounter Plan of Treatment Not on filedocumented as of this encounter Visit Diagnoses Not on filedocumented in this encounter Care Teams Homeland Security Program Specialist Relationship Specialty Start Date End Date Papa Dunn MD PCP - General 02/03/14 08/13/[address] [place] [address] documented as of this encounter
--- OUTSIDE RECORDS SUMMARY | 2021-11-12 00:57 | XMS_ITS | Encounter Summary ---
:1955 Author Organization [facility] [address] Care Team Providers Name Role Phone Miriam Agee MD Primary Care Provider Reason for Visit Reason Comments Follow Up Surgery Encounter Details Date Type Department Care Team Description 06/24/2013 Office Visit General Surgery at [facility] thyroid adenoma [facility] MD Edwina (Primary Dx) [facility] [address] [place] [facility] [address] [place] [address] [phone] Social History Tobacco Use Types Packs/Day Years Used Date Never Smoker Smokeless Tobacco: Never Used Alcohol Use Standard Drinks/Week Comments No 0 (1 standard drink = 0.6 oz pure alcoho l) Sex Assigned at Date Recorded Not on file documented as of this encounter Last Filed Vital Signs Vital Sign Reading Time Taken Comments Blood Pressure 159/99 06/24/2013 10:35 AM EDT Pulse 92 06/24/2013 10:35 AM EDT Temperature - - Respiratory Rate 16 06/24/2013 10:35 AM EDT Oxygen Saturation 97% 06/24/2013 10:35 AM EDT Inhaled Oxygen Concentration - - Weight 100 kg (220 lb 7.4 oz) 06/24/2013 10:35 AM EDT Height - - Body Mass Index 36.69 05/14/2013 6:23 AM EDT documented in this encounter Progress Notes Papa Dominguez MD - 06/24/2013 10:44 AM EDT Reason for Visit: Uma Hood returns. History of Present Illness: She is s/p neck exploration and excision of RL parathyroid adenoma on 05/14/13. She has done quite well postoperatively. Intraoperative PTH levels were measured and went from 259 to 21 following excision. She is having no dysphagia or dysphonia. Ca/PTH today: 9.7 PMH: Current Outpatient Prescriptions on File Prior to Visit Medication Sig Dispense Refill ??? acetaminophen (TYLENOL) 325 mg tablet Take 650 mg by mouth every 4 hours as needed. ??? GLUC/FATMATA-MSM#1/VIT C/NATALIE/BOR ([id number] COMPLEX ORAL) Take by mouth daily. ??? ibuprofen (ADVIL;MOTRIN) 200 mg tablet Take 200 mg by mouth every 6 hours as needed. ??? multivitamin (THERAGRAN) tablet Take 1 tablet by mouth daily. ??? omeprazole (PRILOSEC) 20 mg capsule Take 20 mg by mouth daily. ??? Cholecalciferol, Vitamin D3, (VITAMIN D) 1,000 unit Cap Take by mouth daily. ??? [DISCONTINUED] HYDROmorphone (DILAUDID) 2 mg tablet Take 1 tablet by mouth every 4 hours as needed for Pain. 30 tablet 0 Allergies as of 06/24/2013 - Review Complete 06/24/2013 Allergen Reaction Noted ??? Ciprofloxacin (mixture) ??? Metronidazole ??? Sulfa (sulfonamide antibiotics) PE: Neck: Wound is healing well with minimal postop induration. Imp: Good postoperative course. Normocalcemia. Plan: Return to clinic PRN. I have advised she that she should continue to get annual calcium levels. Send copy to Drs. MIRIAM AGEE MD. documented in this encounter Plan of Treatment Not on filedocumented as of this encounter Procedures Procedure Name Priority Date/Time Associated Diagnosis Comme nts PTH Routine 06/24/2013 9:37 AM Parathyroid adenoma Re sults for this EDT procedure are i n the results section . CALCIUM Routine 06/24/2013 9:37 AM Parathyroid adenoma Re sults for this EDT procedure are i n the results section . documented in this encounter Results Calcium (06/24/2013 9:37 AM EDT) P athologist Signature Calcium 9.7 8.5 - 10.5 CERNER mg/dL MILLENNIUM Specimen Anatomical Collection Method Collection Time Receive d Time (Source) Location / / Volume Laterality Blood specimen 06/24/2013 9:37 AM 014 9:49 (specimen) EDT AM EDT Resulting Agency Comment Spec In Lab Papa Dominguez MD CHEMISTRY ORDERABLES Performing Organization Address City/State/[place] [address] CERNER MILLENNIUM (ABNORMAL) PTH (06/24/2013 9:37 AM EDT) P athologist Signature PTH 84 (H) 15 - 65 CERNER pg/mL MILLENNIUM Specimen Anatomical Collection Method Collection Time Receive d Time (Source) Location / / Volume Laterality Blood specimen 06/24/2013 9:37 AM 014 9:49 (specimen) EDT AM EDT Resulting Agency Comment Spec In Lab Papa Dominguez MD CHEMISTRY ORDERABLES Performing Organization Address City/[facility]/[place] [address] CERNER MILLENNIUM documented in this encounter Visit Diagnoses Diagnosis Parathyroid adenoma - Primary Benign neoplasm of parathyroid gland documented in this encounter Care Teams Pari Mutuel Ticket Cashier Relationship Specialty Start Date End Date Miriam Agee MD PCP - General 12/06/11 08/22/[address] [place] [place] [address] documented as of this encounter
--- OUTSIDE RECORDS SUMMARY | 2021-11-12 00:57 | XMS_ITS | Encounter Summary ---
:1955 Author Organization [facility] [address] Care Team Providers Name Role Phone Enedina Agee MD Primary Care Provider Reason for Visit Reason Comments Establish Care hyperparathyroidism Encounter Details Date Type Department Care Team Description 04/22/2013 Office Visit General Surgery at [facility] thyroidism [facility] Papa Bland MD (Primary Dx) [facility] [address] [facility] [id number] [place], [place] [phone] [facility] Social History Tobacco Use Types Packs/Day Years Used Date Never Smoker Smokeless Tobacco: Never Used Alcohol Use Standard Drinks/Week Comments No 0 (1 standard drink = 0.6 oz pure alcoho l) Sex Assigned at Date Recorded Not on file documented as of this encounter Last Filed Vital Signs Vital Sign Reading Time Taken Comments Blood Pressure 150/85 04/22/2013 10:08 AM EST Pulse 89 04/22/2013 10:08 AM EST Temperature - - Respiratory Rate 16 04/22/2013 10:08 AM EST Oxygen Saturation 96% 04/22/2013 10:08 AM EST Inhaled Oxygen Concentration - - Weight 98.9 kg (218 lb) 04/22/2013 10:08 AM EST Height 165.1 cm (5' 5) 04/22/2013 10:08 AM EST Body Mass Index 36.28 04/22/2013 10:08 AM EST documented in this encounter Progress Notes Papa Dominguez MD - 04/22/2013 10:44 AM EST See H&P in Surgical Consult on 04/22/2013. documented in this encounter H&P Notes Papa Dominguez MD - 04/22/2013 10:44 AM EST Reason for Visit: Uma Hood is a 58 y.o. female who is seen in consultation per Drs. ENEDINA AC MD and Penelope Ly DO for evaluation and management of primary hyperparathyroidism. History of Present Illness: She was first noted to have a mildly elevated calcium on 10/2011. Repeat last December noted and increase to 11.0 with a PTH on 196. She was referred to Endo and underwent an US localization: PARATHYROID / THYROID ULTRASOUND: Indication: Primary hyperparathyroidism Date: 03/05/2013 Comparison: None Real time images of the thyroid gland were obtained using a Biosound and an [id number] broadband linear array transducer. All measurements are given as Longitudinal x AP x Transverse Thyroid Right Lobe: The right lobe measures: 3.22X1.54X2.24 cm and has mild heterogeneity No Nodules were identified Thyroid Left Lobe: The left lobe measures: 2.66X1.53X1.31 cm and is mildly heterogeneous. No Nodules were identified Thyroid Isthmus: 0.22 cm Parathyroid: Hypoechoic area in left lower pole measuring 1.27X0.71X1.21 cm Impression: 1.2cm left lower pole parathyroid adenoma. 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 Her principal symptom has been fatigue and arthralgias, and noc x 1-2. She is post menopausal since age 50 and is not on hormone replacement. She has a FH of osteoporosis, but her DEXA scan is normal. She has no history of head or neck irradiation and has no family history of hypercalcemia or parathyroid adenoma. ROS: No H/O asthma, RI, stroke, pulmonary embolus or phlebitis. Comprehensive review of systems otherwise negative and non-contributory. PMSH: Surgical history: tonsils; violet. Carpal tunnel; oophorectomy; VINCENT; Right lung resection Active medical problems: GERD Tobacco: (x) Life-long non-smoker ETOH: < monthly I have reviewed the relevant laboratory tests and imaging studies. Current Outpatient Prescriptions on File Prior to Visit Medication Sig Dispense Refill ??? celecoxib (CELEBREX) 200 mg capsule Take 200 mg by mouth daily. ??? cycloSPORINE (RESTASIS) 0.05 % ophthalmic emulsion Place 2 drops into both eyes 2 times daily. ??? acetaminophen (TYLENOL) 325 mg tablet Take 650 mg by mouth every 4 hours as needed. ??? CALCIUM-MAGNESIUM ORAL Take by mouth daily. ??? GLUC/FATMATA-MSM#1/VIT C/NATALIE/BOR (PUECOFLNXRC-PDDYF-LTY COMPLEX ORAL) Take by mouth daily. ??? ibuprofen (ADVIL;MOTRIN) 200 mg tablet Take 200 mg by mouth every 6 hours as needed. ??? multivitamin (THERAGRAN) tablet Take 1 tablet by mouth daily. ??? omeprazole (PRILOSEC) 20 mg capsule Take 20 mg by mouth daily. ??? Cholecalciferol, Vitamin D3, (VITAMIN D) 1,000 unit Cap Take by mouth daily. Allergies as of 04/22/2013 - Review Complete 04/22/2013 Allergen Reaction Noted ??? Ciprofloxacin (mixture) ??? Metronidazole ??? Sulfa (sulfonamide antibiotics) PE: General: Well developed, well nourished 58 y.o. female in [facility]. Skin: good turgor, nonicteric. Neck: No masses, thyromegaly or adenopathy. HEENT: JORGE, EOM's full, sclera nonicteric, otherwise unremarkable. Back: No tenderness to AP or lateral compression. Lungs: Clear BS bilaterally without wheezes, rales or rhonchi. Card: Heart sounds normal, no murmurs, gallops, rubs or S3. Extremities: warm, no edema. Neuro: Awake, alert and oriented x 3., [place] negative bilaterally. Imp: Primary hyperparathyroidism. Plan: We had a long discussion regarding the approach for management of this condition. We will proceed with a minimally invasive parathyroidectomy with intraoperative parathyroid hormone monitoring. She understands the implications, indications, contraindications and complications and agrees to proceed. We will sign in through same day surgery. Consent form has been signed. Send copy to Dr. ENEDINA AGEE MD and Penelope No DO. documented in this encounter Plan of Treatment Not on filedocumented as of this encounter Procedures Procedure Name Priority Date/Time Associated Diagnosis Comme nts PARATHYROIDECTOMY OR Routine 04/22/2013 10:39 AM EXPLORATION OF EST PARATHYROID(S) documented in this encounter Visit Diagnoses Diagnosis Hyperparathyroidism - Primary Hyperparathyroidism, unspecified documented in this encounter Care Teams Parking Meter Attendant Relationship Specialty Start Date End Date Enedina Agee MD PCP - General 12/06/11 08/22/[address] [place] [address] documented as of this encounter
--- OUTSIDE RECORDS SUMMARY | 2021-11-12 00:57 | XMS_ITS | Encounter Summary ---
:1955 Author Organization [facility] [place] [address] Care Team Providers Name Role Phone Miriam Agee MD Primary Care Provider Encounter Details Date Type Department Care Team Description 11/16/2012 Orders Only Cardiothoracic Surge ry Lisa Mccauley, Lesion of lung [facility] [place] [address] [facility] [phone] DR Thoracic Surgery [place] [phone] (Wo rk) Social History Tobacco Use Types Packs/Day Years Used Date Never Smoker Smokeless Tobacco: Never Used Sex Assigned at Date Recorded Not on file documented as of this encounter Plan of Treatment Not on filedocumented as of this encounter Results (ABNORMAL) CT chest WO contrast (01/01/2013 9:34 AM EDT) Anatomical Region Laterality Modality Chest Computed Tomography Specimen (Source) Anatomical Collection Method Collection Time Re ceived Time Location / / Volume Laterality 01/01/2013 9:34 AM EDT Narrative 01/01/2013 10:[address] Chest Without Contrast Clinical History F/U SOLITARY LEFT LOWER LOBE LESION Comparison None Technique 3.75 mm transaxial slices through the th orax with no contrast. ??Comparison 12/17/2010 as well as multiple studies b ack through 2008. Findings There are multiple small bilateral pulmo nary nodules which are unchanged compared to the patient's prior study. ? ?The largest are a 11 mm and an 8 mm right middle lobe nodule, and a 6 mm lef t upper lobe nodule. 1 of the right lower lobe nodules has a cystic componen t but again is unchanged. No pleural effusions or mediastinal adenopathy. Mod erate size hiatal hernia. ?? On slices through the upper abdomen. ??T here is a approximately 18 mm mass arising from the upper pole of the left kidney which was not present in 2008 which was the only prior CT which went t hrough the upper poles of the kidneys. ?? This measures 27 Hounsfield units could be a hyperdense cyst but requires further evaluation. ?? Impression Multiple bilateral pulmonary nodules. ?? Stable liver at least 3 in appeared for head routine follow up on the basis of c linical history and concern. 18 mm indeterminate mass left kidney, ne w since 2008. ??Ultrasound recommended. Unexpected finding Resulting Agency Comment Unexpected Finding Procedure Note Muna Rich MD - 01/01/2013Formattin g of this note might be different from the original. Examination CT Chest Without Contrast Clinical History F/U SOLITARY LEFT LOWER LOBE LESION Comparison None Technique 3.75 mm transaxial slices through the th orax with no contrast. Comparison 12/17/2010 as well as multiple studies b ack through 2008. Findings There are multiple small bilateral pulmo nary nodules which are unchanged compared to the patient's prior study. T he largest are a 11 mm and an 8 mm right middle lobe nodule, and a 6 mm lef t upper lobe nodule. 1 of the right lower lobe nodules has a cystic componen t but again is unchanged. No pleural effusions or mediastinal adenopathy. Mod erate size hiatal hernia. On slices through the upper abdomen. The re is a approximately 18 mm mass arising from the upper pole of the left kidney which was not present in 2008 which was the only prior CT which went t hrough the upper poles of the kidneys. This measures 27 Hounsfield units could be a hyperdense cyst but requires further evaluation. Impression Multiple bilateral pulmonary nodules. St able liver at least 3 in appeared for head routine follow up on the basis of c linical history and concern. 18 mm indeterminate mass left kidney, ne w since 2008. Ultrasound recommended. Unexpected finding Jensen Ramirez MD IMG CT ORDERABLES documented in this encounter Visit Diagnoses Diagnosis Lesion of lung Other diseases of lung, not elsewhere cl assified Lesion of lung Other diseases of lung, not elsewhere cl assified documented in this encounter Care Teams Dining Room Attendant Relationship Specialty Start Date End Date Miriam Agee MD PCP - General 12/06/11 08/22/[address] [place] [address] documented as of this encounter
--- OUTSIDE RECORDS SUMMARY | 2021-11-12 00:57 | XMS_ITS | Encounter Summary ---
:1955 Author Organization [facility] [place] [address] Care Team Providers Name Role Phone Miriam Agee MD Primary Care Provider Encounter Details Date Type Department Care Team Description 12/12/2011 Hospital Encounter Mammography at [facility], DR ARDON Abnormal mammogram, [facility] Mahesh Bowen MD [address] [place] [address] [id number] [place] [id number] Social History Tobacco Use Types Packs/Day Years Used Date Never Smoker Smokeless Tobacco: Never Used Sex Assigned at Date Recorded Not on file documented as of this encounter Medications at Time of Discharge Medication Sig Dispensed Refills Start Date End Date ibuprofen (ADVIL;MOTRIN) Take 200 mg by mouth 0 200 mg tablet every 6 hours as needed. Reported on 06/13/2016 multivitamin (THERAGRAN) Take 1 tablet by 0 tablet mouth daily. acetaminophen (TYLENOL) Take 650 mg by mouth 0 07/31/2014 325 mg tablet every 4 hours as needed. CALCIUM-MAGNESIUM ORAL Take by mouth daily. 0 05/13/2013 omeprazole (PRILOSEC) 20 Take 20 mg by mouth 0 04/29/2019 mg capsule daily. Cholecalciferol, Vitamin Take by mouth daily. 0 01/28/2014 D3, (VITAMIN D) 1,000 unit Cap documented as of this encounter Plan of Treatment Not on filedocumented as of this encounter Procedures Procedure Name Priority Date/Time Associated Diagnosis Comme nts MAMMO CALL BACK Routine 12/12/2011 3:30 PM Abnormal mammogram, Results for this DIAGNOSTIC EXTRA EDT unspecified procedure a re in VIEW UNILATERAL the results section. documented in this encounter Results Mammo call back diagnostic extra view unilateral (12/12/2011 3:30 PM EDT) Anatomical Region Laterality Modality Breast N/A Mammography Specimen (Source) Anatomical Collection Method Collection Time Re ceived Time Location / / Volume Laterality 12/12/2011 3:30 PM EDT Impressions 12/13/2011 1:12 PM EDT IMPRESSION: BENIGN Right mammogram and breast ultras ound (BI-RADS Category 2) for a 1.3cm cyst at 0530, 6cm from the nipple. ??Rou latoya screening mammography recommended. Film and interpretation reviewed by the attending Narrative 12/13/2011 1:12 PM EDT SUPPLEMENTAL RIGHT MAMMOGRAPHY AND RIGHT BREAST ULTRASOUND ON 12/12/11: HISTORY: mass questioned in the lower ri ght breast on recent screening mammography. TECHNIQUE: Right cranio-caudal and MLO c ompression and Right ML projection obtained with direct digital capture. US of the lower right breast targeted to the mammographic abnormality. Comparison is made to screening mammogram dated 12/06/11 and 10/2006 and 08/2005. Additional mammography confirms a 1.3cm mass ??with circumscribed margins in the lower, central ??Right breast at 0530, 6 cm from the nipple. Ultrasound examination of that site demo nstrates a simple cyst. Procedure Note Jerod Reid MD - 12/13/2011Format ting of this note might be different from the original. SUPPLEMENTAL RIGHT MAMMOGRAPHY AND RIGHT BREAST ULTRASOUND ON 12/12/11: HISTORY: mass questioned in the lower ri ght breast on recent screening mammography. TECHNIQUE: Right cranio-caudal and MLO c ompression and Right ML projection obtained with direct digital capture. US of the lower right breast targeted to the mammographic abnormality. Comparison is made to screening mammogram dated 12/06/11 and 10/2006 and 08/2005. Additional mammography confirms a 1.3cm mass with circumscribed margins in the lower, central Right breast at 0530, 6cm from the nipple. Ultrasound examination of that site demo nstrates a simple cyst. IMPRESSION IMPRESSION: BENIGN Right mammogram and breast ultras ound (BI-RADS Category 2) for a 1.3cm cyst at 0530, 6cm from the nipple. Routi ne screening mammography recommended. Film and interpretation reviewed by the attending Larisa Arellano MD IMG MAMMO ORDERABLES documented in this encounter Visit Diagnoses Diagnosis Abnormal mammogram, unspecified documented in this encounter Care Teams Governor Assembler Relationship Specialty Start Date End Date Miriam Agee MD PCP - General 12/06/11 08/22/[address] [place] [address] documented as of this encounter
--- OUTSIDE RECORDS SUMMARY | 2021-11-12 00:57 | XMS_ITS | Encounter Summary ---
:1955 Author Organization [facility] [place] [address] Care Team Providers Name Role Phone Miriam Agee MD Primary Care Provider Reason for Visit Reason Onset Date Comments Results 07/24/2013 Encounter Details Date Type Department Care Team Description 07/24/2013 Telephone Endocrinology at [facility] C Phoebe Eric, Results [facility] [place] [phone] Social History Tobacco Use Types Packs/Day Years Used Date Never Smoker Smokeless Tobacco: Never Used Alcohol Use Standard Drinks/Week Comments No 0 (1 standard drink = 0.6 oz pure alcoho l) Sex Assigned at Date Recorded Not on file documented as of this encounter Miscellaneous Notes Telephone Encounter - Phoebe Eric RN - 07/25/2013 3:06 PM EDT Pt calls again to request Dr. No call her. Pt's # [phone] Telephone Encounter - Phoebe Eric RN - 07/24/2013 1:51 PM EDT Phone message received from pt requesting phone call from Dr. No re recent lab results/status. notified. documented in this encounter Plan of Treatment Not on filedocumented as of this encounter Visit Diagnoses Not on filedocumented in this encounter Care Teams Air Conditioning Insulation Installer Relationship Specialty Start Date End Date Miriam Agee MD PCP - General 12/06/11 08/22/[address] [place] [address] documented as of this encounter
--- OUTSIDE RECORDS SUMMARY | 2021-11-12 00:57 | XMS_ITS | Encounter Summary ---
:1955 Author Organization [facility] [place] [address] Care Team Providers Name Role Phone Miriam Agee MD Primary Care Provider Encounter Details Date Type Department Care Team Description 01/04/2013 Orders Only Cardiothoracic Surge ry Lisa Mccauley, Left kidney mass [facility] [place] [address] [facility] [phone] Thoracic Surgery [place] [address] (Wo rk) Social History Tobacco Use Types Packs/Day Years Used Date Never Smoker Smokeless Tobacco: Never Used Sex Assigned at Date Recorded Not on file documented as of this encounter Plan of Treatment Not on filedocumented as of this encounter Results US retroperitoneal complete (01/24/2013 9:38 AM EST) Anatomical Region Laterality Modality Abdomen Ultrasound Specimen (Source) Anatomical Collection Method Collection Time Re ceived Time Location / / Volume Laterality 01/24/2013 9:38 AM EST Narrative 01/24/2013 9:54 AM EST ? Renal ? (Signed Final 01/24/2013 09 :53 am) Patient Info ID: ? [id number] ? : ??[birth year] (57 yrs) Name: ? MUA GUILLEN ? Visit Date: 01/24/2013 09:35 am Performed By Performed By: ?Paige PALACIOS, ??Anne newberry Associate: ? Charles WARD, Víctor Alarcon Attending: ? Apolinar WARD, Theodore Zuluaga Referred By: ? TOMAS WEI MD Service(s) Provided URETRO - Retroperitoneal Complete - 002 [id number] ? [id number] Indications New finding of left renal mass on chest CT scan Comparison CT scan: 01/01/13 Right Kidney Size (cm) ?L: ??12.2 Cortical Thickness: ?Normal Cortical Echogenicity: ?? Normal Hydronephrosis: ?No sonogr aphic evidence Left Kidney Size (cm) ?L: ??12.2 Cortical Thickness: ?Normal Cortical Echogenicity: ?? Normal Hydronephrosis: ?No sonogr aphic evidence Comment: ?1.8 cm upper pole cyst Urinary Bladder Pre-void (cm) ? L: ??9.4 ? A P: ??6.3 ? TV: ??8 Vol (ml): ?248.1 Comment: ?Partially distended, norm al contour Impression Ultrasound - ??Retroperitoneal Complete - Summary Normal right kidney and bladder. ??Left 1.8 cm upper pole renal cyst. I ??viewed the images and agree with jevon newberry above interpretation. Thank you for allowing us to participat e in the care of UMA GUILLEN. Please do not hesitate to call if you have any questions. ?Elaine Jiang MD Electronically Signed Final Report ?? 09:53 am Film and interpretation reviewed by the attending Procedure Note Elaine Jiang MD - 01/24/2013Form atting of this note might be different from the original. Renal (Signed Final 01/24/2013 09:53 am) Patient Info ID: [id number] : [birth year] (57 yrs ) Name: UMA GUILLEN Visit Date: 01/24 09:35 am Performed By Performed By: Eula Gibson RDMS Associate: Víctor Soto MD Attending: Elaine Jiang MD. Referred By: TOMAS WEI MD Service(s) Provided URETRO - Retroperitoneal Complete - [phone] [id number] Indications New finding of left renal mass on chest CT scan Comparison CT scan: 01/01/13 Right Kidney Size (cm) L: 12.2 Cortical Thickness: Normal Cortical Echogenicity: Normal Hydronephrosis: No sonographic evidence Left Kidney Size (cm) L: 12.2 Cortical Thickness: Normal Cortical Echogenicity: Normal Hydronephrosis: No sonographic evidence Comment: 1.8 cm upper pole cyst Urinary Bladder Pre-void (cm) L: 9.4 AP: 6.3 TV: 8 Vol (ml): 248.1 Comment: Partially distended, normal co ntour Impression Ultrasound - Retroperitoneal Complete - Summary Normal right kidney and bladder. Left 1 .8 cm upper pole renal cyst. I viewed the images and agree with the above interpretation. Thank you for allowing us to participat e in the care of UMA GUILLEN. Please do not hesitate to call if you have any questions. Elaine Jiang MD Electronically Signed Final Report 01/24 09:53 am Film and interpretation reviewed by the attending Jensen Ramirez MD IMG US GEN ORDERABLES documented in this encounter Visit Diagnoses Diagnosis Left kidney mass Unspecified disorder of kidney and urete r Left kidney mass Unspecified disorder of kidney and urete r documented in this encounter Care Teams Director Of Event Sales Relationship Specialty Start Date End Date Miriam Agee MD PCP - General 12/06/11 08/22/[address] [place] [address] documented as of this encounter
--- OUTSIDE RECORDS SUMMARY | 2021-11-12 00:57 | XMS_ITS | Encounter Summary ---
:1955 Author Organization [facility] [place] [address] Care Team Providers Name Role Phone Miriam Agee MD Primary Care Provider Encounter Details Date Type Department Care Team Description 07/25/2013 Telephone Endocrinology at [facility] C Phoebe Eric, [facility] [place] [phone] Social History Tobacco Use Types Packs/Day Years Used Date Never Smoker Smokeless Tobacco: Never Used Alcohol Use Standard Drinks/Week Comments No 0 (1 standard drink = 0.6 oz pure alcoho l) Sex Assigned at Date Recorded Not on file documented as of this encounter Miscellaneous Notes Telephone Encounter - Phoebe Eric RN - 07/25/2013 3:06 PM EDT Error documented in this encounter Plan of Treatment Not on filedocumented as of this encounter Visit Diagnoses Not on filedocumented in this encounter Care Teams Eye Glass Frame Polisher Relationship Specialty Start Date End Date Miriam Agee MD PCP - General 12/06/11 08/22/13 [address] [facility] [place] [address] documented as of this encounter
--- OUTSIDE RECORDS SUMMARY | 2021-11-12 00:57 | XMS_ITS | Encounter Summary ---
:1955 [place] [address] Care Team Providers Name Role Phone Miriam Agee MD Primary Care Provider Encounter Details Date Type Department Care Team Description 01/01/[address] [place] [facility] [place]ion of lung [facility] [place] [address] Social History Tobacco Use Types Packs/Day [...] 1 tablet by 0 tablet mouth daily. celecoxib (CELEBREX) 200 Take 200 mg by mouth 0 05/13/2013 mg capsule daily. cycloSPORINE (RESTASIS) Place 2 drops into 0 05/13/2013 0.05 % ophthalmic both eyes 2 times emulsion daily. acetaminophen (TYLENOL) Take 650 mg by [...] Diagnosis Comme nts CT CHEST WO Routine 01/01/2013 9:34 AM Lesion of lung Results for this CONTRAST (GENERIC) EDT procedure are in the results section. documented in this encounter Results (ABNORMAL) CT chest WO [...] left kidney which was not present in 2009 which was the only prior CT which [...] assified documented in this encounter Care Teams Preformer Impregnated Fabrics Relationship Specialty Start Date End Date Miriam Agee MD PCP - General 12/06/11 08/22/13 [address] [place] [address] documented as of this encounter
--- OUTSIDE RECORDS SUMMARY | 2021-11-12 00:57 | XMS_ITS | Encounter Summary ---
:1955 Author Organization [facility] [address] Care Team Providers Name Role Phone Papa Dunn MD Primary Care Provider [phone] Encounter Details Date Type Department Care Team Description 07/31/2014 Office Visit Endocrinology at [facility] Nav Gillespie, Unspecified vitamin D defici ency; [facility] Reyes Vogt MD Hyperparathyroidism , secondary, non-khurram al [address] [facility] [id number] ENDOCRINOLOGY [phone] [place] [address] Social History Tobacco Use Types Packs/Day Years Used Date Never Smoker Smokeless Tobacco: Never Used Alcohol Use Standard Drinks/Week Comments No 0 (1 standard drink = 0.6 oz pure alcoho l) Sex Assigned at Date Recorded Not on file documented as of this encounter Last Filed Vital Signs Vital Sign Reading Time Taken Comments Blood Pressure - - Pulse - - Temperature - - Respiratory Rate - - Oxygen Saturation - - Inhaled Oxygen Concentration - - Weight 95.7 kg (211 lb) 07/31/2014 2:12 PM EDT Height 165.1 cm (5' 5) 07/31/2014 2:12 PM EDT Body Mass Index 35.11 07/31/2014 2:12 PM EDT documented in this encounter Patient Instructions Patient InstructionsReyes Gillespie MD - 07/31/2014 2:39 PM EDT Plan: 1. Medication: Pt will start taking vitamin D 50,000 iu weekly in addition to her Ca/D and MVI. Thismay help suppress PTH back down to normal range again for her. Info on possible side effects and howto take the medication properly was discussed at visit today. To continue all other medications, low fat/controlled carb diet & exercise per wt watcher program as tolerated to keep weight stable. 2. Lab: Already checked lab locally as above and will rechek lab locally in 2 months soon for PTH and 25vitamin D before we taper the dose of vitamin D down to q 2-4 weeks. 3. RTC: Next visit in 6 months. Will follow lab at outside lab again in 6 mo for TSH, PTH, Ca, 25-vitamin D and A1c. If PTH is normalized, we will let her see PCP directly after next visit with us to conclude her care. documented in this encounter Progress Notes Reyes Gillespie MD - 07/31/2014 2:23 PM EDT Endocrine Clinic Name: Uma Hood : 1955 PCP: PAAP DUNN MD Provided by: Reyes Gillespie MD, PhD, FACE Date: 07/31/2014 Reason for visit: Endocrine visit for the following problem list: post right lower pole parathyroid adenoma resection on 05/2013 for primary hyperparathyroidism with normalized Ca & PTH after the surgery but then PTH kenney back up to 78 likely due to 2ry hyperPTH. Patient Active Problem List Diagnosis Code ??? Renal cyst 753.10 ??? Hyperparathyroidism, primary (PTH 168, Ca 10.3-10.4, low phos 2.3, Cr 1.0 on 01/05/13) 252.01 ??? Multiple pulmonary nodules bilaterally 793.19 ? ? Left kidney mass 1.[address] scan=> simple cyst by US 593.9 ??? Solitary cyst of right breast 1.3 cm 610.0 ??? 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 ? Subclinical hypothyroidism (TSH 5.8 with FT4 0.9 => better spontaneously TSH 2.6 in ) 244.8 ??? Prediabetes (A1c 6.4% 12/17/12) 790.29 ??? Obesity 278.00 ??? Hyperparathyroidism 252.00 ??? Parathyroid adenoma 227.1 ??? Family history of aortic aneurysm in mother and brother) V17.49 ??? Family history of hypothyroidism in mother and 2 maternal aunts V18.19 OSH lab 07/12/14 Ca- 8.8 PTH- 132 25vitamin D- 33 TSH 3.0 TPO Ab <28 A1c 6.0% better in pre-DM now (was 6.7% in ) Uma Hood is doing well during the interim and has been taking her OTC- vitamin D supplement (tota 2,400 iu/day) but still having a borderline low vitD again with higher PTH at 132 now. Her weighthas been stable and will resume wt watcher soon. No palpitations, CP, SOB, GI issues, changes of skin or hairs and no heat or cold intolerance. No REDMOND or visual changes. No swelling in LEs or foot problem. Also, walking more with her friend at least 1 mile daily. ROS: Please see HPI, all others negative Patient Active Problem List Diagnosis Code ??? Renal cyst 753.10 ??? Hyperparathyroidism, primary (PTH 168, Ca 10.3-10.4, low phos 2.3, Cr 1.0 on 01/05/13) 252.01 ??? Multiple pulmonary nodules bilaterally 793.19 ? ? Left kidney mass 1.[address] scan=> simple cyst by US 593.9 ??? Solitary cyst of right breast 1.3 cm 610.0 ??? 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 ? Subclinical hypothyroidism (TSH 5.8 with FT4 0.9 => better spontaneously TSH 2.6 in ) 244.8 ??? Prediabetes (A1c 6.4% 12/17/12) 790.29 ??? Obesity 278.00 ??? Hyperparathyroidism 252.00 ??? Parathyroid adenoma 227.1 ??? Family history of aortic aneurysm in mother and brother) V17.49 ??? Family history of hypothyroidism in mother and 2 maternal aunts V18.19 Current Outpatient Prescriptions on File Prior to Visit Medication Sig Dispense Refill ??? cycloSPORINE (RESTASIS) 0.05 % Dropperette Place 1 drop into both eyes 2 times daily. ??? CALCIUM CITRATE/VITAMIN D3 (CALCIUM CITRATE + D ORAL) Take 1 tablet by mouth daily. ??? GLUC/FATMATA-MSM#1/VIT C/NATALIE/BOR ([id number] COMPLEX ORAL) Take by mouth daily. ??? multivitamin (THERAGRAN) tablet Take 1 tablet by mouth daily. ??? omeprazole (PRILOSEC) 20 mg capsule Take 20 mg by mouth daily. ??? ibuprofen (ADVIL;MOTRIN) 200 mg tablet Take 200 mg by mouth every 6 hours as needed. ??? [DISCONTINUED] acetaminophen (TYLENOL) 325 mg tablet Take 650 mg by mouth every 4 hours as needed. No current facility-administered medications [...] Cancer Maternal Uncle colon Physical exam BP Ht 165.1 cm (5' 5) Wt 95.709 kg (211 lb) BMI 35.11 kg/m2 Appearance: obese, pleasant, NAD HEENT: PERRLA, [...] adenoma resection since 05/2013 for primary hyperparathyroidism and then had normalized Ca & PTH intraoperatively. However, her PTH then kenney back up to 78 (07/10/13) with normal Ca and low normal vitamin D, likely due to 2ry hyperPTH. Her PTH was normalized again down to 62 last after vitamin D supplement but labs last week showed much hogherPTH 132 with lowered calcium 8.8 and low normal vitamin D at 33. Will switch to prescription vitaminD today to keep her vitamin D in mid normal range which will help suppress PTH for her. Also, borderline hypothyroid with TSH 5.8->5.38 in the past but then better at 2.61-3.0 range. She used to lose wt 11 lbs down with wt watcher but then stopped it in winter with stable weight with plan to resume wt watcher for her preDM/mild DM (A1c 6.7% in and now down to 6.0%). She has strong FH of hypothyroid in mother and 2 maternal aunts. Plan: 1. Medication: Pt will start taking vitamin D 50,000 iu weekly in addition to her Ca/D and MVI. Thismay help suppress PTH back down to normal range again for her. Info on possible side effects and howto take the medication properly was discussed at visit today. To continue all other medications, low fat/controlled carb diet & exercise per wt watcher program as tolerated to keep weight stable. 2. Lab: Already checked lab locally as above and will rechek lab locally in 2 months soon for PTH and 25vitamin D before we taper the dose of vitamin D down to q 2-4 weeks. 3. RTC: Next visit in 6 months. Will follow lab at outside lab again in 6 mo for TSH, PTH, Ca, 25-vitamin D and A1c. If PTH is normalized, we will let her see PCP directly after next visit with us to conclude her care. We have reviewed [...] filedocumented as of this encounter Results (ABNORMAL) PTH (10/04/2014) Analysis Performed At Patho logist Time Signature PTH [facility] (External Lab) Specimen (Source) Anatomical Location Collection Method / Collectio n Time Received Time / Laterality Volume Blood specimen 10/04/2014 (specimen) Narrative This result has an attachment that is no t available. Reyes Gillespie MD CHEMISTRY ORDERABLES documented in this encounter Visit Diagnoses Diagnosis Unspecified vitamin D deficiency Hyperparathyroidism , secondary, non-khurram al Secondary hyperparathyroidism, non-renal documented in this encounter Care Teams Land Leases And Rentals Manager Relationship Specialty Start Date End Date Papa Dunn MD PCP - General 02/03/14 08/13/[address] [place] [address] documented as of this encounter
--- OUTSIDE RECORDS SUMMARY | 2021-11-12 00:57 | XMS_ITS | Encounter Summary ---
:1955 [place] [address] Care Team Providers Name Role Phone Miriam Agee MD Primary Care Provider Encounter Details Date Type Department Care Team Description 05/14/2013 Hospital Encounter Same Day Program at Javier Hernandez, [facility] [address] [place] [address] [place] [id number] [phone] (Wo rk) Social History Tobacco Use Types Packs/Day Years Used Date Never Smoker Smokeless Tobacco: Never Used Alcohol Use Standard Drinks/Week Comments No 0 (1 standard drink = 0.6 oz pure alcoho l) Sex Assigned at Date Recorded Not on file documented as of this encounter Last Filed Vital Signs Vital Sign Reading Time Taken Comments Blood Pressure 150/82 05/14/2013 11:45 AM EDT Pulse 87 05/14/2013 11:45 AM EDT Temperature 36.6 ??C (97.9 ??F) 05/14/2013 10:09 AM EDT Respiratory Rate 16 05/14/2013 11:45 AM EDT Oxygen Saturation 98% 05/14/2013 11:45 AM EDT Inhaled Oxygen Concentration - - Weight 98.9 kg (218 lb) 05/14/2013 6:23 AM EDT Height 165.1 cm (5' 5) 05/14/2013 6:23 AM EDT Body Mass Index 36.28 05/14/2013 6:23 AM EDT documented in this encounter Discharge Instructions Discharge InstructionsIndia Barker RN - 05/14/2013 2:43 PM EDT POST ANESTHESIA INSTRUCTIONS Go home, rest, use caution on stairs. Change positions slowly. Do not smoke if you are alone. Diet light to regular as tolerated today. If nausea occurs start with clear liquids and progress slowly. No driving, operating machinery, alcoholic beverages and no important decisions for 24 hours. Monitor IV site for signs and symptoms of infection: increasing redness, swelling, foul drainage, ifoccurs contact M.D. Patients who have had endotrachial tubes (this tube, used by anesthesia department, is passed down your throat after you are asleep, to ensure safe air passage during your operation). A sore throat is normal due to the tube. Cold liquids or soothing lozenges will help ease the discomfort. The generalized muscle aches are due to the medication given to you just before the tube is inserted. As the medication wears off, you may develop muscle soreness, which usually goes away in 12-24 hours. Patient InstructionsJeff Arteaga MD - 05/14/2013 10:05 AM EDT Instructions following Parathyroid Surgery What to Expect Following Surgery: Swelling and/or bruising under and around the incision is normal. It is usually greatest on the second or third day following surgery. You may also feel the sensation of swelling or firmness that can last for a month or more Your scar will be most visible for 1-2 months following your operation and will gradually fade over the next 6-8 months. As it heals, a scar looks more pink or red than the skin around it. You may feel a ???healing ridge?? directly under the incision. This is normal and will go away whenhealing is complete in 3-6 months. The skin just above and below your incision will feel numb. This will improve over several months but some patients may have long-term decrease in sensation over these areas You may notice minor difficulty in swallowing which will improve over time. Your voice may be hoarse or weak at first--because the surgery was near the voice box--but usually recovers over several weeks Incision Care: Keep dressing on your incision for the next 2 days, then you may remove dressing and leave incision open to air. Remove dressing and replace with dry gauze if it becomes saturated or wet in the next 2 days, replace as needed. If there are pieces of tape directly on the skin (steri-strips), please leave them on until they fall off on their own. You may trim them back as they peel up, or just remove them after 2 weeks. Once dressing is removed in 2 days you may shower and get incision wet. Pat dry immediately following. Do not scrub area vigorously for the next 2 weeks. Do not soak incision under water (i.e. bath or swimming) for the next 3 weeks to prevent a wound infection. Do not use any ointments/salves/Vitamin E on the incision until after your first follow-up appointment as these may impair early wound healing Incisions are sensitive to sunlight. For 1 year after surgery you should use sunscreen when outdoorsfor long periods of time to prevent permanent darkening of the scar. This includes tanning booths Diet & Activity: No restrictions in your diet are necessary. Activity as tolerated by your comfort level. You may return to work in 7 - 14 days or sooner if desired. NO DRIVING for at least 8 hours following any dose of an opioid pain medication if one was prescribed for you. Pain Management: Take NSAIDS like ibuprofen (motrin, advil), naproxen (Naprosyn, Aleve), or acetaminophen (Tylenol) every 6 hours for the first 3-5 days following surgery to help minimize pain. Use opioid (Percocet, Vicodin, Tylenol #3) pain medications for severe pain, and do not take with alcohol. To prevent Tylenol overdose do not take Tylenol doses within 4-6 hours before or after these medications (they contain Tylenol as well) Opioid medications typically cause constipation, so we suggest using a stool softener in addition (metamucil, colace...etc.) You may apply ice or cold packs to the incision for 15-20 minutes several times a day for the first 2-3 days following surgery to help with discomfort You may feel some stiffness/soreness in your shoulders, back, and neck. This may take a few days or weeks to go away completely. You may use moist warm heat, heating pad, or massage to these areas for 15-20 minutes several times a day. Do not be afraid to move your neck - gently flexing and stretching your neck muscles and light massage will help prevent stiffness Pathology Report: All specimens removed at surgery are analyzed by a pathologist. This report usually takes 4 businessdays to be ready. Dr. Hernandez will call you with this report as soon as it is available. Calcium Supplementation: Your body???s calcium levels may fall following a total thyroidectomy or parathyroid operation, which usually lasts only a few days. Take two 600 mg calcium citrate with vitamin D tablets of capsules (you can buy this over the counter at your pharmacy or grocery store) three times a day until you speak with Dr. Hernandez about your path report. He will review your need to continue this at that time. If you notice a tingling sensation in your hands, feet, around your mouth, or develop muscle spasms then please call the General Surgery nurse at [phone], since this may mean that you need morecalcium. Follow-up Appointment: Will be scheduled with Dr. Hernandez in 6 weeks Date and time as well as any required labs will be mailed to you Please call [phone] to confirm date and time of your appointment if you do not hear from us in the next 4 weeks Call Doctor for: Worsening redness or drainage from your incision lasting longer than 5 days following surgery Any foul-smelling drainage from the incision Fevers greater than 101 degrees F Persistent nausea or vomiting (this may be related to opioid pain medications) Tingling in your hands, feet or around your mouth, or muscle spasms not relieved by calcium supplementation. Phone number for questions: [phone] before 5 PM weekdays [phone] after 5 PM and on weekends/holidays documented in this encounter Medications at Time of Discharge Medication Sig Dispensed Refills Start Date End Date ibuprofen (ADVIL;MOTRIN) Take 200 mg by mouth 0 200 mg tablet every 6 hours as needed. Reported on 06/13/2016 multivitamin (THERAGRAN) Take 1 tablet by 0 tablet mouth daily. HYDROmorphone (DILAUDID) Take 1 tablet by 30 tablet 0 05/1406/24/2013 2 mg tablet mouth every 4 hours as needed for Pain. acetaminophen (TYLENOL) Take 650 mg by mouth 0 07/31/2014 325 mg tablet every 4 hours as needed. omeprazole (PRILOSEC) 20 Take 20 mg by mouth 0 04/29/2019 mg capsule daily. Cholecalciferol, Vitamin Take by mouth daily. 0 01/28/2014 D3, (VITAMIN D) 1,000 unit Cap documented as of this encounter H&P Notes Mane Hernandez MD - 05/13/2013 2:41 PM EDT H&P INTERVAL NOTE - 24 HOUR UPDATE I have reviewed the pre-procedure H&P completed by me on 04/22/13. Condition unchanged since H&P originally performed. documented in this encounter Miscellaneous Notes Miscellaneous - Provider, Scanning - 05/14/2013 7:49 PM EDT Miscellaneous - Provider, Scanning - 05/14/2013 6:06 PM EDT Miscellaneous - Provider, Scanning - 05/14/2013 2:42 PM EDT Op Note - Jeff Arteaga MD - 05/14/2013 10:17 AM EDT [facility] [place] Patient Name: Uma Guillen : [id number] MR#: [id number] Case Date: 05/14/2013 Surgeon: Surgeon(s) and Role: * Mane Hernandez MD - Primary * Jeff Arteaga MD Preoperative diagnosis: HPT Postoperative diagnosis: HPT Procedure(s): PARATHYROIDECTOMY OR EXPLORATION OF PARATHYROID(S) Anesthesia: General Estimated Blood Loss: 12 ml Findings: PTH 259 to 21. Parathyroid adenoma on right lower pole. Drains: none Disposition: awakened from anesthesia, extubated and taken to the recovery room in a stable condition, having suffered no apparent untoward event. Condition: doing well without problems (Please see the Surgical Encounter Summary for any Implant and Specimen details pertinent to this patient.) HPI/Surgical Indications: She was first noted to have a mildly elevated calcium on 10/2011. Repeat last December noted and increase to 11.0 with a PTH on 196. She was referred to Endo and underwent an US localization: PARATHYROID / THYROID ULTRASOUND: Thyroid Right Lobe: The right lobe measures: [...] gland that is consistent with seng's hypothyroidism. Procedure Description: The patient was brought to the operating room and placed supine on the operating table. General endotracheal anesthesia was induced without event. A natural crease in the neckline was marked with a marking pen. This area was infiltrated with 0.25% Sensorcaine with epinephrine. The patient's anterior neck was then prepped and draped in sterile fashion. A timeout procedure was done and all members of the OR team were in agreement. A 15-blade was used to incise the skin over the area of the previously marked crease. The incision was carried down through the subcutaneous tissue and platysma muscle using electrocautery. The median raphe of the strap muscles was identified and this was divided in vertical fashion using electrocautery. Attention was directed to the left side, where preoperative studies had indicated a probable adenoma. The thyroid lobe was retracted medially, and small parathyroid like tissue present. The parathyroid gland was carefully dissected from its attachments, taking care to preserve the vascular pedicle. Once the parathyroid was attached only by its vasculature, a blood sample was drawn from the left jugular vein. This was sent for intraoperative PTH, and the value was 259. The parathyroidvascular pedicle was then ligated with a 4-0 silk tie, and the specimen was sent to pathology for frozen section. This returned as thyroid tissue. Attention was then directed to the right side, for further exploration as the left side appeared to not be the adenoma found on preoperative testing. The thyroid lobe was retracted medially, and 1cm x 2 cm parathyroid adenoma was identified. The parathyroid gland was carefully dissected from its attachments, taking care to preserve the vascular pedicle. The parathyroid vascular pedicle was then ligated with a 4-0 silk tie, and the specimenwas sent to pathology for permanent section. Twenty five minutes after the first sample was drawn, a second blood sample was taken from the left jugular vein. The PTH was 21, which was a sufficient decrease. A Valsalva maneuver to 30mm Hg was performed by anesthesia to evaluate hemostasis. Surgicel was placed in the parathyroid bed. With meticulous hemostasis achieved, the strap muscles were reapproximatedusing a 4-0 Monocryl in running, locking fashion. The platysma muscle was closed with 4-0 Monocryl in a running, partially locking fashion. The skin was reapproximated using a 4-0 Monocryl in a runningsubcuticular fashion. A dry, sterile dressing was placed over the wound. All counts were correct at the conclusion of the case. The patient tolerated the procedure well and was extubated in the operating room without event. The patient was taken back to the same day recovery area in stable condition with plans for a same-day discharge home. Dr. Hernandez was present for the case. OR Attestation - Mane Hernandez MD - 05/14/2013 10:16 AM EDT Attestation: Case Date: 05/14/2013 I was present and I participated during the entire procedure (does not need to include opening and closing). MANE HERNANDEZ MD 05/14/2013 Brief Op Note - Mane Hernandez MD - 05/14/2013 10:14 AM EDT Brief Operative Note Patient Name: Uma Guillen : [id number] MR#: [id number] Case Date: 05/14/2013 Surgeon: Surgeon(s) and Role: * Mane Hernandez MD - Primary * Jeff Arteaga MD Preoperative diagnosis: HPT Postoperative diagnosis: HPT Procedure(s): PARATHYROIDECTOMY OR EXPLORATION OF PARATHYROID(S) Anesthesia: General Findings: Large RLPTA removed. PTH fell from 265 to 21. Complications: none Fluids: Estimated Blood Loss: 12ml Drains: none Disposition: awakened from anesthesia, extubated and taken to the recovery room in a stable condition, having suffered no apparent untoward event. Condition: doing well without problems (Please see the Surgical Encounter Summary for any Implant and Specimen details pertinent to this patient.) documented in this encounter Plan of Treatment Not on filedocumented as of this encounter Procedures Procedure Name Priority Date/Time Associated Comments Diagnosis INTRAOPERATIVE PTH STAT 05/14/2013 9:30 Result s for this ([facility] EDT procedure are i n the results section. SPECIMEN TO PATHOLOGY Routine 05/14/2013 9:09 Res ults for this AM EDT procedure are i n the results section. FROZEN SECTION REPORT Routine 05/14/2013 8:54 Res ults for this AM EDT procedure are i n the results section. SURGICAL PATHOLOGY REPORT Routine 05/14/2013 8:54 Results for this AM EDT procedure are i n the results section. SPECIMEN TO PATHOLOGY STAT 05/14/2013 8:53 Res ults for this AM EDT procedure are i n the results section. INTRAOPERATIVE PTH STAT 05/14/2013 8:50 Result s for this ([facility] AM EDT procedure are i n the results section. PARATHYROIDECTOMY OR 05/14/2013 7:29 HPT EXPLORATION OF AM EDT PARATHYROID(S) (WRVU 15.6) documented in this encounter Results Intraoperative PTH (05/14/2013 9:30 AM EDT) athologist Signature Intraoper PTH 21 8 - 53 CERNER pg/mL [facility] Comment: post excision sample #1 Called by: kirsten, Read back by: adams in or 22, Date/Time:05/14/13 0956. A 50 % decrease in venous iPTH levels at 10 min post adenoma excision is expected if all the hypersecreting parat hyroid tissue has been removed (Malcolm GL et al. Surgery 1993:114; [id number]) Specimen Anatomical Collection Method Collection Time Receive d Time (Source) Location / / Volume Laterality Blood specimen 05/14/2013 9:30 AM 014 9:35 (specimen) EDT AM EDT Resulting Agency Comment Spec In Lab Mane Hernandez MD CHEMISTRY ORDERABLES Performing Organization Address [facility]/ZIP Code Phon e Number [address] [facility] Specimen to Pathology (surgical or derm) (05/14/2013 9:09 AM EDT) Specimen Anatomical Collection Method Collection Time Receive d Time (Source) Location / / Volume Laterality AP Specimen 05/14/2013 9:09 AM 4 9:09 EDT AM EDT Narrative [facility] - 05/14/2013 9:09 AM E DT Specimen requisition ordered. ??Separate Pathology report to follow Mane Hernandez MD PATHOLOGY/CYTOLOGY ORDERABLE S Performing Organization Address City/[facility] Phon e Number [address] [facility] Surgical Pathology Report (05/14/2013 8:54 AM EDT) Component Value Ref Test Analysis Performed At [facility] Range Method Time Signature [facility] ? [facility] Report ? Provider: ?? MANE HERNANDEZ Pt. Name: ?? UMA GUILLEN ? Acc #: ?[id number] ?Pt. MRN: ?[id number] ? Col Date: ?? 05/14/2013 ? /Sex: ?1 04/26/1954,(58 ? years),Female ? Rec Date: ?? 05/14/2013 ? LOC: ?SDP ? SURGICAL PATHOLOGY ? ---Pathologic Diagnosis--- ? A - Soft tissue, Question left lower parathyroid fo r frozen section: ?Nodular thyroid tissue. ? B - Right lower parthyroid adenoma: ?Parathyroid adenoma. ? 05/16/13 ? [facility] ? 05/16/13 Verified by: ? Bebo DO, Pattie Chopra. ? Pathologist ? (Electronic Si gnature) ? The attending pathologist whose signature appears o n this report has ? reviewed all diagnostic slides and has edited the hai ss and/or ? microscopic portion of the report in rendering the fi nal pathologic ? diagnosis. ? ---Frozen Section Diagnosis--- ? Frozen section(s) per formed. ??Please refer to separate electronic frozen ? section report(s). ? ---Gross Description--- ? A - Labeled/Fixative: Question left lower parathyroid , fresh. ? Quantity/Size: Single, 1.0 x 0.5 x 0.5 cm. ? Tissue Description: Nodule of red soft tissue. ? Sections/Processing: Frozen section tissue remnant is entirely submitted in ? cassette A1. ??(T1) ? B - Labeled/Fixative: Right lower parathyroid adenoma , fresh. ? Quantity/Size: Single, 2.2 x 1.0 x 1.0 cm. ? Tissue Description: Hemorrhagic nodule of soft gold t issue. ? Sections/Processing: The specimen is entirely submitted in cassettes B1-B2 ? (T2) ??kjp ? ---Clinical Information--- ? Specimen Submitted: ? A - ? left lower parathyroid for frozen section ? B - Right lower parthyroid adenoma ? Clinical History: ? Hyperparathyroidism ? [facility] ? Provider: ?? MANE HERNANDEZ Pt. Name: ?? UMA GUILLEN ? Acc #: ?[id number] ?Pt. MRN: ?[id number] ? Col Date: ?? 05/14/2013 ? /Sex: ?1 04/26/1954,(58 ? years),Female ? Rec Date: ?? 05/14/2013 ? LOC: ?SDP ? SURGICAL PATHOLOGY ? Clinical Diagnosis: ? Same Specimen (Source) Anatomical Collection Method Collection Time Re ceived Time Location / / Volume Laterality 05/14/2013 8:54 AM EDT Mane Hernandez MD PATHOLOGY/CYTOLOGY ORDERABLE S Performing Organization Address City/State/[place] [address] [facility] Frozen Section Report (05/14/2013 8:54 AM EDT) Component Value Ref Test Analysis Performed At [facility] gist Range Method Time Signature Frozen CERNER Section ? [facility] Report ? Provider: ?? MANE HERNANDEZ Pt. Name: ?? UMA GUILLEN ? Acc #: ?[id number] ?Pt. MRN: ?[id number] ? Col Date: ?? 05/14/2013 ? /Sex: ?1 04/26/1954,(58 ? years),Female ? Rec Date: ?? 05/14/2013 ? LOC: ?SDP ? FROZEN SECTION REPORT ? ---Frozen Section Report--- ? A - ? left lower parathyroid for frozen section: ? Thyroid tissue. ? 05/14/13 ??Verified by: ??Bebo TAPIA, Pattie Pinto, Patho logist ? The attending patholo gist whose electronic signature appears on this report ? has reviewed all diagnostic slides in rendering the f rozen section ? diagnosis. ? This intraoperative consultation should be interpreted as a preliminary ? diagnosis pending review of the e ntire specimen and special studies, if ? any. Specimen (Source) Anatomical Collection Method Collection Time Re ceived Time Location / / Volume Laterality 05/14/2013 8:54 AM EDT Mane Hernandez MD PATHOLOGY/CYTOLOGY ORDERABLE S Performing Organization Address City/[facility]/[place] [address] [facility] Specimen to Pathology (surgical or derm) (05/14/2013 8:53 AM EDT) Specimen Anatomical Collection Method Collection Time Receive d Time (Source) Location / / Volume Laterality AP Specimen 05/14/2013 8:53 AM 4 8:53 EDT AM EDT Narrative [facility] - 05/14/2013 8:53 AM E DT Specimen requisition ordered. ??Separate Pathology report to follow Mane Hernandez MD PATHOLOGY/CYTOLOGY ORDERABLE S Performing Organization Address City/[facility]/ZIP [facility] [place] [place] [address] CERNER MILLENNIUM (ABNORMAL) Intraoperative PTH (05/14/2013 8:50 AM EDT) P athologist Signature Intraoper PTH 259 (H) 8 - 53 CERNER pg/mL [facility] Comment: pre-excision sample Called by: kirsten, Read back by: katiana in or22, Date/Time:05/14/13 09:18. A 50 % decrease in venous iPTH levels at 10 min post adenoma excision is expected if all the hypersecreting parat hyroid tissue has been removed (Malcolm GL et al. Surgery 1993:114; [id number]) Specimen Anatomical Collection Method Collection Time Receive d Time (Source) Location / / Volume Laterality Blood specimen 05/14/2013 8:50 AM 014 8:54 (specimen) EDT AM EDT Resulting Agency Comment Spec In Lab Mane Hernandez MD CHEMISTRY ORDERABLES Performing Organization Address City/State/[place] [address] [facility] documented in this encounter Visit Diagnoses Not on filedocumented in this encounter Administered Medications Inactive Administered Medications - up to 3 most recent administrations Medication Order MAR Action Action Date Dose Rate Site fentaNYL 50mcg/mL injection Given 05/14/2013 11:35 AM EDT 25 mcg 25-50 mcg, Intravenous, EVERY 5 MIN PRN, Starting on Mon05/14/13 at 1049, Until Mon05/14/13 at 1533, Pain, for breakthrough pain, Hold for respiratory rate less than 10 per minute. Maximum dose: 250 mcg over one hour., PACU Recovery, Routine Given 05/14/2013 11:15 AM EDT 25 mcg Given 05/14/2013 10:53 AM EDT 50 mcg HYDROmorphone (DILAUDID) injection 0.2-0.4 Given 05/14/2013 12:44 PM EDT 0.4 mg mg 0.2-0.4 mg, Intravenous, EVERY 5 MIN PRN, Starting on Mon05/14/13 at 1049, Until Mon05/14/13 at 1533, Pain, For moderate pain give: 0.2 mg every 5 minute prn For severe pain give: 0.4 mg every 5 minutes prn Maximum dose: 4 mg per hour Hold for respiratory rate less than 10 per minute., PACU Recovery, Routine Given 05/14/2013 12:15 PM EDT 0.4 mg Given 05/14/2013 11:49 AM EDT 0.4 mg HYDROmorphone (DILAUDID) tablet 2 mg Given 05/14/2013 1:40 PM EDT 2 mg 2 mg, Oral, EVERY 4 HOURS PRN, Starting on Mon05/14/13 at 1005, Until Mon05/14/13 at 1748, Pain, Routine lactated ringers infusion 1,000 New Bag 05/14/2013 11:43 AM ED T 1,000 mLs 100 mL/hr mL 1,000 mL, at 100 mL/hr, Intravenous, CONTINUOUS, Starting on Mon05/14/13 at 0715, Until Mon05/14/13 at 1533, Day of Surgery (Day of Procedure) New Bag 05/14/2013 7:15 AM EDT 1,000 mLs 100 mL/hr ondansetron (ZOFRAN) injection 4 mg Given 05/14/2013 11:21 AM EDT 4 mg 4 mg, Intravenous, EVERY 30 MIN PRN, Starting on Mon05/14/13 at 1049, Until Mon05/14/13 at 1533, Nausea, May repeat 4 mg once in 30 minutes. Consider prochlorperazine if ineffective., PACU Recovery documented in this encounter Active and Recently Administered Medications Due to Daylight Saving Time, this section may contain times in both EST and EDT. Scheduled Medication Order 05/12/2013 05/13/2013 05/14/2013 ceFAZolin (ANCEF) 2g in dextrose 5% 50 mL (CANCELED) 0715 (Due)0805 (Given - Provider: Kenia Bowles CRNA)1015 (Due)1315 (Due) 2 g, Intravenous, EVERY 3 HOURS, First d ose on Mon05/14/13 at 0715, Until Discontinued, Intra-Operative (Intra-Procedure), Indication for (Active or Suspected): Prophylaxis Continuous Medication Order 05/12/2013 05/13/2013 05/14/2013 lactated ringers infusion 1,000 mL (CANCELED) 0715 (New Bag - Provider: Mallika Weeks RN)1143 (New Bag - Provider: India Barker RN) 1,000 mL, at 100 mL/hr, Intravenous, CON TINUOUS, Starting e 05/14/13 at 0715, Until 05/14/13 at 1533, Day of Surgery (Day of Procedure) PRN Medication Order 05/12/2013 05/13/2013 05/14/2013 BUpivacaine-EPINEPHrine 0.25 %-1:200,000 injection (CANCELED) 0822 (Given - Provider: Mane Hernandez MD) ONCE PRN, Starting e 05/14/13 at 0822, Until 05/14/13 at 1533, Intra- Operative (Intra-Procedure), Routine fentaNYL 50mcg/mL injection (CANCELED) 1053 (Given - Provider: India Barker RN)1115 (Given - Provider: India Barker RN)1135 (Given - Provider: India Barker RN) 25-50 mcg, Intravenous, EVERY 5 MIN PRN, Starting 05/14/13 at 1049, Until 05/14/13 at 1533, Pain, for breakthrough pain, Hold for respiratory rate less than 10 per minute. Maximum dose: 250 mcg over one hour., PACU Recovery, Routine HYDROmorphone (DILAUDID) injection 0.2-0.4 mg (CANCELED) 1142 (Given - Provider: India Barker RN)1149 (Given - Provider: India Barker RN)1215 (Given - Provider: India Barker, RN)1244 (Given - Provider: Leigh Ann Garcia RN) 0.2-0.4 mg, Intravenous, EVERY 5 MIN PRN , Starting e 05/14/13 at 1049, Until 05/14/13 at 1533, Pain, For moderate pain give: 0.2 mg every 5 minute prn For severe pain give: 0.4 mg every 5 minutes pr n Maximum dose: 4 mg per hour Hold for r espiratory rate less than 10 per minute., PACU Recovery, Routine HYDROmorphone (DILAUDID) tablet 2 mg 1340 (Given - Provider: India Barker RN) 2 mg, Oral, EVERY 4 HOURS PRN, Starting 05/14/13 at 1005, Until 05/14/13 at 1748, Pain, Routine ondansetron (ZOFRAN) injection 4 mg (CANCELED) 1121 (Given - Provider: India Barker RN) 4 mg, Intravenous, EVERY 30 MIN PRN, Sta rting Mon05/14/13 at 1049, Until Mon05/14/13 at 1533, Nausea, May repeat 4 mg once in 30 minutes. Consider prochlorperazine if ineffective., PACU Recovery, Routine documented in this encounter Care Teams Supervisor Volunteer Services Relationship Specialty Start Date End Date Miriam Agee MD PCP - General 12/06/11 08/22/[address] [place] [address] documented as of this encounter
--- OUTSIDE RECORDS SUMMARY | 2021-11-12 00:57 | XMS_ITS | Encounter Summary ---
:1955 Author Organization [facility] [place] [address] Care Team Providers Name Role Phone Papa Dunn MD Primary Care Provider Encounter Details Date Type Department Care Team Description 10/13/2014 External Endocrinology at [facility], Unspecified vitamin D deficiency; Results [facility] Reyes Vogt MD Hyperparathyroidism , secondary, non-khurram al [facility] [address] [place], [place] ENDOCRINOLOGY [id number] DEPT. [phone] [place] [address] Social History Tobacco Use Types Packs/Day Years [...] Date/Time Associated Diagnosis Comme nts PTH Routine 10/04/2014 Unspecified vitamin D Result s for this deficiency procedure are in the Hyperparathyroidism , result s section. secondary, non-renal documented in this encounter Results (ABNORMAL) PTH (10/04/2014) Analysis [...] non-renal documented in this encounter Care Teams Construction Administrator Relationship Specialty Start Date End Date Papa Dunn MD PCP - General 02/03/14 08/13/[address] [place] [address] documented as of this encounter
--- OUTSIDE RECORDS SUMMARY | 2021-11-12 00:57 | XMS_ITS | Encounter Summary ---
:1955 [place] [address] Care Team Providers Name Role Phone Miriam Agee MD Primary Care Provider Reason for Visit Reason Comments hypercalcemia hyperPTH Encounter Details Date Type Department Care Team Description 03/05/2013 Office [facility] MD hyperparathyroidism [facility] (Primary Dx) [facility] [id number] ENDOCRINOLOGY [phone] [place] [address] Social History Tobacco Use Types Packs/Day Years Used Date Never Smoker Smokeless Tobacco: Never Used Alcohol Use Standard Drinks/Week Comments No 0 (1 standard drink = 0.6 oz pure alcoho l) Sex Assigned at Date Recorded Not on file documented as of this encounter Last Filed Vital Signs Vital Sign Reading Time Taken Comments Blood Pressure 146/89 03/05/2013 9:22 AM EST Pulse 88 03/05/2013 9:22 AM EST Temperature - - Respiratory Rate - - Oxygen Saturation - - Inhaled Oxygen Concentration - - Weight 98.1 kg (216 lb 3.2 oz) 03/05/2013 9:22 AM EST Height - - Body Mass Index 35.98 01/24/2013 10:21 AM EST documented in this encounter Progress Notes Reyes Gillespie MD - 03/07/2013 11:29 AM EST I have seen the patient and reviewed Dr. No's above history and I agree with the details as written. The assessment and plan were formulated in discussion with me and I agree with them as documented. I also directly supervised thyroid and PTH US and agree with the findings as written. Will get DEXA at outside soon to see if she has worsening bone loss (last DEXA scan was in 2007 before she had hypercalcemia). REYES GILLESPIE MD Penelope Bolivar DO - 03/07/2013 10:30 AM EST PARATHYROID / THYROID ULTRASOUND: Indication: Primary hyperparathyroidism [...] gland that is consistent with seng's hypothyroidism. Penelope No DO Fellow in Endocrinology [facility] Dept of Endocrinology Office: [phone] Pager: [phone] Penelope Bolivar DO - 03/05/2013 9:35 AM EST 58 y.o. Female presents for management of hyperparathyroidism Patients recently found out that she has a high calcium level. This remained elevated despite her discontinuing her calcium supplement. Was never told in the past had a high calcium level and is not aware on any calcium issues in the family. She feels okay otherwise besides some fatigue and joint pains. 3 years ago felt she had a thyroid issues due to the way she was feeling and had a family history ofsignificant thyroid disease (hypothyroidism). Currently TSH is 5.01 and free T4 is 1.02. OTC calcium/vit. D&A - Was taking Calcium carbonate 1000mg +magnesium but stopped over a month ago due to her PCP advise; taking Vit D 2000 units per day High milk intake - No too much dairy intake daily; just some milk with her cereal and trying to eat yogurt. Any masses/Lumps - Lumps in arms that are not painful and go away -- happens occasioanlly Cancer history - Maternal aunt diagnosed with breast cancer in her 40s; maternal grandmother had bladder cancer; maternal grandfather had colon cancer Heat intolerance - Occasionally Diarrhea/palpitations- Some days yes and some days no but feels it is related to what she eats Fractures - No Muscle weakness - No Fatigue - Yes for the last three years Polyuria/polydipsia - No Weight loss - No Abdominal pain - No Kidney stones - No Peptic ulcer disease - No but takes Prilosec daily because of GERD Depression - No Psychosis - No High Blood Pressure - No DXA scan - Yes and last one was 5 to 7 years ago and one last year; no osteopenia or osteoporosis In 2000, had a mass on left kidney and saw urologist here and was told it was just a cyst. Past Medical History Diagnosis Date ??? Renal cyst ??? Hyperparathyroidism ??? Hypothyroidism ??? GERD (gastroesophageal reflux disease) ??? Osteoarthritis ??? Seizures ??? Lung tumor Past Surgical History Procedure Date ??? Lung surgery Family History Problem Relation Age of Onset ??? Thyroid Disease Mother ??? Coronary Artery Disease Mother ??? Coronary Artery Disease Father ??? Cancer Maternal Aunt breast ??? Thyroid Disease Maternal Aunt ??? Cancer Maternal Uncle colon History Social History ??? Marital Status: Spouse Name: N/A Number of Children: N/A ??? Years of Education: N/A Occupational History ??? Not on file. Social History Main Topics ??? Smoking status: Never Smoker ??? Smokeless tobacco: Never Used ??? Alcohol Use: No ??? Drug Use: No ??? Sexually Active: No Other Topics Concern ??? Not on file Social History Narrative ??? No narrative on file Allergies Allergen Reactions ??? Ciprofloxacin (Mixture) Hives ??? Metronidazole Hives ??? Sulfa (Sulfonamide Antibiotics) Hives Current Outpatient Prescriptions Medication Sig Dispense Refill ??? cycloSPORINE (RESTASIS) 0.05 % ophthalmic emulsion Place 2 drops into both eyes 2 times daily. ??? GLUC/FATMATA-MSM#1/VIT C/NATALIE/BOR ([id number]-NEQ COMPLEX ORAL) Take by mouth daily. ??? multivitamin (THERAGRAN) tablet Take 1 tablet by mouth daily. ??? omeprazole (PRILOSEC) 20 mg capsule Take 20 mg by mouth daily. ??? Cholecalciferol, Vitamin D3, (VITAMIN D) 1,000 unit Cap Take by mouth daily. ??? celecoxib (CELEBREX) 200 mg capsule Take 200 mg by mouth daily. ??? acetaminophen (TYLENOL) 325 mg tablet Take 650 mg by mouth every 4 hours as needed. ??? CALCIUM-MAGNESIUM ORAL Take by mouth daily. ??? ibuprofen (ADVIL;MOTRIN) 200 mg tablet Take 200 mg by mouth every 6 hours as needed. BP 146/89 Pulse 88 Wt 98.068 kg (216 lb 3.2 oz) General: NAD, AAOx3 HEENT: EOMI, anicteric, PERRL, no exoophthalmous, moist mucous membranes, fundoscopic exam normal Neck: No LAD, no thyromegaly, no palpable thyroid nodules, normal consistency, symmetrical, no tenderness, no bruit CV: S1 S2, RRR, no m/r/g Neuro: reflexes 2+ bilaterally, no tremor of hands Extremities: no lower extremity edema Integumentary: Skin warm and dry/intact; no hyperpigmentation, no excessive hair growth External labs (01/2013): PTH 168 Ca 10.5 <-- 10.4 (12/2012) Phos 2.3 GFR >60 BUN/Cr normal ranges TSH 5.01 Free T4 1.02 Results for UMA GUILLEN ( ) as of 03/07/2013 09:49 Ref. Range 03/05/2013 11:18 03/05/2013 11:32 Calcium Latest Range: 8.5-10.5 mg/dL 11.0 (H) 25-OH Vit D Total Latest Range: 30-100 ng/mL 58 TSH Latest Range: 0.27-4.20 mcIU/mL 4.28 (H) PTH Latest Range: 15-65 pg/mL 169 (H) U Creatinine No range found 109 U Calcium No range found 26.2 Ca/Cre Ratio No range found 0.24 Please see thyroid/parathyroid report dated for the same day -- showed a left lower pole parathyroidadenoma A/P: 58 y.o. Female presents for management of primary hyperparathyroidism. Differential Diagnosis of Hypercalcemia: 1. Primary Hyperparathyroidism which is most likely Elevated PTH in conjunction with hypercalcemia is consistent with primary hyperparathyroidism. 2. Rule out Familial hypocalciuric hypercalcemia - very unlikely given her ca/cr ratio above The major feature that distinguishes FHH from primary hyperparathyroidism is a low urine calcium excretion and Ca/Cr clearance ratio. However, most patients with primary hyperparathyroidism have eithernormal or elevated urinary calcium excretion. An elevated urinary calcium concentration (>400 mg/24hours or a Ca/Cr clearance ratio >0.02) essentially excludes FHH. 3. Rule out secondary/tertiary hyperparathyroidism - this is not the case with her Evaluation to rule out causes of secondary hyperparathyroidism, especially vitamin D deficiency or renal insufficiency, is essential. Indications for Parathyroidectomy Ca level more than 1mg/dL than upper limit of normal Age < 50 Symptomatic, nephrolithiasis, osteoporosis Creatinine clearance reduced by 30% We talked at length about the next steps, given that there was a left lower pole parathyroid adenoma. Technically, she does not met criteria for surgery at this time and can be followed yearly. However, I believe that doing this will affect her bone health in the future as women with hyperparathyroidism tend to loose bone mass more than their normal counter parts. Also, this will not improve on its own and is likely to get even worse - she does not have mild hyperparathyroidism. Patient was reluctant to consider this at this time and we agreed to do the following: For now: - repeat DXA now to measure her degree of bone loss - will think about starting levothyroxine given her mild hypothyroidism - mail DXA order to her Will contact her with the results and make a decision regarding next steps based on that. Penelope No DO Fellow in Endocrinology [facility] Dept of Endocrinology Office: [phone] Pager: [phone] documented in this encounter Plan of Treatment Not on filedocumented as of this encounter Procedures Procedure Name Priority Date/Time Associated Comments Diagnosis CALCIUM CREATININE Routine 03/05/2013 11:32 AM Re sults for this RATIO, RANDOM URINE EST procedur e are in the results section. PTH Routine 03/05/2013 11:18 AM Results for this EST procedure are i n the results section. 1,25-DIHYDROXYCHOLEC Routine 03/05/2013 11:18 AM Results for this ALCIFEROL EST procedure are i n the results section. VITAMIN D, Routine 03/05/2013 11:18 AM Results for this 25-HYDROXY EST procedure are i n the results section. TSH Routine 03/05/2013 11:18 AM Results for this EST procedure are i n the results section. CALCIUM Routine 03/05/2013 11:18 AM Results for this EST procedure are i n the results section. documented in this encounter Results Calcium Creatinine Ratio, random urine (03/05/2013 11:32 AM EST) athologist Signature U Calcium 26.2 mg/dL CERNER MILLENNIUM U Creatinine 109 mg/dL CERNER MILLENNIUM Ca/Cre Ratio 0.24 ratio CERNER MILLENNIUM Specimen Anatomical Collection Method Collection Time Receive d Time (Source) Location / / Volume Laterality Urine specimen 03/05/2013 11:32 3 (specimen) AM EST 11:51 AM EST Resulting Agency Comment Spec In Lab Penelope No DO URINE ORDERABLES Performing Organization Address City/State/ZIP Code Phon e Number [address] CERNER MILLENNIUM (ABNORMAL) PTH (03/05/2013 11:18 AM EST) athologist Signature PTH 169 (H) 15 - 65 CERNER pg/mL MILLENNIUM Specimen Anatomical Collection Method Collection Time Receive d Time (Source) Location / / Volume Laterality Blood specimen 03/05/2013 11:18 3 (specimen) AM EST 11:40 AM EST Resulting Agency Comment Spec In Lab Penelopemerrick Hirschallila DO CHEMISTRY ORDERABLES Performing Organization Address City/[facility]/ZIP Code Phon e Number [address] CERNER MILLENNIUM (ABNORMAL) Calcium (03/05/2013 11:18 AM EST) athologist Signature Calcium 11.0 (H) 8.5 - 10.5 CERNER mg/dL MILLENNIUM Specimen Anatomical Collection Method Collection Time Receive d Time (Source) Location / / Volume Laterality Blood specimen 03/05/2013 11:18 3 (specimen) AM EST 11:40 AM EST Resulting Agency Comment Spec In Lab Penelope No DO CHEMISTRY ORDERABLES Performing Organization Address City/State/[place] [address] CERNER MILLENNIUM (ABNORMAL) 1,25-dihydroxycholecalciferol (03/05/2013 11:18 AM EST) P athologist Signature Vit D 1,25 89 (H) 18 - 78 CERNER pg/mL [facility] Comment: Test Performed by: [place] [address] [employer] Crm Developer: Robb wilks III, M.D. Specimen Anatomical Collection Method Collection Time Receive d Time (Source) Location / / Volume Laterality Blood specimen 03/05/2013 11:18 3 3:17 (specimen) AM EST PM EST Resulting Agency Comment Spec In Lab Penelope No DO CHEMISTRY ORDERABLES Performing Organization Address City/[facility]/ZIP Code Phon e Number [address] CERNER MILLENNIUM VIT D Total Evaluation (03/05/2013 11:18 AM EST) P athologist Signature 25-OH Vit D 58 30 - 100 CERNER Total ng/mL [facility] Comment: Deficient <10 ng/mL Insufficient 10 to 29 ng/mL Sufficient 30 to 100 ng/mL Potential Intoxication >100 ng/mL According to the [place] National Osteoporosi s Foundation, Vitamin D concentrations >30 ng/mL are sufficient to protect bone health. ??The National Kidney Foundation has similarly stated that pat ients with Vitamin D concentrations <30ng/mL should be considered to be insu fficient or deficient. http://www.kidney.org/professionals/KDOQ I/guidelines_bone/Guide7.htm http://www.nof.org/professionals/clinica l-guidelines The [employer] iSYS Vitamin D Immunoassay detec ts both 25-OH Vitamin D2 and 25-OH Vitamin D3, but only a total Vitamin D c oncentration is reported. Specimen Anatomical Collection Method Collection Time Receive d Time (Source) Location / / Volume Laterality Blood specimen 03/05/2013 11:18 3 (specimen) AM EST 11:40 AM EST Resulting Agency Comment Spec In Lab Penelope Hirschdula DO CHEMISTRY ORDERABLES Performing Organization Address City/State/[place] [address] CERNER MILLENNIUM (ABNORMAL) TSH (03/05/2013 11:18 AM EST) P athologist Signature TSH 4.28 (H) 0.27 - 4.20 CERNER mcIU/mL MILLENNIUM Specimen Anatomical Collection Method Collection Time Receive d Time (Source) Location / / Volume Laterality Blood specimen 03/05/2013 11:18 3 (specimen) AM EST 11:40 AM EST Resulting Agency Comment Spec In Lab Penelope Hirschdula DO CHEMISTRY ORDERABLES Performing Organization Address City/State/[place] [address] CERNER MILLENNIUM documented in this encounter Visit Diagnoses Diagnosis Primary hyperparathyroidism - Primary documented in this encounter Care Teams Polishing Wheel Repairer Relationship Specialty Start Date End Date Miriam Agee MD PCP - General 12/06/11 08/22/13 [address] [place] [address] documented as of this encounter
--- OUTSIDE RECORDS SUMMARY | 2021-11-12 00:57 | XMS_ITS | Encounter Summary ---
:1955 [place] [address] Care Team Providers Name Role Phone Miriam Agee MD Primary Care Provider Encounter Details Date Type Department Care Team Description 05/14/2013 Anesthesia Event Main Operating Room Enrique Mitchell MD [facility] [place] [address] [facility] Kenia Bowles [facility] [place] [address] [facility] [place] [address] Anesthesia Record Procedure Summary Procedure Name Responsible Anesthesia Start Anesthesia Stop Anesthesiologist Time Time PARATHYROIDECTOMY OR Enrique Pardo MD 05/14/13 0737 01/17 1017 EXPLORATION OF PARATHYROID(S) (WRVU 15.6) (N/A Neck) Events Date Time Event Comment 05/14/2013 0717 0737 Start 0742 AN Verify 0742 An Start Data 0750 An Induction 0753 An Intubation 0758 Anesthesia Ready 0820 Procedure Start 0845 Break/Relief In 0900 Break/Relief Out 1006 Extubation/LMA Out Criteria met. Suctioned and extubated to FM. VSS. Oral airway in p lace. 1009 an stop data 1017 Stop IN SD 40. Report to ANA Osborne. VSS. 1017 Handoff The patient's ch art was reviewed. The current anestetic course as well as the anesthetic plans were also review ed. Name Total Midazolam 2 mg fentaNYL 250 mcg IV Lidocaine 50 mg Propofol 200 mg Rocuronium 20 mg PHENYLephrine 320 mcg ePHEDrine 5 mg Ondansetron 8 mg Dexamethasone 8 mg ceFAZolin (ANCEF) 2g in dextrose 5% 50 mL 2 g Lidocaine 4% LTA 3 mL Propofol INF 996.42 mg PHENYLephrine INF 1,230 mcg Lactated Ringers 1,400 mL Agents Name O2 Air Sevoflurane (et) Blood No blood administrations on file. Lines, Drains, and Airways Type Details Placement Removal Incision 05/14/13; neck; 05/14/13 0000 by 01/16/16 1801 b y 01/16/16; 1801 Margy Olivas RN Tosi, Lau ren B, RN PIV 05/14/13; 0708; 05/14/13 0708 by 05/14/13 1533 b y 05/14/13; 1533 Mallika Weeks, Romana Lin RN (RETIRED) Non-Surgical Mask Ventilation: 05/14/13 0753 by 1006 by Airway Adjunct (2); ETT Kenia Bowles, Dimitris Bowles, Type: Cuffed, Oral, PHONE SPECIALIST PHONE SPECIALIST NIM; ETT Size: 6 mm; Oral Airway: 100 mm (5) documented in this encounter Social History Tobacco Use Types Packs/Day Years Used Date Never Smoker Smokeless Tobacco: Never Used Alcohol Use Standard Drinks/Week Comments No 0 (1 standard drink = 0.6 oz pure alcoho l) Sex Assigned at Date Recorded Not on file documented as of this encounter OR Notes Anesthesia Postprocedure Evaluation - Enrique Pardo MD - 05/14/2013 11:19 AM EDT Patient: Uma Hood Procedure(s) Performed: Procedure(s): PARATHYROIDECTOMY OR EXPLORATION OF PARATHYROID(S) Actual Anesthetic: general Patient location: PACU Post-op pain: Pain needs to be addressed Post-op nausea: nausea or vomiting an issue but being treated with medication Last Vitals: Filed Vitals: 05/14/13 1110 BP: 157/83 Pulse: Temp: Resp: Post-op cardiovascular and respiratory status: is stable Level of consciousness: awake, alert and oriented Complications: no apparent complications and tolerated the procedure well Fluid Status: normal Anesthesia Preprocedure Evaluation - Enrique Pardo MD - 05/13/2013 3:34 PM EDT Pre-Anesthesia Evaluation for: Uma Hood a 58 y.o. female. Procedure(s): PARATHYROIDECTOMY OR EXPLORATION OF PARATHYROID(S) Patient Active Problem List Diagnosis ??? Hyperparathyroidism ??? Hyperparathyroidism, primary (PTH 168, Ca 10.3-10.4, low phos 2.3, Cr 1.0 on 01/05/13) ??? Multiple pulmonary nodules bilaterally ? ? Left kidney mass 1.[address] scan=> simple cyst by US ??? Solitary cyst of right breast 1.3 cm ??? 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 Subclinical hypothyroidism (TSH 5.8 with FT4 0.9) ??? Prediabetes (A1c 6.4% 12/17/12) ??? Obesity ??? Renal cyst Past Medical History Diagnosis Date ??? Renal cyst ??? Hyperparathyroidism ??? Osteoarthritis ??? Seizures ??? Lung tumor ??? Postoperative nausea and vomiting last surgery 2000 without problems, prior history of PONV ??? GERD (gastroesophageal reflux disease) well controlled on meds ??? Hypothyroidism no replacement Past Surgical History Procedure Date ??? Lung surgery History Substance Use Topics ??? Smoking status: Never Smoker ??? Smokeless tobacco: Never Used ??? Alcohol Use: No History Drug Use No Allergies Allergen Reactions ??? Ciprofloxacin (Mixture) Hives ??? Metronidazole Hives ??? Sulfa (Sulfonamide Antibiotics) Hives Medications: MAR and/or home medications have been reviewed. Physical Exam: There were no vitals filed for this visit. There is no height or weight on file to calculate BMI. Airway Assessment: Mallampati: II TM distance: <3 FB Neck ROM: full Cardiovascular Assessment: Pulmonary Assessment: Dental Assessment: - normal exam Misc Assessment: Anesthesia Plan: ASA 3 general, with a(n) intravenous induction Plan GA/ET Good exercise tolerance. No recent URI. QSA, risks reviewed, she understands and agrees. Consent obtrained. Region - Other Informed Consent: Anesthetic plan and risks discussed with patient. Use of blood products discussed with patient and spouse whom. Plan discussed with PHONE SPECIALIST. [facility]. Assessment: documented in this encounter Miscellaneous Notes Addendum Note - Kenia Bowles CRNA - 05/14/2013 11:46 AM EDT Addendum created 05/14/13 1146 by Kenia Bowles CRNA Modules edited:Orders, PRL Based Order Sets documented in this encounter Plan of Treatment Not on filedocumented as of this encounter Visit Diagnoses Not on filedocumented in this encounter Administered Medications Inactive Administered Medications - up to 3 most recent administrations Medication Order MAR Action Action Date Dose Rate Site ceFAZolin (ANCEF) 2g in dextrose 5% Given 05/14/2013 8:05 AM EDT 2 g 50 mL 2 g, Intravenous, EVERY 3 HOURS, First dose on Mon05/14/13 at 0715, Until Discontinued, Intra-Operative (Intra-Procedure), Indication for (Active or Suspected): Prophylaxis dexamethasone (DECADRON) injection Given 05/14/2013 8:09 AM EDT 8 mg PRN, Starting on Mon05/14/13 at 0809, Until Mon05/14/13 at 1017, Anesthesia Intra-op, Routine ePHEDrine Sulfate in sodium chloride 0.9% (PF) Given 0 05/14/2013 8:54 AM EDT 5 mg 50 mg/10 mL (5 mg/mL) injection Syrg PRN, Starting on Mon05/14/13 at 0854, Until Mon05/14/13 at 1017, Anesthesia Intra-op fentaNYL 50mcg/mL injection Given 05/14/2013 9:01 AM EDT 50 mcg PRN, Starting on Mon05/14/13 at 0750, Until Mon05/14/13 at 1017, Pain, Anesthesia Intra-op, Routine Given 05/14/2013 8:36 AM EDT 50 mcg Given 05/14/2013 8:17 AM EDT 50 mcg lactated ringers infusion New Bag 05/14/2013 8:30 AM EDT mL CONTINUOUS PRN, Starting on Mon05/14/13 at 0737, Until Mon05/14/13 at 1017, Anesthesia Intra-op New Bag 05/14/2013 7:37 AM EDT mL lidocaine (PF) (XYLOCAINE) 100 mg/5 mL (2 %) Given 4 7:50 AM EDT 50 mg injection PRN, Starting on Mon05/14/13 at 0750, Until Mon05/14/13 at 1017, Anesthesia Intra-op, Routine lidocaine (XYLOCAINE) 4 % external solut ion Given 05/14/2013 7:53 AM EDT 3 mLs PRN, Starting on Mon05/14/13 at 0753, Until Mon05/14/13 at 1017, Anesthesia Intra-op midazolam (PF) (VERSED) 1 mg/mL injectio n Given 05/14/2013 7:38 AM EDT 2 mg PRN, Starting on Mon05/14/13 at 0738, Until Mon05/14/13 at 1017, Sleep, Anesthesia Intra-op, Routine ondansetron (ZOFRAN) injection Given 05/14/2013 9:40 AM EDT 8 mg PRN, Starting on Mon05/14/13 at 0940, Until Mon05/14/13 at 1017, Nausea, Anesthesia Intra-op, Routine PHENYLephrine Rate/Dose Change 05/14/2013 9:31 10 mcg/min 7.5 mL/hr (HEENA-SYNEPHRINE) 20 mg in AM EDT sodium chloride 250 mL infusion CONTINUOUS PRN, Starting on Mon05/14/13 at 0825, Until Mon05/14/13 at 1017, Anesthesia Intra-op, Routine Rate/Dose Change 05/14/2013 9:11 AM EDT 15 mcg/min 11.3 mL/hr Rate/Dose Change 05/14/2013 8:52 AM EDT 20 mcg/min 15 mL/hr PHENYLephrine HCl in NS (PF) (HEENA-SYNEPHRINE) Given 8:26 AM EDT 80 mcg 0.8 mg/10 mL (80 mcg/mL) injection Syrg PRN, Starting on Mon05/14/13 at 0809, Until Mon05/14/13 at 1017, Anesthesia Intra-op, Routine Given 05/14/2013 8:21 AM EDT 80 mcg Given 05/14/2013 8:16 AM EDT 80 mcg propofol (DIPRIVAN) 10 mg/mL bolus injection Given 01/2014 7:50 AM EDT 200 mg (Anesthesia) PRN, Starting on Mon05/14/13 at 0750, Until Mon05/14/13 at 1017, Anesthesia Intra-op propofol (DIPRIVAN) Rate/Dose 05/14/2013 9:37 50 mcg/kg/min 29.7 mL/ hr infusion Change AM EDT CONTINUOUS PRN, Starting on Mon05/14/13 at 0755, Until Mon05/14/13 at 1017, Anesthesia Intra-op, Routine Rate/Dose Change 05/14/2013 9:30 AM EDT 75 mcg/kg/min 44.5 mL/hr New Bag 05/14/2013 7:55 AM EDT 100 mcg/kg/min 59.3 mL/hr rocuronium (ZEMURON) injection Given 05/14/2013 7:50 AM EDT 20 mg PRN, Starting on Mon05/14/13 at 0750, Until Mon05/14/13 at 1017, Anesthesia Intra-op, Routine documented in this encounter Care Teams Institution Librarian Relationship Specialty Start Date End Date Miriam Agee MD PCP - General 12/06/11 08/22/[address] [place] [address] documented as of this encounter
--- OUTSIDE RECORDS SUMMARY | 2021-11-12 00:57 | XMS_ITS | Encounter Summary ---
:1955 [place] [address] Care Team Providers Name Role Phone Miriam Agee MD Primary Care Provider Encounter Details Date Type Department Care Team Description 05/22/2013 Orders Only General Surgery at [facility] thyroid adenoma [facility] [place] [place] MD Edwina (Primary Dx) [place] [address] GENERAL SURGERY [phone] [place] [address] Social History Tobacco Use Types Packs/Day Years Used Date Never Smoker Smokeless Tobacco: Never Used Alcohol Use Standard Drinks/Week Comments No 0 (1 standard drink = 0.6 oz pure alcoho l) Sex Assigned at Date Recorded Not on file documented as of this encounter Plan of Treatment Not on filedocumented as of this encounter Results Calcium (06/24/2013 9:37 AM EDT) athologist Signature Calcium 9.7 8.5 - 10.5 CERNER mg/dL [facility] Specimen Anatomical Collection Method Collection Time Receive d Time (Source) Location / / Volume Laterality Blood specimen 06/24/2013 9:37 AM 014 9:49 (specimen) EDT AM EDT Resulting Agency Comment Spec In Lab [facility] MD CHEMISTRY ORDERABLES Performing Organization Address City/State/[place] [address] CERNER MILLENNIUM (ABNORMAL) PTH [...] Organization Address City/State/[place] [address] [facility] documented in this encounter Visit Diagnoses Diagnosis Parathyroid adenoma - Primary Benign neoplasm of parathyroid gland documented in this encounter Care Teams Court Bailiff Or Sheriff Relationship Specialty Start Date End Date Miriam Agee MD PCP - General 12/06/11 08/22/[address] [place] [place] [address] documented as of this encounter
--- OUTSIDE RECORDS SUMMARY | 2021-11-12 00:57 | XMS_ITS | Encounter Summary ---
:1955 Author Organization [facility] [place] [address] Care Team Providers Name Role Phone Jasen Perez MD Primary Care Provider Encounter Details Date Type Department Care Team Description 07/06/2004 Orders Only Radiology Larisa Arellano MD [facility] [place] [address] DIAGNOSTIC RADIOLOGY [phone] [place] [address] (Wo rk) Social History Tobacco Use Types Packs/Day Years Used Date Never Assessed Sex Assigned at Date Recorded Not on file documented as of this encounter Plan of Treatment Not on filedocumented as of this encounter Visit Diagnoses Not on filedocumented in this encounter Care Teams Supervisor Poultry Hatchery Relationship Specialty Start Date End Date Jasen Perez MD PCP - General 01/26/10 12/05/11 documented as of this encounter
--- OUTSIDE RECORDS SUMMARY | 2021-11-12 00:57 | XMS_ITS | Encounter Summary ---
:1955 Author Organization [facility] [place] [address] Care Team Providers Name Role Phone Miriam Agee MD Primary Care Provider Reason for Referral Surgical (Routine) - Closed Specialty Diagnoses / Procedures Referred By Contact Refer red To Contact General Surgery Diagnoses Hyperparathyroidism Penelope No, Papa Fan, [facility] Stevo Avendano MD ENDOCRINOLOGY DEPT [facility] [address] [place] [address] Phone: Fax: Referral ID Status Reason Start Date Expiration Date Visits V isits Requested Authorized [id number] Closed Specialty 04/01/2013 09/28/2013 1 1 Service Requested Encounter Details Date Type Department Care Team Description 03/25/2013 Telephone Endocrinology at [facility] Elaine Land LPN [facility] [place] [address] Social History Tobacco Use Types Packs/Day Years Used Date Never Smoker Smokeless Tobacco: Never Used Alcohol Use Standard Drinks/Week Comments No 0 (1 standard drink = 0.6 oz pure alcoho l) Sex Assigned at Date Recorded Not on file documented as of this encounter Miscellaneous Notes Telephone Encounter - Elaine Matthew LPN - 04/01/2013 10:03 AM EST Spoke to her and will be making referral to Dr. Dominguez Thank you! Telephone Encounter - Penelope No DO - 04/01/2013 10:00 AM EST Spoke to patient regarding her DXA scan. She has osteopenia on her forearm of -1.4 Even though she doesn't exactly meet criteria for surgery at this time - she does have significant hyperparathyroidism that has localized to a 1.2 cm left lower pole adenoma. She is at risk for kidney stones, decreased GFR and bone loss over time if this remains untreated. Therefore made a referral to Dr. Dominguez for a parathyroidectomy of the left lower pole adenoma Spoke to pt about this and she was agreeable. Telephone Encounter - Elaine Matthew LPN - 03/25/2013 3:49 PM EST Received call from Uma regarding her DEXA scan and meeting with a surgeon regarding her parathyroid gland. Dexa scan done 03/20 at [facility], results are in Dr. No's box. Patient requests call back about scheduling to meet with a surgeon and next steps. She can be reached at [phone] today. The rest of the week she can be reached at work at [phone]. Message to Dr. No. documented in this encounter Plan of Treatment Scheduled Referrals Name Type Priority Associated Diagnoses Order S chedule Referral to Outpatient Referral Routine Hyperparathyroidism O rdered: General Surgery 04/01/2013 documented as of this encounter Visit Diagnoses Diagnosis Hyperparathyroidism Hyperparathyroidism, unspecified documented in this encounter Care Teams Hog Ringer Relationship Specialty Start Date End Date Miriam Agee MD PCP - General 12/06/11 08/22/13 [address] [place] [address] documented as of this encounter
--- OUTSIDE RECORDS SUMMARY | 2021-11-12 00:57 | XMS_ITS | Encounter Summary ---
:1955 Author Organization [facility] [place] [address] Care Team Providers Name Role Phone Enedina Agee MD Primary Care Provider Reason for Visit Reason Comments Renal Mass Encounter Details Date Type Department Care Team Description 01/24/2013 Office Visit Hematology and Evan Brody MD Renal cyst (Primary Oncology at [facility] Dx) [facility] Marie UROLOGY [place] [phone] Social History Tobacco Use Types Packs/Day Years Used Date Never Smoker Smokeless Tobacco: Never Used Sex Assigned at Date Recorded Not on file documented as of this encounter Last Filed Vital Signs Vital Sign Reading Time Taken Comments Blood Pressure 118/68 01/24/2013 10:21 AM EST Pulse 78 01/24/2013 10:21 AM EST Temperature - - Respiratory Rate - - Oxygen Saturation - - Inhaled Oxygen Concentration - - Weight 98.9 kg (218 lb) 01/24/2013 10:21 AM EST Height 165.1 cm (5' 5) 01/24/2013 10:21 AM EST Body Mass Index 36.28 01/24/2013 10:21 AM EST documented in this encounter Progress Notes Evan Brody MD - 01/24/2013 11:02 AM EST Images from the original note were not included. Patient Name: Uma Hood Date of Service: 01/24/2013 Primary Care Provider: ENEDINA AGEE MD Reason for Visit: Uma Hood is a 57 y.o. female referred by Dr Ramirez for evaluation of a leftrenal mass seen on CT for follow up of lung nodules History of Present Illness: The patient had a CT evaluation of lung nodules and was found to have a left renal mass. The patient is asymptomatic. Specifically denies a history of flank pain, hematuria, dysuria or urgency. Urine flow is good and with nocturia X 0. The patient empties the bladder completely. Appetite is good. Weight is stable. There is no bone pain. 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 Several years ago, a CXR revealed bilateral pulmonary nodules which Dr Ramirez has been following with CT scans Being evaluated for hypothyroidism Medications: Reviewed see attached Allergies: Reviewed see attached Family History: There is no family history of renal cancer. No diseases run in the family. Physical Exam: Vital signs are reviewed The the patient appears healthy and in no distress. Examination of the hands, head neck, eyes ears nose and throat is normal. The skin is normal. There is no lymphadenopathy or thyroidomegaly The abdomen is benign. There are no masses or organomegaly. Lab values are not available for review X-rays are reviewed Impression Multiple bilateral pulmonary nodules. Stable liver at least 3 in appeared for head routine follow up on the basis of clinical history and concern. 18 mm indeterminate mass left kidney, new since 2008. Ultrasound recommended. Unexpected finding 01/2013 Renal U/S Impression Ultrasound - Retroperitoneal Complete - Summary Normal right kidney and bladder. Left 1.8 cm upper pole renal cyst. Impression: #1: Simple renal cyst Plan: I discussed the natural history of renal cysts. This is a simple renal cyst with an extremely low risk of malignancy. She needs no further follow up All questions answered. John. Margareth Brody documented in this encounter Plan of Treatment Not on filedocumented as of this encounter Visit Diagnoses Diagnosis Renal cyst - Primary Unspecified congenital cystic kidney dis ease documented in this encounter Care Teams Getter Operator Relationship Specialty Start Date End Date Enedina Agee MD PCP - General 12/06/11 08/22/[address] [place] [address] documented as of this encounter
--- OUTSIDE RECORDS SUMMARY | 2021-11-12 00:57 | XMS_ITS | Encounter Summary ---
:1955 Author Organization [facility] Address [facility] [place] [address] Care Team Providers Name Role Phone Miriam Agee MD Primary Care Provider Encounter Details Date Type Department Care Team Description 12/06/2011 Hospital Encounter Mammography at [facility], DR REVA [facility] Mahesh Edwards MD [address] [place] [address] [id number] [place] [address] Social History Tobacco Use Types Packs/Day [...] Priority Date/Time Associated Diagnosis Comme nts MAMMO SCREENING CAD Routine 12/06/2011 10:15 AM R esults for this BILATERAL EDT procedure are i n the results section. documented in this encounter Results MAMMO DIGITAL BILATERAL SCREENING WITH CAD (12/06/2011 10:15 AM EDT) Anatomical Region Laterality Modality Breast Bilateral Mammography Specimen (Source) Anatomical Collection Method Collection Time Re ceived Time Location / / Volume Laterality 12/06/2011 10:15 AM EDT Narrative 12/07/2011 4:31 PM EDT REASON FOR EXAM: Screening ?? TECHNIQUE: Cranio-caudal (CC) and mediol ateral oblique (MLO) views of the both breasts obtained with direct digital cap ture. The exam was evaluated by CAD Version 8.3.17. ?? RIGHT BREAST MAMMOGRAPHY ?? This is an indeterminate (ACR Category 0 ) mammogram of the Right breast. There is a question of a mass in the lower Rig ht breast, requiring additional imaging. ? LEFT BREAST MAMMOGRAPHY ?? This is a negative mammogram (ACR Catego ry 1). There is a stable fibroglandular pattern without significant change as co mpared to prior studies. There is no mammographic evidence of cancer. ? The breasts are of scattered density. ? A biopsy marker clip is present in the L eft breast. ? CONCLUSION ?? ASSESSMENT IS INCOMPLETE: Additional estephania ging recommended (ACR Category 0) of the Right breast. The [facility] will contact the patient to schedule additional imaging. ?? The contralateral breast is NEGATIVE (AC R Category 1). Routine screening mammography is recommended of the Left b reast with the frequency dependent on the patient's age and breast cancer risk factors. Procedure Note Larisa Arellano MD - 12/07/2011 REASON FOR EXAM: Screening TECHNIQUE: Cranio-caudal (CC) and mediol ateral oblique (MLO) views of the both breasts obtained with direct digital cap ture. The exam was evaluated by CAD Version 8.3.17. RIGHT BREAST MAMMOGRAPHY This is an indeterminate (ACR Category 0 ) mammogram of the Right breast. There is a question of a mass in the lower Rig ht breast, requiring additional imaging. LEFT BREAST MAMMOGRAPHY This is a negative mammogram (ACR Catego ry 1). There is a stable fibroglandular pattern without significant change as co mpared to prior studies. There is no mammographic evidence of cancer. The breasts are of scattered density. A biopsy marker clip is present in the L eft breast. CONCLUSION ASSESSMENT IS INCOMPLETE: Additional estephania ging recommended (ACR Category 0) of the Right breast. The Breast [facility] will contact the patient to schedule additional imaging. The contralateral breast is NEGATIVE (AC R Category 1). Routine screening mammography is recommended of the Left b reast with the frequency dependent on the patient's age and breast cancer risk factors. Kenia Archer APRN IMG MAMMO ORDERABLES documented in this encounter Visit Diagnoses Not on filedocumented in this encounter Care Teams Aquatic Biologist Relationship Specialty Start Date End Date Miriam Agee MD PCP - General 12/06/11 08/22/[address] [place] [address] documented as of this encounter
--- OUTSIDE RECORDS SUMMARY | 2021-11-12 00:57 | XMS_ITS | Encounter Summary ---
:1955 Author Organization [facility] [place] [address] Care Team Providers Name Role Phone Miriam Agee MD Primary Care Provider Encounter Details Date Type Department Care Team Description 07/10/2013 Office Visit Endocrinology at [facility] Penelope Dan Acquired hypothyroidism; [facility] S, DO Hyperparathy[place] [address] [facility] [phone] [place] [address] Social History Tobacco Use Types Packs/Day Years Used Date Never Smoker Smokeless Tobacco: Never Used Alcohol Use Standard Drinks/Week Comments No 0 (1 standard drink = 0.6 oz pure alcoho l) Sex Assigned at Date Recorded Not on file documented as of this encounter Last Filed Vital Signs Vital Sign Reading Time Taken Comments Blood Pressure 161/11 07/10/2013 3:32 PM EDT Pulse 88 07/10/2013 3:32 PM EDT Temperature - - Respiratory Rate - - Oxygen Saturation - - Inhaled Oxygen Concentration - - Weight 100.2 kg (221 lb) 07/10/2013 3:32 PM EDT Height - - Body Mass Index 36.78 05/14/2013 6:23 AM EDT documented in this encounter Progress Notes Reyes Gillespie MD - 07/19/2013 1:06 AM EDT I have reviewed Dr. No's above history and I agree with the details as written. PatyPenelope thomas DO - 07/10/2013 3:47 PM EDT 58 y.o. Female presents for follow up post right lower pole parathyroid adenoma resection on 05/2013 for primary hyperparathyroidism Pt is doing well and has no complaints. We talked about appropratie calcium supplementation -- calcium citrate instead of caclium carbonate as she is on PPI. Take twice daily 630 mg + 400 U Vit D instead of once daily. She has right lower pole adenoma removed with the Left one being thyroif tissue (origiannly thought to be the parathyroid adenoma). We talked about hypothyroidism as her TSH was slightly elevated 6 months ago. She has symptoms of fatigue but does not notice any other symptoms. Constitutional: Denies heat / cold intolerance; + fatigue; denies hot flashes Denies weight changes Eyes: Denies eye/vision change ENT: Denies voice changes, changes in hearing Pulmonary: Denies dyspnea or cough Cardiovascular: Denies palpitations or chest pain or edema GI: Denies constipation, hyperdefacation, dysphagia Denies abdominal pain; denies abdominal striae : Denies urinary frequency; denies history of kidney stones Integumentary: Denies changes in perspiration / rash / hyperpigmentation Denies changes in hair density; denies loss of axillary, pubic or body hair Neurologic: Denies tremor, sleep disturbances, weakness Psychiatric: Denies depression Denies changes in concentration / behavior / anxiety Reproductive: Denies menstrual problems/infertility. Good libido/erectile function Denies gynecomastia/galactorrhea BP 161/11 Pulse 88 Wt 100.245 kg (221 lb) General: NAD, AAOx3 HEENT: EOMI, anicteric, PERRL, no exoophthalmous, moist mucous membranes Neck: No LAD, no thyromegaly, no palpable thyroid nodules, normal consistency, symmetrical, no tenderness, no bruit Extremities: no lower extremity edema Integumentary: Skin warm and dry/intact; no hyperpigmentation, no excessive hair growth Results for UMA GUILLEN ( ) as of 07/18/2013 23:21 Ref. Range 06/24/2013 09:37 Calcium Latest Range: 8.5-10.5 mg/dL 9.7 PTH Latest Range: 15-65 pg/mL 84 (H) A/P: 58 y.o. Female presents for follow up post right lower pole parathyroid adenoma resection on 05/2013 for primary hyperparathyroidism. She did have an intraop drop of PTH however, upon recheck, her PTH remains elevated (although half the value it was prior to surgery). This remains to be investigated further. Will get initial labs as below to evaluate for secondary causes. If not, then will consider sestamibi scan to evaluate for an adenoma not seen on ultrasound. There is no family history of MTC with no other indicators for MEN 2 testing at this time. Will also discuss this case during weekly case conference. For now: - check TSH, Free T4, PTH, BMP, Vit D Will follow up results with the patient as well as a plan for further work up. Penelope No DO Fellow in Endocrinology [facility] [place] Dept of Endocrinology Office: [phone] Pager: [phone] documented in this encounter Plan of Treatment Not on filedocumented as of this encounter Procedures Procedure Name Priority Date/Time Associated Diagnosis Comme nts PTH Routine 07/10/2013 4:43 Hyperparathyroid bone Res ults for this PM EDT disease procedure are i n the results section. VITAMIN D, Routine 07/10/2013 4:43 Hyperparathyroid bone Res ults for this 25-HYDROXY PM EDT disease procedure are i n the results section. TSH Routine 07/10/2013 4:43 Acquired hypothyroidism R esults for this PM EDT procedure are i n the results section. T4, FREE Routine 07/10/2013 4:43 Acquired hypothyroidism R esults for this PM EDT procedure are i n the results section. BASIC METABOLIC Routine 07/10/2013 4:43 Hyperparathyroid bone Results for this PANEL PM EDT disease procedure are i n (NON-FASTING) the results section. documented in this encounter Results (ABNORMAL) PTH (07/10/2013 4:43 PM EDT) P athologist Signature PTH 78 (H) 15 - 65 CERNER pg/mL MILLENNIUM Specimen Anatomical Collection Method Collection Time Receive d Time (Source) Location / / Volume Laterality Blood specimen 07/10/2013 4:43 PM 014 4:46 (specimen) EDT PM EDT Resulting Agency Comment Spec In Lab Judd Esquivel MD CHEMISTRY ORDERABLES Performing Organization Address City/State/ZIP Code Alcides MORFIN [place] [id number] CERNER MILLENNIUM Basic Metabolic Panel (non-fasting) (07/10/2013 4:43 PM EDT) P athologist Signature Glucose Lvl 105 60 - 199 CERNER mg/dL MILLENNIUM Comment: Diabetes: >=200 mg/dL plus symp toms BUN 9 8 - 18 mg/dL CERNER MILLENNIUM Creatinine 0.78 0.70 - 1.20 mg/dL CERNER MILL ENNIUM Comment: Please note that the pediatric reference intervals supplied above were not validated at [facility] [place]. Results from pediatri c patients should be interpreted in conjunction to the patient's age, height and muscle mass. Sodium 137 135 - 145 mmol/L CERNER MARZENA NIUM Potassium 3.8 3.5 - 5.0 mmol/L CERNER MARZENA NIUM Comment: Please note: ??Patients with WBC >100,00 0 may have falsely elevated Potassium levels. ??For accurate Potassium quantif ication in these patients send serum separator tube (gold top) for subsequent determinations. ??Contact the Clinical Chemistry Laboratory if there are any qu estions. Chloride 100 98 - 107 mmol/L CERNER MILLENN IUM CO2 25 22 - 31 mmol/L CERNER MILLENNI UM Anion Gap 12 5 - 15 mmol/L CERNER MILLENNIU M Calcium 9.9 8.5 - 10.5 mg/dL CERNER MARZENA NIUM Estimated GFR >60 >=60 CERNER MILLENNIU M Comment: This estimated GFR (eGFR) value was [...] the following links into your internet browser. http://www.nkdep.nih.gov/lab-evaluation. shtml http://www.kidney.org/professionals/ Specimen Anatomical Collection Method Collection Time Receive d Time (Source) Location / / Volume Laterality Blood specimen 07/10/2013 4:43 PM 014 4:46 (specimen) EDT PM EDT Resulting Agency Comment Spec In Lab Judd Esquivel MD CHEMISTRY ORDERABLES Performing Organization Address City/[facility]/ZIP Code Phon e Number [address] CERNER MILLENNIUM VIT D Total Evaluation (07/10/2013 4:43 PM EDT) P athologist Signature 25-OH Vit D 55 30 - 100 CERNER Total ng/mL MILLENNIUM Comment: Deficient <10 ng/mL Insufficient 10 to 29 ng/mL Sufficient 30 to 100 ng/mL Potential Intoxication >100 ng/mL According to the [place] National Osteoporosi s Foundation, Vitamin D concentrations >30 ng/mL are sufficient to protect bone health. ??The National Kidney Foundation has similarly stated that pat ients with Vitamin D concentrations <30ng/mL should be considered to be insu fficient or deficient. http://www.kidney.org/professionals/KDOQ I/guidelines_bone/Guide7.htm http://nof.org/files/nof/public/content/ clinicalupdates/clinicalupdates/Issue2 5VitaminD/2012_VitaminD.html The IDS iSYS Vitamin D Immunoassay detec ts both 25-OH Vitamin D2 and 25-OH Vitamin D3, but only a total Vitamin D c oncentration is reported. Specimen Anatomical Collection Method Collection Time Receive d Time (Source) Location / / Volume Laterality Blood specimen 07/10/2013 4:43 PM 014 4:46 (specimen) EDT PM EDT Resulting Agency Comment Spec In Lab Judd Esquivel MD CHEMISTRY ORDERABLES Performing Organization Address City/[facility]/ZIP Code Phon e Number [address] CERNER MILLENNIUM T4, free (07/10/2013 4:43 PM EDT) P athologist Signature Free T4 1.11 0.90 - 1.60 CERNER ng/dL MILLENNIUM Specimen Anatomical Collection Method Collection Time Receive d Time (Source) Location / / Volume Laterality Blood specimen 07/10/2013 4:43 PM 014 4:46 (specimen) EDT PM EDT Resulting Agency Comment Spec In Lab Judd Esquivel MD CHEMISTRY ORDERABLES Performing Organization Address City/[facility]/[place] [address] CERNER MILLENNIUM (ABNORMAL) TSH (07/10/2013 4:43 PM EDT) P athologist Signature TSH 5.38 (H) 0.27 - 4.20 CERNER mcIU/mL MILLENNIUM Specimen Anatomical Collection Method Collection Time Receive d Time (Source) Location / / Volume Laterality Blood specimen 07/10/2013 4:43 PM 014 4:46 (specimen) EDT PM EDT Resulting Agency Comment Spec In Lab Judd Esquivel MD CHEMISTRY ORDERABLES Performing Organization Address City/[facility]/[place] [address] CERNER MILLENNIUM documented in this encounter Visit Diagnoses Diagnosis Acquired hypothyroidism Unspecified hypothyroidism Hyperparathyroid bone disease Primary hyperparathyroidism documented in this encounter Care Teams Computer Forensic Examiner Relationship Specialty Start Date End Date Miriam Agee MD PCP - General 12/06/11 08/22/[address] [place] [address] documented as of this encounter
--- OUTSIDE RECORDS SUMMARY | 2021-11-12 00:57 | XMS_ITS | Encounter Summary ---
:1955 [place] [address] Care Team Providers Name Role Phone Miriam Agee MD Primary Care Provider Encounter Details Date Type Department Care Team Description 05/14/2013 Surgery Main Operating Room Mane Dominguez ATHYROIDECTOMY OR Jojo Bland MD EXPLORATION OF [facility] PARATHYROID(S) (WRVU 15.6) [facility] [address] Salazar GENERAL SURGERY [place] [phone] Social History Tobacco Use Types Packs/Day Years Used Date Never Smoker Smokeless Tobacco: Never Used Alcohol Use Standard Drinks/Week Comments No 0 (1 standard drink = 0.6 oz pure alcoho l) Sex Assigned at Date Recorded Not on file documented as of this encounter Last Filed Vital Signs Vital Sign Reading Time Taken Comments Blood Pressure 144/88 05/14/2013 6:23 AM EDT Pulse 97 05/14/2013 6:23 AM EDT Temperature 37.3 ??C (99.1 ??F) 05/14/2013 6:23 AM EDT Respiratory Rate 15 05/14/2013 6:23 AM EDT Oxygen Saturation 97% 05/14/2013 6:23 AM EDT Inhaled Oxygen Concentration - - Weight 98.9 kg (218 lb) 05/14/2013 6:23 AM EDT Height 165.1 cm (5' 5) 05/14/2013 6:23 AM EDT Body Mass Index 36.28 05/14/2013 6:23 AM EDT documented in this encounter Discharge Instructions Discharge InstructionsThIndia walton RN - 05/14/2013 2:43 PM EDT POST [...] takes 4 businessdays to be ready. Dr. Dominguez will call you with this report as [...] a day until you speak with Dr. Dominguez about your path report. He will review your need to continue this at that time. If you notice a tingling sensation in your hands, feet, around your mouth, or develop muscle spasms then please call the General Surgery nurse at [phone], since this may mean that you need morecalcium. Follow-up Appointment: Will be scheduled with Dr. Dominguez in 6 weeks Date and time as well as any required labs will be mailed to you Please call [phone] to confirm date and time of your [...] by calcium supplementation. Phone number for questions: [phone] before 5 PM weekdays [phone] after 5 PM and on weekends/holidays documented [...] as of this encounter H&P Notes Mane Dominguez MD - 05/13/2013 2:41 PM EDT H&P [...] Arteaga MD - 05/14/2013 10:17 AM EDT [facility] Operative Note Patient Name: Uma Guillen : [id number] MR#: [id number] Case Date: 05/14/2013 Surgeon: Surgeon(s) and Role: * Mane oDminguez MD - Primary * Jeff Arteaga MD [...] plans for a same-day discharge home. Dr. Dominguez was present for the case. OR Attestation - Mane Dominguez MD - 05/14/2013 10:16 AM EDT Attestation: Case Date: 05/14/2013 I was present and I participated during the entire procedure (does not need to include opening and closing). MANE DOMINGUEZ MD 05/14/2013 Brief Op Note - Mane Dominguez MD - 05/14/2013 10:14 AM EDT Brief Operative Note Patient Name: Uma Guillen : [id number] MR#: [id number] Case Date: 05/14/2013 Surgeon: Surgeon(s) and Role: * Mane Dominguez MD - Primary * Jeff Arteaga MD [...] STAT 05/14/2013 9:30 Result s for this ([facility] [place]) AM EDT procedure are i n the [...] STAT 05/14/2013 8:50 Result s for this ([facility] [place]) AM EDT procedure are i n the results section. PARATHYROIDECTOMY OR 05/14/2013 7:29 HPT EXPLORATION OF AM EDT PARATHYROID(S) (WRVU 15.6) documented in this encounter Results Intraoperative PTH (05/14/2013 9:30 AM EDT) athologist Signature Intraoper PTH 21 8 - 53 CERNER pg/mL [facility] Comment: post excision sample #1 Called by: kirsten, Read back by: adams in or 22, Date/Time:05/14/13 0956. A 50 % decrease in venous iPTH levels at 10 min post adenoma excision is expected if all the hypersecreting parat hyroid tissue has been removed (Malcolm OLIVA et al. Surgery 1993:114; [id number]) Specimen Anatomical Collection Method Collection Time Receive d Time (Source) Location / / Volume Laterality Blood specimen 05/14/2013 9:30 AM 014 9:35 (specimen) EDT AM EDT Resulting Agency Comment Spec In Lab Mane Dominguez MD CHEMISTRY ORDERABLES Performing Organization Address City/[facility]/ZIP Code Phon e Number [address] [facility] Specimen to Pathology (surgical or derm) (05/14/2013 9:09 AM EDT) Specimen Anatomical Collection Method Collection Time Receive d Time (Source) Location / / Volume Laterality AP Specimen 05/14/2013 9:09 AM 4 9:09 EDT AM EDT Narrative [facility] - 05/14/2013 9:09 AM E DT Specimen requisition ordered. ??Separate Pathology report to follow Mane Dominguez MD PATHOLOGY/CYTOLOGY ORDERABLE S Performing Organization Address City/[facility]/ZIP Code Phon e Number [address] [facility] Surgical Pathology Report (05/14/2013 8:54 AM EDT) Component Value Ref Test Analysis Performed At [facility] Range Method Time Signature [facility] ? [facility] Report ? Provider: ?? MANE DOMINGUEZ Pt. Name: ?? UMA GUILLEN ? Acc #: ?[id number] ?Pt. MRN: ?[id number] ? Col Date: ?? 05/14/2013 ? /Sex: [...] adenoma ? Clinical History: ? Hyperparathyroidism ? [facility] ? Provider: ?? MANE DOMINGUEZ Pt. Name: ?? UMA GUILLEN ? Acc #: ?[id number] ?Pt. MRN: ?[id number] ? Col Date: ?? 05/14/2013 ? /Sex: ?1 04/26/1954,(58 ? years),Female ? Rec Date: ?? 05/14/2013 ? LOC: ?SDP ? SURGICAL PATHOLOGY ? Clinical Diagnosis: ? Same Specimen (Source) Anatomical Collection Method Collection Time Re ceived Time Location / / Volume Laterality 05/14/2013 8:54 AM EDT Mane Dominguez MD PATHOLOGY/CYTOLOGY ORDERABLE S Performing Organization Address City/State/[place] [address] CERNER MILLENNIUM Frozen Section Report (05/14/2013 8:54 AM EDT) Component Value Ref Test Analysis Performed At [facility] gist Range Method Time Signature Frozen CERNER Section ? [facility] MILLENNIUM Report ? Provider: ?? MANE DOMINGUEZ Pt. Name: ?? UMA GUILLEN ? Acc #: ?[id number] ?Pt. MRN: ?[id number] ? Col Date: ?? 05/14/2013 ? /Sex: [...] Volume Laterality 05/14/2013 8:54 AM EDT Mane Dominguez MD PATHOLOGY/CYTOLOGY ORDERABLE S Performing Organization Address City/[facility]/[place] [address] CERNER MILLENNIUM Specimen to Pathology (surgical or derm) (05/14/2013 8:53 AM EDT) Specimen Anatomical Collection Method Collection Time Receive d Time (Source) Location / / Volume Laterality AP Specimen 05/14/2013 8:53 AM 4 8:53 EDT AM EDT Narrative CERNER MILLENNIUM - 05/14/2013 8:53 AM E DT Specimen requisition ordered. ??Separate Pathology report to follow Mane Dominguez MD PATHOLOGY/CYTOLOGY ORDERABLE S Performing Organization Address City/[facility]/[place] [address] CERNER MILLENNIUM (ABNORMAL) Intraoperative PTH (05/14/2013 8:50 AM EDT) P athologist Signature Intraoper PTH 259 (H) 8 - 53 CERNER pg/mL [facility] Comment: pre-excision sample Called by: kirsten, Read back by: katiana in or22, Date/Time:05/14/13 09:18. A 50 % decrease in venous iPTH levels at 10 min post adenoma excision is expected if all the hypersecreting parat hyroid tissue has been removed (Malcolm GL et al. Surgery 1993:114; [id number]) Specimen Anatomical Collection Method Collection Time Receive d Time (Source) Location / / Volume Laterality Blood specimen 05/14/2013 8:50 AM 014 8:54 (specimen) EDT AM EDT Resulting Agency Comment Spec In Lab Mane Dominguez MD CHEMISTRY ORDERABLES Performing Organization Address City/State/[place] [address] [facility] documented in this encounter Visit Diagnoses Not on filedocumented in this encounter Administered Medications Inactive Administered Medications - up to 3 most recent administrations Medication Order MAR Action Action Date Dose Rate Site BUpivacaine-EPINEPHrine Given 05/14/2013 8:22 AM 7 mLs 19- Surgical Site 0.25 %-1:200,000 EDT injection ONCE PRN, Starting on Mon05/14/13 at 0822, Until Mon05/14/13 at 1533, Intra-Operative (Intra-Procedure), Routine fentaNYL 50mcg/mL injection Given 05/14/2013 11:35 AM [...] PRN, Starting on Mon05/14/13 at 1049, Until e 05/14/13 at 1533, Pain, For moderate pain [...] PRN, Starting on Mon05/14/13 at 1049, Until Tu05/14/13 at 1533, Nausea, May repeat 4 mg [...] EVERY 3 HOURS, First d ose on e 05/14/13 at 0715, Until Discontinued, Intra-Operative (Intra-Procedure), Indication for (Active or Suspected): Prophylaxis Continuous Medication Order 05/12/2013 05/13/2013 05/14/2013 lactated ringers infusion 1,000 mL (CANCELED) 0715 (New Bag - Provider: Mallika Weeks RN)1143 (New Bag - Provider: India Barker RN) 1,000 mL, at 100 mL/hr, Intravenous, CON TINUOUS, Starting 05/14/13 at 0715, Until 05/14/13 at 1533, Day of Surgery (Day of Procedure) PRN Medication Order 05/12/2013 05/13/2013 05/14/2013 BUpivacaine-EPINEPHrine 0.25 %-1:200,000 injection (CANCELED) 0822 (Given - Provider: Mane Dominguez MD) ONCE PRN, Starting 05/14/13 at 0822, Until 05/14/13 at 1533, Intra- Operative (Intra-Procedure), Routine fentaNYL 50mcg/mL injection (CANCELED) 1053 (Given - Provider: India Barker RN)1115 (Given - Provider: India Barker, RN)1135 (Given - Provider: India Barker RN) 25-50 mcg, Intravenous, EVERY 5 MIN PRN, Starting 05/14/13 at 1049, Until 05/14/13 at 1533, Pain, for breakthrough pain, Hold for respiratory rate less than 10 per minute. Maximum dose: 250 mcg over one hour., PACU Recovery, Routine HYDROmorphone (DILAUDID) injection 0.2-0.4 mg (CANCELED) 1142 (Given - Provider: India Barker RN)1149 (Given - Provider: India Barker, RN)1215 (Given - Provider: India Barker, RN)1244 (Given - Provider: Leigh Ann Garcia RN) 0.2-0.4 mg, Intravenous, EVERY 5 MIN PRN , Starting 05/14/13 at 1049, Until 05/14/13 at [...] mg, Oral, EVERY 4 HOURS PRN, Starting Mon05/14/13 at 1005, Until Mon05/14/13 at 1748, Pain, Routine ondansetron (ZOFRAN) injection 4 mg (CANCELED) 1121 (Given - Provider: India Barker RN) 4 mg, Intravenous, EVERY 30 MIN PRN, Sta rting Mon05/14/13 at 1049, Until Mon05/14/13 at 1533, Nausea, May repeat 4 mg once in 30 minutes. Consider prochlorperazine if ineffective., PACU Recovery, Routine documented in this encounter Care Teams Featheredge Machine Operator Relationship Specialty Start Date End Date Miriam Agee MD PCP - General 12/06/11 08/22/[address] [place] [address] documented as of this encounter
--- OUTSIDE RECORDS SUMMARY | 2021-11-12 00:57 | XMS_ITS | Encounter Summary ---
:1955 Author Organization [facility] Address [address] [address] Care Team Providers Name Role Phone Miriam Agee MD Primary Care Provider Encounter Details Date Type Department Care Team Description 12/07/2011 Orders Only Radiology Larisa Arellano MD Abnormal mammogram, [facility] uns pecified ([address]) [place] [address] DIAGNOSTIC [phone] RADIOLOGY [place] [id number] Social History Tobacco Use Types Packs/Day Years Used Date Never Smoker Smokeless Tobacco: Never Used Sex Assigned at Date Recorded Not on file documented as of this encounter Plan of Treatment Not on filedocumented as of this encounter Results Mammo call back diagnostic [...] attending Larisa Arellano MD IMG MAMMO ORDERABLES Mammo breast US unilateral bilateral (12/12/2011 3:15 PM EDT) Anatomical Region Laterality Modality Breast N/A Mammography Specimen (Source) Anatomical Collection Method Collection Time Re ceived Time Location / / Volume Laterality 12/12/2011 3:15 PM EDT Impressions 12/13/2011 1:12 PM EDT [...] cyst at 0530, 6cm from the nipple. Lovei ron screening mammography recommended. Film and interpretation reviewed by the attending Larisa Arellano MD IMG MAMMO ORDERABLES documented in this encounter Visit Diagnoses Diagnosis Abnormal mammogram, unspecified - Primar y Abnormal mammogram, unspecified Abnormal mammogram, unspecified documented in this encounter Care Teams Charge Coordinator Relationship Specialty Start Date End Date Miriam Agee MD PCP - General 12/06/11 08/22/[address] [place] [address] documented as of this encounter
--- OUTSIDE RECORDS SUMMARY | 2021-11-12 00:57 | XMS_ITS | Encounter Summary ---
:1955 Author Organization [facility] Address [address] [place] [address] Care Team Providers Name Role Phone Papa Dunn MD Primary Care Provider [phone] Encounter Details Date Type Department Care Team Description 01/28/2014 Office Visit Endocrinology at [facility] Nav Gillespie, Unspecified vitamin D defici ency; [facility] Reyes Vogt MD Hyperparathyroidism; [facility] Unspecified hypothyroidism; [place] [address] [facility] Prediabetes [phone] END[address]PT. [place], [place] [address] Social History Tobacco Use Types Packs/Day Years Used Date Never Smoker Smokeless Tobacco: Never Used Alcohol Use Standard Drinks/Week Comments No 0 (1 standard drink = 0.6 oz pure alcoho l) Sex Assigned at Date Recorded Not on file documented as of this encounter Last Filed Vital Signs Vital Sign Reading Time Taken Comments Blood Pressure 131/100 01/28/2014 11:39 late dashing in & AM EST coffee Pulse 94 01/28/2014 11:39 AM EST Temperature - - Respiratory Rate - - Oxygen Saturation - - Inhaled Oxygen - - Concentration Weight 95.3 kg (210 lb 3.2 01/28/2014 11:39 oz) AM EST Height 165.1 cm (5' 5) 01/28/2014 11:39 stated AM EST Body Mass Index 34.98 01/28/2014 11:39 AM EST documented in this encounter Progress Notes Reyes Gillespie MD - 01/28/2014 11:54 AM EST Endocrine Clinic Name: Uma Hood : 1955 PCP: NORM NI APRN Provided by: Reyes Gillespie MD, PhD, FACE Date: 01/28/2014 Reason for visit: Endocrine visit for the following problem list: *She used to see Dr. No beforeher graduation from our fellowship program and is now transferred under my care directly for follow up post right lower pole parathyroid adenoma resection on 05/2013 for primary hyperparathyroidism withnor malized Ca & PTH after the surgery but [...] and 2 maternal aunts V18.19 OSH lab 01/25/14 Ca 9.1 PTH -pending 25vitamin D 32 (down quickly from 55) CMP- wnl FT4 1.11 A1c ? Not done (was 6.7% in => will check next time in 3 mo) Uma Hood is doing well during the interim but stopped taking her OTC- vitamin D supplement causing a borderline low vitD now. Her weight has been decreasing 11 lbs after wt watcher since 12/04/13 which will be good news for hermild DM (A1c 6.7% last ). No palpitations, CP, SOB, GI issues, changes of skin or hairs and noheat or cold intolerance. No REDMOND or visual [...] to Visit Medication Sig Dispense Refill ??? CALCIUM CITRATE/VITAMIN D3 (CALCIUM CITRATE + D ORAL) Take 1 tablet by mouth daily. ??? GLUC/FATMATA-MSM#1/VIT C/NATALIE/BOR (ORMRRTLUGNJ-GTNUA-AUR COMPLEX ORAL) Take by mouth daily. ??? multivitamin (THERAGRAN) tablet Take 1 tablet by mouth daily. ??? omeprazole (PRILOSEC) 20 mg capsule Take 20 mg by mouth daily. ??? acetaminophen (TYLENOL) 325 mg tablet Take 650 mg by mouth every 4 hours as needed. ??? ibuprofen (ADVIL;MOTRIN) 200 mg tablet Take 200 mg by mouth every 6 hours as needed. ??? [DISCONTINUED] Cholecalciferol, Vitamin D3, (VITAMIN D) 1,000 unit Cap Take by mouth daily. No current facility-administered medications [...] Cancer Maternal Uncle colon Physical exam BP 131/100 Pulse 94 Ht 165.1 cm (5' 5) Wt 95.346 kg (210 lb 3.2 oz) BMI 34.98 kg/m2 Appearance: mildly obese, pleasant, NAD HEENT: PERRLA, EOMI, no lid lag or exophthalmos Neck: supple, no goiter or lymphadenopathy Abd: benign, ND, NT Ext: normal skin texture and temperature no pitting edema Neuro: no weakness, normal reflexes Assessment: Reasonable control of post right lower pole parathyroid adenoma resection on 05/2013 for primary hyperparathyroidism with normalized Ca & PTH intraoperatively but then PTH then kenney back up to 78 (07/10/13) likely due to 2ry hyperPTH. She stopped taking her OTC-vitamin D supplement causing a borderline low vitD now at 32 (normal 30-100, it was ok at 55 in ). PTH is pending from outside lab. Also, borderline hypothyroid with TSH 5.8->5.38 in the past but now better at 2.61 and she lost wt 11 lbs down with wt watcher for her preDM/mild DM (A1c 6.7% in and now having normal FBG). She has strong FH of hypothyroid in mother and 2 maternal aunts. Plan: 1. Medication: Pt will start taking OTC-vitamin D 1,000-2,000 iu qd in addition to her Ca/D and MVI.She acts like having some kind of hungry bone with depletion of her vitD quickly after PTH adenoma removal. Info on possible side effects and how to take the medication properly was discussed at visit today. To continue all other medications, low fat/controlled carb diet & exercise per wt watcher program as tolerated to keep weight stable. 2. Lab: Already checked lab locally as above and will let pt know all the pending test results soon for PTH Will follow lab at outside lab again in 3 mo for TSH, TPO Ab, PTH, Ca, 25- vitamin D and A1c 3. RTC: Next visit in 6 months. Will check TSH, A1c, PTH and 25-vitamin D at the time (Quick draw lab before visit with us on the same day). If PTH is normalized, we will let her see PCP directly afternext visit with us to conclude her care. We have reviewed our plan outlined above with the patient and patient verbalized understanding. All questions were answered and most of the time was spent on counseling about medication adjustment, thediagnostic and therapeutic decisions, and coordination of care. Reyes Gillespie MD, PhD, FACE CC: NORM NI APRN Addendum: ===View-only below this line=== ----- Message ----- From: Papa Dunn MD Sent: 02/10/2014 4:41 PM To: Reyes Gillespie MD Subject: PTH level In case you didn't receive it directly, her PTH intact level was 62 pg/dl (nl 22-77) on 02/08/14. Her transaminases have normalized Danny Z Thanks for this helpful info. So, it's now likely that she has 2ry hyperPTH with normal Ca 9.1, low normal vitD at 32 and high normal PTH at 62 (appropriately). REYES GILLESPIE MD documented in this encounter Plan of Treatment Not on filedocumented as of this encounter Visit Diagnoses Diagnosis Unspecified vitamin D deficiency Hyperparathyroidism Hyperparathyroidism, unspecified Unspecified hypothyroidism Prediabetes Other abnormal glucose documented in this encounter Care Teams Locker Plant Attendant Relationship Specialty Start Date End Date Papa Dunn MD PCP - General 02/03/14 08/13/[address] [place] [place] [address] documented as of this encounter
--- OUTSIDE RECORDS SUMMARY | 2021-11-12 00:57 | XMS_ITS | Encounter Summary ---
:1955 Author Organization [facility] [place] [address] Care Team Providers Name Role Phone Jasen Perez MD Primary Care Provider Reason for Visit Reason Comments Advice Only Encounter Details Date Type Department Care Team Description 12/17/2010 Follow-Up Cardiothoracic Surge ry CLIN[facility], DR ARDON Lung cancer, [facility] Jensen Vergara MD [facility] [place] [address] lobe (Primary Dx) [place] [address] Social History Tobacco Use Types Packs/Day Years Used Date Never Smoker Smokeless Tobacco: Never Used Sex Assigned at Date Recorded Not on file documented as of this encounter Last Filed Vital Signs Vital Sign Reading Time Taken Comments Blood Pressure 126/86 12/17/2010 10:58 AM EDT Pulse 103 12/17/2010 10:58 AM EDT regular Temperature - - Respiratory Rate 16 12/17/2010 10:58 AM EDT Oxygen Saturation 96% 12/17/2010 10:58 AM EDT Inhaled Oxygen Concentration - - Weight 99.8 kg (220 lb) 12/17/2010 10:58 AM EDT Height 165.1 cm (5' 5) 12/17/2010 10:58 AM EDT Body Mass Index 36.61 12/17/2010 10:58 AM EDT documented in this encounter Progress Notes Jensen Ramirez MD - 12/17/2010 11:16 AM EDT Subjective: Patient ID: Uma Hood is a 55 y.o. female I have followed for a resected carcinoid tumor. HPI Mrs. 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 Several years ago, a CXR revealed bilateral pulmonary nodules which I have been following with CT scans. Over the past two years, they have remained stable in size and number. The patient reports that she is feeling basically well. She reports that she has had several colds over the past year and she feels that her coughs linger quite a while before they resolve. She also has GERD for which she takes Protonix but occasionally has cough referable to her heartburn and reflux symptoms. SHe has started exercising in order to lose some weight. She reports that low energy has improved. Review of Systems Otherwise negative Objective: Physical Exam Vitals noted Lungs clear CT without change Assessment and Plan: Stable bilateral pulmonary nodules. Etiology unclear. She is now 10 year from her initial operation and has had a stable Xray pattern for many years. I will follow her bi-annually. No problem-specific visit notes found for this encounter. documented in this encounter Plan of Treatment Not on filedocumented as of this encounter Visit Diagnoses Diagnosis Lung cancer, middle lobe - Primary Malignant neoplasm middle lobe, bronchus or lung documented in this encounter Care Teams Laundry Operator Finishing Relationship Specialty Start Date End Date Jasen Perez MD PCP - General 01/26/10 12/05/11 documented as of this encounter
--- OUTSIDE RECORDS SUMMARY | 2021-11-12 00:57 | XMS_ITS | Encounter Summary ---
:1955 Author Organization [facility] [place] [address] Care Team Providers Name Role Phone Jasen Perez MD Primary Care Provider Encounter Details Date Type Department Care Team Description 12/17/[address] [facility] [place] [address] Social History Tobacco Use Types Packs/Day [...] on filedocumented in this encounter Care Teams Quality Intern Relationship Specialty Start Date End Date Jasen Perez MD PCP - General 01/26/10 12/05/11 documented as of this encounter
--- NOTE | 2021-11-12 07:45 | DI.US_ITS ---
Exam(s) US RENAL EXAM: US RENAL CLINICAL HISTORY: left renal mass re-evaluation,UTI,N39.0,N28.89. TECHNIQUE: Cannon scale, color and spectral Doppler were used. COMPARISON: CT CT ABDOMEN PELVIS W from 03/05/2019 US US PELVIS TRANSVAGINAL from 03/15/2019 FINDINGS: Renal size in cm: Right: 11.7. Left: 11.3. Echogenicity: Normal. Hydronephrosis: No. Cyst or mass: There is a 3.6 x 3.2 x 4 cm simple cyst in the superior pole of the left kidney. This i s unchanged compared to the prior examination. No solid renal mass is seen sonographically. Nephrolithiasis: No. Other findings: None. Bladder:Normal. Ureteral jets: Right: Not visualized on the current examination. Left: Not visualized on the current examination. Prevoid vol:399 cc Postvoid vol:24 cc Renal color flow: Symmetric and within normal limits. IMPRESSION: Stable 4 cm simple left renal cyst. DATA REPOSITORY:
== END ==
PROVIDERS: PCP Internal Medicine; Visit Provider Student in an Organized Health Care Education/Training Program
DX: N28.89 Other specified disorders of kidney and ureter (principal); N39.0 Urinary tract infection, site not specified
CPT/HCPCS: 76770

== ENCOUNTER → 2021-12-17 00:07 | Outpatient (CLI) | payer MEDICARE, OTHER, SELFPAY ==
--- NOTE | 2021-12-17 07:30 | DI.MAMMO_ITS ---
Exam(s) MAMMO SCREENING EXAM: MAMMO SCREENING CLINICAL HISTORY: screening Z12.39 TECHNIQUE: Bilateral full field digital CC and MLO mammographic images were obtained with 3D tomosyn thesis and utilizing computer aided detection (CAD). COMPARISON: Available for comparison. FINDINGS: Masses/Architectural Distortion: There is again seen a biopsy clip in the left breast. There are few stable nodules in the breasts. No suspicious masses or areas of architectural distortion are seen. Microcalcifications: No suspicious pleomorphic-type are seen. Skin Thickening/Nipple Retraction: None. IMPRESSION: 1. No significant interval change with no specific features of malignancy noted. 2. Unless there is more urgent need, screening mammography is recommended, as per [employer] guidelines. BI-RADS Category 2 - Benign Findings Breast Density - Category B - Scattered areas of fibroglandular density Breast density category C or D implies that the patient has dense breast tissue. Dense breast tissue is very common and is not abnormal but dense breast tissue can make it harder to find cancer on a ma mmogram. Also, dense breast tissue may increase their breast cancer risk. This information about the result of the mammogram report was provided to the patient to raise their awareness. Use this report when you speak with the patient about their risks for breast cancer, which includes their family hist ory. At that time, you may recommend for more screening tests (Ultrasound or MRI) as they might be us eful based on their risk. A negative radiographic report should not delay biopsy if a dominant or clinically suspicious mass is present. Up to ten percent of cancers are not identified on mammography. A negative report may reinforce clinical impression. Adenosis and dense breasts may obscure an underlying neoplasm. False positive reports average 6 to 10%. Patient will receive a letter notifying them of these results.
--- NOTE | 2021-12-17 15:26 | DI.DEXA_ITS ---
Exam(s) XR DEXA BONE DENSITY W/WO FRENCH EXAM: XR DEXA BONE DENSITY W/WO FRENCH CLINICAL HISTORY: f/u osteopenia M85.88 DISORDER BONE DENSITY, SCREENING FOR OSTEOPOROSIS TECHNIQUE: COMPARISON: Comparison examination is 06/07/2016. FINDINGS: Lateral Spine Image: Unremarkable. No compression deformities identified. Left hip: Total T-Score: -0.7. This compares to -0.3 on the prior examination. Total Z-Score: 0.6 T- and Z-scores: Within normal limits. Lumbar Spine: Total T-Score: 0.1. This compares to 0.2 on the prior examination. Total Z-Score: 2.0 T- and Z-scores: Within normal limits. IMPRESSION: No evidence of osteoporosis.
== END ==
PROVIDERS: PCP Internal Medicine; Visit Provider Internal Medicine
DX: Z12.31 Encounter for screening mammogram for malignant neoplasm of breast (principal); Z13.820 Encounter for screening for osteoporosis
CPT/HCPCS: 77063; 77067; 77080

== ENCOUNTER 2021-12-21 03:46 | Outpatient (CLI) | payer MEDICARE, OTHER, SELFPAY ==
[2021-12-21 12:35] LABS: Anion Gap 9.9 mmol/L (3-11); BUN 8 mg/dL (7-18); CO2 27.1 mmol/L (21.0-32.0); CREATININE 1.1 mg/dL (0.55-1.02); Calcium 8.8 mg/dL (8.5-10.1); Chloride 97 mmol/L (98-107); Estimated GFR 55.42 (mL/min/1.73m2); Glucose 322 mg/dL (74-106); Magnesium 1.4 mg/dL (1.8-2.4); Potassium 3.3 mmol/L (3.5-5.1); Sodium 134 mmol/L (136-145)
[2021-12-21 13:00] LABS: Bacteria Rare HPF (Negative); Casts Negative LPF (Negative); Crystals Negative HPF (Negative); Epithelial Cells Few HPF (Negative); Mucus Negative (Negative); RBC Negative HPF (0-2); WBC 0-2 HPF (0-5)
[2021-12-21 13:01] LABS: C & S Indicated? No
== END 2021-12-21 03:47 | disposition home or self-care (01) ==
LOC: LBO 03:46
PROVIDERS: PCP Internal Medicine; Visit Provider Student in an Organized Health Care Education/Training Program
DX: N28.89 Other specified disorders of kidney and ureter (principal); K57.92 Diverticulitis of intestine, part unspecified, without perforation or abscess without bleeding; I10 Essential (primary) hypertension; E11.9 Type 2 diabetes mellitus without complications; K21.9 Gastro-esophageal reflux disease without esophagitis; Z87.440 Personal history of urinary (tract) infections; R10.32 Left lower quadrant pain; N39.0 Urinary tract infection, site not specified
CPT/HCPCS: 36415; 80048; 81015; 83735

== ENCOUNTER → 2022-01-14 10:29 | Outpatient (BNVA) | payer MEDICARE, OTHER, SELFPAY | PROVIDERS: PCP Internal Medicine; Referring Provider Internal Medicine; Visit Provider Surgery | DX: K57.92 Diverticulitis of intestine, part unspecified, without perforation or abscess without bleeding (principal); J21.9 Acute bronchiolitis, unspecified; K44.9 Diaphragmatic hernia without obstruction or gangrene | CPT/HCPCS: 99213 ==

== ENCOUNTER 2022-02-04 02:05 | Outpatient (CLI) | payer MEDICARE, OTHER, SELFPAY ==
[2022-02-04 12:57] LABS: Anion Gap 10.4 mmol/L (3-11); BUN 8 mg/dL (7-18); CO2 28.6 mmol/L (21.0-32.0); Calcium 9.1 mg/dL (8.5-10.1); Chloride 94 mmol/L (98-107); Estimated GFR 62.13 (mL/min/1.73m2); Glucose 337 mg/dL (74-106); Magnesium 1.6 mg/dL (1.8-2.4); Potassium 3.2 mmol/L (3.5-5.1); Sodium 133 mmol/L (136-145)
== END 2022-02-04 02:06 | disposition home or self-care (01) ==
LOC: LOS 02:05
PROVIDERS: PCP Internal Medicine; Visit Provider Student in an Organized Health Care Education/Training Program
DX: E87.6 Hypokalemia (principal); E87.8 Other disorders of electrolyte and fluid balance, not elsewhere classified; R79.89 Other specified abnormal findings of blood chemistry
CPT/HCPCS: 36415; 80048; 83735

== ENCOUNTER 2022-03-15 04:07 | Outpatient (CLI) | payer MEDICARE, OTHER, SELFPAY ==
--- NOTE | 2022-03-15 10:00 | NS.NUTBLAN_ITS ---
Uma was referred to diabetes self management education as recently her A1C went to 9.2%. She was also referred for dietary ways to increase her Mg and K rich foods due to chronic low levels 5'3 195 lbs BMI 35 PMH: Dm2, obesity, hx of diverticulitis Meds: 500 mg metformin BID, statin, Vit D, magnesium, HCTZ, levothyroxine Exercise: none routine Labs: elevated A1C, low Magnesium, Potassium Uma reports that she was dx with prediabetes in 2017 and given metformin (500 mg qd). This lead to blood sugars normalizing and a weight loss of 40 lbs (170 lbs). In 2018, her and she quickly regained this weight and got diagnosed with Dm2. Session today focused on how to lower her carbohydrate intake with focus on complex carbs, lean protein and healthy fats. Recommend counting carbs daily with goal of 80-100 g carb max. Encouraged increase in lean protein, non starchy vegetables and healthy fats. Provided written materials and meal plans. Current diet is rich in magnesium and potassium rich foods. Depletions in these vitamins most likely due to HCTZ- Uma to follow up with PCP Recommend, continue Magnesium supplementation and to increase intake of beans, green leafy vegetables, nuts, seeds and whole grains. Reviewed benefits of exercise. Recommend 7-14 miles per week either on treadmill or outdoors. Reviewed benefits of 150 minutes of exercise per week on wellness and overall health. Goal: 10% weight loss in next 6 months. Goal Weight: 165-175 lbs Uma will call to make follow up appt. She is heading to [place] later this month and does not know when she will return.
== END 2022-03-15 04:08 | disposition home or self-care (01) ==
LOC: DS 04:07
PROVIDERS: PCP Student in an Organized Health Care Education/Training Program; Visit Provider Dietitian, Registered
DX: E11.9 Type 2 diabetes mellitus without complications (principal); Z79.84 Long term (current) use of oral hypoglycemic drugs; E87.6 Hypokalemia; E83.42 Hypomagnesemia; Z71.3 Dietary counseling and surveillance
CPT/HCPCS: 97802

== ENCOUNTER 2022-04-08 01:31 | Outpatient (CLI) | payer MEDICARE, SELFPAY ==
[2022-04-08 09:18] LABS: COMMENT (LAB VIEW ONLY) 228.63 mg/dL; Microalb ug/mg Crea 28.7 ug/mg Cr
[2022-04-08 09:28] LABS: Anion Gap 12.7 mmol/L (3-11); BUN 7 mg/dL (7-18); CO2 25.3 mmol/L (21.0-32.0); Calcium 9.7 mg/dL (8.5-10.1); Calculated LDL 39 mg/dL (<100); Chloride 98 mmol/L (98-107); Cholesterol 118 mg/dL (<200); Estimated GFR 61.75 (mL/min/1.73m2); Glucose 187 mg/dL (74-106); HDL Cholesterol 55 mg/dL (40-60); Potassium 3.4 mmol/L (3.5-5.1); Sodium 136 mmol/L (136-145); Triglyceride 121 mg/dL (<150)
[2022-04-08 09:41] LABS: Vitamin D 25 Total 54.2 ng/mL (30-100)
[2022-04-08 20:15] LABS: Parathyroid Hormone,Intact 66 pg/mL (19-88)
== END 2022-04-08 01:32 | disposition home or self-care (01) ==
LOC: LBO 01:31
PROVIDERS: PCP Student in an Organized Health Care Education/Training Program; Visit Provider Internal Medicine
DX: I10 Essential (primary) hypertension (principal); E11.9 Type 2 diabetes mellitus without complications; E78.00 Pure hypercholesterolemia, unspecified; E55.9 Vitamin D deficiency, unspecified; E03.9 Hypothyroidism, unspecified
CPT/HCPCS: 36415; 80048; 80061; 82306; 82043; 82570; 83970; 84443

== ENCOUNTER 2022-04-27 02:50 | Outpatient (CLI) | payer MEDICARE, SELFPAY ==
[2022-04-27 15:53] LABS: BUN 8 mg/dL (7-18); CREATININE 0.9 mg/dL (0.55-1.02); Calcium 9.6 mg/dL (8.5-10.1); Chloride 94 mmol/L (98-107); Estimated GFR 70.07 (mL/min/1.73m2); Glucose 135 mg/dL (74-106); Magnesium 1.7 mg/dL (1.8-2.4); Potassium 3.5 mmol/L (3.5-5.1); Sodium 132 mmol/L (136-145)
== END 2022-04-27 02:51 | disposition home or self-care (01) ==
LOC: LBO 02:50
PROVIDERS: PCP Student in an Organized Health Care Education/Training Program; Visit Provider Student in an Organized Health Care Education/Training Program
DX: E87.6 Hypokalemia (principal); I10 Essential (primary) hypertension; E11.9 Type 2 diabetes mellitus without complications
CPT/HCPCS: 36415; 80048; 83735

== ENCOUNTER 2022-05-16 11:08 | Outpatient (REF) | payer MEDICARE, OTHER, SELFPAY | END 2022-05-16 11:09 | disposition home or self-care (01) | LOC: LBN 11:08 | PROVIDERS: PCP Student in an Organized Health Care Education/Training Program; Visit Provider Obstetrics & Gynecology | DX: N94.89 Other specified conditions associated with female genital organs and menstrual cycle (principal); N89.8 Other specified noninflammatory disorders of vagina | CPT/HCPCS: 87480; 87510; 87660 ==

== ENCOUNTER 2022-06-01 01:30 | Outpatient (CLI) | payer MEDICARE, OTHER, SELFPAY ==
[2022-06-01] MEDS: Omnipaque 350 MG/ML 50 ML BTL PO (09:03)
[2022-06-01] MEDS: Breeza Beverage 473 ML BTL PO ×2 (09:04→09:05)
[2022-06-01] MEDS: Omnipaque 350 MG/ML 500 ML BTL-Imaging package IJ (11:17)
[2022-06-01] MEDS: Normal Saline - Diluent 50 ML VIAL IJ (11:18)
[2022-06-01] MEDS: Normal Saline Flush 10 ML SYR IVP (11:19)
--- NOTE | 2022-06-01 11:20 | DI.CT_ITS ---
Exam(s) CT ABDOMEN PELVIS W EXAM: CT ABDOMEN PELVIS W CLINICAL HISTORY: ? vaginal fistula,vaginal discharge,diverticula of colon,n89.8,k57.30 TECHNIQUE: Imaging Protocol: Axial computed tomography images with coronal and sagittal reformatted images were created and reviewed CONTRAST MATERIAL: Intravenous: Omnipaque 350 Contrast volume:100 mL Oral: Yes COMPARISON: CT CT CHEST WO CONTRAST (GENERIC) from 02/06/[address] ABDOMEN PELVIS W from 03/05/2019 FINDINGS: ABDOMEN: Lung Bases: There is a large hiatal hernia. There again seen multiple bilateral pulmonary nodules pr esent. There is again seen a 6 mm nodule in the medial aspect of the right lung base. Liver: Normal density. No measurable mass. Portal, Superior Mesenteric, and Splenic Veins: Unremarkable. Gallbladder and Biliary Tract: No radiodense calculus or dilation. Pancreas: Normal density, no abnormal calcifications or inflammatory process. Spleen: Normal. Adrenals: No masses seen. Kidneys: Normal size, contour and axis. No radiodense stones or obstructive uropathy. There is a stab le simple left renal cyst. No follow-up is recommended. Abdominal Aorta: Abdominal portion non-dilated. Atherosclerosis is present. Bowel: There is diverticulosis of the colon, but no evidence of acute diverticulitis. The bowel show s no evidence of obstruction or inflammation. Appendix is unremarkable. Peritoneal Cavity: No ascites, collection or mesenteric inflammatory response. No free air. Lymph Nodes: Within normal limits. Bones: Within normal limits for the patient's age. Soft Tissues: There is a small fat containing umbilical hernia. PELVIS: Bladder: Symmetric distention, no gross wall thickening. Reproductive Organs: Unremarkable as visualized. Lymph Nodes: Within normal limits. Bones: Within normal limits for the patient's age. IMPRESSION: 1. No acute abdominal or pelvic process. 2. Stable pulmonary nodules. RADIATION DOSE DELIVERED: 996.26mGy.cm Total DLP DATA REPOSITORY: All CT scans at this facility are submitted to the National Radiology Data Registry (NRDR) Dose Index Registry (DIR) with the [employer] (ACR). RADIATION OPTIMIZATION: All CT scans at this facility use at least one of these dose optimization te chniques: automated exposure control; mA and/or kV adjustment per patient size (includes targeted exa ms where dose is matched to clinical indication); or iterative reconstruction.
== END 2022-06-01 01:50 ==
LOC: DI 01:30
PROVIDERS: PCP Student in an Organized Health Care Education/Training Program; Visit Provider Obstetrics & Gynecology
DX: K57.30 Diverticulosis of large intestine without perforation or abscess without bleeding (principal); N89.8 Other specified noninflammatory disorders of vagina; K44.9 Diaphragmatic hernia without obstruction or gangrene; R91.8 Other nonspecific abnormal finding of lung field; K42.9 Umbilical hernia without obstruction or gangrene
CPT/HCPCS: 74177; Q9967

== ENCOUNTER 2022-06-03 13:47 | Outpatient (REF) | payer MEDICARE, SELFPAY | END 2022-06-03 13:48 | disposition home or self-care (01) | LOC: LBN 13:47 | PROVIDERS: PCP Student in an Organized Health Care Education/Training Program; Visit Provider Obstetrics & Gynecology | DX: N89.8 Other specified noninflammatory disorders of vagina (principal) | CPT/HCPCS: 87070; 87205 ==

== ENCOUNTER 2022-06-26 01:49 | Emergency (ER) | payer MEDICARE, SELFPAY ==
--- NOTE | 2022-06-26 01:45 | DI.CT_ITS ---
Exam(s) CT ABDOMEN PELVIS W EXAM: CT ABDOMEN PELVIS W CLINICAL HISTORY: right flank pain, post op colonic surgery. TECHNIQUE: Imaging Protocol: Axial computed tomography images with coronal and sagittal reformatted images were created and reviewed CONTRAST MATERIAL: Intravenous: Omnipaque 350 Contrast volume:100 ml Oral: no COMPARISON: CT CT ABDOMEN PELVIS W from 03/05/[address] ABDOMEN PELVIS W from 06/01/2022 FINDINGS: ABDOMEN: Lung Bases: Moderate size hiatal hernia. Stable appearance of small bilateral pulmonary nodules. Liver: Normal density. No measurable mass. Gallbladder and biliary tract: No radiodense calculus or dilation. Pancreas: Normal density, no abnormal calcifications or inflammatory process. Spleen: Normal. Kidneys: Normal size, contour and axis. No radiodense stones there is mild right hydronephrosis. The re is a large amount of fluids seen around the right kidney along the course of the right ureter. Th e ureter cannot be traced in this location. Mild left hydronephrosis. Left renal cyst. No suspicio us masses seen. Adrenal glands: Tiny right myelolipoma Abdominal Aorta: Abdominal portion non-dilated. Soft tissues: Soft tissue stranding and gas levels in the anterior abdominal wall consistent with rec ent surgery. PELVIS: Bladder: Air noted within bladder. No gross wall thickening. No calculi.No focal mass. Bowel: Sigmoid anastomosis. Some fluid stranding around loops of bowel in left lower quadrant above the level of the anastomosis. No evidence of obstruction. Appendix normal. Peritoneal cavity: Multiple bubbles of free air seen in the low pelvis along with some fluid. Scatte red bubbles of free air elsewhere. . Bones: Degenerative changes. Reproductive organs: Status post hysterectomy. Right ovarian cysts noted on similar to prior. Lymph nodes: Unremarkable. Impression: Status post sigmoid resection. The anastomosis appears unremarkable. There is residual free air in the pelvis and anterior soft tissues. There is considerable inflammation in the low pelvis around lo ops of bowel. Evaluation is somewhat limited without oral contrast. Right hydronephrosis without visible obstructing stone. Large amount of fluid is seen around the ri ght kidney and along the course of the right ureter which could indicate forniceal rupture or uretera l rupture. RADIATION DOSE DELIVERED: 933.2mGy.cm Total DLP DATA REPOSITORY: All CT scans at this facility are submitted to the National Radiology Data Registry (NRDR) Dose Index Registry (DIR) with the [employer] (ACR). RADIATION OPTIMIZATION: All CT scans at this facility use at least one of these dose optimization te chniques: automated exposure control; mA and/or kV adjustment per patient size (includes targeted exa ms where dose is matched to clinical indication); or iterative reconstruction.
[2022-06-26 01:53] VITALS: BP 181/98; PULSE 127; RESP 15; TEMP 36.9; O2SAT 98
--- NOTE | 2022-06-26 02:11 | ED.GENADUL_ITS ---
Discharge Plan Disposition Patient Disposition: Transfer-Acute Inpatient Care Specific Acute Inpt Facility: [facility] Condition: Stable Discharge Details Chief Complaint: Nk/Back Pain Clinical Impression: Post surgical complication, Abdominal wall pain in right flank Primary Care Provider: Barbie Pink ED Provider: Bryson Prater Home Meds and New Rx's Prescriptions: No Action melatonin 1 mg tablet 1 mg PO HS PRN Ozempic 0.25 mg or 0.5 mg(2 mg/1.5 mL) pen injector 0.25 mg subcut QWEEK Qty: 1.5 2RF Rx Instructions: for 4 weeks .. then consider increase to 0.5 mg potassium chloride 20 mEq tablet extended release 20 meq PO BID Qty: 10 1RF Rx Instructions: TRIAL DAILY x 3 days; fluticasone propionate 50 mcg/actuation spray,suspension 2 spray intranasal DAILY PRN (Reason: congestion) Qty: 16 2RF Rx Instructions: administer into each nostril hydrochlorothiazide 25 mg tablet 25 mg PO DAILY Qty: 90 3RF metformin 500 mg tablet extended release 24hr 1,000 mg PO QACDINNER Qty: 180 3RF Rx Instructions: Slow increase due to elevated A1C ergocalciferol (vitamin D2) [Vitamin D2] 1,250 mcg (50,000 unit) capsule 1,250 mcg PO weekly Qty: 90 3RF Rx Instructions: 12/18/18 Pt states she takes every monday. PG esomeprazole magnesium [Nexium] 20 mg capsule,delayed release(DR/EC) 20 mg PO DAILY Qty: 90 1RF atorvastatin 20 mg tablet 20 mg PO QHS Qty: 90 3RF levothyroxine 50 mcg tablet 50 mcg PO DAILY Qty: 90 3RF magnesium 250 mg Tablet 250 mg PO HS ibuprofen 600 mg tablet 600 mg PO TID PRNQty: 90 3RF acetaminophen 500 mg capsule 1,000 mg PO Q8H PRN (Reason: pain) Qty: 90 2RF Medical Decision Making 67-year-old female with a past medical history of GERD, hypothyroidism, hyperparathyroidism, diverticulitis with colovaginal fistula who is currently postoperative from laparoscopic procedure on 06/22 at [facility] for management of this with a lower anterior resection, presents today 12 hours after discharge from [facility] for right flank pain. Patient states that the surgery went well, she recovered well, she was discharged yesterday afternoon. She states that since then she has had a right flank pain. Worse with movement. She has taken heating pads and NSAIDs without any improvement. She denies any urinary complaints. She denies any vomiting or diarrhea. No other complaints at this time. Pain is slightly improved while laying on her back, made worse by laying on her side. Physical exam demonstrates mild right CVA tenderness, mild mid and right lower q uadrant abdominal tenderness. Postoperative incision sites are clean dry and intact. Differential includes postoperative complication, abscess, kidney stone, or UTI. We will evaluate for these concerning etiologies, treat her pain, monitor closely and reassess. 5:[address] scan results show multiple atypical findings, fat stranding and complex fluid density in the pelvis is noted suspicious for hemorrhage or thrombus, there is also hydronephrosis and proximal ureterectasis, as well as prominent right-sided perinephric and periureteral fluid on the right with fluid tracking along the fascia. Obstructive uropathy and potential forniceal rupture is of concern. However it is difficult to ascertain on imaging. Patient feels much better after morphine. Laboratory work-up shows no white count, hemoglobin slightly low at 10, electrolytes stable, lactate minimally elevated at 1.5. Urinalysis only shows 3-5 RBCs. I did contact Dr. Syed at [facility] who performed the surgery. She reviewed the images, and is also uncertain as to what is causing all the extra fluid collection, as well as the periureteral fluid. She does recommend transfer to [facility] in an ER to ER transfer for surgical evaluation at bedside. Patient will be transferred via [facility]. Discussed case with patient. She agrees with the plan. I have extensively reviewed the treatment plan with the patient. I have addressed all patient concerns at this time. I have also discussed the plan with the admitting physician and they agree with the current assessment and plan and have agreed to assume responsibility for the patient. All parties demonstrate verbal understanding and agreement with our assessment and plan at this time. The documentation in this chart was dictated using [employer] dictation software. Please excuse any dictation errors. At time of transfer the patient was reassessed and continued to demonstrate No signs of acute respiratory distress requiring intubation, hemodynamic i nstability requiring pressor support, or rapidly declining mental status. FINDINGS: Lungs: Scattered pulmonary nodules at the lung bases, at least 10, with the largest measuring approximately 7 mm. Diaphragm: 5.0 cm x 6.5 cm hiatal hernia. Liver: Normal appearing liver. Gallbladder and bile ducts: Normal appearing gallbladder. No calcified gallstones. No biliary dilatation. Pancreas: Normal appearing pancreas. Spleen: Normal appearing spleen. Adrenal glands: Normal appearing left adrenal gland. 8 mm right adrenal myelolipoma. Kidneys and ureters: 4.0 cm left renal cyst. Mild left-sided hydronephrosis. Mild diffuse left-sided ureterectasis but no distally obstructing stone demonstrated. Moderate right- sided hydronephrosis with proximal ureterectasis. Mid-distal right ureter obscured. No suspicious calcifications along its expected course. Prominent right-sided perinephric and periureteral fluid on the right with fluid tracking along the right anterior pararenal fascia and right lateral conal fascia Stomach and bowel: No oral contrast. Stomach partially decompressed. Prior sigmoid resection with a colocolic anastomosis in the rectosigmoid region. Fluid throughout the colon suggesting probable diarrhea. Appendix: Retrocecal appendix, partially obscured by fluid but grossly unremarkable, as seen. Intraperitoneal space: Hazy fat stranding and complex fluid density in the pelvis suspicions for regions of hemorrhage/thrombus in the surgical bed but not well evaluated. Fluid density fluid also present. Small amount of free intraperitoneal gas. Extraperitoneal gas also present in the space of Retzius, along the pelvic sidewalls, and in the presacral space. Vasculature: Normal caliber abdominal aorta. Lymph nodes: Within the limits of visualization, no pathologically enlarged m esenteric, retroperitoneal, or pelvic sidewall lymph nodes demonstrated. Limited visualization in this regard. Urinary bladder: Urinary bladder partially decompressed. Reproductive: Prior hysterectomy. Ovaries partially obscured but normal in size, Bones/joints: No acute fracture seen among the bones of the abdomen or pelvis. Spinal degenerative change with discogenic degeneration, anterior osteophyte formation, and facet arthrosis at several levels with grade 1 anterolisthesis of L4 on L5 resulting from prominent bilateral L4-L5 facet arthrosis. Soft tissues: Suggestion of a low transverse abdominal wall incision with fluid and gas along the incision line. Small fat containing ventral hernia at the umbilicus. IMPRESSION: 1. Recent sigmoid resection with a colocolic anastomosis in the rectosigmoid region. Hazy fat stranding and complex fluid density in the pelvis suspicions for regions of hemorrhage/thrombus in the surgical bed but not well evaluated. Fluid density fluid also present. Extraluminal gas in the intraperitoneal and extraperitoneal spaces, probably postsurgical although continued follow-up is recommended. 2. Moderate right-sided hydronephrosis with proximal ureterectasis. Mid-distal right ureter obscured. No suspicious calcifications along its expected course. Prominent right-sided perinephric and periureteral fluid on the right with fluid tracking along the right anterior pararenal fascia and right lateral conal fascia. Obstructive uropathy suspected on the right, cause not demonstrated. Given the extent of right-sided fluid, forniceal rupture with leakage of urine is suggested. Urology consultation is recommended. 3. Mild left-sided hydronephrosis. Mild diffuse left-sided ureterectasis but no distally obstructing stone demonstrated. 4. Scattered pulmonary at the lung bases, at least 10, with the largest measuring approximately 7 mm, nonspecific. Comparison with remote prior imaging and/or follow-up recommended. If there is a history of malignancy, metastatic disease should be excluded. 5. 5.0 cm x 6.5 cm hiatal hernia. Thank you for allowing us to participate in the care of your patient. Dictated and Authenticated by: Derek Rodriguez MD 06/26/2022 4:04 AM Eastern Time ([place] & [place]) HPI General Date/Time Provider Initiated Documentation: 06/26/22 01:50 . HPI Narrative: 67-year-old female with a past medical history of GERD, hypothyroidism, hyperparathyroidism, diverticulitis with colovaginal fistula who is currently postoperative from laparoscopic procedure on 06/22 at [facility] for management of this with a lower anterior resection, presents today 12 hours after discharge from [facility] for right flank pain. Patient states that the surgery went well, she recovered well, she was discharged yesterday afternoon. She states that since then she has had a right flank pain. Worse with movement. She has taken heating pads and NSAIDs without any improvement. She denies any urinary complaints. She denies any vomiting or diarrhea. No other complaints at this time. Pain is slightly improved while laying on her back, made worse by laying on her side. Related Data Home Medications Medication Instructions Recorded Confirmed magnesium 250 mg tablet 250 mg PO HS 12/25/17 06/26/22 acetaminophen 500 mg capsule 1,000 mg PO Q8H PRN pain #90 caps 12/26/18 06/26/22 ibuprofen 600 mg tablet 600 mg PO TID PRN #90 tabs 12/26/18 06/26/22 melatonin 1 mg tablet 1 mg PO HS PRN 10/22/19 06/26/22 hydrochlorothiazide 25 mg tablet 25 mg PO DAILY #90 tabs 09/15/21 06/26/22 metformin 500 mg tablet,extended 1,000 mg PO QACDINNER #180 tabs 02/16/22 06/26/22 release 24hr fluticasone propionate 50 2 spray intranasal DAILY PRN 03/04/22 06/26/22 mcg/actuation nasal congestion #16 grams spray,suspension potassium chloride 20 mEq 20 meq PO BID very low K #10 tabs 04/15/22 06/26/22 tablet,extended release semaglutide 0.25 mg or 0.5 mg (2 0.25 mg (0.2 mL) subcut QWEEK #1.5 04/15/22 06/26/22 mg/1.5 mL) subcutaneous pen mL injector (Ozempic) ergocalciferol (vitamin D2) 1,250 1,250 mcg PO weekly #90 tab-caps 04/25/22 06/26/22 mcg (50,000 unit) capsule (Vitamin D2) esomeprazole magnesium 20 mg 20 mg PO DAILY #90 caps 05/10/22 06/26/22 capsule,delayed release (Nexium) atorvastatin 20 mg tablet 20 mg PO QHS #90 tabs 06/02/22 06/26/22 levothyroxine 50 mcg tablet 50 mcg PO DAILY #90 tabs 06/02/22 06/26/22 Previous Rx's Medication Instructions Recorded acetaminophen 500 mg capsule 1,000 mg PO Q8H PRN pain #90 caps 12/26/18 ibuprofen 600 mg tablet 600 mg PO TID PRN #90 tabs 12/26/18 hydrochlorothiazide 25 mg tablet 25 mg PO DAILY #90 tabs 09/15/21 metformin 500 mg tablet,extended 1,000 mg PO QACDINNER #180 tabs 02/16/22 release 24hr fluticasone propionate 50 2 spray intranasal DAILY PRN 03/04/22 mcg/actuation nasal congestion #16 grams spray,suspension potassium chloride 20 mEq 20 meq PO BID very low K #10 tabs 04/15/22 tablet,extended release semaglutide 0.25 mg or 0.5 mg (2 0.25 mg (0.2 mL) subcut QWEEK #1.5 04/15/22 mg/1.5 mL) subcutaneous pen mL injector (Ozempic) ergocalciferol (vitamin D2) 1,250 1,250 mcg PO weekly #90 tab-caps 04/25/22 mcg (50,000 unit) capsule (Vitamin D2) esomeprazole magnesium 20 mg 20 mg PO DAILY #90 caps 05/10/22 capsule,delayed release (Nexium) atorvastatin 20 mg tablet 20 mg PO QHS #90 tabs 06/02/22 levothyroxine 50 mcg tablet 50 mcg PO DAILY #90 tabs 06/02/22 Allergies Allergy/AdvReac Type Severity Reaction Status Date / Time celecoxib [From Celebrex] Allergy Intermediate Itching Verified 06/03/22 13:03 ciprofloxacin Allergy Intermediate Hives Verified 06/03/22 13:03 metronidazole Allergy Intermediate Hives Verified 06/03/22 13:03 Sulfa (Sulfonamide Allergy Intermediate Hives Verified 06/03/22 13:03 Antibiotics) sulfamethoxazole Allergy Intermediate Hives Verified 06/03/22 13:03 trimethoprim Allergy Intermediate Hives Verified 06/03/22 13:03 amoxicillin [From Augmentin] Allergy Hives Verified 06/03/22 13:03 clavulanic acid Allergy Hives Verified 06/03/22 13:03 [From Augmentin] diclofenac AdvReac Intermediate elevated Verified 06/03/22 13:03 liver enzymes General Stated Complaint: Nk/Back Pain DARELL: 3 Review of Systems All systems reviewed & are unremarkable except as noted in HPI and below PFSH All Active Problems (Updated 06/26/22 @ 05:41 by Bryson Prater DO) Diabetes mellitus, type II (Chronic) Essential hypertension (Chronic) Obesity (Chronic) Osteopenia (Chronic) Normal BMD in all areas EXCEPT L forearm where T-score -1.4 Subclinical hypothyroidism (Chronic) SUBCLINICAL WITH SLIGHTLY ELEVATED TSH, NORMAL FT4; PLAN IS ANNUAL MONITORING NO MEDS FOR NOW TSH Goal 1.0-3.0 Gastroesophageal reflux disease (Acute) Hyperlipidemia (Chronic) Vitamin D deficiency, unspecified (Chronic) Multiple pulmonary nodules (Chronic) Stress and adjustment reaction (Acute) Elevated hemoglobin A1c (Acute) 9.2 01/2022, vs 7 earlier in the year, and 6.8 in 2020. Vaginal discharge (Acute) brownish, stopped, re-started .. will see Dr. 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 Monitor any changing lung nodules w/low dose chest CT yearly. Diverticul disease small and large intestine, no perforati or abscess Diverticula of colon (~07/2020) Family history of bladder cancer Maternal Family history of breast cancer H/O carcinoid syndrome History of postoperative nausea and vomiting Hyperparathyroidism, unspecified Hypokalemia Impaired fasting glucose A1C 6.4%, 12/2012 6.6 on 09/22/17 Lipoma of colon submucosal Ovarian cyst, left Cyst removed (~ grapefruit)(Hyst @ 40 yo), but both ovaries remain .. 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 Couns close monitoring in case of recurrence. Surgical History Colonoscopy - [facility] (~07/2020) Dr Cortez EGD - [facility] Dr. Orion Carreno History of carpal tunnel release of both wrists History of hysterectomy VINCENT: Around 40yrs due to heavy painful periods. Had fibroids History of ovarian cystectomy History of parathyroidectomy History of repair of hiatal hernia History of tonsillectomy and adenoidectomy History of total left knee replacement (TKR) (01/02/18) DOS of TKA: 01/02/2018 Left knee manipulation on 03/26/2018 Status post partial lobectomy of lung mass in her right lung that was removed Denies cancer diagnosis Status post total right knee replacement (12/25/18) Dr. Roman Family History Mother , aneurysm at age 73. Essential hypertension Heart disease Hyperlipidemia Father Essential hypertension Heart disease Social History Smoking/Tobacco Use Status: Never Smoking risk assessment performed?: Yes Alcohol Intake: current Alcohol Intake frequency: holidays/special occasions only Drug use: Never Substance use type: does not use Household members: none Housing: apartment Number of Children: 0 Communication Needs: Corrective Lenses Pets and animals: No Current gender identity: female What is your relationship status?: How often do you talk on the phone with friends or family?: three or more times per week How often do you get together with friends or relatives?: once per week Panel score (0-1 are the most socially isolated patients): 1 What type of physical activity do you participate in: walking Duration: 45-60 minutes/day Frequency: 1-2 times per week Seatbelt use: always Drive intox or ride w/intox 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: No Working smoke detector in home: Yes Fire extinguisher in home: Yes Carbon monox detector in home: Yes Firearms in home: No Do you feel safe at home: Yes Do you feel safe in your relationship?: Yes Victim of physical abuse: No Victim of emotional abuse: No Victim of sexual abuse: No Additional Social history: lives alone History History 0 Para Hx # Term Pregnancies Multiple births Hx # Pregnancies Ectopic pregnancies AB induced Hx Number of Living Children AB spontaneous Exam Narrative Exam Narrative: 1.Const: Well-nourished, Well-developed, appearing stated age 2.Eyes: PERRL, no conjunctival injection, and symmetrical lids. 3.ENT: Atraumatic external nose and ears. Moist MM. Neck: Symmetric, trachea midline, No thyromegaly. 4.CVS: +S1/S2, No murmurs or gallops. Peripheral pulses 2+ and equal in all extremities. Brisk capillary refill in all extremities. 5.RESP: Unlabored respiratory effort. Clear to auscultation bilaterally. No wheezes rales or rhonchi 6.GI: Soft, nondistended, no guarding or rebound. Post operative incision sites are clean dry and intact. Mild right CVA tenderness. Mild right mid and lower abdominal tenderness on deep palpation. 7.MSK: Normocephalic/Atraumatic, Extremities w/o deformity or ttp No cyanosis or clubbing, Normal movement of all extremities 8.Skin: Warm, Dry. No rashes or lesions. 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 Sensation grossly intact, no focal neurologic deficits. 10.Psych: (AAO) x3. Appropriate mood and affect Course Vital Signs Vital signs: Vital Signs Temperature 36.9 C 06/26/22 01:53 Pulse 127 H 06/26/22 01:53 Respiratory Rate 15 06/26/22 01:53 Blood Pressure 181/98 H 06/26/22 01:53 Pulse Oximetry 98 06/26/22 01:53 Temperature 36.9 C 06/26/22 01:53 Temperature Source Tympanic 06/26/22 01:53 Pulse 127 H 06/26/22 01:53 Respiratory Rate 15 06/26/22 01:53 Respiratory Effort Normal 06/26/22 01:57 Blood Pressure 181/98 H 06/26/22 01:53 Blood Pressure Position Sitting 06/26/22 01:53 Pulse Oximetry 98 06/26/22 01:53 Oxygen Delivery Method Room Air 06/26/22 01:53 Oxygen Flow Rate 0 06/26/22 01:53 Pain Level 10 06/26/22 01:53
[2022-06-26] MEDS: MORPHine 4 MG/ML SYR IVP (02:30)
[2022-06-26 02:32] LABS: Abs Immature Grans 0.04 10^3/uL (0.0-0.06); Absolute Basophil Count 0.05 10^3/uL (0.0-0.2); Absolute Eosinophil Count 0.91 10^3/uL (0.0-0.7); Absolute Lymphocyte Count 1.47 10^3/uL (1.2-3.4); Absolute Monocyte Count 0.59 10^3/uL (0.1-0.8); Absolute Neutrophil Count 6.69 10^3/uL (1.2-6.7); Basophils % 0.5; Eosinophils % 9.3; HCT 29.9 % (36.0-46.0); Immature Grans % 0.4; Lactate 1.5 mmol/L (0.6-1.4); Lymphocytes % 15.1; MCH 28.9 pg (27.0-33.0); MCHC 33.4 % (32.0-36.0); MCV 86 fL (80-95); MPV 9.9 fL (8.0-11.0); Monocytes % 6.1; Neutrophils % 68.6; Platelet Count 291 10^3/uL (130-400); RBC 3.46 10^6/uL (3.93-5.22); RDW 14.1 % (11.7-14.6); RDW-SD 43.9 fL; WBC 9.75 10^3/uL (4.4-10.8)
[2022-06-26 02:46] LABS: ALT 27 U/L (14-59); AST 22 U/L (15-37); Alkaline Phosphatase 79 U/L (46-116); Anion Gap 6.5 mmol/L (3-11); BUN 8 mg/dL (7-18); Bilirubin, Total 0.8 mg/dL (0.2-1.0); CO2 28.5 mmol/L (21.0-32.0); Calcium 9.1 mg/dL (8.5-10.1); Chloride 101 mmol/L (98-107); Estimated GFR 61.75 (mL/min/1.73m2); Glucose 156 mg/dL (74-106); Potassium 3.2 mmol/L (3.5-5.1); Sodium 136 mmol/L (136-145); Total Protein 6.7 g/dL (6.4-8.2)
[2022-06-26] MEDS: Normal Saline - Diluent 50 ML VIAL IJ (03:19)
[2022-06-26] MEDS: Omnipaque 350 MG/ML 100 ML BTL IJ (03:20)
[2022-06-26] MEDS: Normal Saline Flush 10 ML SYR IVP (03:20)
[2022-06-26 03:46] LABS: Bilirubin Negative (Negative); Blood Moderate (Negative); Clarity Clear (Clear); Glucose Negative (Negative); Ketones Negative (Negative); Leukocyte Esterase Negative (Negative); Nitrite Negative (Negative); Urobilinogen 0.2 mg/dL (Up to 0.2)
[2022-06-26 03:51] LABS: Bacteria Rare HPF (Negative); C & S Indicated? No; Casts Negative LPF (Negative); Crystals Negative HPF (Negative); Epithelial Cells Negative HPF (Negative); Mucus Negative (Negative); WBC Negative HPF (0-5)
--- NOTE | 2022-06-26 04:05 | DI.VRAD_ITS ---
Addendum created by Derek Rodriguez MD on 06/26/2022 4:06:42 AM EDT: Gas in the urinary bladder lumen. Although nonspecific, gas in the bladder is commonly seen in the setting of recent bladder catheterization. Correlation with recent procedure history is recommended. Initial report created on 06/26/2022 4:04:35 AM EDT: PROCEDURE INFORMATION: Exam: CT Abdomen And Pelvis With Contrast Exam date and time: 06/26/2022 3:09 AM Age: 67 years old Clinical indication: Other: Right flank pain, post op colonic surgery; Prior surgery; Surgery date: 3-7 days post-operative; Surgery type: Fistula, partial colonectomy; Patient HX: HX of diverticulitis. Hiatel hernia repair , hysterectomy TECHNIQUE: Imaging protocol: Computed tomography of the abdomen and pelvis with contrast. Contrast material: OMNIPAQUE 350; Contrast volume: 100 ml; Contrast route: INTRAVENOUS (IV); COMPARISON: CT ABDOMEN PELVIS W 06/01/2022 11:06 AM FINDINGS: Lungs: Scattered pulmonary nodules at the lung bases, at least 10, with the largest measuring approximately 7 mm. Diaphragm: 5.0 cm x 6.5 cm hiatal hernia. Liver: Normal appearing liver. Gallbladder and bile ducts: Normal appearing gallbladder. No calcified gallstones. No biliary dilatation. Pancreas: Normal appearing pancreas. Spleen: Normal appearing spleen. Adrenal glands: Normal appearing left adrenal gland. 8 mm right adrenal myelolipoma. Kidneys and ureters: 4.0 cm left renal cyst. Mild left-sided hydronephrosis. Mild diffuse left-sided ureterectasis but no distally obstructing stone demonstrated. Moderate right-sided hydronephrosis with proximal ureterectasis. Mid-distal right ureter obscured. No suspicious calcifications along its expected course. Prominent right-sided perinephric and periureteral fluid on the right with fluid tracking along the right anterior pararenal fascia and right lateral conal fascia. Stomach and bowel: No oral contrast. Stomach partially decompressed. Prior sigmoid resection with a colocolic anastomosis in the rectosigmoid region. Fluid throughout the colon suggesting probable diarrhea. Appendix: Retrocecal appendix, partially obscured by fluid but grossly unremarkable, as seen. Intraperitoneal space: Hazy fat stranding and complex fluid density in the pelvis suspicions for regions of hemorrhage/thrombus in the surgical bed but not well evaluated. Fluid density fluid also present. Small amount of free intraperitoneal gas. Extraperitoneal gas also present in the space of Retzius, along the pelvic sidewalls, and in the presacral space. Vasculature: Normal caliber abdominal aorta. Lymph nodes: Within the limits of visualization, no pathologically enlarged mesenteric, retroperitoneal, or pelvic sidewall lymph nodes demonstrated. Limited visualization in this regard. Urinary bladder: Urinary bladder partially decompressed. Reproductive: Prior hysterectomy. Ovaries partially obscured but normal in size, Bones/joints: No acute fracture seen among the bones of the abdomen or pelvis. Spinal degenerative change with discogenic degeneration, anterior osteophyte formation, and facet arthrosis at several levels with grade 1 anterolisthesis of L4 on L5 resulting from prominent bilateral L4-L5 facet arthrosis. Soft tissues: Suggestion of a low transverse abdominal wall incision with fluid and gas along the incision line. Small fat containing ventral hernia at the umbilicus. IMPRESSION: 1. Recent sigmoid resection with a colocolic anastomosis in the rectosigmoid region. Hazy fat stranding and complex fluid density in the pelvis suspicions for regions of hemorrhage/thrombus in the surgical bed but not well evaluated. Fluid density fluid also present. Extraluminal gas in the intraperitoneal and extraperitoneal spaces, probably postsurgical although continued follow-up is recommended. 2. Moderate right-sided hydronephrosis with proximal ureterectasis. Mid-distal right ureter obscured. No suspicious calcifications along its expected course. Prominent right-sided perinephric and periureteral fluid on the right with fluid tracking along the right anterior pararenal fascia and right lateral conal fascia. Obstructive uropathy suspected on the right, cause not demonstrated. Given the extent of right-sided fluid, forniceal rupture with leakage of urine is suggested. Urology consultation is recommended. 3. Mild left-sided hydronephrosis. Mild diffuse left-sided ureterectasis but no distally obstructing stone demonstrated. 4. Scattered pulmonary at the lung bases, at least 10, with the largest measuring approximately 7 mm, nonspecific. Comparison with remote prior imaging and/or follow-up recommended. If there is a history of malignancy, metastatic disease should be excluded. 5. 5.0 cm x 6.5 cm hiatal hernia. Dictated and Authenticated by: Derek Rodriguez MD. Ordering:TIFFANIE Massey MD
== END 2022-06-26 04:28 | disposition short-term general hospital (02) ==
PROVIDERS: Emergency Provider Student in an Organized Health Care Education/Training Program; PCP Student in an Organized Health Care Education/Training Program
DX: G89.18 Other acute postprocedural pain (principal); R10.9 Unspecified abdominal pain; N13.30 Unspecified hydronephrosis; R10.813 Right lower quadrant abdominal tenderness; E03.9 Hypothyroidism, unspecified; Z87.19 Personal history of other diseases of the digestive system; Z98.890 Other specified postprocedural states
CPT/HCPCS: 80053; 96361; 96374; 96375; 99285; 74177; 81003; 81015; 83605; 85025; J2270; J3490

== ENCOUNTER 2022-09-28 03:39 | Outpatient (CLI) | payer MEDICARE, SELFPAY ==
[2022-09-28 07:45] LABS: HGB 13.6 g/dL (11.2-15.7)
[2022-09-28 08:08] LABS: Anion Gap 8.5 mmol/L (3-11); BUN 8 mg/dL (7-18); CO2 28.5 mmol/L (21.0-32.0); CREATININE 0.9 mg/dL (0.55-1.02); Calcium 9.2 mg/dL (8.5-10.1); Chloride 106 mmol/L (98-107); Estimated GFR 70.07 (mL/min/1.73m2); Glucose 136 mg/dL (74-106); Magnesium 1.9 mg/dL (1.8-2.4); Sodium 143 mmol/L (136-145); TSH (W/Ref FT4) 4.78 uIU/mL (0.36-3.74)
[2022-09-28 08:26] LABS: FREE T4 0.96 ng/dL (0.76-1.46)
== END 2022-09-28 03:40 | disposition home or self-care (01) ==
LOC: LBO 03:39
PROVIDERS: Absent Provider Student in an Organized Health Care Education/Training Program; PCP Student in an Organized Health Care Education/Training Program; Referring Provider Student in an Organized Health Care Education/Training Program; Visit Provider Student in an Organized Health Care Education/Training Program
DX: E11.65 Type 2 diabetes mellitus with hyperglycemia (principal); E87.6 Hypokalemia; E87.8 Other disorders of electrolyte and fluid balance, not elsewhere classified; Z91.89 Other specified personal risk factors, not elsewhere classified
CPT/HCPCS: 36415; 80048; 83735; 84439; 84443; 85018

== ENCOUNTER → 2022-12-21 02:38 | Outpatient (CLI) | payer MEDICARE, SELFPAY ==
--- NOTE | 2022-12-21 07:30 | DI.MAMMO_ITS ---
Exam(s) MAMMO SCREENING EXAM: MAMMO SCREENING CLINICAL HISTORY: screening,z12.39 TECHNIQUE: Bilateral full field digital CC and MLO mammographic images were obtained with 3D tomosyn thesis and utilizing computer aided detection (CAD). COMPARISON: Available for comparison. FINDINGS: Masses/Architectural Distortion: The nodular opacity in the posterior lateral on the left breast whic h is seen in the upper left breast on the MLO view is unchanged. There is again seen a biopsy clip i n the upper central left breast. The nodular density at the 6 o'clock position of the right breast i s unchanged. No new nodules are seen. No new areas of architectural distortion are present. Microcalcifications: No suspicious pleomorphic-type are seen. Skin Thickening/Nipple Retraction: None. IMPRESSION: 1. No significant interval change with no specific features of malignancy noted. 2. Unless there is more urgent need, screening mammography is recommended, as per [employer] guidelines. BI-RADS Category 2 - Benign Findings Breast Density - Category B - Scattered areas of fibroglandular density Breast density category C or D implies that the patient has dense breast tissue. Dense breast tissue is very common and is not abnormal but dense breast tissue can make it harder to find cancer on a ma mmogram. Also, dense breast tissue may increase their breast cancer risk. This information about the result of the mammogram report was provided to the patient to raise their awareness. Use this report when you speak with the patient about their risks for breast cancer, which includes their family hist ory. At that time, you may recommend for more screening tests (Ultrasound or MRI) as they might be us eful based on their risk. A negative radiographic report should not delay biopsy if a dominant or clinically suspicious mass is present. Up to ten percent of cancers are not identified on mammography. A negative report may reinforce clinical impression. Adenosis and dense breasts may obscure an underlying neoplasm. False positive reports average 6 to 10%. Patient will receive a letter notifying them of these results.
== END ==
PROVIDERS: PCP Student in an Organized Health Care Education/Training Program; Visit Provider Student in an Organized Health Care Education/Training Program
DX: Z12.31 Encounter for screening mammogram for malignant neoplasm of breast (principal); R92.323 Mammographic fibroglandular density, bilateral breasts
CPT/HCPCS: 77063; 77067

== ENCOUNTER 2023-01-04 05:31 | Outpatient (CLI) | payer MEDICARE, SELFPAY ==
[2023-01-04 08:04] LABS: Hemoglobin A1C 6.8 % (<5.7)
[2023-01-04 08:49] LABS: TSH (W/Ref FT4) 2.33 uIU/mL (0.36-3.74)
== END 2023-01-04 05:32 | disposition home or self-care (01) ==
LOC: LBO 05:32
PROVIDERS: PCP Student in an Organized Health Care Education/Training Program; Visit Provider Student in an Organized Health Care Education/Training Program
DX: E03.9 Hypothyroidism, unspecified (principal); R79.89 Other specified abnormal findings of blood chemistry; E11.9 Type 2 diabetes mellitus without complications
CPT/HCPCS: 36415; 83036; 84443

== ENCOUNTER 2023-04-03 03:53 | Outpatient (CLI) | payer MEDICARE, SELFPAY ==
[2023-04-03 12:23] LABS: HGB 14.6 g/dL (11.2-15.7)
[2023-04-03 12:49] LABS: ALT 28 U/L (14-59); AST 21 U/L (15-37); Albumin 3.6 g/dL (3.4-5.0); Alkaline Phosphatase 99 U/L (46-116); Anion Gap 9.1 mmol/L (3-11); BUN 10 mg/dL (7-18); Bilirubin, Total 0.7 mg/dL (0.2-1.0); CO2 26.9 mmol/L (21.0-32.0); CREATININE 0.9 mg/dL (0.55-1.02); Calcium 9.2 mg/dL (8.5-10.1); Calculated LDL 70 mg/dL (<100); Chloride 103 mmol/L (98-107); Cholesterol 147 mg/dL (<200); Estimated GFR 69.64 (mL/min/1.73m2); Glucose 150 mg/dL (74-106); HDL Cholesterol 60 mg/dL (40-60); Magnesium 1.9 mg/dL (1.8-2.4); Sodium 139 mmol/L (136-145); TSH (W/Ref FT4) 3.21 uIU/mL (0.36-3.74); Total Protein 7.2 g/dL (6.4-8.2); Triglyceride 86 mg/dL (<150)
== END 2023-04-03 03:54 | disposition home or self-care (01) ==
LOC: LOS 03:53
PROVIDERS: PCP Student in an Organized Health Care Education/Training Program; Visit Provider Student in an Organized Health Care Education/Training Program
DX: D64.9 Anemia, unspecified (principal); R73.09 Other abnormal glucose; R79.89 Other specified abnormal findings of blood chemistry; E03.9 Hypothyroidism, unspecified; R79.0 Abnormal level of blood mineral
CPT/HCPCS: 36415; 80053; 80061; 83036; 83735; 84443; 85018

== ENCOUNTER → 2023-05-03 01:50 | Outpatient (CLI) | payer MEDICARE, SELFPAY ==
--- NOTE | 2023-05-03 07:40 | DI.US_ITS ---
Exam(s) US HERNIA EXAM: US HERNIA CLINICAL HISTORY: protrusion @ lower abdomen;evaluate for hernia,K46.9. TECHNIQUE: Ultrasound was performed using standard protocol. COMPARISON: No exams were available for comparison FINDINGS: Sonographic assessment utilizing grayscale and color Doppler imaging was performed and targeted to th e area of clinical concern. There is a defect in the anterior abdominal wall in the periumbilical region. The defect measures 1. 9 cm in with. Fat is seen herniating through the defect during the examination. The hernia measures 3.6 x 1.1 x 3.6 cm. IMPRESSION: Fat containing paraumbilical hernia. DATA REPOSITORY:
== END ==
PROVIDERS: PCP Student in an Organized Health Care Education/Training Program; Visit Provider Student in an Organized Health Care Education/Training Program
DX: K42.9 Umbilical hernia without obstruction or gangrene (principal)
CPT/HCPCS: 76857

== ENCOUNTER 2023-07-18 05:16 | Outpatient (CLI) | payer MEDICARE, SELFPAY ==
[2023-07-18 13:09] LABS: HGB 14.9 g/dL (11.2-15.7)
[2023-07-18 13:22] LABS: Hemoglobin A1C 7.7 % (<5.7)
[2023-07-18 14:16] LABS: Anion Gap 9.5 mmol/L (3-11); BUN 8 mg/dL (7-18); CO2 27.5 mmol/L (21.0-32.0); CREATININE 0.9 mg/dL (0.55-1.02); Calcium 9.5 mg/dL (8.5-10.1); Chloride 102 mmol/L (98-107); Estimated GFR 69.64 (mL/min/1.73m2); Glucose 149 mg/dL (74-106); Magnesium 1.7 mg/dL (1.8-2.4); Potassium 4.5 mmol/L (3.5-5.1); Sodium 139 mmol/L (136-145); TSH (W/Ref FT4) 1.58 uIU/mL (0.36-3.74)
== END 2023-07-18 05:17 | disposition home or self-care (01) ==
LOC: LBO 05:17
PROVIDERS: PCP Student in an Organized Health Care Education/Training Program; Visit Provider Student in an Organized Health Care Education/Training Program
DX: I10 Essential (primary) hypertension (principal); E11.65 Type 2 diabetes mellitus with hyperglycemia; D64.9 Anemia, unspecified; R79.89 Other specified abnormal findings of blood chemistry
CPT/HCPCS: 36415; 80048; 83036; 83735; 84443; 85018

== ENCOUNTER → 2023-08-04 00:23 | Outpatient (CLI) | payer MEDICARE, SELFPAY ==
--- NOTE | 2023-08-04 07:30 | DI.US_ITS ---
Exam(s) US HERNIA EXAM: US HERNIA CLINICAL HISTORY: re-evaluation due to delay/avail appts, hernia, K46.9. TECHNIQUE: Ultrasound was performed using standard protocol. COMPARISON: No exams were available for comparison FINDINGS: Sonographic assessment utilizing grayscale and color Doppler imaging was performed and targeted to th e area of clinical concern. A fatty containing hernias again noted in the supra umbilical region. No evidence of incarceration. No fluid. Arm measurements obtained today are 3.0 x 1.9 x 2.6 cm. The exact borders are somewhat d ifficult to measure due to mobility.. IMPRESSION: Roughly stable size of fatty containing supraumbilical hernia. DATA REPOSITORY:
== END ==
PROVIDERS: PCP Student in an Organized Health Care Education/Training Program; Visit Provider Student in an Organized Health Care Education/Training Program
DX: K46.9 Unspecified abdominal hernia without obstruction or gangrene (principal)
CPT/HCPCS: 76857

== ENCOUNTER 2023-08-28 03:00 | Outpatient (CLI) | payer MEDICARE, SELFPAY ==
[2023-08-28 12:49] LABS: Anion Gap 10.9 mmol/L (3-11); BUN 9 mg/dL (7-18); CO2 26.1 mmol/L (21.0-32.0); CREATININE 0.9 mg/dL (0.55-1.02); Calcium 9.4 mg/dL (8.5-10.1); Chloride 102 mmol/L (98-107); Estimated GFR 69.64 (mL/min/1.73m2); Glucose 144 mg/dL (74-106); Potassium 4.2 mmol/L (3.5-5.1); Sodium 139 mmol/L (136-145)
== END 2023-08-28 03:01 | disposition home or self-care (01) ==
LOC: LOS 03:01
PROVIDERS: PCP Student in an Organized Health Care Education/Training Program; Visit Provider Student in an Organized Health Care Education/Training Program
DX: I10 Essential (primary) hypertension (principal); E11.9 Type 2 diabetes mellitus without complications; K21.9 Gastro-esophageal reflux disease without esophagitis; K44.9 Diaphragmatic hernia without obstruction or gangrene
CPT/HCPCS: 36415; 80048

== ENCOUNTER → 2023-10-12 14:33 | Outpatient (BNVA) | payer MEDICARE, SELFPAY | PROVIDERS: PCP Neuromusculoskeletal Medicine & OMM; Referring Provider Neuromusculoskeletal Medicine & OMM; Visit Provider Surgery | DX: K43.2 Incisional hernia without obstruction or gangrene (principal); K21.9 Gastro-esophageal reflux disease without esophagitis; E11.9 Type 2 diabetes mellitus without complications; E03.9 Hypothyroidism, unspecified; I10 Essential (primary) hypertension | CPT/HCPCS: 99214 ==

== ENCOUNTER 2023-11-07 09:10 | Day surgery (SDC) | payer MEDICARE, SELFPAY ==
--- NOTE | 2023-11-06 21:25 | PDOC.DSDIS_ITS ---
Date of service: 11/07/23 Time of Service: 13:55 Discharge Plan Disposition Patient Disposition: Home Condition: Good Discharge Details Reason For Visit: hernia repair Attending Provider: Liyah Huddleston Primary Care Provider: Isaac Weinstein [place] Meds and New Rx's Prescriptions: New tramadol 50 mg tablet 50 mg PO Q4H PRNQty: 14 0RF Continued atorvastatin 20 mg tablet 20 mg PO QHS Qty: 90 3RF levothyroxine 50 mcg tablet 50 mcg PO DAILY Qty: 90 3RF esomeprazole magnesium [Nexium] 20 mg capsule,delayed release(DR/EC) 20 mg PO DAILY Qty: 90 1RF ergocalciferol (vitamin D2) [Vitamin D2] 1,250 mcg (50,000 unit) capsule 1,250 mcg PO weekly Qty: 90 3RF Rx Instructions: 12/18/18 Pt states she takes every monday. PG losartan 25 mg tablet 25 mg PO BID Qty: 180 3RF Rx Instructions: Continue for BP, with trial of adding 2nd dose for improved BP control metformin 500 mg tablet extended release 24hr 1,000 mg PO QACDINNER Qty: 180 3RF Rx Instructions: re-starting due to elevated A1C, 04/2023 magnesium 250 mg Tablet 250 mg PO HS ibuprofen 600 mg tablet 600 mg PO TID PRNQty: 90 3RF acetaminophen 500 mg capsule 1,000 mg PO Q8H PRN (Reason: pain) Qty: 90 2RF Discharge Instructions Additional Instructions: Dr. Huddleston HERNIA REPAIR ? POSTOPERATIVE INSTRUCTIONS Patients who have this type of surgery can usually be expected to return to work within two weeks and have minimal amounts of discomfort. ? ACTIVITY: The day of surgery should be spent resting. However, you can be up for short periods of time, I.E., going to the bathroom or kitchen. Avoid lifting or straining. On the day following surgery, you can be up and about as desired. ? LIFTING: Restrict your lifting to no more than five (5) pounds for two weeks after surgery. ??We will decide when you are done with restrictions and when you can return to work, at your follow-up appointment.? No sexual activity for two weeks.? ? DIET: There are no dietary restrictions following surgery. However, you may want to start with small amounts of liquids to avoid nausea the day of surgery. ? INCISION CARE: You will notice purple skin glue closing the incision.? Do not peel this off- it will wear off on its own.? After 24 hours you may shower. The dressing may be replaced for comfort, but is not necessary. ?An ice bag may be applied to the incision for 72 hours following surgery. ? SIGNS OF INFECTION: It is not unusual to have some black and blue discoloration of the skin around the incision. ?It will slowly disappear. If you have any increased redness, drainage, fever (above 100 degrees), please contact your doctor for an examination. ? DISCOMFORT: You may expect to have some mild discomfort at the incision sight. If severe pain develops you should contact your doctor for further instructions. ? URINATION: Patients who have surgery occasionally have problems urinating. If you experience problems and are not able to urinate within 6 hours following your surgery, please call your doctor immediately or go to your nearest Emergency Room for evaluation. ? DRIVING: NO driving for three (3) days after surgery, or if you are still taking narcotic pain medication.? ? MEDICATIONS: Alternate Tylenol 1000mg by mouth every 8 hours and Ibuprofen 600mg every 6 hours. ?Make sure you take ibuprofen with food and not on an empty stomach. ?Take the Tylenol and ibuprofen continuously for the first 72hrs- not just when you have pain.? Use the tramadol for breakthrough pain/pain >7.? Use ICE!?? Twenty minutes on, and then off, continuously for the first 72hours. If you are taking narcotic pain medication, follow the instructions on the label and do not drive. Pain medications can make you very constipated. Make sure you are moving your bowels daily. If not, take Miralax or Milk of Magnesia.?? Anesthesia makes you very constipated.? Take a dose of milk of magnesia the morning after surgery. ? REPORT: Unusual swelling, severe pain, unresolved nausea, signs of infection, or difficulty in urination to your surgeon. Follow up in clinic with Dr. Huddleston in 2 weeks.? [phone] Stand Alone Forms: Anesthesia Discharge InstConrado, Nanci Grant ([facility]) Referrals: Liyah Huddleston DO [OSTEOPATHIC DOCTOR] - 11/23/23 11:00 am Activity:: see above Remove Dressings/Wound Care:: 24 hours Shower/Bathe:: 24 hours Diet:: Carb Counting DS: Diagnosis Discharge Diagnosis (1) Stress and adjustment reaction: Status: Acute (2) Essential hypertension: Status: Chronic (3) Hyperlipidemia: Status: Chronic (4) Diabetes mellitus, type II: Status: Chronic (5) Hypothyroid: Status: Chronic (6) Primary hyperparathyroidism: Status: Resolved (7) Vitamin D deficiency, unspecified: Status: Chronic (8) Gastroesophageal reflux disease: Status: Acute (9) Incisional hernia: Status: Acute Asessment and Plan: The patient is doing well post-op from their incisional hernia repair.? They are having no nausea or vomiting. They are tolerating liquids and a snack. The pt is not having any chest pain or SOB.? Their pain is adequately controlled. They have been able to urinate.? ?HEENT:? no eye pain/drainage/redness/swelling. Mild sore throat ?Cardio- NSR, no chest pain, BP stable- see VS record ?Pulm: no sob or productive cough. No hemoptysis ?Incision- dressing is c/d/i w/ no excessive bleeding or drainage ?I discussed with the patient the findings at the time of surgery and the patient?s progress. ?We reviewed expectations at home; what the patient could expect for recovery time, and in the post-operative period.? We discussed the importance of walking to avoid blood clots and pneumonia.? We discussed and reviewed the patient's post-operative wound care and dressing needs.?? We reviewed their step-yoo pain management plan, Rx called to the pharmacy of their choice.? We reviewed activity and limitations-see discharge instructions. We reviewed warning signs, and when to seek medical attention- see d/c instructions.?? Patient was given a postoperative follow-up appointment. Patient verbalized understanding of their postoperative instructions, how do to take care of themselves and their incision, and the pain management plan. Please see discharge instructions.? 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
[2023-11-07] VITALS (13 sets, daily range): BP systolic 119–154; BP diastolic 63–89; PULSE 65–93; RESP 16–24; TEMP 36–36.5; O2SAT 94–100; BMI 35.1
[2023-11-07] MEDS: Gabapentin 300 MG CAP 600 MG PO (09:38)
[2023-11-07] MEDS: Acetaminophen 500 MG TAB 1000 MG PO (09:38)
[2023-11-07] MEDS: Lactated Ringers 1,000 ML 80 ML IV (10:22)
--- NOTE | 2023-11-07 11:11 | ANES.PREOP_ITS ---
General Info Date of Service Date Performed: 11/07/23 Height: 5 ft 3 in Weight: 89.9 kg Body Mass Index (BMI): 35.1 Surgical Procedure: Operation Date: 11/07/23 11:40 Proposed Procedure Side Surgeon p Herniorrhaphy Incisional w/Mesh Liyah Huddleston, Meds Allergies and Home Medications Allergies Allergy/AdvReac Type Severity Reaction Status Date / Time celecoxib (From Celebrex) Allergy Intermediate Itching Verified 11/07/23 09:20 ciprofloxacin Allergy Intermediate Hives Verified 11/07/23 09:20 metronidazole Allergy Intermediate Hives Verified 11/07/23 09:20 Sulfa (Sulfonamide Allergy Intermediate Hives Verified 11/07/23 09:20 Antibiotics) sulfamethoxazole Allergy Intermediate Hives Verified 11/07/23 09:20 trimethoprim Allergy Intermediate Hives Verified 11/07/23 09:20 amoxicillin (From Augmentin) Allergy Hives Verified 11/07/23 09:20 clavulanic acid (From Allergy Hives Verified 11/07/23 09:20 Augmentin) diclofenac AdvReac Intermediate elevated Verified 11/07/23 09:20 liver enzymes Home Medication ?Medication ?Instructions ?Recorded magnesium 250 mg tablet 250 mg PO HS 12/25/17 acetaminophen 500 mg capsule 1,000 mg (2 x 500 mg) PO Q8H PRN 12/26/18 pain #90 caps ibuprofen 600 mg tablet 600 mg PO TID PRN #90 tabs 12/26/18 esomeprazole magnesium 20 mg 20 mg PO DAILY #90 caps 12/08/22 capsule,delayed release (Nexium) atorvastatin 20 mg tablet 20 mg PO QHS #90 tabs 06/06/23 ergocalciferol (vitamin D2) 1,250 1,250 mcg PO weekly #90 tab-caps 06/30/23 mcg (50,000 unit) capsule (Vitamin D2) losartan 25 mg tablet 25 mg PO BID #180 tabs 07/28/23 levothyroxine 50 mcg tablet 50 mcg PO DAILY #90 tabs 09/08/23 metformin 500 mg tablet,extended 1,000 mg (2 x 500 mg) PO QACDINNER 10/23/23 release 24hr (osmotic) #180 tabs tramadol 50 mg tablet 50 mg PO Q4H PRN #14 tabs 11/06/23 Current Visit Medications: Current Medications Generic Name Dose Route Start Last Admin Trade Name Freq PRN Reason Stop Dose Admin Acetaminophen 1,000 mg 11/07/23 06:00 11/07/23 09:38 Acetaminophen 500 Mg Tab PO 11/07/23 23:59 1,000 mg PREOP DELONTE Administration Gabapentin 600 mg 11/07/23 06:00 11/07/23 09:38 Gabapentin 300 Mg Cap PO 11/07/23 23:59 600 mg PREOP DELONTE Administration Ringer's Solution 1,000 mls @ 80 mls/hr 11/07/23 06:00 11/07/23 10:22 IV 11/07/23 23:59 80 mls/hr INFUSION DELONTE Administration Cefazolin Sodium/Dextrose 2 gm in 50 mls @ 100 mls/hr 11/07/23 06:00 Ancef Duplex IVPB 11/07/23 23:59 PREOP DELONTE IV Miscellaneous Supplies 1 each 11/07/23 06:00 Iv Access IV 11/07/23 23:59 DIRECTED DELONTE Sodium Chloride 0 ml 11/07/23 06:00 Normal Saline Flush 10 Ml Syr IV 11/07/23 23:59 PRN PRN Sodium Chloride 0 ml 11/07/23 06:00 Normal Saline 10 Ml Vial IJ 11/07/23 23:59 DIRECTED PRN Sterile Water 0 ml 11/07/23 06:00 Water,Injection,Sterile 10 Ml Vial IJ 11/07/23 23:59 DIRECTED PRN PFSH Active Problems Active Problems: Problem Status Onset Code Spindle cell carcinoma of lung Acute C34.90 Melanoma Acute C43.9 Incisional hernia Acute K43.2 Sun exposure, moderate Acute X32.XXXA Hypothyroid Chronic E03.9 Diabetes mellitus, type II Chronic E11.9 Essential hypertension Chronic I10 Osteopenia Chronic ~11/2017 M85.80 Primary hyperparathyroidism Resolved E21.0 Gastroesophageal reflux disease Acute K21.9 Hyperlipidemia Chronic E78.5 Vitamin D deficiency, unspecified Chronic E55.9 Multiple pulmonary nodules Chronic R91.8 Stress and adjustment reaction Acute F43.29 Medical History Medical History Elevated hemoglobin A1c 9.2 01/2022, vs 7 earlier in the year, and 6.8 in 2020. Hx of diverticulitis of colon Subclinical hypothyroidism Elevated TSH, improved with Rx .. so no longer subclin! SUBCLINICAL WITH SLIGHTLY ELEVATED TSH, NORMAL FT4; PLAN IS ANNUAL MONITORING NO MEDS FOR NOW TSH Goal 1.0-3.0 Family history of bladder cancer Maternal Acute diverticulitis Diverticulitis # 3 Recurrent UTI (urinary tract infection) (~11/2021) 11/24/21 Urology [facility] Family history of breast cancer H/O carcinoid syndrome UTI (urinary tract infection) Possible 2' sexual activity (new partner; last UTI yrs ago).. Couns close monitoring in case of recurrence. 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 [place] tHORAC[facility] Dr Erasto Lance. Monitor any changing lung nodules w/low dose chest CT yearly. Paraesophageal hernia 04/29/19 [facility] [place] Thoracic Ovarian cyst, left Cyst removed (~ grapefruit)(Hyst @ 40 yo), but both ovaries remain .. Repeat sono ordered May 2022 Primary spindle cell carcinoma of lung Diverticul disease small and large intestine, no perforati or abscess History of postoperative nausea and vomiting Hyperparathyroidism, unspecified Hypokalemia Renal mass Lipoma of colon submucosal Impaired fasting glucose A1C 6.4%, 12/2012 6.6 on 09/22/17 Surgical History Surgical History Status post laparoscopic-assisted sigmoidectomy S/P laparoscopic colectomy Status post total right knee replacement (12/25/18) Dr. Roman History of repair of hiatal hernia History of total left knee replacement (TKR) (01/02/18) DOS of TKA: 01/02/2018 Left knee manipulation on 03/26/2018 History of hysterectomy VINCENT: Around 40yrs due to heavy painful periods. Had fibroids History of parathyroidectomy Status post partial lobectomy of lung mass in her right lung that was removed Denies cancer diagnosis History of carpal tunnel release of both wrists History of ovarian cystectomy History of tonsillectomy and adenoidectomy EGD - [facility] Dr. Orion Carreno Colonoscopy - [facility] (~07/2020) Dr Cortez Tobacco Smoking/Tobacco Use Status: Never Passive smoking exposure: No Alcohol Alcohol Intake: current Alcohol intake frequency: holidays/special occasions only Substance Use Substance use: Never Substance use type: does not use Prental History History 0 Para Hx # Term Pregnancies Multiple births Hx # Pregnancies Ectopic pregnancies AB induced Hx Number of Living Children AB spontaneous Vital Signs and Lab Results Vital Signs Most Recent Vital Signs in EMR: Most Recent Vital Signs Temp Pulse Resp BP Pulse Ox 36.4 C L 93 H 16 154/89 H 97 11/07/23 09:15 11/07/23 09:15 11/07/23 09:15 11/07/23 09:15 11/07/23 09:15 Point of Care Results Point of Care Results: Finger Stick Blood Glucose 188 11/07/23 09:23 Lab Results Blood Type / Crossmatch: No Data to Display Complete Blood Count: No Data to Display Complete Metabolic Panel: No Data to Display Liver Function Panel: No Data to Display Coagulation Panel: 2 No Data to Display Cardiac Panel: No Data to Display Arterial Blood Gas: No Data to Display Venous Blood Gas: No Data to Display Pancreas Panel: No Data to Display Thyroid Panel: No Data to Display Infectious Disease: No Data to Display Blood Cultures: No Data to Display Toxicology Panel: No Data to Display Anesthesia Assessment and Plan Anesthesia History Personal History: PONV Family History: No Family History of Anesthesia Complications Exercise Tolerance Exercise Tolerance: Metabolic Equivalents>4 Pertinent Negatives Pertinent Negatives: No Major Cardiovascular Symptoms or Complaints and No Major Pulmonary Symptoms or Complaints Cardiac & Pulmonary Exam Cardiac Exam: Normal S1/S2 Heart Sounds Pulmonary Exam: Clear Bilateral Breath Sounds Implantable Cardiac Device Does patient have a Pacemaker or an ICD?: No Airway Exam Known Difficult Airway: No Mallampati Class: 2 Mouth Opening: Normal (> 3cm) Thyromental Distance: Greater than 3 cm Neck Range of Motion: Full ROM Neck Circumference: Normal Teeth Condition: Normal Dentition ASA Classification ASA Score: ASA 3 Emergency Case?: No NPO Status NPO Status: NPO Clears >2 hours, Solids >8 hours Anesthesia Plan Resuscitation Status: Full Code Anesthesia Technique: General Anesthesia Airway Planned: Endotracheal Tube Pain Management: Surgeon and patient request nerve block Monitors Used: Standard Monitors
[2023-11-07] MEDS: ceFAZolin 2 GM/50 ML BAG IVPB (12:18)
[2023-11-07] MEDS: Bupivacaine 0.25% Pres-Free W/EPI 30 ML VIAL (12:51)
--- NOTE | 2023-11-07 12:51 | W.ANESNERVE ---
Nerve Block Single Injection Procedure Date and Time Date Performed: 11/07/23 Procedure Start: 12:27 Location Where Procedure Performed Procedure Location: Operating Room Procedure Stop: 12:33 Reason Performed: Postoperative Analgesia Requesting Provider: Liyah Huddleston Timeout Performed Timeout Performed: Yes Monitoring Used ECG, Blood Pressure, SpO2, ETCO2 and See EMR for corresponding vital signs Sterility Sterility: Hand Hygiene, Surgical Cap, Surgical Mask, Sterile Gloves and Chlorhexidine Sedation Given During Procedure Sedation Given (Indicate Dose Given): No Sedation given Patient Mental Status Patient Mental Status: Performed under general anesthesia Nerve Block 1st Nerve Block: Laterality: Bilateral Block Type: Rectus Sheath (Bilateral) Ultrasound Image Saved?: Yes Needle / Catheter Used: 100mm SonoPlex II Local Anesthetic Bolus (Indicate Dose Given): Half of Total block solution given into each side and Bupivacaine 0.25% Dose:: 40mL Additives (Indicate Dose Given): None Ultrasound: Sterile probe cover and gel used Nerve Stimulator: Not Used Paresthesia: None Procedure Tolerated: No Complications Procedure Outcome: Successful Performed By: Alyssa Cook
--- NOTE | 2023-11-07 13:52 | W.PM.OP ---
Date of service: 11/07/23 Time of Service: 13:52 Operative Note Operative Note DATE OF PROCEDURE: 11/07/23 PRE-OP DIAGNOSIS: Incisional hernia POST-OP DIAGNOSIS: same SURGEON: Liyah Koch BRIM SHAPER: Susanne Hurley ANESTHESIA TYPE: Local By Surgeon and General LMA/ETT Refer to Anesthesia Record ESTIMATED BLOOD LOSS: 5 PATHOLOGY: none sent COMPLICATIONS: None Patient was transported to: PACU Patient's condition: stable Procedure Description: : The patient is here today for for symptomatic incisional hernia and is here today for repair. Informed consent was obtained, explaining risks and benefits of the procedure including but not limited to bleeding, infection, pneumonia, blood clots, recurrence, chronic pain, and chronic numbness, reaction to mesh necessitating removal, complications of anesthesia and other unforetold complications. DESCRIPTION OF PROCEDURE: The patient was brought to the operating suite and placed in supine position. Anesthesia was administered per the Department of Anesthesia. Nerve block was done by anesthesia. Patient prepped and draped in the usual sterile fashion using ChloraPrep scrub solution. IV antibiotics were administered. Pause for the cause was done. A 2-inch linear/vertical incision was made superior to the umbilicus. The hernia sac was dissected off the fascia. The fascia was dissected off from surrounding tissue. There is omentum protruding. This was returned to the abdomen. It is not infarcted. The hernia defect is 4 cm. The sac is excised. A large 8 cm, Kerlix/Ventrilux patch was then placed in the defect, the defect was closed, oversewn with 2-0 vicryl, and was copiously irrigated. Deep tissue was approximated with 3-0 Vicryl and skin was approximated with 4-0 Monocryl in a running subcuticular fashion. Skin glue and sterile dressings are applied. The patient tolerated the procedure well without complications and was transferred to recovery room in stable condition. LIYAH KOCH, DO
[2023-11-07] MEDS: HYDROmorphone 2 MG/ML SYR IVP ×2 (14:16→14:25)
[2023-11-07] MEDS: Normal Saline Flush 10 ML SYR IV ×2 (14:17→16:08)
--- NOTE | 2023-11-07 15:23 | W.ANESPOSTOP ---
Postoperative Evaluation Date, Time and Location Date Performed: 11/07/23 Time Performed: 15:23 Patient Location: Day Surgery Unit Vital Signs Most Recent Imported Vital Signs: Most Recent Vital Signs Temp Pulse Resp BP Pulse Ox 36 C L 65 18 145/80 H 100 11/07/23 15:08 11/07/23 15:08 11/07/23 15:08 11/07/23 15:08 11/07/23 15:08 Pain Score Most Recent Pain Score: Most Recent Pain Score Pain Level 3 11/07/23 15:08 Assessment Mental Status: Awake (Alert & Oriented to Patient Baseline) Airway and Respiratory Function: Patent airway with normal (patient baseline) respiratory exam Cardiovascular Function: Hemodynamically Stable Hydration Status: Adequately Hydrated Nausea & Vomiting: No Nausea or Vomiting Pain: Pain is tolerable per patient Peripheral Nerve Block: Regional nerve block not resolved at time of post operative discharge
[2023-11-07] MEDS: Ketorolac 15 MG/ML VIAL IVP (16:08)
[2023-11-07] MEDS: traMADol 50 MG TAB PO (16:08)
== END 2023-11-07 16:42 | disposition home or self-care (01) ==
LOC: SUR 09:11
PROVIDERS: PCP Neuromusculoskeletal Medicine & OMM; Visit Provider Surgery
PROC: (CPT 49593; principal; 2023-11-07 11:30)
DX: K43.2 Incisional hernia without obstruction or gangrene (principal); I10 Essential (primary) hypertension
CPT/HCPCS: 49593; 76942; C1781; J0665; J0690; J1170; J1805; J1885; J2001; J2371; J2704

== ENCOUNTER → 2023-11-22 10:58 | Outpatient (BNVA) | payer MEDICARE, SELFPAY | PROVIDERS: PCP Neuromusculoskeletal Medicine & OMM; Referring Provider Neuromusculoskeletal Medicine & OMM; Visit Provider Surgery | DX: Z48.817 Encounter for surgical aftercare following surgery on the skin and subcutaneous tissue (principal) ==

== ENCOUNTER 2024-01-18 02:03 | Outpatient (CLI) | payer MEDICARE, SELFPAY ==
[2024-01-18 13:40] LABS: Hemoglobin A1C 7.4 % (<5.7)
== END 2024-01-18 02:04 | disposition home or self-care (01) ==
LOC: LOS 02:03
PROVIDERS: PCP Neuromusculoskeletal Medicine & OMM; Visit Provider Neuromusculoskeletal Medicine & OMM
DX: E11.9 Type 2 diabetes mellitus without complications (principal)
CPT/HCPCS: 36415; 83036

== ENCOUNTER 2024-04-29 09:21 | Outpatient (CLI) | payer MEDICARE, SELFPAY ==
[2024-04-29 12:45] LABS: Hemoglobin A1C 6.5 % (<5.7)
[2024-04-29 13:13] LABS: Calculated LDL 42 mg/dL (<100); Cholesterol 121 mg/dL (<200); HDL Cholesterol 62 mg/dL (40-60); TSH (W/Ref FT4) 2.79 uIU/mL (0.36-3.74); Triglyceride 87 mg/dL (<150)
[2024-04-29 23:22] LABS: T3,Free 3.8 pg/mL (2.8-5.3)
== END 2024-04-29 09:22 | disposition home or self-care (01) ==
PROVIDERS: PCP Neuromusculoskeletal Medicine & OMM; Visit Provider Neuromusculoskeletal Medicine & OMM
DX: E11.9 Type 2 diabetes mellitus without complications (principal); E03.9 Hypothyroidism, unspecified; E78.5 Hyperlipidemia, unspecified
CPT/HCPCS: 36415; 80061; 83036; 84443; 84481

== ENCOUNTER 2024-05-10 00:32 | Outpatient (CLI) | payer MEDICARE, SELFPAY ==
--- NOTE | 2024-05-10 10:39 | DI.MAMMO_ITS ---
Exam(s) MAMMO SCREENING EXAM: MAMMO SCREENING CLINICAL HISTORY: SCREENING,Z12.31. TECHNIQUE: Bilateral full field digital CC and MLO mammographic images were obtained with 3D tomosyn thesis and utilizing computer aided detection (CAD). COMPARISON: Prior mammograms were reviewed. FINDINGS: There is an asymmetric density seen in the breast medial of center on the CC view, 4 cm in from the n ipple and measuring approximately 10 x 5 mm. This is seen inferiorly in the left breast on the MLO v iew. Recommend additional imaging. Biopsy clip posteriorly in the left breast is again noted no new findings at this level. No new right breast findings. And asymmetric density inferiorly in the right breast is also unchange d from prior mammograms. There is no significant architectural distortion nor skin thickening-retraction. IMPRESSION: 1. Stable benign-appearing right breast findings. 2. New asymmetric density medial of center in left breast as seen on the CC view. Spot compression v iews of this new left breast finding plus ultrasound are recommended. BI-RADS Category 0 - Incomplete: Need additional imaging evaluation Breast Density - Category B - Scattered areas of fibroglandular density Breast density Category C or D implies that the patient has dense breast tissue. Dense breast tissue can make it harder to find cancer on a mammogram. Dense breast tissue is also associated with an incr eased risk of breast cancer. This information about the result of the mammogram report was provided to the patient to raise their awareness. Use this report when you speak with the patient about their risks for breast cancer, which includes their family history. At that time, you may recommend additional screening tests (Ultrasoun d or MRI) as these tests may add significant information. A negative radiographic report should not delay biopsy if a dominant or clinically suspicious mass is present. Up to ten percent of cancers are not identified on mammography. A negative report may reinforce clinical impression. Adenosis and dense breasts may obscure an underlying neoplasm. False positive reports average 6 to 10%. Patient will receive a letter notifying them of these results.
== END 2024-05-10 00:52 ==
LOC: DI 00:32
PROVIDERS: PCP Neuromusculoskeletal Medicine & OMM; Visit Provider Neuromusculoskeletal Medicine & OMM
DX: Z12.31 Encounter for screening mammogram for malignant neoplasm of breast (principal); R92.323 Mammographic fibroglandular density, bilateral breasts
CPT/HCPCS: 77063; 77067

== ENCOUNTER 2024-05-17 00:15 | Outpatient (CLI) | payer MEDICARE, SELFPAY ==
--- NOTE | 2024-05-17 | DI.US_ITS ---
Exam(s) MG MAMMO SCREEN CALL BACK UNI US BREAST LT COMPLETE EXAM: MG MAMMO SCREEN CALL BACK UNI and U/S breast LT complete CLINICAL HISTORY: 10 x 5 mm new asymmetric density medial of center, lt breast, 4 cm from. TECHNIQUE: Craniocaudal and mediolateral oblique Full Field Digital Mammography views of the left br east with Computer Aided Diagnosis followed by Tomosynthesis and complete left breast ultrasound. Al l 4 quadrants of the left breast were evaluated sonographically. The left axilla and left retroareol ar regions were also interrogated sonographically. COMPARISON: Comparison is made with prior examinations. FINDINGS: Mammography/Tomosynthesis: Masses/Architectural Distortion: The new asymmetric density in the lower inner quadrant of the left b reast persists on the additional views. Microcalcifictions: No suspicious pleomorphic-type are seen. Skin Thickening/Nipple Retraction: None. Complete left breast US: Echotexture: Normal appearance of the glandular tissue. Shadowing: No suspicious foci. Cyst: None. Solid lesions: None seen. Ductal dilation: None. IMPRESSION: 1. Persistent asymmetric density is seen on the mammogram. No corresponding abnormality is seen sono graphically. 2. An MRI of the breast is recommended for further evaluation in this patient. 3. The findings were discussed with the patient on the date of the examination. BI-RADS Category 0 - Incomplete: Need additional imaging evaluation Breast Density - Category B - Scattered areas of fibroglandular density Breast density Category C or D implies that the patient has dense breast tissue. Dense breast tissue can make it harder to find cancer on a mammogram. Dense breast tissue is also associated with an incr eased risk of breast cancer. This information about the result of the mammogram report was provided to the patient to raise their awareness. Use this report when you speak with the patient about their risks for breast cancer, which includes their family history. At that time, you may recommend additional screening tests (Ultrasoun d or MRI) as these tests may add significant information. A negative radiographic report should not delay biopsy if a dominant or clinically suspicious mass is present. Up to ten percent of cancers are not identified on mammography. A negative report may reinforce clinical impression. Adenosis and dense breasts may obscure an underlying neoplasm. False positive reports average 6 to 10%. Patient will receive a letter notifying them of these results.
== END 2024-05-17 00:35 ==
LOC: DI 00:16
PROVIDERS: PCP Neuromusculoskeletal Medicine & OMM; Visit Provider Neuromusculoskeletal Medicine & OMM
DX: Z12.31 Encounter for screening mammogram for malignant neoplasm of breast (principal); R92.8 Other abnormal and inconclusive findings on diagnostic imaging of breast
CPT/HCPCS: 76642; 77063; 77067